=== PATIENT | female | born 1965 | race Caucasian/White ===

== ENCOUNTER 2019-09-14 14:54 | Emergency (ER) | payer BC, MEDICARE, SELFPAY ==
--- NOTE | ~2019-09-14 | CT_ITS ---
EXAMINATION: CT abdomen pelvis w con EXAM DATE: 09/14/2019 16:54 INDICATION: Rectal pressure, constipation. TECHNIQUE: Spiral CT of the abdomen and pelvis was performed following intravenous injection of 100 m L Omnipaque 350. Axial, coronal and sagittal images were reviewed. The dose-length product (DLP) fo r this examination was 1668.54 mGy-cm. The exposure was tailored according to patient size (auto mA exposure control), and iterative reconstruction (ASIR) was used as additional dose reduction techniqu e. There is no prior study for comparison. FINDINGS: There is mild to moderate scattered colonic diverticulosis. There is an abscess in the pouc h of Alvin most likely diverticular in etiology. This measures about 4 x 6 cm in diameter, is mostl y gas-filled or with feculent appearing material, only small amount of fluid, suggests percutaneous c atheter placement might be of limited benefit. There is hepatic steatosis without suspicious focal lesion identified. Spleen, adrenal glands, pancre as are unremarkable. Gallbladder is unremarkable. No biliary obstruction. Portal and splenic veins are patent. Kidneys enhance symmetrically. There is no hydronephrosis. The uterus is anteverted and morphologically normal. The bladder is unremarkable. There is no retroperitoneal or pelvic lym phadenopathy. The appendix is normal. The stomach and small bowel are unremarkable. There is expected amount of c olonic stool. No free intraperitoneal gas. The heart is normal in size. There are no pericardial or pleural effusions. The lung bases are unremarkable. There are no osteoblastic or osteolytic les ions identified. IMPRESSION: 1. Product of Alvin abscess probably complication of acute diverticulitis. 2. Hepatic steatosis. Reviewed, dictated and finalized at location A.
[2019-09-14 15:01] VITALS: BP 187/87; PULSE 98; RESP 18; TEMP 36.6; O2SAT 100
--- NOTE | 2019-09-14 15:20 | PC.NURSE ---
Patient reports that she did have a small BM this morning, but she is complaining of a feeling of pressure in her rectum when she sits. She was having pain earlier but she did take ibuprofen 800mg at 1400. She tells me that her norm is to have loose stools due to IBS. She is not reporting other concerns at this time.
[2019-09-14 16:22] LABS: Basophils Absolute Auto 0.1 K/mm3 (0.0-0.1); Basophils Percent Auto 0.5 % (0.2-1.2); Eosinophils Absolute Auto 0.3 K/mm3 (0-0.3); Eosinophils Percent Auto 2.1 % (0-4.4); Hemoglobin 12.5 g/dL (12.0-15.0); Immature Granulocyte Absolute 0.13 K/mm3 (0.00-0.031); Immature Granulocyte Percent A 0.9 % (0-0.5); Lymphocytes Absolute Auto 1.45 K/mm3 (0.9-3.2); Lymphocytes Percent Auto 9.9 % (18.3-44.2); Mean Corpuscular HGB Conc 32.1 g/dl (32-36); Mean Corpuscular Hemoglobin 27.7 pg (26-34); Mean Corpuscular Volume 86.5 fl (80-100); Mean Platelet Volume 9.4 fl (7.4-10.4); Monocytes Absolute Auto 0.9 K/mm3 (0.1-0.6); Monocytes Percent Auto 6.3 % (2.6-8.5); Neutrophils Absolute Auto 11.7 K/mm3 (1.3-6.7); Neutrophils Percent Auto 80.3 % (45.5-73.1); Platelet Count Result 370 k/mm3 (150-375); Red Blood Count 4.51 M/mm3 (4.2-5.4); Red Cell Distribution Width 14.5 % (11.5-14.5); White Blood Count 14.6 K/mm3 (4.5-10.0)
--- NOTE | 2019-09-14 16:22 | ED.GENADULT ---
HPI - General Adult General Chief complaint: Unspecified Stated complaint: constipation Time Seen by Provider: 09/14/19 15:18 Source: patient Mode of arrival: ambulatory Limitations: no limitations History of Present Illness HPI narrative: Patient presents with chief complaint of abdominal pain that has been increasing since . Patient states she has a history of IBS and normally has diarrhea but this week she has had constipation. Patient states that she has constantly felt the urge to have a bowel movement but when she does in the bathroom her stools are very small and hard. Patient states that she has taken a stool softener and enema without relief of her symptoms. Patient denies a history of hemorrhoids. Patient states she has not had a colonoscopy. Patient states her IBS is managed by Dr. Mi. Patient denies taking any antidiarrheals. Patient states that she is concerned for diverticulitis. Patient denies fever, chills, nausea, vomiting. Related Data Home Medications Medication Instructions Recorded Confirmed amlodipine 09/14/19 duloxetine mg PO 09/14/19 enalapril maleate 09/14/19 hydrochlorothiazide 09/14/19 ibuprofen 09/14/19 levothyroxine 09/14/19 Allergies Allergy/AdvReac Type Severity Reaction Status Date / Time No Known Allergies Allergy Verified 09/14/19 15:06 Review of Systems Review of Systems: Narrative: CONSTITUTIONAL: Denies fever, chills, or sweats. EYES: Denies visual changes, redness, or discharge. ENT: Denies rhinorrhea, congestion, sore throat, or otalgia. CARDIOVASCULAR: Denies chest pain, palpitations, or edema. RESPIRATORY: Denies cough or dyspnea. GASTROINTESTINAL: Reports abdominal pain and constipation Denies nausea, vomiting, or diarrhea. GENITOURINARY: Denies dysuria or hematuria. SKIN: Denies rash or itching. MUSCULOSKELETAL: Denies back pain, joint pain, or myalgia. NEUROLOGIC: Denies headache, numbness, dizziness, or weakness. PSYCHIATRIC: Denies anxiety or depression. [facility] Past Medical History Medical History (Updated 09/14/19 @ 18:50 by Juno Steiner PA-C) Anxiety and depression Hypertension Hypothyroidism Social History Social History (Updated 09/14/19 @ 18:50 by Juno Steiner PA-C) Smoking status: Never smoker Substance use: never Gender identity (if verbalized by the patient): Female Exam Narrative: Exam Narrative: GENERAL: Well-appearing, well-nourished, and in no acute distress. HEAD: Normocephalic, atraumatic. EYES: PERRLA and EOMI. ENT: Nares clear, no rhinorrhea or epistaxis. Mucous membranes moist. Oropharynx without tonsillar hypertrophy exudate or other lesions. Bilateral TMs pearly harris nonbulging CHEST: Clear to auscultation. No respiratory distress. No wheezes rales or rhonchi HEART: Regular rate and rhythm. Normal peripheral pulses. ABDOMEN: Obese. Soft, umbilical tenderness, nondistended, normal active bowel sounds. EXTREMITIES: Normal range of motion. No edema. SKIN: Warm, dry, no rash. NEURO: No focal deficits. Alert and oriented x3. PSYCH: Normal mood and affect. Course Vital Signs Vital signs: Vital Signs Temperature 98 F 09/14/19 15:01 Pulse Rate 98 09/14/19 15:01 Respiratory Rate 18 09/14/19 15:01 Blood Pressure 187/87 H 09/14/19 15:01 Pulse Oximetry 100 09/14/19 15:01 Temperature 97.8 F 09/14/19 18:52 Pulse Rate 87 09/14/19 18:52 Respiratory Rate 20 09/14/19 18:52 Blood Pressure 155/61 H 09/14/19 18:52 Pulse Oximetry 99 09/14/19 18:52 Transfer Transfered to: [facility] Transportation: ALS Transfer rationale: colorectal surgeon management Accepting physician: Dr Hubert Estrada Medical Decision Making MDM Narrative Medical decision making narrative: Consult with Dr Moreno who states due to patients BMI he feels she will be better managed at [facility] or [facility]. Patient requests [facility]. Consult [facility] Colorectal surgeon Dr CARRASCO who accepts patient- Dr Pierce
[2019-09-14 16:24] LABS: Add Urine Microscopic? NO; Appearance Urine Clear (Clear); Bilirubin Urine Negative (Negative); Blood Urine Negative (Negative); Color Urine Yellow (Yellow); Glucose Urine UA Negative (Negative); Ketones Urine Negative (Negative); Leukocyte Esterase Ur Negative LEU/UL (Negative); Nitrate Urine Negative (Negative); Protein Urine Negative (Negative); Specific Grav Ur 1.012 (1.001-1.035); Urobilinogen Urine Negative mg/dL (<2.0)
[2019-09-14 16:33] LABS: Potassium 3.5 mmol/L (3.4-5.0)
[2019-09-14 16:34] LABS: Alanine Aminotransferase 71 U/L (4-35); Albumin Level 4.3 g/dL (3.5-5.1); Alkaline Phosphatase 152 U/L (38-126); Aspartate Amino Transferase 58 U/L (14-36); Bilirubin,Total 0.6 mg/dL (0.2-1.3); Blood Urea Nitrogen 12 mg/dL (7-17); Calcium 9.5 mg/dL (8.4-10.2); Carbon Dioxide 28 mmol/L (22-30); Chloride 100 mmol/L (98-107); Estimated CRCL calculation 128 ml/min; Estimated Glomerular Filt Rate > 60; Glucose 159 mg/dL (65-105); Lipase 56 U/L (23-300); Sodium 135 mmol/L (137-145)
--- NOTE | 2019-09-14 16:46 | PC.NURSE ---
Patient to CT at this time.
[2019-09-14 17:47] VITALS: BP 161/83; PULSE 88; RESP 18; TEMP 36.5; O2SAT 98
[2019-09-14 18:52] VITALS: BP 155/61; PULSE 87; RESP 20; TEMP 36.6; O2SAT 99
== END 2019-09-14 19:51 | disposition short-term general hospital (02) ==
PROVIDERS: Physician Assistant; Emergency Provider Emergency Medicine; PCP Family Medicine
DX: K57.80 Diverticulitis of intestine, part unspecified, with perforation and abscess without bleeding (principal); E03.9 Hypothyroidism, unspecified; K58.9 Irritable bowel syndrome, unspecified
CPT/HCPCS: 36415; 74177; 80053; 81003; 81025; 83690; 85025; 96365; 99285; J2543; Q9967

== ENCOUNTER 2020-09-24 17:14 | Outpatient (CLI) | payer BC, MEDICARE, SELFPAY | END 2020-09-24 17:15 | disposition home or self-care (01) | LOC: ANHCOVIDVC 17:14 | PROVIDERS: PCP Family Medicine | DX: Z23 Encounter for immunization (principal) | CPT/HCPCS: 0001A; 91300 ==

== ENCOUNTER 2020-10-22 16:24 | Outpatient (CLI) | payer OTHER, SELFPAY | END 2020-10-22 16:25 | disposition home or self-care (01) | PROVIDERS: PCP Family Medicine | DX: Z23 Encounter for immunization (principal) | CPT/HCPCS: 0001A; 0002A; 91300 ==

== ENCOUNTER 2021-06-25 07:14 | Inpatient (IN) | payer BC, MEDICARE, SELFPAY ==
[2021-06-25] VITALS (7 sets, daily range): BP systolic 134–154; BP diastolic 57–88; PULSE 80–99; RESP 14–20; TEMP 36.1–39.1; O2SAT 91–100
--- NOTE | ~2021-06-25 | XR_ITS ---
XR abdomen obstructive series 06/27/2021 08:43 Indication: Abdomen pain. Ileus. Procedure: Supine and upright views of abdomen Comparison: CT dated 06/27/2021 Findings: There is free intraperitoneal air underneath the right diaphragm. Bowel gas pattern is nons pecific without definite obstruction. No abnormal calcifications. There is residual contrast in the b ladder. There is abnormal gas in the area of the cecum which likely corresponds to abscess noted on p rior CT examination. Impression: 1: Free intraperitoneal air, consistent with bowel perforation. 2: Atypical gas collection in the right mid abdomen adjacent to the expected location of the sacrum, likely corresponding to abscess seen in recent CT examination. Reviewed, dictated and finalized at location A. NICAL CLERK Impression: 1: Free intraperitoneal air, consistent with bowel perforation. 2: Atypical gas collection in the right mid abdomen adjacent to the expected lo cation of the sacrum, likely corresponding to abscess seen in recent CT examina tion.
--- NOTE | ~2021-06-25 | CT_ITS ---
EXAMINATION: CT guide absc cath placement DATE: 07/04/2021 15:08 INDICATION: Abscess in right paracolic gutter. TECHNIQUE: The procedure including the risks, benefits, and alternatives was discussed with the patie nt. Risks discussed included bleeding and infection. The patient understood the risks and benefits an d agreed to proceed. The skin overlying the abdomen was prepped and draped in usual sterile fashion. Anesthetic was administered with 1% lidocaine subcutaneously. An 18 gauge trochar needle was inserte d into the right paracolic gutter abscess with CT guidance. The needle was exchanged over a wire for 6 [place], 8 [place], 10 [place], and 12 [place] dilators and then for a 12 [place] pigtail catheter. The catheter was stitched to the skin, and a sterile dressing was applied. The mA was adjusted according to patient size. Iterative reconstruction technique was employed. The dose-length product was 185.34 mGy-cm. There were no immediate complications. FINDINGS: CT images demonstrate the catheter within the abscess in right paracolic gutter. 10 mL flui d was aspirated for testing. IMPRESSION: 1. Successful CT-guided right paracolic gutter abscess drainage. 2. 10 mL yellow fluid was sent for aerobic and anaerobic cultures. Reviewed, dictated and finalized at location A. RGICAL MUSIC DIRECTOR
--- NOTE | ~2021-06-25 | CT_ITS ---
EXAMINATION: CT abdomen pelvis w con DATE: 06/25/2021 09:07 INDICATION: Abdominal pain. TECHNIQUE: Computed tomography (CT) of the abdomen and pelvis was performed with 100 mL Omnipaque 350 intravenous contrast. Automated exposure control and iterative reconstruction technique were employe d. The dose-length product was 1509.89 mGy-cm. COMPARISON: CT abdomen and pelvis 09/14/2019 FINDINGS: The visualized portions of the lung bases demonstrate mild atelectasis. No pleural effusion . The heart size is normal. No pericardial effusion. The liver, gallbladder, spleen, pancreas, adrena l glands, and kidneys are normal. There is wall thickening of the sigmoid colon in an area with persi stently small caliber. There is perforation of the sigmoid colon at the site of a diverticula at the proximal aspect of the stricture. There is trace ascites. There is fat stranding in the abdomen predo minantly in the right lower quadrant, consistent with inflammation. There are no dilated loops of bow el. The appendix is normal. There are no pathologically enlarged lymph nodes. There is mild thoracolu mbar spondylosis. IMPRESSION: 1. Acute perforated sigmoid diverticulitis proximal to a chronic stricture of the sigmoid colon. The stricture may be secondary to chronic diverticulitis or less likely malignancy. Reviewed, dictated and finalized at location A. RITY INCIDENT HANDLER IMPRESSION: 1. Acute perforated sigmoid diverticulitis proximal to a chronic stricture of t he sigmoid colon. The stricture may be secondary to chronic diverticulitis or l ess likely malignancy.
--- NOTE | ~2021-06-25 | XR_ITS ---
EXAMINATION: XR chest 2V DATE: 07/02/2021 11:16 INDICATION: Cough TECHNIQUE: frontal and lateral views of the chest were obtained. COMPARISON: Chest radiograph dated 01/17/2019 FINDINGS: Opacities at the posterior left lower lung zone consistent with small pleural effusion with associate d atelectasis and/or pneumonia. Right lung is clear. No pulmonary edema, pneumothorax or right-sided pleural effusion. The cardiomediastinal silhouette is normal. Lower thoracic spondylosis. IMPRESSION: 1. Small left pleural effusion with left basilar atelectasis and/or pneumonia. Reviewed, dictated and finalized at location H. E BLOCK SPLITTER
--- NOTE | ~2021-06-25 | XR_ITS ---
XR abdomen NG/feed tube insert INDICATION: Evaluate NG tube position. TECHNIQUE: Limited KUB perform for evaluating NG tube . COMPARISON: No prior studies for comparison. FINDINGS: NG tube tip in the stomach. Visualized bowel gas pattern is unremarkable. IMPRESSION: 1: NG tube tip in the stomach. Reviewed, dictated and finalized at location A. UNITY ENGAGEMENT COORDINATOR
--- NOTE | ~2021-06-25 | CT_ITS ---
EXAMINATION: CT abdomen pelvis w con DATE: 06/27/2021 06:19 INDICATION: Abdominal pain. TECHNIQUE: Computed tomography (CT) of the abdomen and pelvis was performed with 100 mL Omnipaque 350 intravenous contrast. Automated exposure control and iterative reconstruction technique were employe d. The dose-length product was 1684.61 mGy-cm. COMPARISON: CT abdomen and pelvis 06/25/2021 FINDINGS: The visualized portions of the lung bases demonstrate mild atelectasis. No pleural effusion . The heart size is normal. No pericardial effusion. The liver is normal. The gallbladder is distende d, likely secondary to fasting. The spleen, pancreas, adrenal glands, and kidneys are normal. There i s a stricture of the sigmoid colon with wall thickening. There is perforation of the sigmoid colon at the proximal aspect of the stricture. There are scattered diverticula in the colon. The appendix is normal. There is a large volume of free intraperitoneal gas. There is a 12.4 x 5.8 x 9.0 cm abscess i n right paracolic gutter that is 40% fluid and 60% gas. There is a small volume of ascites in other a reas. There is mild retroperitoneal lymphadenopathy, likely reactive. There is mild thoracolumbar spo ndylosis. IMPRESSION: 1. Acute perforated sigmoid diverticulitis proximal to a chronic stricture of the sigmoid colon with worsened large volume of free intraperitoneal gas and 12.4 x 5.8 x 9.0 cm abscess in right paracolic gutter. The stricture may be secondary to chronic diverticulitis or less likely malignancy. 2. Small volume of ascites. 3. Mild retroperitoneal lymphadenopathy, likely reactive. Reviewed, dictated and finalized at location A. TEACHER IMPRESSION: 1. Acute perforated sigmoid diverticulitis proximal to a chronic stricture of t he sigmoid colon with worsened large volume of free intraperitoneal gas and 12. 4 x 5.8 x 9.0 cm abscess in right paracolic gutter. The stricture may be second cristine to chronic diverticulitis or less likely malignancy. 2. Small volume of ascites. 3. Mild retroperitoneal lymphadenopathy, likely reactive.
--- NOTE | ~2021-06-25 | CT_ITS ---
EXAMINATION: CT abdomen pelvis w con DATE: 07/03/2021 13:54 INDICATION: Diverticulitis. Leukocytosis. TECHNIQUE: Computed tomography (CT) of the abdomen and pelvis was performed with 100 mL Omnipaque-350 intravenous contrast. Automated exposure control and iterative reconstruction technique were employe d. The dose-length product was 1656.77 mGy-cm. COMPARISON: 07/28/2020 FINDINGS: Small left pleural effusion with mild dependent atelectasis in bilateral lower lobes, left greater th an right. Heart size is normal. No pericardial or pleural effusion. Liver, gallbladder, spleen, pancr eas, bilateral adrenal glands and kidneys are normal. Postoperative change of recent partial sigmoide ctomy with left lower quadrant and colostomy and residual Tanner's pouch in the pelvis. Small bowel and appendix are normal. No bowel obstruction. 8.1 x 4.2 x 3.7 cm loculated fluid collection with min imal internal gas along the right paracolic gutter consistent with likely small abscess. A second sma ller loculated gas and fluid collection consistent with abscess measuring 5.4 x 2.9 x 3.8 cm more cau babita in the right pelvis which also appears to contain the right ovary which occupies a significant po rtion of the fluid collection. Bladder, anteverted uterus and left adnexa are unremarkable. Small leodan unt of perihepatic ascites. No pathologically enlarged abdominal or pelvic lymphadenopathy. There is soft tissue edema at the lateral left and right abdominal wall. Mild lumbar and lower thoracic spond ylosis. IMPRESSION: 1. Postoperative change of recent sigmoidectomy with Tanner's pouch and left lower quadrant and colo stomy. 2. 8.1 x 4.2 x 3.7 cm likely abscess at the inferior aspect of the right paracolic gutter. The right ovary appears to occupy a significant portion of a second smaller 5.4 x 2.9 x 3.8 cm possible abscess cavity in the right pelvis. Reviewed, dictated and finalized at [facility]. TRATOR IMPRESSION: 1. Postoperative change of recent sigmoidectomy with Tanner's pouch and left l ower quadrant and colostomy. 2. 8.1 x 4.2 x 3.7 cm likely abscess at the inferior aspect of the right paraco lic gutter. The right ovary appears to occupy a significant portion of a second smaller 5.4 x 2.9 x 3.8 cm possible abscess cavity in the right pelvis.
[2021-06-25] MEDS: SODIUM CHLORIDE 0.9% IV 1,000 ML 999 ML IV CONT ×2 (08:09→10:42)
[2021-06-25] MEDS: ONDANSETRON INJ 4 MG/2 ML VIAL IV PUSH (08:10)
[2021-06-25] MEDS: HYDROmorphone HCL INJ (*CRX) 1 MG/ML SYR 0.5 MG IV PUSH ×5 (08:11→21:05)
[2021-06-25 08:23] LABS: Basophils Absolute Auto 0.1 K/mm3 (0.0-0.1); Basophils Percent Auto 0.5 % (0.2-1.2); Eosinophils Absolute Auto 0.2 K/mm3 (0-0.3); Eosinophils Percent Auto 1.2 % (0-4.4); Hematocrit 42.7 % (37.0-47.0); Hemoglobin 13.7 g/dL (12.0-15.0); Immature Granulocyte Absolute 0.15 K/mm3 (0.00-0.031); Immature Granulocyte Percent A 0.9 % (0-0.5); Lymphocytes Absolute Auto 1.61 K/mm3 (0.9-3.2); Lymphocytes Percent Auto 9.9 % (18.3-44.2); Mean Corpuscular HGB Conc 32.1 g/dl (32-36); Mean Corpuscular Hemoglobin 27.6 pg (26-34); Mean Corpuscular Volume 85.9 fl (80-100); Mean Platelet Volume 9.2 fl (7.4-10.4); Monocytes Absolute Auto 0.8 K/mm3 (0.1-0.6); Monocytes Percent Auto 5.2 % (2.6-8.5); Neutrophils Absolute Auto 13.4 K/mm3 (1.3-6.7); Neutrophils Percent Auto 82.3 % (45.5-73.1); Platelet Count Result 391 k/mm3 (150-375); Red Blood Count 4.97 M/mm3 (4.2-5.4); Red Cell Distribution Width 13.9 % (11.5-14.5); White Blood Count 16.2 K/mm3 (4.5-10.0)
[2021-06-25 08:38] LABS: Alanine Aminotransferase 36 U/L (4-35); Albumin Level 4.6 g/dL (3.5-5.1); Alkaline Phosphatase 213 U/L (38-126); Anion Gap 12 mmol/L (8-16); Aspartate Amino Transferase 23 U/L (14-36); Blood Urea Nitrogen 12 mg/dL (7-17); Calcium 9.9 mg/dL (8.4-10.2); Carbon Dioxide 27 mmol/L (22-30); Chloride 94 mmol/L (98-107); Estimated CRCL calculation 124 ml/min; Estimated Glomerular Filt Rate > 60; Glucose 395 mg/dL (65-110); Lipase 72 U/L (23-300); Potassium 4.1 mmol/L (3.4-5.0); Sodium 133 mmol/L (137-145)
--- NOTE | 2021-06-25 09:56 | ED.ABDPAIN ---
HPI - Abdominal Pain General Chief Complaint: Abdominal Pain Stated Complaint: Pain Lower Right Side Time Seen by Provider: 06/25/21 07:49 Source: patient and family Mode of arrival: ambulatory Limitations: no limitations History of Present Illness HPI narrative: Right lower quadrant pain 3 days ago, constant, no radiation, patient denies any fever, chills, nausea, vomiting, diarrhea, constipation, urinary symptoms. Patient reports increased frequency of urination for the last few months. Last time was seen by a physician over 1 year ago. Patient does not smoke or drink or uses drugs. History of recurrent diverticulitis. Related Data Home Medications Medication Instructions Recorded Confirmed cholecalciferol (vitamin D3) 50 2,000 unit PO DAILY 06/04/19 mcg (2,000 unit) tablet cyanocobalamin (vitamin B-12) 2,500 mcg PO DAILY 06/04/19 2,500 mcg tablet magnesium 250 mg PO DAILY 06/25/21 Allergies Allergy/AdvReac Type Severity Reaction Status Date / Time No Known Allergies Allergy Verified 06/25/21 07:22 Review of Systems Review of Systems: CONSTITUTIONAL: Denies fever, chills, or sweats. EYES: Denies visual changes, redness, or discharge. ENT: Denies rhinorrhea, congestion, sore throat, or otalgia. CARDIOVASCULAR: Denies chest pain, palpitations, or edema. RESPIRATORY: Denies cough or dyspnea. GASTROINTESTINAL: Denies abdominal pain, nausea, vomiting, or diarrhea. GENITOURINARY: Denies dysuria or hematuria. SKIN: Denies rash or itching. MUSCULOSKELETAL: Denies back pain, joint pain, or myalgia. NEUROLOGIC: Denies headache, numbness, or weakness. PSYCHIATRIC: Denies anxiety or depression. [facility] Past Medical History Medical History Abnormal fasting glucose Acute diverticulitis Anxiety and depression Chronic bilateral low back pain without sciatica Chronic depression Chronic neck pain Essential (primary) hypertension Fibromyalgia GERD (gastroesophageal reflux disease) Hypertension Hypothyroidism Hypothyroidism, unspecified Irritable bowel syndrome with diarrhea Mixed hyperlipidemia Osteopenia after menopause Vitamin B12 deficiency anemia Vitamin D deficiency, unspecified Family History Family History Grandparent Family history of malignant neoplasm Social History Social History Smoking status: Never smoker Alcohol intake: current Substance use: never Gender identity (if verbalized by the patient): Female Exam Narrative: General appearance: Well-developed, well-nourished Skin: Normal color Head: Normocephalic, nontraumatic Eyes: Clear conjunctiva ENT: Oropharynx normal, ears normal, nose normal Neck: Supple, nontender Chest and respiratory: Airway patent, no respiratory distress, no accessory muscle use Heart: Regular rate/rhythm Abdomen: Soft, severe tenderness right lower quadrant, positive guarding, no rebound r, no organomegaly, quiet bowel sounds Vascular: Normal peripheral pulses, normal capillary refill. Musculoskeletal: Normal range of motion, nontender back Neurologic: Alert and oriented ?3, [employer] is normal as tested, no gross motor deficit Course Course Emergency Course: Improving, stable Consultations Consultation #1: Dr. [place] Date: 06/25/21 Time: 10:22 Vital Signs Vital signs: Vital Signs Temperature 36.1 C L 06/25/21 07:20 Pulse Rate 99 06/25/21 07:20 Respiratory Rate 18 06/25/21 07:20 Blood Pressure 154/88 H 06/25/21 07:20 Pulse Oximetry 100 06/25/21 07:20 Temperature 36.1 C L 06/25/21 07:20 Pulse Rate 99
[2021-06-25 10:32] LABS: Glucose Point of Care 317 mg/dl (65-105)
[2021-06-25] MEDS: INSULIN HUMAN REGULAR (*BKC) 100 UNITS/ML 10 UNITS IV PUSH (10:39)
[2021-06-25] MEDS: SODIUM CHLORIDE 0.9% IV 1,000 ML 150 ML IV CONT ×2 (13:00→21:06)
--- NOTE | 2021-06-25 15:06 | PM.CNGS ---
Assessment and Plan Assessment and plan (1) Diverticulitis of colon with perforation: Code(s): K57.20 - Diverticulitis of large intestine with perforation and abscess without bleeding Status: Acute Assessment and Plan: conservative mgmt c IV abx, bowel rest, serial exams (2) Acute hyperglycemia: Code(s): R73.9 - Hyperglycemia, unspecified Status: Acute Assessment and Plan: likely undiagnosed diabetic, mgmt per primary team (3) Stricture of sigmoid colon: Code(s): K56.699 - Other intestinal obstruction unspecified as to partial versus complete obstruction Status: Acute Assessment and Plan: will need further investigation in the future beginning c likely endoscopy History of Present Illness Consult details Consult date: 06/25/21 Reason for consult: abdominal pain Requesting physician: Jeffry Champion MD Narrative: The patient is a 56-year-old female presenting to the emergency department complaining of severe lower abdominal pain, right greater than left. The patient reports the pain has been persistent over the last 3 days without any improvement. The patient report no associated symptoms, although she has had a poor appetite. The patient report similar episodes in the past related to known diverticular disease. Review of Systems Constitutional: Constitutional: Denies anorexia, Denies chills, Reports fatigue, Denies fever(s), Reports lethargy, Denies malaise, Denies night sweats, Reports poor appetite, Denies weakness, Denies weight gain and Denies weight loss Eyes: Eyes: Reports no additional eye complaints ENT: Reports system reviewed and no additional complaints, except as documented Cardiovascular: Cardiovascular: Reports no additional cardiovascular complaints Respiratory: Respiratory: Reports no additional respiratory complaints Gastrointestinal: Gastrointestinal: Reports as per HPI, Reports abdominal pain, Denies belching, Denies bloating, Denies change in bowel habits, Denies change in stool character, Denies constipation, Reports GI cramping, Reports loose stools, Denies nausea and Denies vomiting Genitourinary: Genitourinary: Reports no additional female genitourinary complaints Musculoskeletal: Musculoskeletal: Reports no additional musculoskeletal complaints Integumentary/Breasts: Skin/Breast: Reports system reviewed and no additional complaints, except as docu Neurologic: Reports system reviewed and no additional complaints, except as documented Psychiatric: Psychiatric: Reports no additional psychiatric complaints Endocrine: Endocrine: Reports no additional endocrine complaints Hematologic/Lymphatic: Hematologic/Lymphatic: Reports no additional hematologic/lymphatic complaints Allergic/Immunologic: Allergic/Immunologic: Reports no additional allergic/immunologic complaints PMFSH Past Medical History Medical History Abnormal fasting glucose Acute diverticulitis Anxiety and depression Chronic bilateral low back pain without sciatica Chronic depression Chronic neck pain Essential (primary) hypertension Fibromyalgia GERD (gastroesophageal reflux disease) Hypertension Hypothyroidism Hypothyroidism, unspecified Irritable bowel syndrome with diarrhea Mixed hyperlipidemia Osteopenia after menopause Vitamin B12 deficiency anemia Vitamin D deficiency, unspecified Family History Family History Grandparent Family history of malignant neoplasm Social History Social History Smoking status: Never smoker Alcohol intake: current Substance use: never Gender identity (if verbalized by the patient): Female Comments Surgical history - pt denies previous abd surgeries Meds Home Medications and Allergies Home Medications Medication Instructions Recorded Confirmed Type cholecalcifero
--- NOTE | 2021-06-25 15:15 | PC.NURSE ---
Patient transferred inhouse via wheelchair with fluids infusing. Patient called to Eileen GEORG[facility]. Patient denies needs at this time.
--- NOTE | 2021-06-25 19:35 | PM.IMHP ---
H&P: HPI History of Present Illness Date/Time: 06/25/21 1430 this is a 56-year-old female patient who has a history of diverticulosis. Her last colonoscopy was on 12/11/2019 the patient was noted to have diverticulosis and polyps were removed at that time they were benign. The patient came to the emergency room with complaints of right lower abdominal pain for at least 3 days it has been constant no radiation. No fever chills or nausea or vomiting. No constipation or urinary symptoms. The patient stated that she has been having urinary frequency for the last few months. She does not smoke or drink or use drugs. The patient stated she has had diverticulitis in the past and was treated outpatient with antibiotics. Her white count was noted to be 16.2 today. Sodium 133. The patient stated she is not diabetic and her blood sugar was 395 and then 317 today. Surgery has been consulted. She was started on Zosyn and IV fluids. She was also given Dilaudid. Abdominal pelvis CT was read as acute perforated sigmoid diverticulitis proximal to a chronic stricture of the sigmoid colon. The stricture may be secondary to chronic diverticulitis or least likely malignancy. The patient remains NPO. The patient is being admitted to inpatient services on the date of service of 06/25/2021. Chief Complaint: Abdominal pain Review of Systems Review of Systems: All systems reviewed & are unremarkable except as noted in HPI and below Constitutional: Constitutional: Reports as per HPI and Reports no additional constitutional complaints Eyes: Eyes: Reports as per HPI and Reports no additional eye complaints ENT: Reports system reviewed and no additional complaints, except as documented and Reports Normal hearing present Cardiovascular: Cardiovascular: Reports no additional cardiovascular complaints Respiratory: Respiratory: Reports no additional respiratory complaints and Reports no additional respiratory complaints Gastrointestinal: Gastrointestinal: Reports as per HPI and Reports no additional gastrointestinal complaints Musculoskeletal: Musculoskeletal: Reports no additional musculoskeletal complaints Integumentary/Breasts: Skin/Breast: Reports system reviewed and no additional complaints, except as docu and Reports as per HPI Neurologic: Reports system reviewed and no additional complaints, except as documented, Reports as per HPI and Reports Normal hearing present Psychiatric: Psychiatric: Reports no additional psychiatric complaints and Reports as per HPI Endocrine: Endocrine: Reports no additional endocrine complaints Hematologic/Lymphatic: Hematologic/Lymphatic: Reports no additional hematologic/lymphatic complaints Allergic/Immunologic: Allergic/Immunologic: Reports no additional allergic/immunologic complaints [facility] Past Medical History Medical History Abnormal fasting glucose Acute diverticulitis Anxiety and depression Chronic bilateral low back pain without sciatica Chronic depression Chronic neck pain Essential (primary) hypertension Fibromyalgia GERD (gastroesophageal reflux disease) Hypertension Hypothyroidism Hypothyroidism, unspecified Irritable bowel syndrome with diarrhea Mixed hyperlipidemia Osteopenia after menopause Vitamin B12 deficiency anemia Vitamin D deficiency, unspecified Surgical History Surgical History (Updated 06/25/21 @ 19:48 by Mary Rhodes NP) H/O shoulder surgery joan History of back surgery Spinal fusion Hx of rectal polypectomy Family History Family History Grandparent Family history of malignant neoplasm Social History Social History (Updated 06/25/21 @ 19:49 by Mary Rhodes NP) Social History: The patient is a lifelong nonsmoker. 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 She is on disability. She has 1 child. Bouchra
[2021-06-25 21:45] LABS: Glucose Point of Care 256 mg/dl (65-105)
[2021-06-26] MEDS: HYDROmorphone HCL INJ (*CRX) 1 MG/ML SYR 0.5 MG IV PUSH ×4 (00:06→09:34)
[2021-06-26 00:10] LABS: Glucose Point of Care 269 mg/dl (65-105)
[2021-06-26] MEDS: SODIUM CHLORIDE 0.9% IV 1,000 ML 150 ML IV CONT ×3 (05:23→20:15)
[2021-06-26] MEDS: LEVOTHYROXINE SODIUM INJ 100 MCG/5 ML VIAL IV PUSH (05:41)
[2021-06-26 05:59] LABS: Glucose Point of Care 270 mg/dl (65-105)
[2021-06-26 06:00] VITALS: BP 163/60; PULSE 93; RESP 16; TEMP 37.6; O2SAT 93
[2021-06-26] MEDS: INSULIN ASPART (*BKC) 100 UNITS/ML SUB-Q ×2 (06:30→11:46)
[2021-06-26] MEDS: hydrALAZINE HCL 20 MG/ML VIAL 10 MG IV PUSH (06:30)
[2021-06-26 06:57] LABS: Basophils Absolute Auto 0.1 K/mm3 (0.0-0.1); Basophils Percent Auto 0.3 % (0.2-1.2); Eosinophils Absolute Auto 0.1 K/mm3 (0-0.3); Eosinophils Percent Auto 0.6 % (0-4.4); Immature Granulocyte Absolute 0.16 K/mm3 (0.00-0.031); Lymphocytes Absolute Auto 1.33 K/mm3 (0.9-3.2); Lymphocytes Percent Auto 8.3 % (18.3-44.2); Mean Corpuscular HGB Conc 31.6 g/dl (32-36); Mean Corpuscular Hemoglobin 26.9 pg (26-34); Mean Corpuscular Volume 85.2 fl (80-100); Mean Platelet Volume 9.1 fl (7.4-10.4); Monocytes Percent Auto 6.3 % (2.6-8.5); Neutrophils Absolute Auto 13.4 K/mm3 (1.3-6.7); Neutrophils Percent Auto 83.5 % (45.5-73.1); Platelet Count Result 388 k/mm3 (150-375); Red Blood Count 4.46 M/mm3 (4.2-5.4); Red Cell Distribution Width 14.1 % (11.5-14.5); White Blood Count 16.1 K/mm3 (4.5-10.0)
[2021-06-26 07:10] LABS: Anion Gap 10 mmol/L (8-16); Blood Urea Nitrogen 9 mg/dL (7-17); Calcium 8.8 mg/dL (8.4-10.2); Carbon Dioxide 22 mmol/L (22-30); Chloride 98 mmol/L (98-107); Cholesterol 183 mg/dL (0-200); Estimated CRCL calculation 124 ml/min; Estimated Glomerular Filt Rate > 60; Glucose 305 mg/dL (65-110); HDL Direct 30 mg/dL; Potassium 4.1 mmol/L (3.4-5.0); Sodium 130 mmol/L (137-145); Triglycerides 139 mg/dL (<150)
[2021-06-26 07:21] LABS: LDL Cholesterol Direct 108 mg/dL
[2021-06-26 08:32] LABS: Hemoglobin A1C 11.9 % (<5.7)
--- NOTE | 2021-06-26 08:50 | PM.IMPN ---
Progress Note: A&P Assessment and Plan (1) Diverticulitis of colon with perforation: Code(s): K57.20 - Diverticulitis of large intestine with perforation and abscess without bleeding Status: Acute Assessment and Plan: The patient remains NPO surgery has been consulted. Check lactic acid reflux. White count is 16.2. NPO now. No Nausea or vomiting or reflux today. severe point tenderness to her right upper quadrant and right lateral side. last BM was yesterday morning. defer to Gen. Surgery, prefer her to stay NPO with minimal to few ice chips, CT showed colon with perforation and sigmoid stricture. continue her on IV Zosyn. WBC 16.1 today. Ordered urine and blood cultures. Ordered occult stool. PRN pain meds IV ordered. Gen. Surgery recommends conservative medical management: IV antibiotics, bowel rest, and monitoring. (2) Stricture of sigmoid colon: Code(s): K56.699 - Other intestinal obstruction unspecified as to partial versus complete obstruction Status: Acute Assessment and Plan: Patient may need a follow-up with GI specialist for endoscopy and/or colonoscopy. Appreciate GI consult for endoscopy F/U. occult stool ordered. strict I/Os NPO now. No Nausea or vomiting or reflux today. (3) Acute hyperglycemia: Code(s): R73.9 - Hyperglycemia, unspecified Status: Acute Assessment and Plan: New onset diabetes. Check A1c. clinical nurse educator has already been consulted. A1C was 11.9. dietitian as well sliding scale insulin add metformin later on as the patient is NPO at this time. Glucose checks were in the 200s, so I increased her Sliding Scale aspart dosing from low to Moderate level. Will need to add metformin prior to discharge, but not tolerating orals well at this time. (4) Hypothyroidism: Code(s): E03.9 - Hypothyroidism, unspecified Status: Acute Assessment and Plan: Continue with thyroid medicine check thyroid level. We will do thyroid level in the IV half the dose. restart oral levothyroxine when able to take PO again. ordered PAGE [place] (5) Hypertension: Code(s): I10 - Essential (primary) hypertension Status: Acute Assessment and Plan: Patient is NPO at this time p.r.n. hydralazine. restart home HCTZ and enalapril and amlodipine when possible. monitor VS (6) Anxiety and depression: Code(s): F41.9 - Anxiety disorder, unspecified; F32.9 - Major depressive disorder, single episode, unspecified Status: Acute Assessment and Plan: Ativan p.r.n.. restart home meds amitriptline when possible. The patient is NPO. (7) Mixed hyperlipidemia: Code(s): E78.2 - Mixed hyperlipidemia Status: Acute Assessment and Plan: Patient is NPO at this time. restart cardiac diet when possible. (8) Fibromyalgia: Code(s): M79.7 - Fibromyalgia Status: Acute Assessment and Plan: Continue current pain medicines no concern at this time repositioning and moving about hospital room without any difficulty or complaints. Subjective Date/time seen: 06/26/21 08:50 Leah is feeling better today overall. NPO now. She continues to have severe point tenderness to her right upper quadrant and right lateral side. She stated that her last BM was yesterday morning. She is hoping to get some ice chips today. I will defer to Gen. Surgery, prefer her to stay NPO with minima to few ice chips, as the CT showed colon with perforation and sigmoid stricture. I called and discussed the patient with Dr. Dallas, he will re-evaluate her later this afternoon. Will continue her on IV Zosyn. WBC 16.1 today. Ordered urine and blood cultures. Ordered occult stool. PRN pain meds IV ordered. Gen. Surgery recommends conservative medical management: IV antibiotics, bowel rest, and monitoring. Appreciate GI consult for endoscopy F/U. No Nausea or vomiting or reflux today. She stated to me that she i
[2021-06-26 08:58] LABS: Free T4 Free Thyroxine Reflex 1.67 ng/dL (0.78-2.19)
--- NOTE | 2021-06-26 09:33 | PM.PNGS ---
Progress Note: A&P Assessment and Plan (1) Diverticulitis of colon with perforation: Code(s): K57.20 - Diverticulitis of large intestine with perforation and abscess without bleeding Status: Acute Assessment and Plan: exam improved, will start clears, cont IV abx, encourage OOB (2) Stricture of sigmoid colon: Code(s): K56.699 - Other intestinal obstruction unspecified as to partial versus complete obstruction Status: Acute Assessment and Plan: will need further workup as outpt c endoscopy, likely diverticular Subjective Subjective Date/Time Seen: 06/26/21 09:33 feels better this am, decreased pain, hungry Review of Systems Review of Systems: All systems reviewed & are unremarkable except as noted in HPI and below Exam Const: General: cooperative, comfortable and no acute distress Resp: Auscultation: clear to auscultation bilaterally Cardio: Rate: regular rate Rhythm: regular rhythm GI: Inspection: normal to inspection and distended GI Palp: Yes Soft to palpation, Yes Tenderness to palpation present (GI), No Guarding due to palpation present (GI) and No Rigid due to palpation Other: mod TTP RLQ Objective Data Vital Signs Vital Signs: Vital Signs - 24 hr 06/25/21 10:15 06/25/21 15:17 06/25/21 16:30 Temperature 36.7 C 36.9 C Pulse Rate 80 85 99 Respiratory Rate 20 18 16 Blood Pressure 135/82 134/64 145/60 H Pulse Oximetry 97 99 94 06/25/21 16:32 06/25/21 17:08 06/25/21 22:00 Temperature 39.1 C H 36.8 C 37.4 C Pulse Rate 96 Respiratory Rate 14 Blood Pressure 135/57 L Pulse Oximetry 91 06/26/21 06:00 Temperature 37.6 C Pulse Rate 93 Respiratory Rate 16 Blood Pressure 163/60 H Pulse Oximetry 93 Intake/Output Intake/Output: Intake & Output 06/23/21 06/24/21 06/25/21 06/26/21 23:59 23:59 23:59 23:59 Intake Total 3450 1150 Output Total 450 Balance 3450 700 Meds/Results Medications: Active Medications Generic Name Dose Route Start Last Admin Trade Name Freq PRN Reason Stop Dose Admin Dextrose 12.5 gm 06/25/21 19:53 Dextrose 50% 25 Gm/50 Ml Syringe IV PUSH PRN PRN Hypoglycemia Protocol Glucagon 1 mg 06/25/21 19:53 Glucagon For Inj 1 Mg Vial IM PRN PRN Hypoglycemia Protocol Glucose 15 gm 06/25/21 19:53 Glucose Oral Gel 15 Gm Of Glucse In 37.5 Gm Tube PO PRN PRN Hypoglycemia Protocol Hydralazine HCl 10 mg 06/25/21 19:46 06/26/21 06:30 Hydralazine Hcl 20 Mg/Ml Vial IV PUSH 10 mg Q8H PRN Administration Blood Pressure - High Hydromorphone HCl 0.5 mg 06/25/21 14:06 06/26/21 06:33 Hydromorphone Hcl Inj (*Crx) 1 Mg/Ml Syr IV PUSH 0.5 mg Q3H PRN Administration Pain Rated 7-10 Piperacillin/Tazobactam/Dextrose 3.375 gm in 50 mls @ 100 mls/hr 06/25/21 17:00 06/26/21 06:22 Zosyn 3.375 Gm/D5w 50ml Pm IVPB Infused Q6H OMER Infusion Acetaminophen 1,000 mg in 100 mls @ 400 mls/hr 06/25/21 10:15 06/26/21 05:38 Ofirmev 1,000 Mg Ivpb IVPB 06/26/21 10:14 Infused Q6H PRN Infusion Mild Pain (1-3) or Fever Sodium Chloride 1,000 mls @ 150 mls/hr 06/25/21 10:15 06/26/21 05:23 Normal Saline Iv IV CONT 150 mls/hr .Q6H40M OMER Administration Dextrose 1,000 mls @ 100 mls/hr 06/25/21 19:53 Dextrose 5% 1,000 Ml IVPB PRN PRN Hypoglycemia Protocol Insulin Aspart 2 - 5 units 06/26/21 06:10 06/26/21 06:30 Insulin Aspart (*Bkc) 100 Units/Ml SUB-Q 3 units Q6HR OMER Administration Protocol Ketorolac Tromethamine 30 mg 06/26/21 09:26 Ketorolac 30 Mg/Ml Vial (*Bkc) IV PUSH 06/26/21 21:27 Q6H PRN Pain Rated 4-6 Levothyroxine Sodium 100 mcg 06/26/21 06:30 06/26/21 05:41 Levothyroxine Sodium Inj 100 Mcg/5 Ml Vial IV PUSH 100 mcg DAILY@0630 OMER Administration Lorazepam 0.5 mg 06/25/21 20:05 Lorazepam Inj (*Crx) 2 Mg/Ml Vial IV PUSH Q6H PRN Anxiety Radi
--- NOTE | 2021-06-26 10:41 | WPDGICN ---
Assessment and Plan Assessment and plan (1) Stricture of sigmoid colon: Code(s): K56.699 - Other intestinal obstruction unspecified as to partial versus complete obstruction Status: Acute Assessment and Plan: Patient has a chronic stricture of the sigmoid colon. Likely on previous diverticulitis episodes. This will be abated evaluate by colonoscopy but should be deferred for a couple months to allow resolution of acute diverticulitis. (2) Acute diverticulitis: Code(s): K57.92 - Diverticulitis of intestine, part unspecified, without perforation or abscess without bleeding Status: Acute Assessment and Plan: Patient with acute diverticulitis of the sigmoid colon is recurrent. She had 1 episode a year and half ago. Agree with broad-spectrum antibiotics. Follow-up colonoscopy suggested in 1-2 months after this acute infection as resolved. Low residue diet suggested initially but this should be advanced to a high-fiber diet after resolution of infection. Because of recurrent diverticulitis and colon stricturing. We may need to consider surgical therapy. Appreciate surgical follow-up at this time. (3) Obese: Code(s): E66.9 - Obesity, unspecified Status: Acute Assessment and Plan: Weight loss with diet calorie restriction and increase activity encourage. (4) History of colon polyps: Code(s): Z86.010 - Personal history of colonic polyps Status: Acute Assessment and Plan: patient found to have benign colon polyp removed at colonoscopy in September of 2019. Remainder of the colon was limited at that time in follow-up is advised this will be a reassessed at the time of colonoscopy in 1-2 months. Long-term follow-up may be required typically at 5 year intervals. GI Consult Note Consult date/time: 06/26/21 10:41 HPI: Leah Nogueira is a 56 year old female I am asked to see because of diverticulitis. Patient reports a 4-5 day history of right lower quadrant abdominal pain. She notices tenderness in this area. Initially improved with Motrin. Because of persisted she presented the emergency room a CT scan revealed Perforated sigmoid diverticulitis and a chronic stricture of the sigmoid colon. Patient states she is beginning to improve with broad-spectrum antibiotics. She has now been the hospital for a day and a half. Patient's history is significant that in September of 2019 she also had diverticulitis. At that time transferred to [facility] a colonoscopy ultimately was performed which confirmed the stricture but she had poor preparation of the colon. A colon polyp was identified. And removed. Review of Systems Review of Systems: All systems reviewed & are unremarkable except as noted in HPI and below PMFSH Past Medical History Medical History (Updated 06/26/21 @ 10:45 by Jake Aldana MD) Abnormal fasting glucose Acute diverticulitis Anxiety and depression Chronic bilateral low back pain without sciatica Chronic depression Chronic neck pain Essential (primary) hypertension Fibromyalgia GERD (gastroesophageal reflux disease) Hypertension Hypothyroidism Hypothyroidism, unspecified Irritable bowel syndrome with diarrhea Mixed hyperlipidemia Osteopenia after menopause Vitamin B12 deficiency anemia Vitamin D deficiency, unspecified Surgical History Surgical History (Updated 06/26/21 @ 10:45 by Jake Aldana MD) H/O shoulder surgery joan History of back surgery Spinal fusion Hx of rectal polypectomy Family History Family History Grandparent Family history of malignant neoplasm Social History Social History (Updated 06/25/21 @ 19:49 by Mary Rhodes NP) Social History: The patient is a lifelong nonsmoker. 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 She is on disability. She has 1 child. Lifelong nonsmoker. She does not use an
[2021-06-26 11:28] LABS: Total Triiodothyronine (T3) 0.77 NG/ML (0.97-1.69)
[2021-06-26 12:21] LABS: Glucose Point of Care 253 mg/dl (65-105)
[2021-06-26] MEDS: KETOROLAC 30 MG/ML VIAL (*BKC) IV PUSH (12:22)
--- NOTE | 2021-06-26 13:21 | ECG_ITS ---
Measurements Intervals [place] Rate: 101 P: 52 VT: 136 QRS: 13 QRSD: 109 T: 34 QT: 341 QTc: 443 Interpretive Statements SINUS TACHYCARDIA CONSIDER INFERIOR INFARCT, AGE INDETERMINATE BASELINE WANDER- II, III, AVL, AVF, V5-V6 ABNORMAL ECG Electronically Signed On 06-26-2021 17:21:57 PRODUCT SUPPORT SALES REPRESENTATIVE by Willian Orantes D.O.
[2021-06-26 14:45] VITALS: BP 145/56; PULSE 98; RESP 18; TEMP 36.7; O2SAT 94
[2021-06-26 16:44] LABS: Glucose Point of Care 335 mg/dl (65-105)
[2021-06-26 22:00] VITALS: BP 153/66; PULSE 69; RESP 16; TEMP 36.8; O2SAT 93
[2021-06-26 23:26] LABS: Glucose Point of Care 278 mg/dl (65-105)
[2021-06-27] VITALS (19 sets, daily range): BP systolic 106–156; BP diastolic 48–76; PULSE 93–120; RESP 14–30; TEMP 36.3–37.1; O2SAT 93–97
[2021-06-27] MEDS: HYDROmorphone HCL INJ (*CRX) 1 MG/ML SYR 0.5 MG IV PUSH ×4 (03:47→11:34)
[2021-06-27] MEDS: SODIUM CHLORIDE 0.9% IV 1,000 ML 150 ML IV CONT (04:16)
[2021-06-27 05:24] LABS: Hematocrit 36.9 % (37.0-47.0); Hemoglobin 11.6 g/dL (12.0-15.0); Mean Corpuscular HGB Conc 31.4 g/dl (32-36); Mean Corpuscular Hemoglobin 27.1 pg (26-34); Mean Corpuscular Volume 86.2 fl (80-100); Mean Platelet Volume 9.1 fl (7.4-10.4); Platelet Count Result 374 k/mm3 (150-375); Red Blood Count 4.28 M/mm3 (4.2-5.4); Red Cell Distribution Width 14.1 % (11.5-14.5); White Blood Count 11.9 K/mm3 (4.5-10.0)
[2021-06-27 05:44] LABS: Alanine Aminotransferase 19 U/L (4-35); Albumin Level 3.3 g/dL (3.5-5.1); Alkaline Phosphatase 157 U/L (38-126); Anion Gap 12 mmol/L (8-16); Aspartate Amino Transferase 20 U/L (14-36); Bilirubin,Total 0.8 mg/dL (0.2-1.3); Blood Urea Nitrogen 6 mg/dL (7-17); Calcium 8.3 mg/dL (8.4-10.2); Carbon Dioxide 18 mmol/L (22-30); Chloride 100 mmol/L (98-107); Estimated CRCL calculation 146 ml/min; Estimated Glomerular Filt Rate > 60; Glucose 302 mg/dL (65-110); Potassium 3.8 mmol/L (3.4-5.0); Sodium 130 mmol/L (137-145)
[2021-06-27] MEDS: LEVOTHYROXINE SODIUM INJ 100 MCG/5 ML VIAL IV PUSH (05:49)
[2021-06-27 06:51] LABS: Glucose Point of Care 269 mg/dl (65-105)
[2021-06-27] MEDS: CYANOCOBALAMIN 500 MCG TABLET 2500 MCG PO (08:15)
[2021-06-27] MEDS: ZINC SULFATE 220 MG CAPSULE 50 MG PO (08:15)
[2021-06-27] MEDS: MAGNESIUM 13.5 MG TABLET (250 MG MAG GLUCONATE) PO (08:16)
[2021-06-27] MEDS: CHOLECALCIFEROL 1,000 UNITS TABLET 2000 UNITS PO (08:16)
[2021-06-27] MEDS: ENALAPRIL MALEATE 10 MG TABLET 20 MG PO (08:16)
[2021-06-27] MEDS: amLODIPine BESYLATE 5 MG TABLET 10 MG PO (08:16)
[2021-06-27 08:17] LABS: Glucose Point of Care 297 mg/dl (65-105)
[2021-06-27] MEDS: INSULIN ASPART (*BKC) 100 UNITS/ML SUB-Q ×2 (08:23→16:47)
--- NOTE | 2021-06-27 09:23 | WPDGIPROGNO ---
Progress Note: A&P Assessment and Plan (1) Stricture of sigmoid colon: Code(s): K56.699 - Other intestinal obstruction unspecified as to partial versus complete obstruction Status: Acute Assessment and Plan: Patient known to have stricture of the colon felt to be on previous diverticular episodes. This may contribute to her current pain. This will be evaluated by colonoscopy in several months unless her status deteriorates require surgery sooner. (2) Diverticulitis of colon with perforation: Code(s): K57.20 - Diverticulitis of large intestine with perforation and abscess without bleeding Status: Acute Assessment and Plan: Patient complains of diffuse abdominal pain. Because of absent bowel sounds and some tympany on exam will of obtain obstructive series place NG tube for possible ileus. CT scan has been ordered to evaluate as she was felt to have micro perforation on initial exam to make sure this is not extended. Will follow with you. Patient will be NPO for now. Colonoscopy deferred for several months. Continued surgical follow-up advised. (3) History of colon polyps: Code(s): Z86.010 - Personal history of colonic polyps Status: Acute Subjective Date/time seen: 09:23 patient complains of rather severe abdominal pain this morning. Feels as though something broke. Complains of diffuse abdominal pain. No bowel movements since admission the hospital. Review of Systems Review of Systems: All systems reviewed & are unremarkable except as noted in HPI and below Exam Narrative: Patient is alert. Uncomfortable at rest. HEENT exam reveals no icterus. Lungs are clear. Heart without murmur. Abdomen bowel sounds are absent. She is diffusely tender. Objective Data Vital Signs Vital Signs: Vital Signs - 24 hr 06/26/21 14:45 06/26/21 22:00 06/27/21 05:23 Temperature 98.0 F 98.2 F 97.4 F L Pulse Rate 98 69 98 Respiratory Rate 18 16 18 Blood Pressure 145/56 H 153/66 H 137/55 L Pulse Oximetry 94 93 93 06/27/21 05:37 Temperature 97.9 F Pulse Rate 93 Respiratory Rate 18 Blood Pressure 137/55 L Pulse Oximetry 97 Intake/Output Intake/Output: Intake & Output 06/24/21 06/25/21 06/26/21 06/27/21 23:59 23:59 23:59 23:59 Intake Total 3450 4180 1050 Output Total 450 500 Balance 3450 3730 550 Meds/Results Medications: Active Medications Generic Name Dose Route Start Last Admin Trade Name [place]q PRN Reason Stop Dose Admin Amlodipine Besylate 10 mg 06/27/21 09:00 06/27/21 08:16 Amlodipine Besylate 5 Mg Tablet PO 10 mg DAILY OMER Administration Cyanocobalamin 2,500 mcg 06/27/21 09:00 06/27/21 08:15 Cyanocobalamin 500 Mcg Tablet PO 2,500 mcg DAILY OMER Administration Dextrose 12.5 gm 06/25/21 19:53 Dextrose 50% 25 Gm/50 Ml Syringe IV PUSH PRN PRN Hypoglycemia Protocol Dextrose 12.5 gm 06/26/21 17:15 Dextrose 50% 25 Gm/50 Ml Syringe IV PUSH PRN PRN Hypoglycemia Protocol Enalapril Maleate 20 mg 06/27/21 09:00 06/27/21 08:16 Enalapril Maleate 10 Mg Tablet PO 20 mg DAILY OMER Administration Glucagon 1 mg 06/25/21 19:53 Glucagon For Inj 1 Mg Vial IM PRN PRN Hypoglycemia Protocol Glucagon 1 mg 06/26/21 17:15 Glucagon For Inj 1 Mg Vial IM PRN PRN Hypoglycemia Protocol Glucose 15 gm 06/25/21 19:53 Glucose Oral Gel 15 Gm Of Glucse In 37.5 Gm Tube PO PRN PRN Hypoglycemia Protocol Glucose 15 gm 06/26/21 17:15 Glucose Oral Gel 15 Gm Of Glucse In 37.5 Gm Tube PO PRN PRN Hypoglycemia Protocol Hydralazine HCl 10 mg 06/25/21 19:46 06/26/21 06:30 Hydralazine Hcl 20 Mg/Ml Vial IV PUSH 10 mg Q8H PRN Administration Blood Pressure - High Hydromorphone HCl 0.5 mg 06/25/21 14:06 06/27/21 08:16 Hydromorphone Hcl Inj (*Crx) 1 Mg/Ml Syr IV PUSH 0.5 mg Q3H PRN Administration
--- NOTE | 2021-06-27 10:36 | PM.PNGS ---
Progress Note: A&P Assessment and Plan (1) Diverticulitis of colon with perforation: Code(s): K57.20 - Diverticulitis of large intestine with perforation and abscess without bleeding Status: Acute Assessment and Plan: imaging reviewed c radiologyevelin d/w pt and , pt would like to have perc drain placed by IR as opposed to likely Hartmans' procedure at this point, pt understands she may end up having emergent surgery either way, will setup for IR placed perc drain, cont IV abx, NPO Subjective Subjective Date/Time Seen: 06/27/21 10:36 Pt seen and examined this am. Pt reports acute worsening of pain after episode of straining during urination this am. Pt very uncomfortable c constant, sharp pain in lower abdomen. Pt also c nausea. Review of Systems Review of Systems: All systems reviewed & are unremarkable except as noted in HPI and below Exam Const: General: cooperative, acute distress moderate and uncomfortable Orientation/consciousness: patient oriented x3 Resp: Effort & Inspection: normal respiratory effort Auscultation: clear to auscultation bilaterally Cardio: Rate: regular rate Rhythm: regular rhythm GI: Inspection: normal to inspection and distended GI Palp: Yes Soft to palpation, Yes Tenderness to palpation present (GI), Yes Guarding due to palpation present (GI) and No Rigid due to palpation Other: soft, mod dist, worsened TTP lower abd c vol guarding Objective Data Vital Signs Vital Signs: Vital Signs - 24 hr 06/26/21 14:45 06/26/21 22:00 06/27/21 05:23 Temperature 36.7 C 36.8 C 36.3 C L Pulse Rate 98 69 98 Respiratory Rate 18 16 18 Blood Pressure 145/56 H 153/66 H 137/55 L Pulse Oximetry 94 93 93 06/27/21 05:37 Temperature 36.6 C Pulse Rate 93 Respiratory Rate 18 Blood Pressure 137/55 L Pulse Oximetry 97 Intake/Output Intake/Output: Intake & Output 06/24/21 06/25/21 06/26/21 06/27/21 23:59 23:59 23:59 23:59 Intake Total 3450 4180 1050 Output Total 450 500 Balance 3450 3730 550 Meds/Results Medications: Active Medications Generic Name Dose Route Start Last Admin Trade Name Freq PRN Reason Stop Dose Admin Amlodipine Besylate 10 mg 06/27/21 09:00 06/27/21 08:16 Amlodipine Besylate 5 Mg Tablet PO 10 mg DAILY OMER Administration Cyanocobalamin 2,500 mcg 06/27/21 09:00 06/27/21 08:15 Cyanocobalamin 500 Mcg Tablet PO 2,500 mcg DAILY OMER Administration Dextrose 12.5 gm 06/25/21 19:53 Dextrose 50% 25 Gm/50 Ml Syringe IV PUSH PRN PRN Hypoglycemia Protocol Dextrose 12.5 gm 06/26/21 17:15 Dextrose 50% 25 Gm/50 Ml Syringe IV PUSH PRN PRN Hypoglycemia Protocol Enalapril Maleate 20 mg 06/27/21 09:00 06/27/21 08:16 Enalapril Maleate 10 Mg Tablet PO 20 mg DAILY OMER Administration Glucagon 1 mg 06/25/21 19:53 Glucagon For Inj 1 Mg Vial IM PRN PRN Hypoglycemia Protocol Glucagon 1 mg 06/26/21 17:15 Glucagon For Inj 1 Mg Vial IM PRN PRN Hypoglycemia Protocol Glucose 15 gm 06/25/21 19:53 Glucose Oral Gel 15 Gm Of Glucse In 37.5 Gm Tube PO PRN PRN Hypoglycemia Protocol Glucose 15 gm 06/26/21 17:15 Glucose Oral Gel 15 Gm Of Glucse In 37.5 Gm Tube PO PRN PRN Hypoglycemia Protocol Hydralazine HCl 10 mg 06/25/21 19:46 06/26/21 06:30 Hydralazine Hcl 20 Mg/Ml Vial IV PUSH 10 mg Q8H PRN Administration Blood Pressure - High Hydromorphone HCl 0.5 mg 06/25/21 14:06 06/27/21 08:16 Hydromorphone Hcl Inj (*Crx) 1 Mg/Ml Syr IV PUSH 0.5 mg Q3H PRN Administration Pain Rated 7-10 Piperacillin/Tazobactam/Dextrose 3.375 gm in 50 mls @ 100 mls/hr 06/25/21 17:00 06/27/21 04:47 Zosyn 3.375 Gm/D5w 50ml Pm IVPB Infused Q6H OMER Infusion Dextrose 1,000 mls @ 100 mls/hr 06/25/21 19:53 Dextrose 5% 1,000 Ml IVPB PRN PRN Hypoglycemia Protocol Dextrose 1,000 mls @
[2021-06-27] MEDS: PANTOPRAZOLE SODIUM IV 40 MG VIAL IV PUSH ×2 (10:54→20:23)
[2021-06-27] MEDS: ONDANSETRON INJ 4 MG/2 ML VIAL IV PUSH ×2 (10:54→16:30)
[2021-06-27 11:12] LABS: INR 1.1; Prothrombin Time 14.3 Seconds (11.1-14.7)
[2021-06-27 11:13] LABS: Partial Thromboplastin Time 30.1 SECONDS (22.3-36.8)
[2021-06-27 12:00] LABS: Glucose Point of Care 312 mg/dl (65-105)
--- NOTE | 2021-06-27 12:08 | PCWOUND ---
WOCN NOTE Marked left lower abdomen for best suggested colostomy placement site, patient has two thick skin folds at the abdomen. marked site above the skin folds. placed Black Marker X at site and covered with transparent dressing.
[2021-06-27] MEDS: LACTATED RINGERS 1,000 ML 30 ML IV CONT ×2 (12:15→15:35)
--- NOTE | 2021-06-27 12:22 | PM.IMPN ---
Progress Note: A&P Assessment and Plan (1) Diverticulitis of colon with perforation: Code(s): K57.20 - Diverticulitis of large intestine with perforation and abscess without bleeding Status: Acute Assessment and Plan: CT s shows acute perforated sigmoid diverticulitis proximal to chronic stricture of the sigmoid colon with large volume of free intraperitoneal gas and abscess of the right pericolic gutter Appreciate general surgery Gastroenterology consultation Continue with NG decompression. NPO diet Planning for exploratory laparotomy this afternoon with possible resection Continue broad-spectrum IV Zosyn Blood cultures are pending Leukocytosis is improving. Lactic is within normal limits. She remains afebrile Supportive care. Analgesics available as needed (2) Stricture of sigmoid colon: Code(s): K56.699 - Other intestinal obstruction unspecified as to partial versus complete obstruction Status: Acute Assessment and Plan: [place] to be due to prior episode of diverticulitis. She will need outpatient colonoscopy, which will be deferred for several months upon resolution of acute infection (3) New onset type 2 diabetes mellitus: Code(s): E11.9 - Type 2 diabetes mellitus without complications Status: Acute Assessment and Plan: Fasting glucose elevated, A1c evaluated found to be 11.9 consistent with diabetes. 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 Will increase to high-dose sliding scale. Hesitant to add long-acting insulin at this time she is NPO but will consider this as her diet is advanced. (4) Hypothyroidism: Code(s): E03.9 - Hypothyroidism, unspecified Status: Acute Assessment and Plan: TSH slightly elevated with normal T4. Continue IV levothyroxine while NPO She will need repeat reflex TSH in several weeks upon resolution of acute illness (5) Hypertension: Code(s): I10 - Essential (primary) hypertension Status: Acute Assessment and Plan: Blood pressure reviewed and has been reasonably controlled today. Last BP 137/55. Home antihypertensives are on hold while NPO P.r.n. hydralazine for systolic BP >170 Subjective Date/time seen: 06/27/21 12:22 Interval history: Date of service: 06/27/2021 Leah Nogueira is a 56-year-old female with a history of diverticulitis, hypertension, hypothyroidism, IBS who is seen in follow for perforated diverticulitis. She is feeling very poorly today. States that her stomach is like a ?balloon.? She feels very crampy and distended, which she rates as 10/10. She also has mid abdominal stabbing pain. She was able to tolerate clear liquids yesterday but today has not been able to keep anything down. She has felt nauseous all day but has not vomited. She complains of very significant acid reflux. She had a bowel movement yesterday which she states was formed. Denies any episodes of diarrhea. Denies fever, chills, dizziness, lightheadedness. No shortness of breath, cough, or chest pain. Review of Systems Review of Systems: All systems reviewed & are unremarkable except as noted in HPI and below Exam Narrative: Ms. Nogueira is an obese, well-appearing 56-year-old female who is sitting in a chair by the bedside. She appears comfortable and is in NARD. Neuro: awake, alert and oriented x4, speech clear, no focal neuro deficits noted HEENMT: normocephalic, atraumatic, EOMI, sclerae anicteric, moist oral mucosa Neck: supple, no lymphadenopathy Respiratory: clear to auscultation bilaterally, nonlabored breathing Cardio: regular rate, regular rhythm with S1-S2 Abdomen: Distended, normoactive bowel sounds, soft, diffusely tender to palpation, no rigidity or guarding Extremities: n trace edema, no erythema or tenderness to palpation, DP pulses 2+
--- NOTE | 2021-06-27 12:27 | WPDHPUPDATE1 ---
History and Physical Update Update Date/Time: 06/27/21 12:27 History and Physical has been reviewed, including an updated exam of the patient. There are NO changes in the patient's condition. Risks, benefits, and alternatives have been discussed and questions answered. Patient agrees to proceed with procedure. After further consideration, decision to proceed c emergent operative intervention and likely Hartmans' procedure
--- NOTE | 2021-06-27 12:43 | WPDANESEPPF ---
Anes - Initial Pre Proc Eval Procedure: Operation Date: 06/27/21 13:30 Proposed Procedures p Exploratory Laparotomy, Possible Bowel Resection,Possible Ostomy - Jeri Dallas MD Date/Time: 06/27/21 12:43 Surgeon: Jennifer Cuello PA-C Pre Op Diagnosis: Pain Lower Right Side Patient Data Age: 56 Gender: F Height: 1.68 m Weight: 135 kg Last Vital Signs Temp 36.6 C 06/27/21 05:37 Pulse 93 06/27/21 05:37 Resp 18 06/27/21 05:37 BP 137/55 L 06/27/21 05:37 Pulse Ox 97 06/27/21 05:37 Allergies Allergy/AdvReac Type Severity Reaction Status Date / Time No Known Allergies Allergy Verified 06/25/21 07:22 Home Medications Medication Instructions Recorded Confirmed Type cholecalciferol (vitamin D3) 50 2,000 unit PO DAILY 06/04/19 06/25/21 History mcg (2,000 unit) tablet cyanocobalamin (vitamin B-12) 2,500 mcg PO DAILY 06/04/19 06/25/21 History 2,500 mcg tablet enalapril maleate 20 mg tablet 20 mg PO DAILY #90 tablet 03/21/21 06/25/21 Rx ibuprofen 800 mg tablet 800 mg PO TID PRN #270 tablet 03/21/21 06/25/21 Rx amlodipine 10 mg tablet 10 mg PO DAILY #90 tablet 04/22/21 06/25/21 Rx hydrochlorothiazide 12.5 mg tablet 12.5 mg PO QAM #90 tablet 05/06/21 06/25/21 Rx levothyroxine 200 mcg PO QAM 06/25/21 06/25/21 History magnesium 250 mg PO DAILY 06/25/21 06/25/21 History zinc sulfate 50 mg PO DAILY 06/25/21 06/25/21 History amitriptyline 10 mg PO HS PRN 06/26/21 06/26/21 History Laboratory Tests 06/26/21 06/26/21 06/27/21 16:40 23:20 04:52 WBC 11.9 K/mm3 H K/mm3 (4.5-10.0) RBC 4.28 M/mm3 M/mm3 (4.2-5.4) Hgb 11.6 g/dL L g/dL (12.0-15.0) Hct 36.9 % L % (37.0-47.0) MCV 86.2 fl fl (80-100) MCH 27.1 pg pg (26-34) MCHC 31.4 g/dl L g/dl (32-36) RDW 14.1 % % (11.5-14.5) Plt Count 374 k/mm3 k/mm3 (150-375) MPV 9.1 fl fl (7.4-10.4) PT INR APTT Sodium Potassium Chloride Carbon Dioxide Anion Gap BUN Creatinine Estim Creat Clear Calc Estimated GFR Glucose POC Capillary Glucose 335 mg/dl H mg/dl 278 mg/dl H mg/dl (65-105) (65-105) Calcium Total Bilirubin AST ALT Alkaline Phosphatase Total Protein Albumin 06/27/21 06/27/21 06/27/21 04:52 06:48 08:12 WBC RBC Hgb Hct MCV MCH MCHC RDW Plt Count MPV PT INR APTT Sodium 130 mmol/L L mmol/L (137-145) Potassium 3.8 mmol/L mmol/L (3.4-5.0) Chloride 100 mmol/L mmol/L (98-107) Carbon Dioxide 18 mmol/L L mmol/L (22-30) Anion Gap 12 mmol/L mmol/L (8-16) BUN 6 mg/dL L mg/dL (7-17) Creatinine 0.50 mg/dL L mg/dL (0.7-1.0) Estim Creat Clear Calc 146 ml/min ml/min Estimated GFR > 60 (59 - ) Glucose 302 mg/dL H mg/dL (65-110) POC Capillary Glucose 269 mg/dl H mg/dl 297 mg/dl H mg/dl (65-105) (65-105) Calcium 8.3 mg/dL L mg/dL (8.4-10.2) Total Bilirubin 0.8 mg/dL mg/dL (0.2-1.3) AST 20 U/L U/L (14-36) ALT 19 U/L U/L (4-35) Alkaline Phosphatase 157 U/L H U/L (38-126) Total Protein 6.0 g/dL L g/dL (6.3-8.2) Albumin 3.3 g/dL L g/dL (3.5-5.1) 06/27/21 06/27/21 10:53 11:35 WBC RBC Hgb Hct MCV MCH MCHC RDW Plt Count MPV PT 14.3 Seconds Seconds (11.1-14.7) INR 1.1 APTT 30.1 SECONDS SECONDS (22.3-36.8
[2021-06-27] MEDS: SOD HYALURONATE/CARBOXYMETHYLCELLULOSE 5X6 1 EACH TOPICAL (14:20)
--- NOTE | 2021-06-27 15:29 | W.PM.PROC2 ---
Procedure Note - Detailed Date of Procedure 06/27/21 Pre-op Diagnosis Perforated sigmoid diverticulitis, sigmoid stricture, intra-abdominal abscess, sepsis Post-op Diagnosis same Procedure Performed Deny's procedure, intra-abdominal washout Surgeon Jeri Dallas MD Anesthesia general Indications 56-year-old female presenting with perforated diverticulitis, initially managed conservatively. Patient progressively worsened and repeat imaging significant for worsening perforation, intra-abdominal abscess. The patient was noted to become progressively septic and decision was made for emergent intervention Findings perforated sigmoid diverticulitis proximal to sigmoid stricture, intra-abdominal sepsis, abscess Description of Procedure The patient was taken to the operating room and placed in the supine position. After adequate induction of general anesthesia, the patient was prepped and draped in the normal sterile fashion. A time-out was then done to verify the patient's identity, as well as the procedure being performed. A generous midline incision was then done and taken down into the peritoneal cavity. Upon entering the peritoneum, a large amount of free air was evacuated. There was then noted to be a copious amount of intra-abdominal ascites, as well as feculent contamination. The abdomen was washed out at this point, a noting a large intra-abdominal abscess in the right mid, right lower abdomen. The entire abdominal cavity including the contents were noted to be massively inflamed. I then did an extensive lysis of adhesions, freeing up the small bowel. I then was able to identify the left colon. Again the left colon was massively dilated and inflamed. Continuing my dissection down to the distal sigmoid, an area of perforation was noted. This perforation was noted to be quite extensive with active leakage. Distal to the perforation was an area of stricture. Using very careful dissection, I was able to identify the distal sigmoid colon and upper rectum. At this point, I was able to get around the distal sigmoid, upper rectum. I then used a thick tissue contour stapler to transect this area. I then used the LigaSure to take down the mesenteric attachments of the distal sigmoid colon. I then found an area for our proximal transection in the mid sigmoid colon. Although this area was inflamed and dilated, it would be chosen as an optimal ostomy site given the entirety of the colon was inflamed. I transected the mid sigmoid colon with a 75 HELENA stapler x2. All mesenteric attachments were then taken down with the LigaSure device. I then removed the specimen and sent this to pathology for further review. I then examined the pelvis and hemostasis was noted. I 1. PDS suture x2 on the rectal stump for later identification. I also placed Seprafilm in this area in anticipation of reversal in the future. I then left a 15 [place] drain in the pelvis coming out through a small incision in the right lower quadrant. At this point, I prepared the ostomy. Given the patient's body habitus, I mobilized the splenic flexure to allow mobilization of the ostomy. Once this was done, it was noted that we had plenty of length for ostomy creation. I then chose a site in the left mid abdomen for the ostomy. The ostomy site was opened and a cruciate incision was made in the fascia and the rectus was split in the direction of its fibers. I was able to get 2 fingerbreadths through the ostomy site. I then was able to bring the mid sigmoid colon that was previously transected through this site. I then once again copiously irrigated the abdomen. No other pathology or abscess cavities were seen. Then closed the fascia with looped 0 PDS suture x2. The skin was closed with skin shawn. I then matured the ostomy with interrupted 3-0 Vicryl suture. Sterile dressing and ostomy supplies were placed. The patient tolerated the procedure well and was extubated in the operat
[2021-06-27 15:53] LABS: Glucose Point of Care 333 mg/dl (65-105)
[2021-06-27] MEDS: diphenhydrAMINE HCl INJ 50 MG/ML VIAL 12.5 MG IV PUSH (17:05)
--- NOTE | 2021-06-27 17:50 | PC.NURSE ---
Returned from OR per bed. Report received from DESTINI Madsen .
[2021-06-27] MEDS: SODIUM CHLORIDE 0.9% IV 1,000 ML 100 ML IV CONT (18:13)
[2021-06-27 19:22] LABS: Glucose Point of Care 331 mg/dl (65-105)
[2021-06-27] MEDS: MORPHINE SULFATE (*CRX) 2 MG/ML INJ IV PUSH ×2 (20:23→23:30)
[2021-06-27 23:36] LABS: Glucose Point of Care 344 mg/dl (65-105)
[2021-06-28] VITALS (9 sets, daily range): BP systolic 134–148; BP diastolic 56–63; PULSE 107–113; RESP 20; TEMP 36.1–36.9; O2SAT 87–98
[2021-06-28] MEDS: SODIUM CHLORIDE 0.9% IV 1,000 ML 100 ML IV CONT ×2 (03:11→14:39)
[2021-06-28] MEDS: MORPHINE SULFATE (*CRX) 2 MG/ML INJ IV PUSH ×5 (03:11→17:02)
[2021-06-28 05:31] LABS: Hematocrit 36.9 % (37.0-47.0); Hemoglobin 11.7 g/dL (12.0-15.0); Mean Corpuscular HGB Conc 31.7 g/dl (32-36); Mean Corpuscular Hemoglobin 27.5 pg (26-34); Mean Corpuscular Volume 86.8 fl (80-100); Mean Platelet Volume 8.9 fl (7.4-10.4); Platelet Count Result 442 k/mm3 (150-375); Red Blood Count 4.25 M/mm3 (4.2-5.4); Red Cell Distribution Width 14.5 % (11.5-14.5); White Blood Count 12.4 K/mm3 (4.5-10.0)
[2021-06-28] MEDS: LEVOTHYROXINE SODIUM INJ 100 MCG/5 ML VIAL IV PUSH (05:58)
[2021-06-28 06:03] LABS: Alanine Aminotransferase 14 U/L (4-35); Albumin Level 2.8 g/dL (3.5-5.1); Alkaline Phosphatase 107 U/L (38-126); Anion Gap 13 mmol/L (8-16); Aspartate Amino Transferase 15 U/L (14-36); Bilirubin,Total 0.7 mg/dL (0.2-1.3); Blood Urea Nitrogen 13 mg/dL (7-17); Calcium 8.3 mg/dL (8.4-10.2); Carbon Dioxide 16 mmol/L (22-30); Chloride 103 mmol/L (98-107); Estimated CRCL calculation 95 ml/min; Estimated Glomerular Filt Rate > 60; Glucose 364 mg/dL (65-110); Potassium 3.8 mmol/L (3.4-5.0); Sodium 132 mmol/L (137-145)
[2021-06-28 06:28] LABS: Glucose Point of Care 334 mg/dl (65-105)
[2021-06-28] MEDS: INSULIN ASPART (*BKC) 100 UNITS/ML SUB-Q ×3 (06:28→17:02)
[2021-06-28 07:47] LABS: Glucose Point of Care 311 mg/dl (65-105)
[2021-06-28] MEDS: ENOXAPARIN 40 MG/0.4 ML SYRINGE SUB-Q (08:15)
[2021-06-28] MEDS: PANTOPRAZOLE SODIUM IV 40 MG VIAL IV PUSH ×2 (08:15→20:31)
[2021-06-28] MEDS: INSULIN ASPART (*BKC) 100 UNITS/ML 8 UNITS SUB-Q (08:16)
--- NOTE | 2021-06-28 08:42 | WPDANESPN ---
Anes - Prog Note Post-Op Date/Time: 06/28/21 08:42 Cardiovascular status: normal Respiratory status: normal Airway patency: baseline Mental status: baseline Post-Op hydration status: normal Vital Signs: Last Vital Signs Temp 36.1 C L 06/28/21 05:33 Pulse 110 H 06/28/21 05:33 Resp 20 06/28/21 05:33 BP 148/63 H 06/28/21 05:33 Pulse Ox 94 06/28/21 05:33 Pain Score (VAS): 0 I/O: Intake & Output 06/27/21 06/28/21 06/28/21 23:59 07:59 15:59 Intake Total 250 1150 Output Total 380 1375 Balance -130 -225 Laboratory Tests 06/28/21 05:06 06/28/21 05:06 06/27/21 06/27/21 06/27/21 10:53 11:35 15:50 WBC RBC Hgb Hct MCV MCH MCHC RDW Plt Count MPV Immature Gran % (Auto) Neut % (Auto) Lymph % (Auto) [place] % (Auto) Eos % (Auto) Baso % (Auto) Lymph # (Auto) [place] # (Auto) Eos # (Auto) Baso # (Auto) Abs Immat Gran (auto) Absolute Neuts (auto) Absolute Nucleated RBC Nucleated RBC % Platelet Estimate PT 14.3 INR 1.1 APTT 30.1 Sodium Potassium Chloride Carbon Dioxide Anion Gap BUN Creatinine Estim Creat Clear Calc Estimated GFR Glucose POC Capillary Glucose 312 H 333 H Calcium Total Bilirubin AST ALT Alkaline Phosphatase Total Protein Albumin 06/27/21 06/27/21 06/28/21 19:17 23:28 05:06 WBC RBC Hgb Hct MCV MCH MCHC RDW Plt Count MPV Immature Gran % (Auto) Neut % (Auto) Lymph % (Auto) [place] % (Auto) Eos % (Auto) Baso % (Auto) Lymph # (Auto) [place] # (Auto) Eos # (Auto) Baso # (Auto) Abs Immat Gran (auto) Absolute Neuts (auto) Absolute Nucleated RBC Nucleated RBC % Platelet Estimate PT INR APTT Sodium 132 L Potassium 3.8 Chloride 103 Carbon Dioxide 16 L Anion Gap 13 BUN 13 D Creatinine 0.80 Estim Creat Clear Calc 95 Estimated GFR > 60 Glucose 364 H POC Capillary Glucose 331 H 344 H Calcium 8.3 L Total Bilirubin 0.7 AST 15 ALT 14 Alkaline Phosphatase 107 Total Protein 5.0 L Albumin 2.8 L 06/28/21 06/28/21 06/28/21 05:06 06:24 07:44 WBC 12.4 H RBC 4.25 Hgb 11.7 L Hct 36.9 L MCV 86.8 MCH 27.5 MCHC 31.7 L RDW 14.5 Plt Count 442 H MPV 8.9 Immature Gran % (Auto) Not Reportable Neut % (Auto) Not Reportable Lymph % (Auto) Not Reportable [place] % (Auto) Not Reportable Eos % (Auto) Not Reportable Baso % (Auto) Not Reportable Lymph # (Auto) Not Reportable [place] # (Auto) Not Reportable Eos # (Auto) Not Reportable Baso # (Auto) Not Reportable Abs Immat Gran (auto) Not Reportable Absolute Neuts (auto) Not Reportable Absolute Nucleated RBC Not Reportable Nucleated RBC % Not Reportable Platelet Estimate Pending PT INR APTT Sodium Potassium Chloride Carbon Dioxide Anion Gap BUN Creatinine Estim Creat Clear Calc Estimated GFR Glucose POC Capillary Glucose 334 H 311 H Calcium Total Bilirubin AST ALT Alkaline Phosphatase Total Protein Albumin Post-procedural complaints: none Patient Feedback: Patient satisfied with anesthetic care.
[2021-06-28 08:44] LABS: Band Neutrophils Percent 25 % (0-6); Lymphocytes Absolute Manual 0.62 K/mm3 (1.1-4.5); Metamyelocytes Percent 1 %; Monocytes Absolute Manual 0.86 K/mm3 (0.1-0.90); Monocytes Percent Manual 7 % (3-9); Neutrophils Absolute Manual 10.78 K/mm3 (1.7-7.2); Neutrophils Percent Manual 62 % (46-73); Total Cells Counted 100
[2021-06-28 08:45] LABS: Platelet Estimate Increased (Adequate)
[2021-06-28 10:18] LABS: Glucose Point of Care 269 mg/dl (65-105)
--- NOTE | 2021-06-28 11:35 | PM.PNGS ---
Progress Note: A&P Assessment and Plan (1) Diverticulitis of colon with perforation: Code(s): K57.20 - Diverticulitis of large intestine with perforation and abscess without bleeding Status: Acute Assessment and Plan: s/p Hartmanns', cont routine postop care, encourage OOB/IS, cont NG decompression for now, ok to have sips of clears, cont IV abx, await path Subjective Subjective Date/Time Seen: 06/28/21 11:35 feels much better, moderate incisional tenderness rober c movt Review of Systems Review of Systems: All systems reviewed & are unremarkable except as noted in HPI and below Exam Const: General: cooperative, comfortable and no acute distress Orientation/consciousness: patient oriented x3 Resp: Effort & Inspection: normal respiratory effort Auscultation: clear to auscultation bilaterally Cardio: Rate: regular rate Rhythm: regular rhythm GI: Inspection: normal to inspection, distended and incision GI Palp: Yes Soft to palpation and Yes Tenderness to palpation present (GI) Other: ostomy - slightly dusky, viable Objective Data Vital Signs Vital Signs: Vital Signs - 24 hr 06/27/21 12:20 06/27/21 15:35 06/27/21 15:50 Temperature 37.1 C Pulse Rate 120 H 111 H 112 H Respiratory Rate 14 25 H 28 H Blood Pressure 131/63 152/58 H 155/56 H Pulse Oximetry 93 96 93 06/27/21 16:05 06/27/21 16:20 06/27/21 16:35 Temperature Pulse Rate 112 H 111 H 110 H Respiratory Rate 30 H 30 H 28 H Blood Pressure 154/56 H 156/62 H 144/60 H Pulse Oximetry 94 93 93 06/27/21 16:50 06/27/21 17:05 06/27/21 17:20 Temperature Pulse Rate 112 H 112 H 109 H Respiratory Rate 28 H 28 H 29 H Blood Pressure 142/63 H 106/76 150/48 H Pulse Oximetry 93 94 93 06/27/21 17:35 06/27/21 17:50 06/27/21 18:05 Temperature 36.4 C 36.6 C Pulse Rate 110 H 111 H 113 H Respiratory Rate 30 H 16 18 Blood Pressure 144/51 H 143/53 H 146/55 H Pulse Oximetry 93 93 95 06/27/21 18:35 06/27/21 19:39 06/27/21 20:00 Temperature 36.7 C Pulse Rate 110 H 113 H Respiratory Rate 22 H 18 Blood Pressure 135/55 L Pulse Oximetry 94 93 96 06/27/21 20:06 06/27/21 23:41 06/28/21 05:33 Temperature 36.6 C 36.4 C 36.1 C L Pulse Rate 113 H 107 H 110 H Respiratory Rate 18 18 20 Blood Pressure 147/61 H 143/55 H 148/63 H Pulse Oximetry 96 93 94 Intake/Output Intake/Output: Intake & Output 06/25/21 06/26/21 06/27/21 06/28/21 23:59 23:59 23:59 23:59 Intake Total 3450 4180 1350 1200 Output Total 957 025 9237 Balance 3450 3730 470 -175 Meds/Results Medications: Active Medications Generic Name Dose Route Start Last Admin Trade Name Freq PRN Reason Stop Dose Admin Dextrose 12.5 gm 06/25/21 19:53 Dextrose 50% 25 Gm/50 Ml Syringe IV PUSH PRN PRN Hypoglycemia Protocol Dextrose 12.5 gm 06/26/21 17:15 Dextrose 50% 25 Gm/50 Ml Syringe IV PUSH PRN PRN Hypoglycemia Protocol Enoxaparin Sodium 40 mg 06/28/21 09:00 06/28/21 08:15 Enoxaparin 40 Mg/0.4 Ml Syringe SUB-Q 40 mg DAILY OMER Administration Glucagon 1 mg 06/25/21 19:53 Glucagon For Inj 1 Mg Vial IM PRN PRN Hypoglycemia Protocol Glucagon 1 mg 06/26/21 17:15 Glucagon For Inj 1 Mg Vial IM PRN PRN Hypoglycemia Protocol Glucose 15 gm 06/25/21 19:53 Glucose Oral Gel 15 Gm Of Glucse In 37.5 Gm Tube PO PRN PRN Hypoglycemia Protocol Glucose 15 gm 06/26/21 17:15 Glucose Oral Gel 15 Gm Of Glucse In 37.5 Gm Tube PO PRN PRN Hypoglycemia Protocol Hydralazine HCl 10 mg 06/25/21 19:46 06/26/21 06:30 Hydralazine Hcl 20 Mg/Ml Vial IV PUSH 10 mg Q8H PRN Administration Blood Pressure - High Hydromorphone HCl 0.5 mg 06/25/21 14:06 06/27/21 11:34 Hydromorphone Hcl Inj (*Crx) 1 Mg/Ml Syr IV PUSH 0.5 mg Q3H PRN Administration Pain Rated 7-10 Piperacillin/Tazobactam/Dextrose 3.375 gm in 50 mls @ 100 mls/hr 06/25/21
[2021-06-28 12:40] LABS: Glucose Point of Care 269 mg/dl (65-105)
--- NOTE | 2021-06-28 13:26 | WPDGIPROGNO ---
Progress Note: A&P Assessment and Plan (1) Diverticulitis of colon with perforation: Code(s): K57.20 - Diverticulitis of large intestine with perforation and abscess without bleeding Status: Acute Assessment and Plan: Patient is status post diverting colostomy after perforation of her diverticulitis. Agree with surgical therapy. Colonoscopy suggested in 1-2 months prior to takedown of her ostomy. Continue antibiotics for now. Await resolution of ileus (2) Stricture of sigmoid colon: Code(s): K56.699 - Other intestinal obstruction unspecified as to partial versus complete obstruction Status: Acute Assessment and Plan: stricture of the colon evident on recent x-rays likely related to prior episodes of diverticulitis. Will be assessed at the time of colonoscopy in a month or so (3) History of colon polyps: Code(s): Z86.010 - Personal history of colonic polyps Status: Acute Assessment and Plan: patient was found to have a small colon polyp on previous colonoscopy. Follow-up colonoscopy will be performed to evaluate for recurrent additional polyps. (4) New onset type 2 diabetes mellitus: Code(s): E11.9 - Type 2 diabetes mellitus without complications Status: Acute Assessment and Plan: New diagnosis of diabetes. Likely more obvious because of her infection. Subjective Date/time seen: 06/28/21 13:26 patient alert more comfortable this morning. NG tube in place. Abdomen is obese. Ostomy in place. Bowel sounds are absent. Objective Data Vital Signs Vital Signs: Vital Signs - 24 hr 06/27/21 15:35 06/27/21 15:50 06/27/21 16:05 Temperature Pulse Rate 111 H 112 H 112 H Respiratory Rate 25 H 28 H 30 H Blood Pressure 152/58 H 155/56 H 154/56 H Pulse Oximetry 96 93 94 06/27/21 16:20 06/27/21 16:35 06/27/21 16:50 Temperature Pulse Rate 111 H 110 H 112 H Respiratory Rate 30 H 28 H 28 H Blood Pressure 156/62 H 144/60 H 142/63 H Pulse Oximetry 93 93 93 06/27/21 17:05 06/27/21 17:20 06/27/21 17:35 Temperature Pulse Rate 112 H 109 H 110 H Respiratory Rate 28 H 29 H 30 H Blood Pressure 106/76 150/48 H 144/51 H Pulse Oximetry 94 93 93 06/27/21 17:50 06/27/21 18:05 06/27/21 18:35 Temperature 97.6 F 97.9 F 98.1 F Pulse Rate 111 H 113 H 110 H Respiratory Rate 16 18 22 H Blood Pressure 143/53 H 146/55 H 135/55 L Pulse Oximetry 93 95 94 06/27/21 19:39 06/27/21 20:00 06/27/21 20:06 Temperature 98 F Pulse Rate 113 H 113 H Respiratory Rate 18 18 Blood Pressure 147/61 H Pulse Oximetry 93 96 96 06/27/21 23:41 06/28/21 05:33 06/28/21 10:00 Temperature 97.6 F 97 F L 98.0 F Pulse Rate 107 H 110 H 107 H Respiratory Rate 18 20 20 Blood Pressure 143/55 H 148/63 H 147/61 H Pulse Oximetry 93 94 92 Intake/Output Intake/Output: Intake & Output 06/25/21 06/26/21 06/27/21 06/28/21 23:59 23:59 23:59 23:59 Intake Total 3450 4180 1350 1200 Output Total 580 023 1784 Balance 3450 3730 470 -1275 Meds/Results Medications: Active Medications Generic Name Dose Route Start Last Admin Trade Name Freq PRN Reason Stop Dose Admin Dextrose 12.5 gm 06/25/21 19:53 Dextrose 50% 25 Gm/50 Ml Syringe IV PUSH PRN PRN Hypoglycemia Protocol Dextrose 12.5 gm 06/26/21 17:15 Dextrose 50% 25 Gm/50 Ml Syringe IV PUSH PRN PRN Hypoglycemia Protocol Enoxaparin Sodium 40 mg 06/28/21 09:00 06/28/21 08:15 Enoxaparin 40 Mg/0.4 Ml Syringe SUB-Q 40 mg DAILY OMER Administration Glucagon 1 mg 06/25/21 19:53 Glucagon For Inj 1 Mg Vial IM PRN PRN Hypoglycemia Protocol Glucagon 1 mg 06/26/21 17:15 Glucagon For Inj 1 Mg Vial IM PRN PRN Hypoglycemia Protocol Glucose 15 gm 06/25/21 19:53 Glucose Oral Gel 15 Gm Of Glucse In 37.5 Gm Tube PO PRN PRN Hypoglycemia Protocol Glucose 15 gm 06/26/21 17:15 Glucose Oral Gel 15 Gm Of G
[2021-06-28 16:44] LABS: Glucose Point of Care 249 mg/dl (65-105)
--- NOTE | 2021-06-28 17:01 | PM.IMPN ---
Progress Note: A&P Assessment and Plan (1) Diverticulitis of colon with perforation: Code(s): K57.20 - Diverticulitis of large intestine with perforation and abscess without bleeding Status: Acute Assessment and Plan: CT showed acute perforated sigmoid diverticulitis proximal to chronic stricture of the sigmoid colon with large volume of free intraperitoneal gas and abscess of the right pericolic gutter Appreciate general surgery Gastroenterology consultation She is s/p Deny's procedure with intra-abdominal washout on 06/27/[address] Dallas Continue with NG decompression. NPO diet Continue broad-spectrum IV Zosyn Blood cultures are pending Mild leukocytosis. Lactic is within normal limits. She remains afebrile Supportive care. Analgesics available as needed (2) Stricture of sigmoid colon: Code(s): K56.699 - Other intestinal obstruction unspecified as to partial versus complete obstruction Status: Acute Assessment and Plan: [place] to be due to prior episode of diverticulitis. She will need outpatient colonoscopy, which will be deferred for several months upon resolution of acute infection (3) New onset type 2 diabetes mellitus: Code(s): E11.9 - Type 2 diabetes mellitus without complications Status: Acute Assessment and Plan: Fasting glucose elevated, A1c evaluated found to be 11.9 consistent with diabetes. Consult to prosthodontist/educator; input is appreciated Continue Accu-Cheks, high dose sliding scale insulin, hypoglycemic protocol Added lantus 12 units. Careful monitoring of blood sugars especially while NPO (4) Hypothyroidism: Code(s): E03.9 - Hypothyroidism, unspecified Status: Acute Assessment and Plan: TSH slightly elevated with normal T4. Continue IV levothyroxine while NPO She will need repeat reflex TSH in several weeks upon resolution of acute illness (5) Hypertension: Code(s): I10 - Essential (primary) hypertension Status: Acute Assessment and Plan: Blood pressure reviewed and has been reasonably controlled today. Last BP 147/61. Home antihypertensives are on hold while NPO P.r.n. hydralazine for systolic BP >170 Additional Plan Postoperative hypoxia requiring supplemental O2 overnight. She was able to be weaned to room air this morning and has maintained adequate O2 sats throughout the day. Subjective Date/time seen: 06/28/21 17:01 Interval history: Date of service: 06/28/2021 Leah Nogueira is a 56-year-old female with a history of diverticulitis, hypertension, hypothyroidism, IBS who is seen in follow for perforated diverticulitis. Still feels poorly but reports feeling improved after her surgery. Her pain was previously diffuse but now is more localized and she is able to get more comfortable. Having pain in her periumbilical region which she rates as 8/10. Denies nausea or vomiting. Tolerating the NG tube well. No issues with her Porter catheter. No shortness of breath, cough, chest pain. No fevers or chills. Review of Systems Review of Systems: All systems reviewed & are unremarkable except as noted in HPI and below Exam Narrative: Ms. Nogueira is an obese, well-appearing 56-year-old female who is lying supine in bed. She appears comfortable and is in NARD. Neuro: awake, alert and oriented x4, speech clear, no focal neuro deficits noted HEENMT: normocephalic, atraumatic, EOMI, sclerae anicteric, moist oral mucosa Neck: supple, no lymphadenopathy Respiratory: clear to auscultation bilaterally, nonlabored breathing Cardio: regular rate, regular rhythm with S1-S2 Abdomen: Nondistended, soft, tender to palpation in midline, surgical dressing is clean and dry, colostomy in place with scant amount of bloody output, drain in place with scant serosanguineous output : Porter catheter patent and draining straw colored urine Extremities: trace edema, no erythema or ten
[2021-06-28] MEDS: MORPHINE SULFATE (*CRX) 4 MG/ML INJ IV PUSH (19:55)
[2021-06-28] MEDS: INSULIN GLARGINE (*BKC) 100 UNITS/ML 12 UNITS SUB-Q (20:30)
[2021-06-28 20:52] LABS: Glucose Point of Care 269 mg/dl (65-105)
[2021-06-29 00:08] LABS: Glucose Point of Care 263 mg/dl (65-105)
[2021-06-29] MEDS: INSULIN ASPART (*BKC) 100 UNITS/ML SUB-Q ×5 (00:08→23:43)
[2021-06-29 00:19] VITALS: BP 164/64; PULSE 106; RESP 20; TEMP 36.5; O2SAT 91
[2021-06-29] MEDS: SODIUM CHLORIDE 0.9% IV 1,000 ML 100 ML IV CONT ×2 (01:56→16:22)
[2021-06-29] MEDS: LORazepam INJ (*CRX) 2 MG/ML VIAL 0.5 MG IV PUSH (03:10)
[2021-06-29 04:46] VITALS: BP 159/73; PULSE 106; RESP 20; TEMP 36.4; O2SAT 91
[2021-06-29 05:49] LABS: Hematocrit 32.6 % (37.0-47.0); Hemoglobin 10.4 g/dL (12.0-15.0); Mean Corpuscular HGB Conc 31.9 g/dl (32-36); Mean Corpuscular Hemoglobin 27.7 pg (26-34); Mean Corpuscular Volume 86.7 fl (80-100); Mean Platelet Volume 8.7 fl (7.4-10.4); Platelet Count Result 446 k/mm3 (150-375); Red Blood Count 3.76 M/mm3 (4.2-5.4); Red Cell Distribution Width 14.6 % (11.5-14.5); White Blood Count 14.7 K/mm3 (4.5-10.0)
[2021-06-29 05:54] LABS: Alanine Aminotransferase 13 U/L (4-35); Albumin Level 2.9 g/dL (3.5-5.1); Alkaline Phosphatase 114 U/L (38-126); Anion Gap 7 mmol/L (8-16); Aspartate Amino Transferase 17 U/L (14-36); Bilirubin,Total 0.4 mg/dL (0.2-1.3); Blood Urea Nitrogen 15 mg/dL (7-17); Calcium 8.5 mg/dL (8.4-10.2); Carbon Dioxide 22 mmol/L (22-30); Chloride 106 mmol/L (98-107); Estimated CRCL calculation 125 ml/min; Estimated Glomerular Filt Rate > 60; Glucose 289 mg/dL (65-110); Potassium 3.7 mmol/L (3.4-5.0); Sodium 135 mmol/L (137-145)
[2021-06-29] MEDS: LEVOTHYROXINE SODIUM INJ 100 MCG/5 ML VIAL IV PUSH (06:10)
[2021-06-29 06:20] LABS: Glucose Point of Care 272 mg/dl (65-105)
[2021-06-29] MEDS: MORPHINE SULFATE (*CRX) 2 MG/ML INJ IV PUSH ×2 (07:23→11:11)
[2021-06-29 07:56] LABS: Glucose Point of Care 240 mg/dl (65-105)
--- NOTE | 2021-06-29 08:10 | WPDGIPROGNO ---
Progress Note: A&P Assessment and Plan (1) Diverticulitis of colon with perforation: Code(s): K57.20 - Diverticulitis of large intestine with perforation and abscess without bleeding Status: Acute Assessment and Plan: Patient with ileus postoperative. Had a colostomy placed after his surgical therapy perforated diverticulitis. Plan to continue broad-spectrum antibiotics. Surgical follow-up. (2) Stricture of sigmoid colon: Code(s): K56.699 - Other intestinal obstruction unspecified as to partial versus complete obstruction Status: Acute Assessment and Plan: Patient with a known stricture of the colon presumably on the basis of prior diverticulitis episodes. Colonoscopy is suggested after healing from this episode. This would wait several months. Continue supportive care for now. (3) Obese: Code(s): E66.9 - Obesity, unspecified Status: Acute (4) History of colon polyps: Code(s): Z86.010 - Personal history of colonic polyps Status: Acute (5) New onset type 2 diabetes mellitus: Code(s): E11.9 - Type 2 diabetes mellitus without complications Status: Acute Subjective Date/time seen: 06/29/21 08:10 Patient sit in a chair. Somewhat uncomfortable this morning. NG tube remains in place. Review of Systems Review of Systems: All systems reviewed & are unremarkable except as noted in HPI and below Exam Narrative: Physical exam abdomen is obese. Bowel sounds absent. Mild diffuse tenderness noted ostomy intact. Objective Data Vital Signs Vital Signs: Vital Signs - 24 hr 06/28/21 08:24 06/28/21 10:00 06/28/21 14:00 Temperature 98.0 F 98.0 F Pulse Rate 107 H 113 H Respiratory Rate 20 20 Blood Pressure 147/61 H 146/61 H Pulse Oximetry 98 92 93 06/28/21 17:32 06/28/21 18:00 06/28/21 19:24 Temperature 98.0 F 98.4 F 97.5 F L Pulse Rate 111 H 109 H Respiratory Rate 20 20 Blood Pressure 134/56 L 148/59 H Pulse Oximetry 91 87 L 06/28/21 20:46 06/28/21 21:29 06/29/21 00:19 Temperature 97.7 F Pulse Rate 106 H Respiratory Rate 20 Blood Pressure 164/64 H Pulse Oximetry 91 95 91 06/29/21 04:46 Temperature 97.5 F L Pulse Rate 106 H Respiratory Rate 20 Blood Pressure 159/73 H Pulse Oximetry 91 Intake/Output Intake/Output: Intake & Output 06/26/21 06/27/21 06/28/21 06/29/21 23:59 23:59 23:59 23:59 Intake Total 4180 1350 2613 1027 Output Total 419 804 5831 1100 Balance 3730 470 -972 -73 Meds/Results Medications: Active Medications Generic Name Dose Route Start Last Admin Trade Name Freq PRN Reason Stop Dose Admin Dextrose 12.5 gm 06/25/21 19:53 Dextrose 50% 25 Gm/50 Ml Syringe IV PUSH PRN PRN Hypoglycemia Protocol Dextrose 12.5 gm 06/26/21 17:15 Dextrose 50% 25 Gm/50 Ml Syringe IV PUSH PRN PRN Hypoglycemia Protocol Enoxaparin Sodium 40 mg 06/28/21 09:00 06/28/21 08:15 Enoxaparin 40 Mg/0.4 Ml Syringe SUB-Q 40 mg DAILY OMER Administration Glucagon 1 mg 06/25/21 19:53 Glucagon For Inj 1 Mg Vial IM PRN PRN Hypoglycemia Protocol Glucagon 1 mg 06/26/21 17:15 Glucagon For Inj 1 Mg Vial IM PRN PRN Hypoglycemia Protocol Glucose 15 gm 06/25/21 19:53 Glucose Oral Gel 15 Gm Of Glucse In 37.5 Gm Tube PO PRN PRN Hypoglycemia Protocol Glucose 15 gm 06/26/21 17:15 Glucose Oral Gel 15 Gm Of Glucse In 37.5 Gm Tube PO PRN PRN Hypoglycemia Protocol Hydralazine HCl 10 mg 06/25/21 19:46 06/26/21 06:30 Hydralazine Hcl 20 Mg/Ml Vial IV PUSH 10 mg Q8H PRN Administration Blood Pressure - High Hydromorphone HCl 0.5 mg 06/25/21 14:06 06/27/21 11:34 Hydromorphone Hcl Inj (*Crx) 1 Mg/Ml Syr IV PUSH 0.5 mg Q3H PRN Administration Pain Rated 7-10 Piperacillin/Tazobactam/Dextrose 3.375 gm in 50 mls @ 100 mls/hr 06/25/21 17:00 06/29/21 05:55 Zosyn 3.375
[2021-06-29] MEDS: PANTOPRAZOLE SODIUM IV 40 MG VIAL IV PUSH ×2 (09:14→20:12)
[2021-06-29] MEDS: ENOXAPARIN 40 MG/0.4 ML SYRINGE SUB-Q (09:14)
--- NOTE | 2021-06-29 09:35 | PM.IMPN ---
Progress Note: A&P Assessment and Plan (1) Diverticulitis of colon with perforation: Code(s): K57.20 - Diverticulitis of large intestine with perforation and abscess without bleeding Status: Acute Assessment and Plan: CT showed acute perforated sigmoid diverticulitis proximal to chronic stricture of the sigmoid colon with large volume of free intraperitoneal gas and abscess of the right pericolic gutter Appreciate general surgery and gastroenterology consultation She is s/p Deny's procedure with intra-abdominal washout on 06/27/[address] Dallas Continue with NG decompression. NPO diet. Continue gentle IV fluids while NPO Continue broad-spectrum IV Zosyn Blood cultures are pending; negative to date Mild leukocytosis. Lactic is within normal limits. She remains afebrile Supportive care. Analgesics available as needed (2) Stricture of sigmoid colon: Code(s): K56.699 - Other intestinal obstruction unspecified as to partial versus complete obstruction Status: Acute Assessment and Plan: [place] to be due to prior episode of diverticulitis. She will need outpatient colonoscopy, which will be deferred for several months upon resolution of acute infection (3) New onset type 2 diabetes mellitus: Code(s): E11.9 - Type 2 diabetes mellitus without complications Status: Acute Assessment and Plan: Fasting glucose elevated, A1c found to be 11.9 consistent with diabetes. Consult to clinical nurse educator; input is appreciated Continue Accu-Cheks, high dose sliding scale insulin, hypoglycemic protocol Continue lantus 12 units. Careful monitoring of blood sugars especially while NPO Blood sugars trending down though still quite elevated. Can consider addition of mealtime insulin when no longer NPO (4) Hypothyroidism: Code(s): E03.9 - Hypothyroidism, unspecified Status: Acute Assessment and Plan: TSH slightly elevated with normal T4. Continue IV levothyroxine while NPO She will need repeat reflex TSH in several weeks upon resolution of acute illness (5) Hypertension: Code(s): I10 - Essential (primary) hypertension Status: Acute Assessment and Plan: Blood pressure reviewed and has been fairly controlled. Somewhat elevated postoperatively likely due to pain. Last BP 159/73 Home antihypertensives are on hold while NPO P.r.n. hydralazine for systolic BP >170 (6) Hypoxia: Code(s): R09.02 - Hypoxemia Status: Acute Assessment and Plan: Briefly hypoxic immediately post-op requiring 3 L O2. She was able to be weaned to room air Last night had brief epsiode of hypoxia at 87% but quickly resolved. Maintaining adequate oxygenation on room air at this time. Will obtain apnea link tonight Subjective Date/time seen: 06/29/21 09:35 Interval history: Date of service: 06/29/2021 Leah Nogueira is a 56-year-old female with a history of diverticulitis, hypertension, hypothyroidism, IBS who is seen in follow for perforated diverticulitis. She is still having abdominal pain today which she rates 8/10. Denies nausea or vomiting. She was not able to sleep last night. She is bothered by her IV BP. She had her Porter catheter removed this morning. She has not urinated. she complains of sore throat from NG tube. She is able to get up and walk around. Denies shortness breath, cough, chest pain, or palpitations. She stated that she did need to use oxygen for a very brief period last night. It sounds as though she might have become somewhat anxious and felt short of breath. She endorses polyuria and also some mild urge incontinence. She denies dysuria. No hematuria. Denies polydipsia. Review of Systems Review of Systems: All systems reviewed & are unremarkable except as noted in HPI and below Exam Narrative: Ms. Nogueira is an obese, well-appearing 56-year-old female who is lying supine in bed. She
--- NOTE | 2021-06-29 09:43 | PM.PNGS ---
Progress Note: A&P Assessment and Plan (1) Diverticulitis of colon with perforation: Code(s): K57.20 - Diverticulitis of large intestine with perforation and abscess without bleeding Status: Acute Assessment and Plan: doing well, cont IV abx, will clamp NG, poss remove later today, await ostomy fxn, encourage OOB/IS Subjective Subjective Date/Time Seen: 06/29/21 09:43 feels ok, c/o incisional pain rober c movt Review of Systems Review of Systems: All systems reviewed & are unremarkable except as noted in HPI and below Exam Const: General: cooperative, alert, awake and Physically active Resp: Auscultation: clear to auscultation bilaterally Cardio: Rate: tachycardic Rhythm: regular rhythm GI: Inspection: normal to inspection, distended and incision GI Palp: Yes Soft to palpation and Yes Tenderness to palpation present (GI) Other: incision - C/D/I, ostomy - dusky, edematous, dk sweat Objective Data Vital Signs Vital Signs: Vital Signs - 24 hr 06/28/21 10:00 06/28/21 14:00 06/28/21 17:32 Temperature 36.7 C 36.7 C 36.7 C Pulse Rate 107 H 113 H Respiratory Rate 20 20 Blood Pressure 147/61 H 146/61 H Pulse Oximetry 92 93 06/28/21 18:00 06/28/21 19:24 06/28/21 20:46 Temperature 36.9 C 36.4 C L Pulse Rate 111 H 109 H Respiratory Rate 20 20 Blood Pressure 134/56 L 148/59 H Pulse Oximetry 91 87 L 91 06/28/21 21:29 06/29/21 00:19 06/29/21 04:46 Temperature 36.5 C 36.4 C L Pulse Rate 106 H 106 H Respiratory Rate 20 20 Blood Pressure 164/64 H 159/73 H Pulse Oximetry 95 91 91 Intake/Output Intake/Output: Intake & Output 06/26/21 06/27/21 06/28/21 06/29/21 23:59 23:59 23:59 23:59 Intake Total 4180 1350 2613 1027 Output Total 103 752 6371 1100 Balance 3736 470 -972 -73 Meds/Results Medications: Active Medications Generic Name Dose Route Start Last Admin Trade Name Freq PRN Reason Stop Dose Admin Dextrose 12.5 gm 06/25/21 19:53 Dextrose 50% 25 Gm/50 Ml Syringe IV PUSH PRN PRN Hypoglycemia Protocol Dextrose 12.5 gm 06/26/21 17:15 Dextrose 50% 25 Gm/50 Ml Syringe IV PUSH PRN PRN Hypoglycemia Protocol Enoxaparin Sodium 40 mg 06/28/21 09:00 06/29/21 09:14 Enoxaparin 40 Mg/0.4 Ml Syringe SUB-Q 40 mg DAILY OMER Administration Glucagon 1 mg 06/25/21 19:53 Glucagon For Inj 1 Mg Vial IM PRN PRN Hypoglycemia Protocol Glucagon 1 mg 06/26/21 17:15 Glucagon For Inj 1 Mg Vial IM PRN PRN Hypoglycemia Protocol Glucose 15 gm 06/25/21 19:53 Glucose Oral Gel 15 Gm Of Glucse In 37.5 Gm Tube PO PRN PRN Hypoglycemia Protocol Glucose 15 gm 06/26/21 17:15 Glucose Oral Gel 15 Gm Of Glucse In 37.5 Gm Tube PO PRN PRN Hypoglycemia Protocol Hydralazine HCl 10 mg 06/25/21 19:46 06/26/21 06:30 Hydralazine Hcl 20 Mg/Ml Vial IV PUSH 10 mg Q8H PRN Administration Blood Pressure - High Hydromorphone HCl 0.5 mg 06/25/21 14:06 06/27/21 11:34 Hydromorphone Hcl Inj (*Crx) 1 Mg/Ml Syr IV PUSH 0.5 mg Q3H PRN Administration Pain Rated 7-10 Piperacillin/Tazobactam/Dextrose 3.375 gm in 50 mls @ 100 mls/hr 06/25/21 17:00 06/29/21 05:55 Zosyn 3.375 Gm/D5w 50ml Pm IVPB Infused Q6H OMER Infusion Dextrose 1,000 mls @ 100 mls/hr 06/25/21 19:53 Dextrose 5% 1,000 Ml IVPB PRN PRN Hypoglycemia Protocol Dextrose 1,000 mls @ 100 mls/hr 06/26/21 17:15 Dextrose 5% 1,000 Ml IVPB PRN PRN Hypoglycemia Protocol Sodium Chloride 1,000 mls @ 100 mls/hr 06/27/21 12:35 06/29/21 01:56 Normal Saline Iv IV CONT 100 mls/hr .Q10H OMER Administration Insulin Aspart 4 - 8 units 06/28/21 12:00 06/29/21 06:09 Insulin Aspart (*Bkc) 100 Units/Ml SUB-Q 5 units Q6H OMER Administration Protocol Insulin Glargine 12 units 06/28/21 21:00 06/28/21 20:30 Insulin Glargine (*Bkc) 100 Units/M
[2021-06-29 11:30] LABS: Glucose Point of Care 252 mg/dl (65-105)
[2021-06-29 14:37] VITALS: BP 140/75; PULSE 92; RESP 18; TEMP 36.4; O2SAT 98
[2021-06-29 17:48] LABS: Glucose Point of Care 243 mg/dl (65-105)
[2021-06-29] MEDS: MORPHINE SULFATE (*CRX) 4 MG/ML INJ IV PUSH (18:04)
[2021-06-29] MEDS: INSULIN GLARGINE (*BKC) 100 UNITS/ML 12 UNITS SUB-Q (20:15)
[2021-06-29 20:19] VITALS: BP 154/56; PULSE 105; RESP 20; TEMP 36.4; O2SAT 92
[2021-06-29 20:57] LABS: Glucose Point of Care 271 mg/dl (65-105)
[2021-06-29 23:46] LABS: Glucose Point of Care 236 mg/dl (65-105)
[2021-06-29 23:55] VITALS: O2SAT 93
[2021-06-30] MEDS: HYDROmorphone HCL INJ (*CRX) 1 MG/ML SYR 0.5 MG IV PUSH ×5 (00:53→18:44)
[2021-06-30] MEDS: SODIUM CHLORIDE 0.9% IV 1,000 ML 100 ML IV CONT ×2 (03:58→15:23)
[2021-06-30 05:33] VITALS: BP 151/61; PULSE 90; RESP 20; TEMP 36.1; O2SAT 92
[2021-06-30] MEDS: LEVOTHYROXINE SODIUM INJ 100 MCG/5 ML VIAL IV PUSH (06:08)
[2021-06-30] MEDS: INSULIN ASPART (*BKC) 100 UNITS/ML SUB-Q ×4 (06:11→21:44)
[2021-06-30 06:18] LABS: Glucose Point of Care 232 mg/dl (65-105)
[2021-06-30 06:33] LABS: Anion Gap 7 mmol/L (8-16); Blood Urea Nitrogen 11 mg/dL (7-17); Calcium 8.1 mg/dL (8.4-10.2); Carbon Dioxide 26 mmol/L (22-30); Chloride 101 mmol/L (98-107); Estimated CRCL calculation 125 ml/min; Estimated Glomerular Filt Rate > 60; Glucose 272 mg/dL (65-110); Potassium 3.3 mmol/L (3.4-5.0); Sodium 134 mmol/L (137-145)
[2021-06-30 06:37] LABS: Hematocrit 32.7 % (37.0-47.0); Hemoglobin 10.2 g/dL (12.0-15.0); Mean Corpuscular HGB Conc 31.2 g/dl (32-36); Mean Corpuscular Hemoglobin 27.3 pg (26-34); Mean Corpuscular Volume 87.7 fl (80-100); Mean Platelet Volume 8.8 fl (7.4-10.4); Platelet Count Result 429 k/mm3 (150-375); Red Blood Count 3.73 M/mm3 (4.2-5.4); Red Cell Distribution Width 14.6 % (11.5-14.5); White Blood Count 15.7 K/mm3 (4.5-10.0)
[2021-06-30 07:43] LABS: Glucose Point of Care 209 mg/dl (65-105)
[2021-06-30] MEDS: ENOXAPARIN 40 MG/0.4 ML SYRINGE SUB-Q (10:14)
[2021-06-30] MEDS: PANTOPRAZOLE SODIUM IV 40 MG VIAL IV PUSH ×2 (10:15→21:52)
[2021-06-30] MEDS: POTASSIUM CHLORIDE 20 MEQ PACKET (FOR LIQUID) PO (10:30)
--- NOTE | 2021-06-30 11:23 | PM.PNGS ---
Progress Note: A&P Assessment and Plan (1) Diverticulitis of colon with perforation: Code(s): K57.20 - Diverticulitis of large intestine with perforation and abscess without bleeding Status: Acute Assessment and Plan: slowly improving, advance diet as tolerated, ostomy +fxn, encourage OOB/IS Subjective Subjective Date/Time Seen: 06/30/21 11:23 feels ok, ostomy fxn, awa clears Review of Systems Review of Systems: All systems reviewed & are unremarkable except as noted in HPI and below Exam Const: General: cooperative, comfortable and no acute distress Orientation/consciousness: patient oriented x3 Resp: Effort & Inspection: normal respiratory effort Auscultation: clear to auscultation bilaterally Cardio: Rate: regular rate Rhythm: regular rhythm GI: Inspection: normal to inspection, distended and incision GI Palp: Yes Soft to palpation and Yes Tenderness to palpation present (GI) Other: ostomy - +fxn Objective Data Vital Signs Vital Signs: Vital Signs - 24 hr 06/29/21 14:37 06/29/21 20:19 06/29/21 23:55 Temperature 36.4 C L 36.4 C L Pulse Rate 92 105 H Respiratory Rate 18 20 Blood Pressure 140/75 154/56 H Pulse Oximetry 98 92 93 06/30/21 05:33 Temperature 36.1 C L Pulse Rate 90 Respiratory Rate 20 Blood Pressure 151/61 H Pulse Oximetry 92 Intake/Output Intake/Output: Intake & Output 06/27/21 06/28/21 06/29/21 06/30/21 23:59 23:59 23:59 23:59 Intake Total 1350 2613 2367 1360 Output Total 880 3585 1800 Balance 470 -572 139 6534 Meds/Results Medications: Active Medications Generic Name Dose Route Start Last Admin Trade Name Freq PRN Reason Stop Dose Admin Dextrose 12.5 gm 06/25/21 19:53 Dextrose 50% 25 Gm/50 Ml Syringe IV PUSH PRN PRN Hypoglycemia Protocol Dextrose 12.5 gm 06/26/21 17:15 Dextrose 50% 25 Gm/50 Ml Syringe IV PUSH PRN PRN Hypoglycemia Protocol Enoxaparin Sodium 40 mg 06/28/21 09:00 06/30/21 10:14 Enoxaparin 40 Mg/0.4 Ml Syringe SUB-Q 40 mg DAILY OMER Administration Glucagon 1 mg 06/25/21 19:53 Glucagon For Inj 1 Mg Vial IM PRN PRN Hypoglycemia Protocol Glucagon 1 mg 06/26/21 17:15 Glucagon For Inj 1 Mg Vial IM PRN PRN Hypoglycemia Protocol Glucose 15 gm 06/25/21 19:53 Glucose Oral Gel 15 Gm Of Glucse In 37.5 Gm Tube PO PRN PRN Hypoglycemia Protocol Glucose 15 gm 06/26/21 17:15 Glucose Oral Gel 15 Gm Of Glucse In 37.5 Gm Tube PO PRN PRN Hypoglycemia Protocol Hydralazine HCl 10 mg 06/25/21 19:46 06/26/21 06:30 Hydralazine Hcl 20 Mg/Ml Vial IV PUSH 10 mg Q8H PRN Administration Blood Pressure - High Hydromorphone HCl 0.5 mg 06/25/21 14:06 06/30/21 10:11 Hydromorphone Hcl Inj (*Crx) 1 Mg/Ml Syr IV PUSH 0.5 mg Q3H PRN Administration Pain Rated 7-10 Piperacillin/Tazobactam/Dextrose 3.375 gm in 50 mls @ 100 mls/hr 06/25/21 17:00 06/30/21 10:26 Zosyn 3.375 Gm/D5w 50ml Pm IVPB 100 mls/hr Q6H OMER Administration Dextrose 1,000 mls @ 100 mls/hr 06/25/21 19:53 Dextrose 5% 1,000 Ml IVPB PRN PRN Hypoglycemia Protocol Dextrose 1,000 mls @ 100 mls/hr 06/26/21 17:15 Dextrose 5% 1,000 Ml IVPB PRN PRN Hypoglycemia Protocol Sodium Chloride 1,000 mls @ 100 mls/hr 06/27/21 12:35 06/30/21 03:58 Normal Saline Iv IV CONT 100 mls/hr .Q10H OMER Administration Insulin Aspart 4 - 8 units 06/28/21 12:00 06/30/21 06:11 Insulin Aspart (*Bkc) 100 Units/Ml SUB-Q 4 units Q6H OMER Administration Protocol Insulin Glargine 12 units 06/28/21 21:00 06/29/21 20:15 Insulin Glargine (*Bkc) 100 Units/Ml SUB-Q 12 units HS OMER Administration Levothyroxine Sodium 100 mcg 06/26/21 06:30 06/30/21 06:08 Levothyroxine Sodium Inj 100 Mcg/5 Ml Vial IV PUSH 100 mcg DAILY@0630 OMER Administration Lorazepam 0.5 mg 06/25/21 2
[2021-06-30 11:30] LABS: Glucose Point of Care 206 mg/dl (65-105)
--- NOTE | 2021-06-30 15:08 | WPDGIPROGNO ---
Progress Note: A&P Assessment and Plan (1) Diverticulitis of colon with perforation: Code(s): K57.20 - Diverticulitis of large intestine with perforation and abscess without bleeding Status: Acute Assessment and Plan: Patient is status post perforation of diverticulitis. Now healing postoperative state. Agree with broad-spectrum antibiotics. Continued surgical management at this point. Would advise follow-up colonoscopy after healing occurs perhaps in 2 months. Prior to takedown of her ostomy. This should be arranged with the GI office. (2) Stricture of sigmoid colon: Code(s): K56.699 - Other intestinal obstruction unspecified as to partial versus complete obstruction Status: Acute Assessment and Plan: Patient has a history of sigmoid colon stricture identified on several recent x-rays. Likely this is related to previous diverticulitis. This will be evaluated time endoscopy. (3) History of colon polyps: Code(s): Z86.010 - Personal history of colonic polyps Status: Acute Assessment and Plan: Patient was found to have colon polyps at the time previous colonoscopy this will also be assessed at time endoscopy. (4) New onset type 2 diabetes mellitus: Code(s): E11.9 - Type 2 diabetes mellitus without complications Status: Acute (5) Obese: Code(s): E66.9 - Obesity, unspecified Status: Acute Subjective Date/time seen: 06/30/21 15:09 Patient improving clinically. She hears abdominal grumbling period able to discontinue NG tube. Review of Systems Review of Systems: All systems reviewed & are unremarkable except as noted in HPI and below Exam Narrative: Abdomen is softer today. NG tube is out. Ostomy with air in the bag. Objective Data Vital Signs Vital Signs: Vital Signs - 24 hr 06/29/21 20:19 06/29/21 23:55 06/30/21 05:33 Temperature 97.5 F L 97 F L Pulse Rate 105 H 90 Respiratory Rate 20 20 Blood Pressure 154/56 H 151/61 H Pulse Oximetry 92 93 92 Intake/Output Intake/Output: Intake & Output 06/27/21 06/28/21 06/29/21 06/30/21 23:59 23:59 23:59 23:59 Intake Total 1350 2613 2367 1410 Output Total 880 3585 1800 Balance 470 -117 962 0660 Meds/Results Medications: Active Medications Generic Name Dose Route Start Last Admin Trade Name Freq PRN Reason Stop Dose Admin Dextrose 12.5 gm 06/25/21 19:53 Dextrose 50% 25 Gm/50 Ml Syringe IV PUSH PRN PRN Hypoglycemia Protocol Dextrose 12.5 gm 06/26/21 17:15 Dextrose 50% 25 Gm/50 Ml Syringe IV PUSH PRN PRN Hypoglycemia Protocol Enoxaparin Sodium 40 mg 06/28/21 09:00 06/30/21 10:14 Enoxaparin 40 Mg/0.4 Ml Syringe SUB-Q 40 mg DAILY OMER Administration Glucagon 1 mg 06/25/21 19:53 Glucagon For Inj 1 Mg Vial IM PRN PRN Hypoglycemia Protocol Glucagon 1 mg 06/26/21 17:15 Glucagon For Inj 1 Mg Vial IM PRN PRN Hypoglycemia Protocol Glucose 15 gm 06/25/21 19:53 Glucose Oral Gel 15 Gm Of Glucse In 37.5 Gm Tube PO PRN PRN Hypoglycemia Protocol Glucose 15 gm 06/26/21 17:15 Glucose Oral Gel 15 Gm Of Glucse In 37.5 Gm Tube PO PRN PRN Hypoglycemia Protocol Hydralazine HCl 10 mg 06/25/21 19:46 06/26/21 06:30 Hydralazine Hcl 20 Mg/Ml Vial IV PUSH 10 mg Q8H PRN Administration Blood Pressure - High Hydromorphone HCl 0.5 mg 06/25/21 14:06 06/30/21 10:11 Hydromorphone Hcl Inj (*Crx) 1 Mg/Ml Syr IV PUSH 0.5 mg Q3H PRN Administration Pain Rated 7-10 Piperacillin/Tazobactam/Dextrose 3.375 gm in 50 mls @ 100 mls/hr 06/25/21 17:00 06/30/21 10:56 Zosyn 3.375 Gm/D5w 50ml Pm IVPB Infused Q6H OMER Infusion Dextrose 1,000 mls @ 100 mls/hr 06/25/21 19:53 Dextrose 5% 1,000 Ml IVPB PRN PRN Hypoglycemia Protocol Dextrose 1,000 mls @ 100 mls/hr 06/26/21 17:15 Dextrose 5% 1,000 Ml IVPB
[2021-06-30 16:27] LABS: Glucose Point of Care 206 mg/dl (65-105)
--- NOTE | 2021-06-30 16:45 | P.PNIM_ITS ---
Progress Note: A&P Assessment and Plan (1) Diverticulitis of colon with perforation: Code(s): K57.20 - Diverticulitis of large intestine with perforation and abscess without bleeding Status: Acute Assessment and Plan: CT showed acute perforated sigmoid diverticulitis proximal to chronic stricture of the sigmoid colon with large volume of free intraperitoneal gas and abscess of the right pericolic gutter * Appreciate general surgery and gastroenterology consultation * She is s/p Deny's procedure with intra-abdominal washout on 06/27/[address] Dallas * Advanced to clear liquid diet * Discontinue IV fluids as she is tolerating oral intake * Continue broad-spectrum IV Zosyn * Blood cultures are pending; negative to date * Leukocytosis noted. Lactic is within normal limits. She remains afebrile * Supportive care. Analgesics available as needed (2) Stricture of sigmoid colon: Code(s): K56.699 - Other intestinal obstruction unspecified as to partial versus complete obstruction Status: Acute Assessment and Plan: [place] to be due to prior episode of diverticulitis. * She will need outpatient colonoscopy, which will be deferred for several months upon resolution of acute infection (3) New onset type 2 diabetes mellitus: Code(s): E11.9 - Type 2 diabetes mellitus without complications Status: Acute Assessment and Plan: Fasting glucose elevated, A1c found to be 11.9 consistent with diabetes. * Consult to in service educator; input is appreciated * Continue Accu-Cheks, high dose sliding scale insulin, hypoglycemic protocol * Continue lantus 15 units. Careful monitoring of blood sugars especially while NPO * Blood sugars overall improved, now around 200. Can consider addition of mealtime insulin when dietary intake improves (4) Hypothyroidism: Code(s): E03.9 - Hypothyroidism, unspecified Status: Acute Assessment and Plan: TSH slightly elevated with normal T4. * Change back to PO levothyroxine * She will need repeat reflex TSH in several weeks upon resolution of acute illness (5) Hypertension: Code(s): I10 - Essential (primary) hypertension Status: Acute Assessment and Plan: Blood pressure reviewed and has been fairly controlled. Somewhat elevated postoperatively likely due to pain. Last BP 151/61 * Resume amlodipine and enalapril. Hold HCTZ * monitor blood pressure trends (6) Hypoxia: Code(s): R09.02 - Hypoxemia Status: Acute Assessment and Plan: Briefly hypoxic immediately post-op requiring 3 L O2. * She was able to be weaned to room air * 06/28 overnight had brief epsiode of hypoxia at 87% but quickly resolved. * Apnea link was normal * Maintaining adequate oxygenation on room air now Subjective Date/time seen: 06/30/21 16:45 Interval history: Date of service: 06/30/2021 Leah Nogueira is a 56-year-old female with a history of diverticulitis, hypertension, hypothyroidism, IBS who is seen in follow for perforated diverticulitis. She is feeling a bit better today. Still rating abdominal pain as 8/10 with all movements. No nausea or vomiting. She is tolerating clear liquids though she does not like the taste. She notes some output from her ostomy today. No fevers, chills, dizziness, lightheadedness, shortness of breath, cough, chest pain. No urinary symptoms. Review of Systems Review of Systems: All systems reviewed & are unremarkable except as noted in HPI and below
--- NOTE | 2021-06-30 16:45 | PM.IMPN ---
Progress Note: A&P Assessment and Plan (1) Diverticulitis of colon with perforation: Code(s): K57.20 - Diverticulitis of large intestine with perforation and abscess without bleeding Status: Acute Assessment and Plan: CT showed acute perforated sigmoid diverticulitis proximal to chronic stricture of the sigmoid colon with large volume of free intraperitoneal gas and abscess of the right pericolic gutter Appreciate general surgery and gastroenterology consultation She is s/p Deny's procedure with intra-abdominal washout on 06/27/[address] Dallas Advanced to clear liquid diet Discontinue IV fluids as she is tolerating oral intake Continue broad-spectrum IV Zosyn Blood cultures are pending; negative to date Leukocytosis noted. Lactic is within normal limits. She remains afebrile Supportive care. Analgesics available as needed (2) Stricture of sigmoid colon: Code(s): K56.699 - Other intestinal obstruction unspecified as to partial versus complete obstruction Status: Acute Assessment and Plan: [place] to be due to prior episode of diverticulitis. She will need outpatient colonoscopy, which will be deferred for several months upon resolution of acute infection (3) New onset type 2 diabetes mellitus: Code(s): E11.9 - Type 2 diabetes mellitus without complications Status: Acute Assessment and Plan: Fasting glucose elevated, A1c found to be 11.9 consistent with diabetes. Consult to certified breastfeeding educator; input is appreciated Continue Accu-Cheks, high dose sliding scale insulin, hypoglycemic protocol Continue lantus 15 units. Careful monitoring of blood sugars especially while NPO Blood sugars overall improved, now around 200. Can consider addition of mealtime insulin when dietary intake improves (4) Hypothyroidism: Code(s): E03.9 - Hypothyroidism, unspecified Status: Acute Assessment and Plan: TSH slightly elevated with normal T4. Change back to PO levothyroxine She will need repeat reflex TSH in several weeks upon resolution of acute illness (5) Hypertension: Code(s): I10 - Essential (primary) hypertension Status: Acute Assessment and Plan: Blood pressure reviewed and has been fairly controlled. Somewhat elevated postoperatively likely due to pain. Last BP 151/61 Resume amlodipine and enalapril. Hold HCTZ monitor blood pressure trends (6) Hypoxia: Code(s): R09.02 - Hypoxemia Status: Acute Assessment and Plan: Briefly hypoxic immediately post-op requiring 3 L O2. She was able to be weaned to room air 06/28 overnight had brief epsiode of hypoxia at 87% but quickly resolved. Apnea link was normal Maintaining adequate oxygenation on room air now Subjective Date/time seen: 06/30/21 16:45 Interval history: Date of service: 06/30/2021 Leah Nogueira is a 56-year-old female with a history of diverticulitis, hypertension, hypothyroidism, IBS who is seen in follow for perforated diverticulitis. She is feeling a bit better today. Still rating abdominal pain as 8/10 with all movements. No nausea or vomiting. She is tolerating clear liquids though she does not like the taste. She notes some output from her ostomy today. No fevers, chills, dizziness, lightheadedness, shortness of breath, cough, chest pain. No urinary symptoms. Review of Systems Review of Systems: All systems reviewed & are unremarkable except as noted in HPI and below Exam Narrative: Ms. Nogueira is an obese, well-appearing 56-year-old female who is lying supine in bed. She appears comfortable and is in NARD. Neuro: awake, alert and oriented x4, speech clear, no focal neuro deficits noted HEENMT: normocephalic, atraumatic, EOMI, sclerae anicteric, moist oral mucosa Neck: supple, no lymphadenopathy Respiratory: clear to auscultation bilaterally, nonlabored breathing Cardio: regular rate, regular rhythm wi
[2021-06-30 20:17] VITALS: BP 167/72; PULSE 90; RESP 20; TEMP 35.9; O2SAT 91
[2021-06-30 20:52] LABS: Glucose Point of Care 283 mg/dl (65-105)
[2021-06-30] MEDS: INSULIN GLARGINE (*BKC) 100 UNITS/ML 15 UNITS SUB-Q (21:45)
[2021-06-30] MEDS: MORPHINE SULFATE (*CRX) 2 MG/ML INJ IV PUSH (21:51)
[2021-07-01] MEDS: LORazepam INJ (*CRX) 2 MG/ML VIAL 0.5 MG IV PUSH (00:26)
[2021-07-01] MEDS: MORPHINE SULFATE (*CRX) 2 MG/ML INJ IV PUSH ×2 (02:34→05:47)
[2021-07-01 04:30] VITALS: BP 174/69; PULSE 94; RESP 20; TEMP 36; O2SAT 92
[2021-07-01] MEDS: LEVOTHYROXINE SODIUM 100 MCG TABLET 200 MCG PO (05:37)
[2021-07-01 05:48] LABS: Hematocrit 36.2 % (37.0-47.0); Hemoglobin 11.5 g/dL (12.0-15.0); Mean Corpuscular HGB Conc 31.8 g/dl (32-36); Mean Corpuscular Hemoglobin 27.3 pg (26-34); Mean Platelet Volume 8.8 fl (7.4-10.4); Platelet Count Result 480 k/mm3 (150-375); Red Blood Count 4.21 M/mm3 (4.2-5.4); Red Cell Distribution Width 14.3 % (11.5-14.5); White Blood Count 15.8 K/mm3 (4.5-10.0)
[2021-07-01 06:00] LABS: Anion Gap 8 mmol/L (8-16); Blood Urea Nitrogen 7 mg/dL (7-17); Calcium 8.3 mg/dL (8.4-10.2); Carbon Dioxide 30 mmol/L (22-30); Chloride 99 mmol/L (98-107); Estimated CRCL calculation 147 ml/min; Estimated Glomerular Filt Rate > 60; Glucose 270 mg/dL (65-110); Sodium 137 mmol/L (137-145)
[2021-07-01] MEDS: ENALAPRIL MALEATE 10 MG TABLET 20 MG PO (08:17)
[2021-07-01] MEDS: POTASSIUM CHLORIDE 20 MEQ TABLET 40 MEQ PO (08:17)
[2021-07-01] MEDS: amLODIPine BESYLATE 5 MG TABLET 10 MG PO (08:18)
[2021-07-01] MEDS: PANTOPRAZOLE SODIUM IV 40 MG VIAL IV PUSH ×2 (08:18→20:22)
[2021-07-01] MEDS: ENOXAPARIN 40 MG/0.4 ML SYRINGE SUB-Q (08:18)
[2021-07-01 08:21] LABS: Glucose Point of Care 287 mg/dl (65-105)
[2021-07-01 08:22] LABS: Band Neutrophils Percent 7 % (0-6); Lymphocytes Absolute Manual 1.58 K/mm3 (1.1-4.5); Lymphocytes Percent Manual 10 % (18-44); Neutrophils Percent Manual 69 % (46-73); Platelet Estimate Increased (Adequate); Total Cells Counted 100
[2021-07-01 08:23] LABS: Eosinophils Absolute Manual 0.63 K/mm3 (0.02-0.5); Eosinophils Percent Manual 4 % (0-4); Monocytes Absolute Manual 1.58 K/mm3 (0.1-0.90); Monocytes Percent Manual 10 % (3-9)
[2021-07-01] MEDS: HYDROmorphone HCL INJ (*CRX) 1 MG/ML SYR 0.5 MG IV PUSH ×2 (08:38→12:44)
--- NOTE | 2021-07-01 08:55 | PM.PNGS ---
Progress Note: A&P Assessment and Plan (1) Diverticulitis of colon with perforation: Code(s): K57.20 - Diverticulitis of large intestine with perforation and abscess without bleeding Status: Acute Assessment and Plan: WBC unchanged, cont abx, path reviewed, cont OOB/IS, will ask PT/OT to eval and tx, encourage po and add supplementation Subjective Subjective Date/Time Seen: 07/01/21 08:55 feels ok, still c significant incisional pain rober c movt, awa diet but poor appetitie Review of Systems Review of Systems: All systems reviewed & are unremarkable except as noted in HPI and below Exam Const: General: cooperative and no acute distress Orientation/consciousness: patient oriented x3 Resp: Effort & Inspection: normal respiratory effort Auscultation: clear to auscultation bilaterally Cardio: Rate: regular rate Rhythm: regular rhythm GI: Inspection: normal to inspection, distended and incision GI Palp: Yes Soft to palpation and Yes Tenderness to palpation present (GI) Other: incision C/D/I, ostomy dusky/edematous, +fxn Objective Data Vital Signs Vital Signs: Vital Signs - 24 hr 06/30/21 20:17 07/01/21 04:30 Temperature 35.9 C L 36.0 C L Pulse Rate 90 94 Respiratory Rate 20 20 Blood Pressure 167/72 H 174/69 H Pulse Oximetry 91 92 Intake/Output Intake/Output: Intake & Output 06/28/21 06/29/21 06/30/21 07/01/21 23:59 23:59 23:59 23:59 Intake Total 2613 2367 2700 390 Output Total 3585 1800 600 Balance -643 707 1450 390 Meds/Results Medications: Active Medications Generic Name Dose Route Start Last Admin Trade Name Freq PRN Reason Stop Dose Admin Amlodipine Besylate 10 mg 07/01/21 09:00 07/01/21 08:18 Amlodipine Besylate 5 Mg Tablet PO 10 mg QAM OMER Administration Dextrose 12.5 gm 06/25/21 19:53 Dextrose 50% 25 Gm/50 Ml Syringe IV PUSH PRN PRN Hypoglycemia Protocol Enalapril Maleate 20 mg 07/01/21 09:00 07/01/21 08:17 Enalapril Maleate 10 Mg Tablet PO 20 mg QAM OMER Administration Enoxaparin Sodium 40 mg 06/28/21 09:00 07/01/21 08:18 Enoxaparin 40 Mg/0.4 Ml Syringe SUB-Q 40 mg DAILY OMER Administration Glucagon 1 mg 06/25/21 19:53 Glucagon For Inj 1 Mg Vial IM PRN PRN Hypoglycemia Protocol Glucose 15 gm 06/25/21 19:53 Glucose Oral Gel 15 Gm Of Glucse In 37.5 Gm Tube PO PRN PRN Hypoglycemia Protocol Hydralazine HCl 10 mg 06/25/21 19:46 06/26/21 06:30 Hydralazine Hcl 20 Mg/Ml Vial IV PUSH 10 mg Q8H PRN Administration Blood Pressure - High Hydromorphone HCl 0.5 mg 06/25/21 14:06 07/01/21 08:38 Hydromorphone Hcl Inj (*Crx) 1 Mg/Ml Syr IV PUSH 0.5 mg Q3H PRN Administration Pain Rated 7-10 Piperacillin/Tazobactam/Dextrose 3.375 gm in 50 mls @ 100 mls/hr 06/25/21 17:00 07/01/21 06:10 Zosyn 3.375 Gm/D5w 50ml Pm IVPB Infused Q6H OMER Infusion Dextrose 1,000 mls @ 100 mls/hr 06/25/21 19:53 Dextrose 5% 1,000 Ml IVPB PRN PRN Hypoglycemia Protocol Insulin Aspart 4 - 8 units 07/01/21 08:00 Insulin Aspart (*Bkc) 100 Units/Ml SUB-Q ACINSULIN OMER Protocol Insulin Glargine 15 units 06/30/21 21:00 06/30/21 21:45 Insulin Glargine (*Bkc) 100 Units/Ml SUB-Q 15 units HS OMER Administration Levothyroxine Sodium 200 mcg 07/01/21 06:30 07/01/21 05:37 Levothyroxine Sodium 100 Mcg Tablet PO 200 mcg DAILY@0630 OMER Administration Lorazepam 0.5 mg 06/25/21 20:05 07/01/21 00:26 Lorazepam Inj (*Crx) 2 Mg/Ml Vial IV PUSH 0.5 mg Q6H PRN Administration Anxiety Morphine Sulfate 2 mg 06/27/21 17:39 07/01/21 05:47 Morphine Sulfate (*Crx) 2 Mg/Ml Inj IV PUSH 2 mg Q2H PRN Administration Pain Rated 4-6 Morphine Sulfate 4 mg 06/27/21 17:39 06/29/21 18:04 Morphine Sulfate (*Crx) 4 Mg/Ml Inj IV PUSH 4 mg Q2H PRN Administration Pain Rated 7-10 Naloxone HCl 0.1 mg 06/27/21
[2021-07-01] MEDS: INSULIN ASPART (*BKC) 100 UNITS/ML SUB-Q ×4 (10:20→17:39)
[2021-07-01] MEDS: polyethylene glycoL 3350 17 GM POWD.PACK PO (10:21)
[2021-07-01 11:29] VITALS: BMI 48.4
[2021-07-01 12:14] LABS: Glucose Point of Care 271 mg/dl (65-105)
--- NOTE | 2021-07-01 14:00 | P.PNIM_ITS ---
Progress Note: A&P Assessment and Plan (1) Diverticulitis of colon with perforation: Code(s): K57.20 - Diverticulitis of large intestine with perforation and abscess without bleeding Status: Acute Assessment and Plan: CT showed acute perforated sigmoid diverticulitis proximal to chronic stricture of the sigmoid colon with large volume of free intraperitoneal gas and abscess of the right pericolic gutter * Appreciate general surgery and gastroenterology consultation * She is s/p Deny's procedure with intra-abdominal washout on 06/27/[address] Dallas * Advance to diabetic diet * Continue broad-spectrum IV Zosyn * Blood cultures are pending; negative to date * Leukocytosis noted. Lactic is within normal limits. She remains afebrile * Supportive care. Analgesics available as needed (2) Stricture of sigmoid colon: Code(s): K56.699 - Other intestinal obstruction unspecified as to partial versus complete obstruction Status: Acute Assessment and Plan: [place] to be due to prior episode of diverticulitis. * She will need outpatient colonoscopy, which will be deferred for several months upon resolution of acute infection (3) New onset type 2 diabetes mellitus: Code(s): E11.9 - Type 2 diabetes mellitus without complications Status: Acute Assessment and Plan: Fasting glucose elevated, A1c found to be 11.9 consistent with diabetes. * Consult to school vocational educator; input is appreciated * Continue Accu-Cheks, high dose sliding scale insulin, hypoglycemic protocol * Continue lantus 15 units. Careful monitoring of blood sugars especially while NPO * Will add 5 units novolog with meals (4) Hypothyroidism: Code(s): E03.9 - Hypothyroidism, unspecified Status: Acute Assessment and Plan: TSH slightly elevated with normal T4. * Continue PO levothyroxine * She will need repeat reflex TSH in several weeks upon resolution of acute illness (5) Hypertension: Code(s): I10 - Essential (primary) hypertension Status: Acute Assessment and Plan: Blood pressure reviewed and has been fairly controlled. Somewhat elevated postoperatively likely due to pain and holding antihypertensives while NPO * Continue amlodipine and enalapril. Resume HCTZ * monitor blood pressure trends (6) Hypoxia: Code(s): R09.02 - Hypoxemia Status: Acute Assessment and Plan: Briefly hypoxic immediately post-op requiring 3 L O2. * She was able to be weaned to room air * 06/28 overnight had brief epsiode of hypoxia at 87% but quickly resolved. * Apnea link was normal * Maintaining adequate oxygenation on room air now (7) Hypokalemia: Code(s): E87.6 - Hypokalemia Status: Acute Assessment and Plan: Potassium 3.0 today * Administer 40 mEq PO KCl * Monitor BMP Subjective Date/time seen: 07/01/21 14:00 Interval history: Date of service: 07/01/2021 Leah Nogueira is a 56-year-old female with a history of diverticulitis, hypertension, hypothyroidism, IBS who is seen in follow for perforated diverticulitis. Feeling a little better today. Continues to endorse abdominal soreness, especially with movements. Reports pain is up to 8/10 this morning. She was able to get up and go for a walk. She is tolerating liquids and would like to try solid food. No nausea or vomiting. No urinary symptoms. No shortness breath, cough, chest pain. She has some stool output from her ostomy bag. Kenny
--- NOTE | 2021-07-01 14:00 | PM.IMPN ---
Progress Note: A&P Assessment and Plan (1) Diverticulitis of colon with perforation: Code(s): K57.20 - Diverticulitis of large intestine with perforation and abscess without bleeding Status: Acute Assessment and Plan: CT showed acute perforated sigmoid diverticulitis proximal to chronic stricture of the sigmoid colon with large volume of free intraperitoneal gas and abscess of the right pericolic gutter Appreciate general surgery and gastroenterology consultation She is s/p Deny's procedure with intra-abdominal washout on 06/27/[address] Dallas Advance to diabetic diet Continue broad-spectrum IV Zosyn Blood cultures are pending; negative to date Leukocytosis noted. Lactic is within normal limits. She remains afebrile Supportive care. Analgesics available as needed (2) Stricture of sigmoid colon: Code(s): K56.699 - Other intestinal obstruction unspecified as to partial versus complete obstruction Status: Acute Assessment and Plan: [place] to be due to prior episode of diverticulitis. She will need outpatient colonoscopy, which will be deferred for several months upon resolution of acute infection (3) New onset type 2 diabetes mellitus: Code(s): E11.9 - Type 2 diabetes mellitus without complications Status: Acute Assessment and Plan: Fasting glucose elevated, A1c found to be 11.9 consistent with diabetes. Consult to nurses educator; input is appreciated Continue Accu-Cheks, high dose sliding scale insulin, hypoglycemic protocol Continue lantus 15 units. Careful monitoring of blood sugars especially while NPO Will add 5 units novolog with meals (4) Hypothyroidism: Code(s): E03.9 - Hypothyroidism, unspecified Status: Acute Assessment and Plan: TSH slightly elevated with normal T4. Continue PO levothyroxine She will need repeat reflex TSH in several weeks upon resolution of acute illness (5) Hypertension: Code(s): I10 - Essential (primary) hypertension Status: Acute Assessment and Plan: Blood pressure reviewed and has been fairly controlled. Somewhat elevated postoperatively likely due to pain and holding antihypertensives while NPO Continue amlodipine and enalapril. Resume HCTZ monitor blood pressure trends (6) Hypoxia: Code(s): R09.02 - Hypoxemia Status: Acute Assessment and Plan: Briefly hypoxic immediately post-op requiring 3 L O2. She was able to be weaned to room air 06/28 overnight had brief epsiode of hypoxia at 87% but quickly resolved. Apnea link was normal Maintaining adequate oxygenation on room air now (7) Hypokalemia: Code(s): E87.6 - Hypokalemia Status: Acute Assessment and Plan: Potassium 3.0 today Administer 40 mEq PO KCl Monitor BMP Subjective Date/time seen: 07/01/21 14:00 Interval history: Date of service: 07/01/2021 Leah Nogueira is a 56-year-old female with a history of diverticulitis, hypertension, hypothyroidism, IBS who is seen in follow for perforated diverticulitis. Feeling a little better today. Continues to endorse abdominal soreness, especially with movements. Reports pain is up to 8/10 this morning. She was able to get up and go for a walk. She is tolerating liquids and would like to try solid food. No nausea or vomiting. No urinary symptoms. No shortness breath, cough, chest pain. She has some stool output from her ostomy bag. Review of Systems Review of Systems: All systems reviewed & are unremarkable except as noted in HPI and below Exam Narrative: Ms. Nogueira is an obese, well-appearing 56-year-old female who is lying supine in bed. She appears comfortable and is in NARD. Neuro: awake, alert and oriented x4, speech clear, no focal neuro deficits noted HEENMT: normocephalic, atraumatic, EOMI, sclerae anicteric, moist oral mucosa Neck: supple, no lymphadenopathy Respiratory: c
[2021-07-01 14:15] VITALS: BP 139/59; PULSE 99; RESP 24; TEMP 36.1; O2SAT 94
[2021-07-01 16:48] LABS: Glucose Point of Care 293 mg/dl (65-105)
[2021-07-01] MEDS: HYDROcodone/acetaminophen (*CRX) 7.5-325 MG TABLET 1 TAB PO ×2 (17:39→23:39)
[2021-07-01] MEDS: INSULIN GLARGINE (*BKC) 100 UNITS/ML 15 UNITS SUB-Q (20:22)
[2021-07-01 20:42] LABS: Glucose Point of Care 262 mg/dl (65-105)
[2021-07-01 22:30] VITALS: BP 120/55; PULSE 91; RESP 16; TEMP 36.4; O2SAT 91
[2021-07-02 05:17] VITALS: BP 147/57; PULSE 87; RESP 16; TEMP 36.2; O2SAT 92
[2021-07-02 05:22] LABS: Hematocrit 34.5 % (37.0-47.0); Hemoglobin 10.8 g/dL (12.0-15.0); Mean Corpuscular HGB Conc 31.3 g/dl (32-36); Mean Corpuscular Hemoglobin 27.3 pg (26-34); Mean Corpuscular Volume 87.1 fl (80-100); Mean Platelet Volume 8.8 fl (7.4-10.4); Platelet Count Result 446 k/mm3 (150-375); Red Blood Count 3.96 M/mm3 (4.2-5.4); Red Cell Distribution Width 14.2 % (11.5-14.5); White Blood Count 17.7 K/mm3 (4.5-10.0)
[2021-07-02 05:30] LABS: Anion Gap 5 mmol/L (8-16); Blood Urea Nitrogen 7 mg/dL (7-17); Calcium 8.2 mg/dL (8.4-10.2); Carbon Dioxide 32 mmol/L (22-30); Chloride 94 mmol/L (98-107); Estimated CRCL calculation 147 ml/min; Estimated Glomerular Filt Rate > 60; Glucose 291 mg/dL (65-110); Potassium 3.5 mmol/L (3.4-5.0); Sodium 131 mmol/L (137-145)
[2021-07-02] MEDS: LEVOTHYROXINE SODIUM 100 MCG TABLET 200 MCG PO (05:35)
[2021-07-02 08:32] LABS: Glucose Point of Care 263 mg/dl (65-105)
[2021-07-02] MEDS: ENOXAPARIN 40 MG/0.4 ML SYRINGE SUB-Q (09:20)
[2021-07-02] MEDS: INSULIN ASPART (*BKC) 100 UNITS/ML SUB-Q ×6 (09:20→17:32)
[2021-07-02] MEDS: polyethylene glycoL 3350 17 GM POWD.PACK PO (09:20)
[2021-07-02] MEDS: amLODIPine BESYLATE 5 MG TABLET 10 MG PO (09:21)
[2021-07-02] MEDS: hydroCHLOROthiazide 12.5 MG CAPSULE PO (09:21)
[2021-07-02] MEDS: ENALAPRIL MALEATE 10 MG TABLET 20 MG PO (09:21)
[2021-07-02] MEDS: PANTOPRAZOLE SODIUM IV 40 MG VIAL IV PUSH ×2 (09:21→20:37)
[2021-07-02] MEDS: HYDROcodone/acetaminophen (*CRX) 5-325 MG TABLET 1 TAB PO (09:28)
--- NOTE | 2021-07-02 10:20 | P.PNIM_ITS ---
Progress Note: A&P Assessment and Plan (1) Diverticulitis of colon with perforation: Code(s): K57.20 - Diverticulitis of large intestine with perforation and abscess without bleeding Status: Acute Assessment and Plan: CT showed acute perforated sigmoid diverticulitis proximal to chronic stricture of the sigmoid colon with large volume of free intraperitoneal gas and abscess of the right pericolic gutter * Appreciate general surgery and gastroenterology consultation * She is s/p Deny's procedure with intra-abdominal washout on 06/27/[address] Dallas * Advanced to diabetic diet, she is tolerating well * Continue broad-spectrum IV Zosyn * Blood cultures are pending; negative to date * Increased leukocytosis noted. Lactic is within normal limits. She remains afebrile * Supportive care. Analgesics available as needed (2) Stricture of sigmoid colon: Code(s): K56.699 - Other intestinal obstruction unspecified as to partial versus complete obstruction Status: Acute Assessment and Plan: [place] to be due to prior episode of diverticulitis. * She will need outpatient colonoscopy, which will be deferred for several months upon resolution of acute infection (3) New onset type 2 diabetes mellitus: Code(s): E11.9 - Type 2 diabetes mellitus without complications Status: Acute Assessment and Plan: Fasting glucose elevated, A1c found to be 11.9 consistent with diabetes. Fasting glucose 291 this morning * Consult to childbirth educator; input is appreciated * Continue Accu-Cheks, high dose sliding scale insulin, hypoglycemic protocol * Increase lantus to 18 units. * Continue 5 units novolog with meals (4) Hypothyroidism: Code(s): E03.9 - Hypothyroidism, unspecified Status: Acute Assessment and Plan: TSH slightly elevated with normal T4. * Continue PO levothyroxine * She will need repeat reflex TSH in several weeks upon resolution of acute illness (5) Hypertension: Code(s): I10 - Essential (primary) hypertension Status: Acute Assessment and Plan: Blood pressure reviewed and has been fairly controlled. Somewhat elevated postoperatively likely due to pain. Last BP 147/57 * Continue amlodipine, enalapril, and HCTZ * monitor blood pressure trends (6) Hypoxia: Code(s): R09.02 - Hypoxemia Status: Acute Assessment and Plan: Briefly hypoxic immediately post-op requiring 3 L O2. * She was able to be weaned to room air * 06/28 overnight had brief epsiode of hypoxia at 87% but quickly resolved. * Apnea link was normal * Maintaining adequate oxygenation on room air now (7) Hypokalemia: Code(s): E87.6 - Hypokalemia Status: Acute Assessment and Plan: Resolved. Potassium 3.5 today * Monitor BMP * Anticipate resolution with continued p.o. intake (8) Productive cough: Code(s): R05.8 - Other specified cough Status: Acute Assessment and Plan: Reports cough productive of yellowish sputum * Proceed with CXR to rule out any findings of pneumonia in light of increasing WBC * Supportive care Subjective Date/time seen: 07/02/21 10:20 Interval history: Date of service: 07/02/2021 Leah Nogueira is a 56-year-old female with a history of diverticulitis, hypertension, hypothyroidism, IBS who is seen in follow up for perforated diverticulitis. She is still feeling very sore. She was tearful today as she w
--- NOTE | 2021-07-02 10:20 | PM.IMPN ---
Progress Note: A&P Assessment and Plan (1) Diverticulitis of colon with perforation: Code(s): K57.20 - Diverticulitis of large intestine with perforation and abscess without bleeding Status: Acute Assessment and Plan: CT showed acute perforated sigmoid diverticulitis proximal to chronic stricture of the sigmoid colon with large volume of free intraperitoneal gas and abscess of the right pericolic gutter Appreciate general surgery and gastroenterology consultation She is s/p Deny's procedure with intra-abdominal washout on 06/27/[address] Dallas Advanced to diabetic diet, she is tolerating well Continue broad-spectrum IV Zosyn Blood cultures are pending; negative to date Increased leukocytosis noted. Lactic is within normal limits. She remains afebrile Supportive care. Analgesics available as needed (2) Stricture of sigmoid colon: Code(s): K56.699 - Other intestinal obstruction unspecified as to partial versus complete obstruction Status: Acute Assessment and Plan: [place] to be due to prior episode of diverticulitis. She will need outpatient colonoscopy, which will be deferred for several months upon resolution of acute infection (3) New onset type 2 diabetes mellitus: Code(s): E11.9 - Type 2 diabetes mellitus without complications Status: Acute Assessment and Plan: Fasting glucose elevated, A1c found to be 11.9 consistent with diabetes. Fasting glucose 291 this morning Consult to parent educator; input is appreciated Continue Accu-Cheks, high dose sliding scale insulin, hypoglycemic protocol Increase lantus to 18 units. Continue 5 units novolog with meals (4) Hypothyroidism: Code(s): E03.9 - Hypothyroidism, unspecified Status: Acute Assessment and Plan: TSH slightly elevated with normal T4. Continue PO levothyroxine She will need repeat reflex TSH in several weeks upon resolution of acute illness (5) Hypertension: Code(s): I10 - Essential (primary) hypertension Status: Acute Assessment and Plan: Blood pressure reviewed and has been fairly controlled. Somewhat elevated postoperatively likely due to pain. Last BP 147/57 Continue amlodipine, enalapril, and HCTZ monitor blood pressure trends (6) Hypoxia: Code(s): R09.02 - Hypoxemia Status: Acute Assessment and Plan: Briefly hypoxic immediately post-op requiring 3 L O2. She was able to be weaned to room air 06/28 overnight had brief epsiode of hypoxia at 87% but quickly resolved. Apnea link was normal Maintaining adequate oxygenation on room air now (7) Hypokalemia: Code(s): E87.6 - Hypokalemia Status: Acute Assessment and Plan: Resolved. Potassium 3.5 today Monitor BMP Anticipate resolution with continued p.o. intake (8) Productive cough: Code(s): R05.8 - Other specified cough Status: Acute Assessment and Plan: Reports cough productive of yellowish sputum Proceed with CXR to rule out any findings of pneumonia in light of increasing WBC Supportive care Subjective Date/time seen: 07/02/21 10:20 Interval history: Date of service: 07/02/2021 Leah Nogueira is a 56-year-old female with a history of diverticulitis, hypertension, hypothyroidism, IBS who is seen in follow up for perforated diverticulitis. She is still feeling very sore. She was tearful today as she was getting back in bed. States that she is worried about how she is going to get in and out of her recliner and even into her car. Her pain is still significant and she is feeling somewhat overwhelmed. She was able to tolerate a solid diet today and she had a this morning. No nausea or vomiting with this. She also notes that she developed a cough productive of yellowish sputum. She denies shortness of breath. No chest pain no palpitations. Denies wheezing. Denies dysuria, urgency, freque
[2021-07-02 11:44] LABS: Glucose Point of Care 261 mg/dl (65-105)
--- NOTE | 2021-07-02 12:53 | PM.PNGS ---
Progress Note: A&P Assessment and Plan (1) Stricture of sigmoid colon: Code(s): K56.699 - Other intestinal obstruction unspecified as to partial versus complete obstruction Status: Acute Assessment and Plan: Continue monitoring, WBC going up. Will get repeat CT tomorrow if persistently elevated. (2) Diverticulitis of colon with perforation: Code(s): K57.20 - Diverticulitis of large intestine with perforation and abscess without bleeding Status: Acute Subjective Subjective Date/Time Seen: 07/02/21 12:53 Interval history: Tolerating diet. [place] was removed yesterday. No dysuria. Exam GI: Inspection: other (ostomy dusky, but remains intact and functioning) GI Palp: Yes Soft to palpation and Yes Tenderness to palpation present (GI) (incisional) Auscultation: normal bowel sounds Objective Data Vital Signs Vital Signs: Vital Signs - 24 hr 07/01/21 14:15 07/01/21 22:30 07/02/21 05:17 Temperature 36.1 C L 36.4 C L 36.2 C L Pulse Rate 99 91 87 Respiratory Rate 24 H 16 16 Blood Pressure 139/59 L 120/55 L 147/57 H Pulse Oximetry 94 91 92 Intake/Output Intake/Output: Intake & Output 06/29/21 06/30/21 07/01/21 07/02/21 23:59 23:59 23:59 23:59 Intake Total 2367 2700 2130 640 Output Total 5459 683 2546 1300 Balance 567 2100 830 -660 Meds/Results Medications: Active Medications Generic Name Dose Route Start Last Admin Trade Name Freq PRN Reason Stop Dose Admin Acetaminophen 650 mg 07/01/21 13:57 Acetaminophen 325 Mg Tablet PO Q4H PRN Pain 1-3 Hydrocodone Bitart/Acetaminophen 1 tab 07/01/21 13:58 07/02/21 09:28 Hydrocodone/Acetaminophen (*Crx) 5-325 Mg Tablet PO 1 tab Q6H PRN Administration Pain Rated 4-6 Hydrocodone Bitart/Acetaminophen 1 tab 07/01/21 13:58 07/01/21 23:39 Hydrocodone/Acetaminophen (*Crx) 7.5-325 Mg Tablet PO 1 tab Q6H PRN Administration Pain Rated 7-10 Amlodipine Besylate 10 mg 07/01/21 09:00 07/02/21 09:21 Amlodipine Besylate 5 Mg Tablet PO 10 mg QAM OMER Administration Dextrose 12.5 gm 06/25/21 19:53 Dextrose 50% 25 Gm/50 Ml Syringe IV PUSH PRN PRN Hypoglycemia Protocol Enalapril Maleate 20 mg 07/01/21 09:00 07/02/21 09:21 Enalapril Maleate 10 Mg Tablet PO 20 mg QAM OMER Administration Enoxaparin Sodium 40 mg 06/28/21 09:00 07/02/21 09:20 Enoxaparin 40 Mg/0.4 Ml Syringe SUB-Q 40 mg DAILY OMER Administration Glucagon 1 mg 06/25/21 19:53 Glucagon For Inj 1 Mg Vial IM PRN PRN Hypoglycemia Protocol Glucose 15 gm 06/25/21 19:53 Glucose Oral Gel 15 Gm Of Glucse In 37.5 Gm Tube PO PRN PRN Hypoglycemia Protocol Hydrochlorothiazide 12.5 mg 07/02/21 09:00 07/02/21 09:21 Hydrochlorothiazide 12.5 Mg Capsule PO 12.5 mg QAM OMER Administration Hydromorphone HCl 0.5 mg 07/01/21 14:00 Hydromorphone Hcl Inj (*Crx) 1 Mg/Ml Syr IV PUSH Q3H PRN Breakthrough Pain Piperacillin/Tazobactam/Dextrose 3.375 gm in 50 mls @ 100 mls/hr 06/25/21 17:00 07/02/21 11:43 Zosyn 3.375 Gm/D5w 50ml Pm IVPB 100 mls/hr Q6H OMER Administration Dextrose 1,000 mls @ 100 mls/hr 06/25/21 19:53 Dextrose 5% 1,000 Ml IVPB PRN PRN Hypoglycemia Protocol Insulin Aspart 4 - 8 units 07/01/21 08:00 07/02/21 11:49 Insulin Aspart (*Bkc) 100 Units/Ml SUB-Q 5 units ACINSULIN OMER Administration Protocol Insulin Aspart 5 units 07/01/21 17:00 07/02/21 11:49 Insulin Aspart (*Bkc) 100 Units/Ml SUB-Q 5 units TIDWM OMER Administration Insulin Glargine 18 units 07/02/21 21:00 Insulin Glargine (*Bkc) 100 Units/Ml SUB-Q HS OMER Levothyroxine Sodium 200 mcg 07/01/21 06:30 07/02/21 05:35 Levothyroxine Sodium 100 Mcg Tablet PO 200 mcg DAILY@0630 OMER Administration Naloxone HCl 0.1 mg 06/27/21 17:39 Naloxone Hcl 0.4 Mg/Ml Vial IV PUSH Q2M PRN Opiate Reversal
[2021-07-02] MEDS: ACETAMINOPHEN 325 MG TABLET 650 MG PO (13:51)
[2021-07-02 14:51] VITALS: BP 123/53; PULSE 90; RESP 16; TEMP 36.6; O2SAT 93
[2021-07-02 16:52] LABS: Glucose Point of Care 256 mg/dl (65-105)
[2021-07-02] MEDS: HYDROcodone/acetaminophen (*CRX) 7.5-325 MG TABLET 1 TAB PO ×2 (17:31→23:06)
[2021-07-02] MEDS: INSULIN GLARGINE (*BKC) 100 UNITS/ML 18 UNITS SUB-Q (20:38)
[2021-07-02 21:23] VITALS: BP 118/54; PULSE 80; RESP 16; TEMP 36.6; O2SAT 92
[2021-07-02 21:32] LABS: Glucose Point of Care 341 mg/dl (65-105)
[2021-07-03] MEDS: HYDROcodone/acetaminophen (*CRX) 7.5-325 MG TABLET 1 TAB PO ×3 (04:57→20:07)
[2021-07-03 05:28] LABS: Anion Gap 0 mmol/L (8-16); Blood Urea Nitrogen 6 mg/dL (7-17); Calcium 8.6 mg/dL (8.4-10.2); Carbon Dioxide 38 mmol/L (22-30); Chloride 93 mmol/L (98-107); Estimated CRCL calculation 179 ml/min; Estimated Glomerular Filt Rate > 60; Glucose 294 mg/dL (65-110); Potassium 3.3 mmol/L (3.4-5.0); Sodium 131 mmol/L (137-145)
[2021-07-03] MEDS: LEVOTHYROXINE SODIUM 100 MCG TABLET 200 MCG PO (05:38)
[2021-07-03 05:49] LABS: Hematocrit 35.2 % (37.0-47.0); Mean Corpuscular HGB Conc 31.3 g/dl (32-36); Mean Corpuscular Volume 86.3 fl (80-100); Mean Platelet Volume 9.1 fl (7.4-10.4); Platelet Count Result 527 k/mm3 (150-375); Red Blood Count 4.08 M/mm3 (4.2-5.4); Red Cell Distribution Width 14.3 % (11.5-14.5); White Blood Count 17.6 K/mm3 (4.5-10.0)
[2021-07-03 06:00] VITALS: BP 146/64; PULSE 81; RESP 16; TEMP 36.6; O2SAT 93
[2021-07-03 07:21] LABS: Band Neutrophils Percent 3 % (0-6); Lymphocytes Absolute Manual 1.58 K/mm3 (1.1-4.5); Monocytes Absolute Manual 0.88 K/mm3 (0.1-0.90); Monocytes Percent Manual 5 % (3-9); Neutrophils Absolute Manual 15.13 K/mm3 (1.7-7.2); Neutrophils Percent Manual 83 % (46-73); Nucleated Red Blood Cells 1 %; Total Cells Counted 100
[2021-07-03 07:22] LABS: Anisocytosis 1+ (NORMAL); Atypical Lymphocytes Present; Hypochromasia 1+ (NORMAL)
[2021-07-03 07:48] LABS: Glucose Point of Care 229 mg/dl (65-105)
[2021-07-03] MEDS: polyethylene glycoL 3350 17 GM POWD.PACK PO (08:05)
[2021-07-03] MEDS: INSULIN ASPART (*BKC) 100 UNITS/ML SUB-Q ×4 (08:05→17:01)
[2021-07-03] MEDS: PANTOPRAZOLE SODIUM IV 40 MG VIAL IV PUSH ×2 (08:05→20:06)
[2021-07-03] MEDS: ENOXAPARIN 40 MG/0.4 ML SYRINGE SUB-Q (08:06)
[2021-07-03] MEDS: ENALAPRIL MALEATE 10 MG TABLET 20 MG PO (08:07)
[2021-07-03] MEDS: hydroCHLOROthiazide 12.5 MG CAPSULE PO (08:07)
[2021-07-03] MEDS: amLODIPine BESYLATE 5 MG TABLET 10 MG PO (08:07)
--- NOTE | 2021-07-03 09:05 | PM.PNGS ---
Progress Note: A&P Assessment and Plan (1) Stricture of sigmoid colon: Code(s): K56.699 - Other intestinal obstruction unspecified as to partial versus complete obstruction Status: Acute Assessment and Plan: Leukocytosis persists. No clear sign of infection. Will get repeat CT today. (2) Diverticulitis of colon with perforation: Code(s): K57.20 - Diverticulitis of large intestine with perforation and abscess without bleeding Status: Acute Subjective Subjective Date/Time Seen: 07/03/21 09:05 Interval history: No interval changes. Pain minimal. Tolerating diet. No dysuria. Cough resolved. Exam GI: Inspection: other (ostomy dusky, but remains intact and functioning) GI Palp: Yes Soft to palpation and Yes Tenderness to palpation present (GI) (incisional) Auscultation: normal bowel sounds Objective Data Vital Signs Vital Signs: Vital Signs - 24 hr 07/02/21 14:51 07/02/21 21:23 07/03/21 06:00 Temperature 36.6 C 36.6 C 36.6 C Pulse Rate 90 80 81 Respiratory Rate 16 16 16 Blood Pressure 123/53 L 118/54 L 146/64 H Pulse Oximetry 93 92 93 Intake/Output Intake/Output: Intake & Output 06/30/21 07/01/21 07/02/21 07/03/21 23:59 23:59 23:59 23:59 Intake Total 2700 2130 1270 50 Output Total 600 1300 1650 Balance 2100 830 -380 50 Meds/Results Medications: Active Medications Generic Name Dose Route Start Last Admin Trade Name Freq PRN Reason Stop Dose Admin Acetaminophen 650 mg 07/01/21 13:57 07/02/21 13:51 Acetaminophen 325 Mg Tablet PO 650 mg Q4H PRN Administration Pain 1-3 Hydrocodone Bitart/Acetaminophen 1 tab 07/01/21 13:58 07/02/21 09:28 Hydrocodone/Acetaminophen (*Crx) 5-325 Mg Tablet PO 1 tab Q6H PRN Administration Pain Rated 4-6 Hydrocodone Bitart/Acetaminophen 1 tab 07/01/21 13:58 07/03/21 04:57 Hydrocodone/Acetaminophen (*Crx) 7.5-325 Mg Tablet PO 1 tab Q6H PRN Administration Pain Rated 7-10 Amlodipine Besylate 10 mg 07/01/21 09:00 07/03/21 08:07 Amlodipine Besylate 5 Mg Tablet PO 10 mg QAM OMER Administration Dextrose 12.5 gm 06/25/21 19:53 Dextrose 50% 25 Gm/50 Ml Syringe IV PUSH PRN PRN Hypoglycemia Protocol Enalapril Maleate 20 mg 07/01/21 09:00 07/03/21 08:07 Enalapril Maleate 10 Mg Tablet PO 20 mg QAM OMER Administration Enoxaparin Sodium 40 mg 06/28/21 09:00 07/03/21 08:06 Enoxaparin 40 Mg/0.4 Ml Syringe SUB-Q 40 mg DAILY OMER Administration Glucagon 1 mg 06/25/21 19:53 Glucagon For Inj 1 Mg Vial IM PRN PRN Hypoglycemia Protocol Glucose 15 gm 06/25/21 19:53 Glucose Oral Gel 15 Gm Of Glucse In 37.5 Gm Tube PO PRN PRN Hypoglycemia Protocol Hydrochlorothiazide 12.5 mg 07/02/21 09:00 07/03/21 08:07 Hydrochlorothiazide 12.5 Mg Capsule PO 12.5 mg QAM OMER Administration Hydromorphone HCl 0.5 mg 07/01/21 14:00 Hydromorphone Hcl Inj (*Crx) 1 Mg/Ml Syr IV PUSH Q3H PRN Breakthrough Pain Piperacillin/Tazobactam/Dextrose 3.375 gm in 50 mls @ 100 mls/hr 06/25/21 17:00 07/03/21 05:28 Zosyn 3.375 Gm/D5w 50ml Pm IVPB Infused Q6H OMER Infusion Dextrose 1,000 mls @ 100 mls/hr 06/25/21 19:53 Dextrose 5% 1,000 Ml IVPB PRN PRN Hypoglycemia Protocol Insulin Aspart 4 - 8 units 07/01/21 08:00 07/03/21 08:05 Insulin Aspart (*Bkc) 100 Units/Ml SUB-Q 5 units ACINSULIN OMER Administration Protocol Insulin Aspart 8 units 07/03/21 12:00 Insulin Aspart (*Bkc) 100 Units/Ml SUB-Q TIDWM OMER Insulin Glargine 21 units 07/03/21 21:00 Insulin Glargine (*Bkc) 100 Units/Ml SUB-Q HS OMER Levothyroxine Sodium 200 mcg 07/01/21 06:30 07/03/21 05:38 Levothyroxine Sodium 100 Mcg Tablet PO 200 mcg DAILY@0630 OMER Administration Naloxone HCl 0.1 mg 06/27/21 17:39 Naloxone Hcl 0.4 Mg/Ml Vial IV PUSH Q2M PRN Opiate Reversal Ondansetr
[2021-07-03 10:31] VITALS: BP 140/53; PULSE 88; RESP 16; TEMP 36.5; O2SAT 94
--- NOTE | 2021-07-03 11:51 | P.PNIM_ITS ---
Progress Note: A&P Assessment and Plan (1) Diverticulitis of colon with perforation: Code(s): K57.20 - Diverticulitis of large intestine with perforation and abscess without bleeding Status: Acute Assessment and Plan: CT showed acute perforated sigmoid diverticulitis proximal to chronic stricture of the sigmoid colon with large volume of free intraperitoneal gas and abscess of the right pericolic gutter * Appreciate general surgery and gastroenterology consultation * She is s/p Deny's procedure with intra-abdominal washout on 06/27/[address] Dallas * Advanced to diabetic diet, she is tolerating well * Continue broad-spectrum IV Zosyn * Blood cultures are negative * Increased leukocytosis noted. Lactic is within normal limits. She remains afebrile * Supportive care. Analgesics available as needed * Repeat CT abdomen/pelvis ordered for today in light of persistent leukocytosis (2) Stricture of sigmoid colon: Code(s): K56.699 - Other intestinal obstruction unspecified as to partial versus complete obstruction Status: Acute Assessment and Plan: [place] to be due to prior episode of diverticulitis. * She will need outpatient colonoscopy, which will be deferred for several months upon resolution of acute infection (3) New onset type 2 diabetes mellitus: Code(s): E11.9 - Type 2 diabetes mellitus without complications Status: Acute Assessment and Plan: Fasting glucose elevated, A1c found to be 11.9 consistent with diabetes. Fasting glucose 294 this morning * Consult placed to certified diabetes educator though has not been seen. Hopefully if remaining hospitalized will be able to meet on Sunday * Continue Accu-Cheks, high dose sliding scale insulin, hypoglycemic protocol * Increase lantus to 21 units. * Increase NovoLog 8 units scheduled with meals * Monitor glucose trends and continue to adjust regimen as needed (4) Hypothyroidism: Code(s): E03.9 - Hypothyroidism, unspecified Status: Acute Assessment and Plan: TSH slightly elevated with normal T4. * Continue PO levothyroxine * She will need repeat reflex TSH in several weeks upon resolution of acute illness (5) Hypertension: Code(s): I10 - Essential (primary) hypertension Status: Acute Assessment and Plan: Blood pressure reviewed and has been fairly controlled. Elevated postoperatively likely due to pain but has improved. Last BP 140/53 * Continue amlodipine, enalapril, and HCTZ * monitor blood pressure trends (6) Hypoxia: Code(s): R09.02 - Hypoxemia Status: Acute Assessment and Plan: Briefly hypoxic immediately post-op requiring 3 L O2. * She was able to be weaned to room air * 06/28 overnight had brief epsiode of hypoxia at 87% but quickly resolved. * Apnea link was normal * Maintaining adequate oxygenation on room air now (7) Hypokalemia: Code(s): E87.6 - Hypokalemia Status: Acute Assessment and Plan: Potassium 3.3 today * Administer 20 mg p.o. KCl * Monitor BMP (8) Productive cough: Code(s): R05.8 - Other specified cough Status: Acute Assessment and Plan: 1225 reported cough productive of yellowish sputum * Cough has resolved * CXR with small pleural effusion and atelectasis. Continue incentive spirometry. * Supportive care Additional Plan Check UA for blood given reports of blood on tissue when wiping Subjective Date/time
--- NOTE | 2021-07-03 11:51 | PM.IMPN ---
Progress Note: A&P Assessment and Plan (1) Diverticulitis of colon with perforation: Code(s): K57.20 - Diverticulitis of large intestine with perforation and abscess without bleeding Status: Acute Assessment and Plan: CT showed acute perforated sigmoid diverticulitis proximal to chronic stricture of the sigmoid colon with large volume of free intraperitoneal gas and abscess of the right pericolic gutter Appreciate general surgery and gastroenterology consultation She is s/p Deny's procedure with intra-abdominal washout on 06/27/[address] Dallas Advanced to diabetic diet, she is tolerating well Continue broad-spectrum IV Zosyn Blood cultures are negative Increased leukocytosis noted. Lactic is within normal limits. She remains afebrile Supportive care. Analgesics available as needed Repeat CT abdomen/pelvis ordered for today in light of persistent leukocytosis (2) Stricture of sigmoid colon: Code(s): K56.699 - Other intestinal obstruction unspecified as to partial versus complete obstruction Status: Acute Assessment and Plan: [place] to be due to prior episode of diverticulitis. She will need outpatient colonoscopy, which will be deferred for several months upon resolution of acute infection (3) New onset type 2 diabetes mellitus: Code(s): E11.9 - Type 2 diabetes mellitus without complications Status: Acute Assessment and Plan: Fasting glucose elevated, A1c found to be 11.9 consistent with diabetes. Fasting glucose 294 this morning Consult placed to consumer educator though has not been seen. Hopefully if remaining hospitalized will be able to meet on Sunday Continue Accu-Cheks, high dose sliding scale insulin, hypoglycemic protocol Increase lantus to 21 units. Increase NovoLog 8 units scheduled with meals Monitor glucose trends and continue to adjust regimen as needed (4) Hypothyroidism: Code(s): E03.9 - Hypothyroidism, unspecified Status: Acute Assessment and Plan: TSH slightly elevated with normal T4. Continue PO levothyroxine She will need repeat reflex TSH in several weeks upon resolution of acute illness (5) Hypertension: Code(s): I10 - Essential (primary) hypertension Status: Acute Assessment and Plan: Blood pressure reviewed and has been fairly controlled. Elevated postoperatively likely due to pain but has improved. Last BP 140/53 Continue amlodipine, enalapril, and HCTZ monitor blood pressure trends (6) Hypoxia: Code(s): R09.02 - Hypoxemia Status: Acute Assessment and Plan: Briefly hypoxic immediately post-op requiring 3 L O2. She was able to be weaned to room air 06/28 overnight had brief epsiode of hypoxia at 87% but quickly resolved. Apnea link was normal Maintaining adequate oxygenation on room air now (7) Hypokalemia: Code(s): E87.6 - Hypokalemia Status: Acute Assessment and Plan: Potassium 3.3 today Administer 20 mg p.o. KCl Monitor BMP (8) Productive cough: Code(s): R05.8 - Other specified cough Status: Acute Assessment and Plan: 1225 reported cough productive of yellowish sputum Cough has resolved CXR with small pleural effusion and atelectasis. Continue incentive spirometry. Supportive care Additional Plan Check UA for blood given reports of blood on tissue when wiping Subjective Date/time seen: 07/03/21 11:51 Interval history: Date of service: 07/03/2021 Leah Nogueira is a 56-year-old female with a history of diverticulitis, hypertension, hypothyroidism, IBS who is seen in follow up for perforated diverticulitis. She feels a little better today. Continue to endorse soreness but overall pain has diminished. She is in good spirits today. She denies nausea or vomiting. She is tolerating her diet very well. Blood sugars are still elevated and she does endorse polyuria an
[2021-07-03 12:04] LABS: Glucose Point of Care 265 mg/dl (65-105)
[2021-07-03] MEDS: POTASSIUM CHLORIDE 20 MEQ TABLET PO (12:46)
[2021-07-03] MEDS: INSULIN ASPART (*BKC) 100 UNITS/ML 8 UNITS SUB-Q ×2 (12:47→17:02)
[2021-07-03 14:00] VITALS: BP 147/72; PULSE 86; RESP 18; TEMP 36.3; O2SAT 95
[2021-07-03 14:36] LABS: Add Urine Microscopic? YES; Appearance Urine Clear (Clear); Bilirubin Urine Negative (Negative); Blood Urine 1+ (Negative); Color Urine Straw (Yellow); Glucose Urine UA 3+ mg/dL (Negative); Ketones Urine Negative (Negative); Leukocyte Esterase Ur Negative LEU/UL (Negative); Nitrate Urine Negative (Negative); Protein Urine Negative (Negative); Specific Grav Ur 1.012 (1.001-1.035); Squamous Epithelial Cell Urine Rare /hpf (Few); Urobilinogen Urine Negative mg/dL (<2.0); WBC Urine 0-3 /hpf
[2021-07-03 16:54] LABS: Glucose Point of Care 275 mg/dl (65-105)
[2021-07-03 17:30] VITALS: BP 130/52; PULSE 85; RESP 16; TEMP 36.7; O2SAT 93
[2021-07-03] MEDS: INSULIN GLARGINE (*BKC) 100 UNITS/ML 23 UNITS SUB-Q (20:08)
[2021-07-03 20:53] LABS: Glucose Point of Care 293 mg/dl (65-105)
[2021-07-03 22:10] VITALS: BP 132/57; PULSE 80; RESP 16; TEMP 37.1; O2SAT 92
[2021-07-03 23:49] VITALS: BP 147/63; PULSE 84; RESP 20; TEMP 36.2; O2SAT 94
[2021-07-04] MEDS: HYDROcodone/acetaminophen (*CRX) 7.5-325 MG TABLET 1 TAB PO ×4 (01:44→20:28)
[2021-07-04 05:02] VITALS: BP 126/44; PULSE 80; RESP 18; TEMP 36.6; O2SAT 94
[2021-07-04] MEDS: LEVOTHYROXINE SODIUM 100 MCG TABLET 200 MCG PO (05:31)
[2021-07-04 05:42] LABS: Hematocrit 34.8 % (37.0-47.0); Mean Corpuscular HGB Conc 31.6 g/dl (32-36); Mean Corpuscular Hemoglobin 27.3 pg (26-34); Mean Corpuscular Volume 86.4 fl (80-100); Mean Platelet Volume 9.2 fl (7.4-10.4); Platelet Count Result 488 k/mm3 (150-375); Red Blood Count 4.03 M/mm3 (4.2-5.4); Red Cell Distribution Width 14.5 % (11.5-14.5)
[2021-07-04 05:53] LABS: Anion Gap 6 mmol/L (8-16); Blood Urea Nitrogen 7 mg/dL (7-17); Calcium 8.2 mg/dL (8.4-10.2); Carbon Dioxide 34 mmol/L (22-30); Chloride 92 mmol/L (98-107); Estimated CRCL calculation 178 ml/min; Estimated Glomerular Filt Rate > 60; Glucose 289 mg/dL (65-110); Potassium 3.7 mmol/L (3.4-5.0); Sodium 132 mmol/L (137-145)
[2021-07-04 07:16] LABS: Atypical Lymphocytes Present; Band Neutrophils Percent 8 % (0-6); Eosinophils Absolute Manual 0.32 K/mm3 (0.02-0.5); Eosinophils Percent Manual 2 % (0-4); Lymphocytes Absolute Manual 2.24 K/mm3 (1.1-4.5); Monocytes Absolute Manual 0.32 K/mm3 (0.1-0.90); Monocytes Percent Manual 2 % (3-9); Neutrophils Absolute Manual 13.12 K/mm3 (1.7-7.2); Neutrophils Percent Manual 74 % (46-73); Total Cells Counted 100
[2021-07-04 07:39] LABS: Glucose Point of Care 271 mg/dl (65-105)
[2021-07-04] MEDS: amLODIPine BESYLATE 5 MG TABLET 10 MG PO (07:58)
[2021-07-04] MEDS: hydroCHLOROthiazide 12.5 MG CAPSULE PO (07:59)
[2021-07-04] MEDS: ENALAPRIL MALEATE 10 MG TABLET 20 MG PO (07:59)
[2021-07-04] MEDS: ENOXAPARIN 40 MG/0.4 ML SYRINGE SUB-Q (07:59)
[2021-07-04] MEDS: polyethylene glycoL 3350 17 GM POWD.PACK PO (07:59)
[2021-07-04] MEDS: PANTOPRAZOLE SODIUM IV 40 MG VIAL IV PUSH ×2 (07:59→20:27)
[2021-07-04] MEDS: INSULIN ASPART (*BKC) 100 UNITS/ML 8 UNITS SUB-Q ×2 (08:03→12:08)
[2021-07-04] MEDS: INSULIN ASPART (*BKC) 100 UNITS/ML SUB-Q ×3 (08:03→16:49)
[2021-07-04 11:47] LABS: Glucose Point of Care 300 mg/dl (65-105)
--- NOTE | 2021-07-04 12:14 | PM.PNGS ---
Progress Note: A&P Assessment and Plan (1) Diverticulitis of colon with perforation: Code(s): K57.20 - Diverticulitis of large intestine with perforation and abscess without bleeding Status: Acute Assessment and Plan: R pericolic abscess, pelvic abscess on CT, will get perc drain today, cont abx Subjective Subjective Date/Time Seen: 07/04/21 12:14 feels better, pain well controlled Review of Systems Review of Systems: All systems reviewed & are unremarkable except as noted in HPI and below Exam Const: General: cooperative, comfortable and no acute distress Resp: Effort & Inspection: normal respiratory effort Auscultation: clear to auscultation bilaterally Cardio: Rate: regular rate Rhythm: regular rhythm GI: Inspection: normal to inspection, distended and incision GI Palp: Yes Soft to palpation, Yes Tenderness to palpation present (GI), No Guarding due to palpation present (GI) and No Rigid due to palpation Other: ostomy - +fxn, viable Objective Data Vital Signs Vital Signs: Vital Signs - 24 hr 07/03/21 14:00 07/03/21 17:30 07/03/21 22:10 Temperature 36.3 C L 36.7 C 37.1 C Pulse Rate 86 85 80 Respiratory Rate 18 16 16 Blood Pressure 147/72 H 130/52 L 132/57 L Pulse Oximetry 95 93 92 07/03/21 23:49 07/04/21 05:02 Temperature 36.2 C L 36.6 C Pulse Rate 84 80 Respiratory Rate 20 18 Blood Pressure 147/63 H 126/44 L Pulse Oximetry 94 94 Intake/Output Intake/Output: Intake & Output 07/01/21 07/02/21 07/03/21 07/04/21 23:59 23:59 23:59 23:59 Intake Total 2130 1270 1100 290 Output Total 1300 1650 300 Balance 830 -380 800 290 Meds/Results Medications: Active Medications Generic Name Dose Route Start Last Admin Trade Name Freq PRN Reason Stop Dose Admin Acetaminophen 650 mg 07/01/21 13:57 07/02/21 13:51 Acetaminophen 325 Mg Tablet PO 650 mg Q4H PRN Administration Pain 1-3 Hydrocodone Bitart/Acetaminophen 1 tab 07/01/21 13:58 07/02/21 09:28 Hydrocodone/Acetaminophen (*Crx) 5-325 Mg Tablet PO 1 tab Q6H PRN Administration Pain Rated 4-6 Hydrocodone Bitart/Acetaminophen 1 tab 07/01/21 13:58 07/04/21 07:59 Hydrocodone/Acetaminophen (*Crx) 7.5-325 Mg Tablet PO 1 tab Q6H PRN Administration Pain Rated 7-10 Amlodipine Besylate 10 mg 07/01/21 09:00 07/04/21 07:58 Amlodipine Besylate 5 Mg Tablet PO 10 mg QAM OMER Administration Dextrose 12.5 gm 06/25/21 19:53 Dextrose 50% 25 Gm/50 Ml Syringe IV PUSH PRN PRN Hypoglycemia Protocol Enalapril Maleate 20 mg 07/01/21 09:00 07/04/21 07:59 Enalapril Maleate 10 Mg Tablet PO 20 mg QAM OMER Administration Enoxaparin Sodium 40 mg 06/28/21 09:00 07/04/21 07:59 Enoxaparin 40 Mg/0.4 Ml Syringe SUB-Q 40 mg DAILY OMER Administration Glucagon 1 mg 06/25/21 19:53 Glucagon For Inj 1 Mg Vial IM PRN PRN Hypoglycemia Protocol Glucose 15 gm 06/25/21 19:53 Glucose Oral Gel 15 Gm Of Glucse In 37.5 Gm Tube PO PRN PRN Hypoglycemia Protocol Hydrochlorothiazide 12.5 mg 07/02/21 09:00 07/04/21 07:59 Hydrochlorothiazide 12.5 Mg Capsule PO 12.5 mg QAM OMER Administration Hydromorphone HCl 0.5 mg 07/01/21 14:00 Hydromorphone Hcl Inj (*Crx) 1 Mg/Ml Syr IV PUSH Q3H PRN Breakthrough Pain Piperacillin/Tazobactam/Dextrose 3.375 gm in 50 mls @ 100 mls/hr 06/25/21 17:00 07/04/21 12:06 Zosyn 3.375 Gm/D5w 50ml Pm IVPB 100 mls/hr Q6H OMER Administration Dextrose 1,000 mls @ 100 mls/hr 06/25/21 19:53 Dextrose 5% 1,000 Ml IVPB PRN PRN Hypoglycemia Protocol Insulin Aspart 4 - 8 units 07/01/21 08:00 07/04/21 12:08 Insulin Aspart (*Bkc) 100 Units/Ml SUB-Q 5 units ACINSULIN OMER Administration Protocol Insulin Aspart 8 units 07/03/21 12:00 07/04/21 12:08 Insulin Aspart (*Bkc) 100 Units/Ml SUB-Q 8 units TIDWM OMER Administration Insulin Glargine 23 u
--- NOTE | 2021-07-04 12:51 | PCNFU ---
Nutrition Follow-Up Complete: Inadequate Oral Intake as related to ostomy as evidenced by poor po intake reported. Goal: Meet estimated nutritional needs Pt. is progressing towards goal. No new goal at this time. Pt current nutrition is a diabetic consistent carbohydrate diet. Last recorded weight is 134.8 kg. Recommend re-weighing pt. prior to discharge. Bowel Motility: + BM 07/04/2021 Labs Reviewed: Hgb 11.0, Hct 34.8, Na 132, Cr 0.4, Glu 289 Meds Noted: Norvasc, Lantus, Vasotec, Synthroid, Lovenox, Miralax, Glucagon, Insulin, Hydrochlorothiazide Skin: No skin breakdown at this time. WNL. Additional Notes: Patient has a good appetite consuming on average 75-100% of meals. She is receiving ensure compact BID providing an additional 220 calories and 9 grams of protein. Glucose is elevated will closely monitor. Will monitor every 5 days.
--- NOTE | 2021-07-04 13:05 | P.PNIM_ITS ---
Progress Note: A&P Assessment and Plan (1) Diverticulitis of colon with perforation: Code(s): K57.20 - Diverticulitis of large intestine with perforation and abscess without bleeding Status: Acute Assessment and Plan: CT showed acute perforated sigmoid diverticulitis proximal to chronic stricture of the sigmoid colon with large volume of free intraperitoneal gas and abscess of the right pericolic gutter * Appreciate general surgery and gastroenterology consultation * She is s/p Deny's procedure with intra-abdominal washout on 06/27/[address] Dallas * Advanced to diabetic diet, she is tolerating well * Continue broad-spectrum IV Zosyn * Blood cultures are negative * Supportive care. Analgesics available as needed * Repeat CT abdomen/pelvis completed on 07/03/2021 due to increased leukocytosis showed abscess at the right pericolic gutter and smaller abscess in the right pelvis. Planning for percutaneous drain today per IR. (2) Stricture of sigmoid colon: Code(s): K56.699 - Other intestinal obstruction unspecified as to partial versus complete obstruction Status: Acute Assessment and Plan: [place] to be due to prior episode of diverticulitis. * She will need outpatient colonoscopy, which will be deferred for several months upon resolution of acute infection (3) New onset type 2 diabetes mellitus: Code(s): E11.9 - Type 2 diabetes mellitus without complications Status: Acute Assessment and Plan: Fasting glucose elevated, A1c found to be 11.9 consistent with diabetes. Fasting glucose 271 this morning * Consult placed to rn diabetes educator though has not been seen. I have asked RN to educated patient on subcutaneous injections * Continue Accu-Cheks, high dose sliding scale insulin, hypoglycemic protocol * Increase lantus to 28 units. * Increase NovoLog to 10 units scheduled with meals * Monitor glucose trends and continue to adjust regimen as needed (4) Hypothyroidism: Code(s): E03.9 - Hypothyroidism, unspecified Status: Acute Assessment and Plan: TSH slightly elevated with normal T4. * Continue PO levothyroxine * She will need repeat reflex TSH in several weeks upon resolution of acute illness (5) Hypertension: Code(s): I10 - Essential (primary) hypertension Status: Acute Assessment and Plan: Blood pressure reviewed and has been fairly controlled. Elevated postoperatively likely due to pain but has improved. Last BP 126/44 * Continue amlodipine, enalapril, and HCTZ * monitor blood pressure trends (6) Hypoxia: Code(s): R09.02 - Hypoxemia Status: Acute Assessment and Plan: Resolved. Briefly hypoxic immediately post-op requiring 3 L O2. * She was able to be weaned to room air * 06/28 overnight had brief epsiode of hypoxia at 87% but quickly resolved. * Apnea link was normal * Maintaining adequate oxygenation on room air now (7) Hypokalemia: Code(s): E87.6 - Hypokalemia Status: Acute Assessment and Plan: Resolved. Potassium 3.7 today * Monitor BMP (8) Productive cough: Code(s): R05.8 - Other specified cough Status: Acute Assessment and Plan: 07/02 reported cough productive of yellowish sputum * Cough has resolved * CXR with small pleural effusion and atelectasis. Continue incentive spirometry. * Supportive care (9) Hematuria: Code(s): R31.9 - Hematuria, unspecified Statu
--- NOTE | 2021-07-04 13:05 | PM.IMPN ---
Progress Note: A&P Assessment and Plan (1) Diverticulitis of colon with perforation: Code(s): K57.20 - Diverticulitis of large intestine with perforation and abscess without bleeding Status: Acute Assessment and Plan: CT showed acute perforated sigmoid diverticulitis proximal to chronic stricture of the sigmoid colon with large volume of free intraperitoneal gas and abscess of the right pericolic gutter Appreciate general surgery and gastroenterology consultation She is s/p Deny's procedure with intra-abdominal washout on 06/27/[address] Dallas Advanced to diabetic diet, she is tolerating well Continue broad-spectrum IV Zosyn Blood cultures are negative Supportive care. Analgesics available as needed Repeat CT abdomen/pelvis completed on 07/03/2021 due to increased leukocytosis showed abscess at the right pericolic gutter and smaller abscess in the right pelvis. Planning for percutaneous drain today per IR. (2) Stricture of sigmoid colon: Code(s): K56.699 - Other intestinal obstruction unspecified as to partial versus complete obstruction Status: Acute Assessment and Plan: [place] to be due to prior episode of diverticulitis. She will need outpatient colonoscopy, which will be deferred for several months upon resolution of acute infection (3) New onset type 2 diabetes mellitus: Code(s): E11.9 - Type 2 diabetes mellitus without complications Status: Acute Assessment and Plan: Fasting glucose elevated, A1c found to be 11.9 consistent with diabetes. Fasting glucose 271 this morning Consult placed to music educator though has not been seen. I have asked RN to educated patient on subcutaneous injections Continue Accu-Cheks, high dose sliding scale insulin, hypoglycemic protocol Increase lantus to 28 units. Increase NovoLog to 10 units scheduled with meals Monitor glucose trends and continue to adjust regimen as needed (4) Hypothyroidism: Code(s): E03.9 - Hypothyroidism, unspecified Status: Acute Assessment and Plan: TSH slightly elevated with normal T4. Continue PO levothyroxine She will need repeat reflex TSH in several weeks upon resolution of acute illness (5) Hypertension: Code(s): I10 - Essential (primary) hypertension Status: Acute Assessment and Plan: Blood pressure reviewed and has been fairly controlled. Elevated postoperatively likely due to pain but has improved. Last BP 126/44 Continue amlodipine, enalapril, and HCTZ monitor blood pressure trends (6) Hypoxia: Code(s): R09.02 - Hypoxemia Status: Acute Assessment and Plan: Resolved. Briefly hypoxic immediately post-op requiring 3 L O2. She was able to be weaned to room air 06/28 overnight had brief epsiode of hypoxia at 87% but quickly resolved. Apnea link was normal Maintaining adequate oxygenation on room air now (7) Hypokalemia: Code(s): E87.6 - Hypokalemia Status: Acute Assessment and Plan: Resolved. Potassium 3.7 today Monitor BMP (8) Productive cough: Code(s): R05.8 - Other specified cough Status: Acute Assessment and Plan: 07/02 reported cough productive of yellowish sputum Cough has resolved CXR with small pleural effusion and atelectasis. Continue incentive spirometry. Supportive care (9) Hematuria: Code(s): R31.9 - Hematuria, unspecified Status: Acute Assessment and Plan: Patient noted blood on tissue paper when wiping following urination on 07/03/21 UA showed 1+ blood Perhaps due to trauma from [place]. No evidence of infection. Should follow up outpatient for UA. If persistent, will need further workup per PCP Subjective Date/time seen: 07/04/21 13:05 Interval history: Date of service: 07/04/2021 Leah Nogueira is a 56-year-old female with a history of diverticulitis, hypertension, hypothyroidism
[2021-07-04 15:15] VITALS: BP 154/63; PULSE 94; RESP 18; TEMP 36.5; O2SAT 95
[2021-07-04 16:14] LABS: Glucose Point of Care 276 mg/dl (65-105)
[2021-07-04] MEDS: INSULIN ASPART (*BKC) 100 UNITS/ML 10 UNITS SUB-Q (16:49)
[2021-07-04] MEDS: HYDROmorphone HCL INJ (*CRX) 1 MG/ML SYR 0.5 MG IV PUSH ×2 (16:51→22:55)
[2021-07-04 20:00] VITALS: BP 144/66; PULSE 80; RESP 16; TEMP 36.1; O2SAT 94
[2021-07-04] MEDS: INSULIN GLARGINE (*BKC) 100 UNITS/ML 28 UNITS SUB-Q (20:27)
[2021-07-04 20:59] LABS: Glucose Point of Care 260 mg/dl (65-105)
[2021-07-05] VITALS: BP 118/51; PULSE 78; RESP 16; TEMP 36.7; O2SAT 94
[2021-07-05 04:00] VITALS: BP 142/55; PULSE 87; RESP 16; TEMP 36.4; O2SAT 93
[2021-07-05] MEDS: HYDROcodone/acetaminophen (*CRX) 7.5-325 MG TABLET 1 TAB PO ×4 (04:18→22:47)
[2021-07-05 05:48] LABS: Basophils Absolute Auto 0.1 K/mm3 (0.0-0.1); Basophils Percent Auto 0.7 % (0.2-1.2); Eosinophils Absolute Auto 0.3 K/mm3 (0-0.3); Eosinophils Percent Auto 2.2 % (0-4.4); Hemoglobin 11.2 g/dL (12.0-15.0); Immature Granulocyte Absolute 0.83 K/mm3 (0.00-0.031); Immature Granulocyte Percent A 6.2 % (0-0.5); Lymphocytes Absolute Auto 1.66 K/mm3 (0.9-3.2); Lymphocytes Percent Auto 12.4 % (18.3-44.2); Mean Corpuscular Hemoglobin 27.2 pg (26-34); Monocytes Absolute Auto 1.1 K/mm3 (0.1-0.6); Monocytes Percent Auto 8.3 % (2.6-8.5); Neutrophils Absolute Auto 9.5 K/mm3 (1.3-6.7); Neutrophils Percent Auto 70.2 % (45.5-73.1); Nucleated Red Blood Cells Absolute Auto 0.1 K/mm3 (0.0-0.012); Nucleated Red Blood Cells Perc 0.4 % (0.0-0.2); Platelet Count Result 530 k/mm3 (150-375); Red Blood Count 4.12 M/mm3 (4.2-5.4); Red Cell Distribution Width 14.5 % (11.5-14.5); White Blood Count 13.4 K/mm3 (4.5-10.0)
[2021-07-05 05:56] LABS: Anion Gap 6 mmol/L (8-16); Blood Urea Nitrogen 7 mg/dL (7-17); Calcium 8.4 mg/dL (8.4-10.2); Carbon Dioxide 34 mmol/L (22-30); Chloride 94 mmol/L (98-107); Estimated CRCL calculation 146 ml/min; Estimated Glomerular Filt Rate > 60; Glucose 262 mg/dL (65-110); Potassium 3.8 mmol/L (3.4-5.0); Sodium 134 mmol/L (137-145)
[2021-07-05] MEDS: LEVOTHYROXINE SODIUM 100 MCG TABLET 200 MCG PO (06:16)
[2021-07-05 07:52] LABS: Glucose Point of Care 253 mg/dl (65-105)
--- NOTE | 2021-07-05 08:40 | P.PNIM_ITS ---
Progress Note: A&P Assessment and Plan (1) Diverticulitis of colon with perforation: Code(s): K57.20 - Diverticulitis of large intestine with perforation and abscess without bleeding Status: Acute Assessment and Plan: CT showed acute perforated sigmoid diverticulitis proximal to chronic stricture of the sigmoid colon with large volume of free intraperitoneal gas and abscess of the right pericolic gutter * Appreciate general surgery and gastroenterology consultation * She is s/p Deny's procedure with intra-abdominal washout on 06/27/[address] Dallas * Advanced to diabetic diet, she is tolerating well * Continue broad-spectrum IV Zosyn * Blood cultures are negative * Supportive care. Analgesics available as needed * Repeat CT abdomen/pelvis completed on 07/03/2021 due to increased leukocytosis showed abscess at the right pericolic gutter and smaller abscess in the right pelvis. * percutaneous drain placed 07/04/21 * trend output (2) Stricture of sigmoid colon: Code(s): K56.699 - Other intestinal obstruction unspecified as to partial versus complete obstruction Status: Acute Assessment and Plan: [place] to be due to prior episode of diverticulitis. * She will need outpatient colonoscopy, which will be deferred for several months upon resolution of acute infection (3) New onset type 2 diabetes mellitus: Code(s): E11.9 - Type 2 diabetes mellitus without complications Status: Acute Assessment and Plan: * Fasting glucose elevated, A1c found to be 11.9 consistent with diabetes. Fasting glucose 262 this morning * Consult placed to early childhood educator aide * Will plan to have patient follow up in the outpatient clinic * Continue Accu-Cheks, high dose sliding scale insulin, hypoglycemic protocol * Continue lantus to 28 units. * Continue NovoLog to 10 units scheduled with meals * Add metformin 500mg BID * Monitor glucose trends and continue to adjust regimen as needed (4) Hypothyroidism: Code(s): E03.9 - Hypothyroidism, unspecified Status: Acute Assessment and Plan: TSH slightly elevated with normal T4. * Continue PO levothyroxine * She will need repeat reflex TSH in several weeks upon resolution of acute illness (5) Hypertension: Code(s): I10 - Essential (primary) hypertension Status: Acute Assessment and Plan: * Blood pressure reviewed and has been fairly controlled * Elevated postoperatively likely due to pain but has improved * Last BP 142/55 * Continue amlodipine, enalapril, and HCTZ * monitor blood pressure trends * Change therapy as indicated (6) Hypoxia: Code(s): R09.02 - Hypoxemia Status: Acute Assessment and Plan: * Resolved. Briefly hypoxic immediately post-op requiring 3 L O2. * She was able to be weaned to room air * 06/28 overnight had brief epsiode of hypoxia at 87% but quickly resolved. * Apnea link was normal * Maintaining adequate oxygenation on room air now (7) Hypokalemia: Code(s): E87.6 - Hypokalemia Status: Acute Assessment and Plan: Resolved. Potassium 3.8 today * Monitor BMP (8) Productive cough: Code(s): R05.8 - Other specified cough Status: Acute Assessment and Plan: 07/02 reported cough productive of yellowish sputum * Cough has resolved * CXR with small pleural effusion and atelectasis. Continue incentive spirometry. * Supportive care (9) Hematuria:
--- NOTE | 2021-07-05 08:40 | PM.IMPN ---
Progress Note: A&P Assessment and Plan (1) Diverticulitis of colon with perforation: Code(s): K57.20 - Diverticulitis of large intestine with perforation and abscess without bleeding Status: Acute Assessment and Plan: CT showed acute perforated sigmoid diverticulitis proximal to chronic stricture of the sigmoid colon with large volume of free intraperitoneal gas and abscess of the right pericolic gutter Appreciate general surgery and gastroenterology consultation She is s/p Deny's procedure with intra-abdominal washout on 06/27/[address] Dallas Advanced to diabetic diet, she is tolerating well Continue broad-spectrum IV Zosyn Blood cultures are negative Supportive care. Analgesics available as needed Repeat CT abdomen/pelvis completed on 07/03/2021 due to increased leukocytosis showed abscess at the right pericolic gutter and smaller abscess in the right pelvis. percutaneous drain placed 07/04/21 trend output (2) Stricture of sigmoid colon: Code(s): K56.699 - Other intestinal obstruction unspecified as to partial versus complete obstruction Status: Acute Assessment and Plan: [place] to be due to prior episode of diverticulitis. She will need outpatient colonoscopy, which will be deferred for several months upon resolution of acute infection (3) New onset type 2 diabetes mellitus: Code(s): E11.9 - Type 2 diabetes mellitus without complications Status: Acute Assessment and Plan: Fasting glucose elevated, A1c found to be 11.9 consistent with diabetes. Fasting glucose 262 this morning Consult placed to certified diabetes educator Will plan to have patient follow up in the outpatient clinic Continue Accu-Cheks, high dose sliding scale insulin, hypoglycemic protocol Continue lantus to 28 units. Continue NovoLog to 10 units scheduled with meals Add metformin 500mg BID Monitor glucose trends and continue to adjust regimen as needed (4) Hypothyroidism: Code(s): E03.9 - Hypothyroidism, unspecified Status: Acute Assessment and Plan: TSH slightly elevated with normal T4. Continue PO levothyroxine She will need repeat reflex TSH in several weeks upon resolution of acute illness (5) Hypertension: Code(s): I10 - Essential (primary) hypertension Status: Acute Assessment and Plan: Blood pressure reviewed and has been fairly controlled Elevated postoperatively likely due to pain but has improved Last BP 142/55 Continue amlodipine, enalapril, and HCTZ monitor blood pressure trends Change therapy as indicated (6) Hypoxia: Code(s): R09.02 - Hypoxemia Status: Acute Assessment and Plan: Resolved. Briefly hypoxic immediately post-op requiring 3 L O2. She was able to be weaned to room air 06/28 overnight had brief epsiode of hypoxia at 87% but quickly resolved. Apnea link was normal Maintaining adequate oxygenation on room air now (7) Hypokalemia: Code(s): E87.6 - Hypokalemia Status: Acute Assessment and Plan: Resolved. Potassium 3.8 today Monitor BMP (8) Productive cough: Code(s): R05.8 - Other specified cough Status: Acute Assessment and Plan: 07/02 reported cough productive of yellowish sputum Cough has resolved CXR with small pleural effusion and atelectasis. Continue incentive spirometry. Supportive care (9) Hematuria: Code(s): R31.9 - Hematuria, unspecified Status: Acute Assessment and Plan: Patient noted blood on tissue paper when wiping following urination on 07/03/21 UA showed 1+ blood Perhaps due to trauma from [place]. No evidence of infection. Should follow up outpatient for UA. If persistent, will need further workup per PCP Time Spent With Patient Time with patient: 25 - 35 minutes Subjective Date/time seen: 07/05/21 0840 Interval history: Interval history: Date of service:
[2021-07-05] MEDS: polyethylene glycoL 3350 17 GM POWD.PACK PO (09:29)
[2021-07-05] MEDS: ENOXAPARIN 40 MG/0.4 ML SYRINGE SUB-Q (09:29)
[2021-07-05] MEDS: INSULIN ASPART (*BKC) 100 UNITS/ML SUB-Q ×3 (09:30→17:13)
[2021-07-05] MEDS: INSULIN ASPART (*BKC) 100 UNITS/ML 10 UNITS SUB-Q ×3 (09:30→17:14)
[2021-07-05] MEDS: PANTOPRAZOLE SODIUM IV 40 MG VIAL IV PUSH ×2 (09:30→21:41)
[2021-07-05] MEDS: ENALAPRIL MALEATE 10 MG TABLET 20 MG PO (09:33)
[2021-07-05] MEDS: hydroCHLOROthiazide 12.5 MG CAPSULE PO (09:33)
[2021-07-05] MEDS: amLODIPine BESYLATE 5 MG TABLET 10 MG PO (09:34)
--- NOTE | 2021-07-05 09:53 | PM.PNGS ---
Progress Note: A&P Assessment and Plan (1) Diverticulitis of colon with perforation: Code(s): K57.20 - Diverticulitis of large intestine with perforation and abscess without bleeding Status: Acute Assessment and Plan: improved, cont abx, ostomy care, encourage OOB/IS, home soon Subjective Subjective Date/Time Seen: 07/05/21 09:53 feels better, some pain around drain site Review of Systems Review of Systems: All systems reviewed & are unremarkable except as noted in HPI and below Exam Const: General: cooperative, comfortable and no acute distress Orientation/consciousness: patient oriented x3 Resp: Auscultation: clear to auscultation bilaterally Cardio: Rate: regular rate Rhythm: regular rhythm GI: Inspection: normal to inspection, distended and incision GI Palp: Yes Soft to palpation and Yes Tenderness to palpation present (GI) Other: ostomy - +fxn Objective Data Vital Signs Vital Signs: Vital Signs - 24 hr 07/04/21 15:15 07/04/21 20:00 07/05/21 00:00 Temperature 36.5 C 36.1 C L 36.7 C Pulse Rate 94 80 78 Respiratory Rate 18 16 16 Blood Pressure 154/63 H 144/66 H 118/51 L Pulse Oximetry 95 94 94 07/05/21 04:00 Temperature 36.4 C Pulse Rate 87 Respiratory Rate 16 Blood Pressure 142/55 H Pulse Oximetry 93 Intake/Output Intake/Output: Intake & Output 07/02/21 07/03/21 07/04/21 07/05/21 23:59 23:59 23:59 23:59 Intake Total 1270 1100 1280 990 Output Total 1650 300 200 Balance -201 778 7907 990 Meds/Results Medications: Active Medications Generic Name Dose Route Start Last Admin Trade Name Freq PRN Reason Stop Dose Admin Acetaminophen 650 mg 07/01/21 13:57 07/02/21 13:51 Acetaminophen 325 Mg Tablet PO 650 mg Q4H PRN Administration Pain 1-3 Hydrocodone Bitart/Acetaminophen 1 tab 07/01/21 13:58 07/02/21 09:28 Hydrocodone/Acetaminophen (*Crx) 5-325 Mg Tablet PO 1 tab Q6H PRN Administration Pain Rated 4-6 Hydrocodone Bitart/Acetaminophen 1 tab 07/01/21 13:58 07/05/21 09:31 Hydrocodone/Acetaminophen (*Crx) 7.5-325 Mg Tablet PO 1 tab Q6H PRN Administration Pain Rated 7-10 Amlodipine Besylate 10 mg 07/01/21 09:00 07/05/21 09:34 Amlodipine Besylate 5 Mg Tablet PO 10 mg QAM OMER Administration Dextrose 12.5 gm 06/25/21 19:53 Dextrose 50% 25 Gm/50 Ml Syringe IV PUSH PRN PRN Hypoglycemia Protocol Enalapril Maleate 20 mg 07/01/21 09:00 07/05/21 09:33 Enalapril Maleate 10 Mg Tablet PO 20 mg QAM OMER Administration Enoxaparin Sodium 40 mg 06/28/21 09:00 07/05/21 09:29 Enoxaparin 40 Mg/0.4 Ml Syringe SUB-Q 40 mg DAILY OMER Administration Glucagon 1 mg 06/25/21 19:53 Glucagon For Inj 1 Mg Vial IM PRN PRN Hypoglycemia Protocol Glucose 15 gm 06/25/21 19:53 Glucose Oral Gel 15 Gm Of Glucse In 37.5 Gm Tube PO PRN PRN Hypoglycemia Protocol Hydrochlorothiazide 12.5 mg 07/02/21 09:00 07/05/21 09:33 Hydrochlorothiazide 12.5 Mg Capsule PO 12.5 mg QAM OMER Administration Hydromorphone HCl 0.5 mg 07/01/21 14:00 07/04/21 22:55 Hydromorphone Hcl Inj (*Crx) 1 Mg/Ml Syr IV PUSH 0.5 mg Q3H PRN Administration Breakthrough Pain Piperacillin/Tazobactam/Dextrose 3.375 gm in 50 mls @ 100 mls/hr 06/25/21 17:00 07/05/21 04:48 Zosyn 3.375 Gm/D5w 50ml Pm IVPB Infused Q6H OMER Infusion Dextrose 1,000 mls @ 100 mls/hr 06/25/21 19:53 Dextrose 5% 1,000 Ml IVPB PRN PRN Hypoglycemia Protocol Insulin Aspart 4 - 8 units 07/01/21 08:00 07/05/21 09:30 Insulin Aspart (*Bkc) 100 Units/Ml SUB-Q 5 units ACINSULIN OMER Administration Protocol Insulin Aspart 10 units 07/04/21 17:00 07/05/21 09:30 Insulin Aspart (*Bkc) 100 Units/Ml SUB-Q 10 units TIDWM OMER Administration Insulin Glargine 28 units 07/04/21 21:00 07/04/21 20:27 Insulin Glargine (*Bkc) 100 Units/Ml SUB-Q 28 units HS S
[2021-07-05 11:45] LABS: Glucose Point of Care 217 mg/dl (65-105)
[2021-07-05] MEDS: metFORMIN HCL 500 MG TABLET PO ×2 (12:48→17:15)
[2021-07-05 14:50] VITALS: BMI 48.2
[2021-07-05 16:41] LABS: Glucose Point of Care 255 mg/dl (65-105)
[2021-07-05] MEDS: GLIMEPIRIDE 2 MG TABLET PO (17:15)
[2021-07-05 20:00] VITALS: BP 121/48; PULSE 84; RESP 18; TEMP 36.8; O2SAT 96
[2021-07-05] MEDS: INSULIN GLARGINE (*BKC) 100 UNITS/ML 28 UNITS SUB-Q (21:41)
[2021-07-05 22:58] LABS: Glucose Point of Care 178 mg/dl (65-105)
[2021-07-06] MEDS: LEVOTHYROXINE SODIUM 100 MCG TABLET 200 MCG PO (05:31)
[2021-07-06 06:00] VITALS: BP 123/50; PULSE 81; RESP 16; TEMP 36.4; O2SAT 94
[2021-07-06 07:55] LABS: Glucose Point of Care 133 mg/dl (65-105)
[2021-07-06] MEDS: hydroCHLOROthiazide 12.5 MG CAPSULE PO (09:10)
[2021-07-06] MEDS: metFORMIN HCL 500 MG TABLET PO (09:10)
[2021-07-06] MEDS: amLODIPine BESYLATE 5 MG TABLET 10 MG PO (09:10)
[2021-07-06] MEDS: GLIMEPIRIDE 2 MG TABLET PO (09:10)
[2021-07-06] MEDS: ENOXAPARIN 40 MG/0.4 ML SYRINGE SUB-Q (09:11)
[2021-07-06] MEDS: ENALAPRIL MALEATE 10 MG TABLET 20 MG PO (09:11)
[2021-07-06] MEDS: PANTOPRAZOLE SODIUM IV 40 MG VIAL IV PUSH (09:11)
[2021-07-06] MEDS: polyethylene glycoL 3350 17 GM POWD.PACK PO (09:11)
[2021-07-06 11:09] LABS: Glucose Point of Care 248 mg/dl (65-105)
--- NOTE | 2021-07-06 11:30 | PM.DS ---
DS: Admitting Diagnosis Discharge Date Date of service 07/06/2021 at 11:30 Admitting Diagnosis diverticulitis with perforation DS: Discharge Diagnosis Discharge Diagnosis (1) Diverticulitis of colon with perforation: Code(s): K57.20 - Diverticulitis of large intestine with perforation and abscess without bleeding Status: Acute Assessment and Plan: CT showed acute perforated sigmoid diverticulitis proximal to chronic stricture of the sigmoid colon with large volume of free intraperitoneal gas and abscess of the right pericolic gutter Appreciate general surgery and gastroenterology consultation She is s/p Deny's procedure with intra-abdominal washout on 06/27/[address] Dallas Advanced to diabetic diet, she is tolerating well Continue broad-spectrum IV Zosyn Blood cultures are negative Supportive care. Analgesics available as needed Repeat CT abdomen/pelvis completed on 07/03/2021 due to increased leukocytosis showed abscess at the right pericolic gutter and smaller abscess in the right pelvis. percutaneous drain placed 07/04/21 trend output (2) Stricture of sigmoid colon: Code(s): K56.699 - Other intestinal obstruction unspecified as to partial versus complete obstruction Status: Acute Assessment and Plan: [place] to be due to prior episode of diverticulitis. She will need outpatient colonoscopy, which will be deferred for several months upon resolution of acute infection (3) New onset type 2 diabetes mellitus: Code(s): E11.9 - Type 2 diabetes mellitus without complications Status: Acute Assessment and Plan: Fasting glucose elevated, A1c found to be 11.9 consistent with diabetes. Fasting glucose 262 this morning Consult placed to database admin Will plan to have patient follow up in the outpatient clinic Continue Accu-Cheks, high dose sliding scale insulin, hypoglycemic protocol Continue lantus to 28 units. Continue NovoLog to 10 units scheduled with meals Add metformin 500mg BID Monitor glucose trends and continue to adjust regimen as needed (4) Hypothyroidism: Code(s): E03.9 - Hypothyroidism, unspecified Status: Acute Assessment and Plan: TSH slightly elevated with normal T4. Continue PO levothyroxine She will need repeat reflex TSH in several weeks upon resolution of acute illness (5) Hypertension: Code(s): I10 - Essential (primary) hypertension Status: Acute Assessment and Plan: Blood pressure reviewed and has been fairly controlled Elevated postoperatively likely due to pain but has improved Last BP 142/55 Continue amlodipine, enalapril, and HCTZ monitor blood pressure trends Change therapy as indicated (6) Hypoxia: Code(s): R09.02 - Hypoxemia Status: Acute Assessment and Plan: Resolved. Briefly hypoxic immediately post-op requiring 3 L O2. She was able to be weaned to room air 06/28 overnight had brief epsiode of hypoxia at 87% but quickly resolved. Apnea link was normal Maintaining adequate oxygenation on room air now (7) Hypokalemia: Code(s): E87.6 - Hypokalemia Status: Acute Assessment and Plan: Resolved. Potassium 3.8 today Monitor BMP (8) Productive cough: Code(s): R05.8 - Other specified cough Status: Acute Assessment and Plan: 07/02 reported cough productive of yellowish sputum Cough has resolved CXR with small pleural effusion and atelectasis. Continue incentive spirometry. Supportive care (9) Hematuria: Code(s): R31.9 - Hematuria, unspecified Status: Acute Assessment and Plan: Patient noted blood on tissue paper when wiping following urination on 07/03/21 UA showed 1+ blood Perhaps due to trauma from [place]. No evidence of infection. Should follow up outpatient for UA. If persistent, will need further workup per PCP DS: Summary Hospital
--- NOTE | 2021-07-06 11:30 | P.DS_ITS ---
DS: Admitting Diagnosis Discharge Date Date of service 07/06/2021 at 11:30 Admitting Diagnosis diverticulitis with perforation DS: Discharge Diagnosis Discharge Diagnosis (1) Diverticulitis of colon with perforation: Code(s): K57.20 - Diverticulitis of large intestine with perforation and abscess without bleeding Status: Acute Assessment and Plan: CT showed acute perforated sigmoid diverticulitis proximal to chronic stricture of the sigmoid colon with large volume of free intraperitoneal gas and abscess of the right pericolic gutter * Appreciate general surgery and gastroenterology consultation * She is s/p Deny's procedure with intra-abdominal washout on 06/27/[address] Dallas * Advanced to diabetic diet, she is tolerating well * Continue broad-spectrum IV Zosyn * Blood cultures are negative * Supportive care. Analgesics available as needed * Repeat CT abdomen/pelvis completed on 07/03/2021 due to increased leukocytosis showed abscess at the right pericolic gutter and smaller abscess in the right pelvis. * percutaneous drain placed 07/04/21 * trend output (2) Stricture of sigmoid colon: Code(s): K56.699 - Other intestinal obstruction unspecified as to partial versus complete obstruction Status: Acute Assessment and Plan: [place] to be due to prior episode of diverticulitis. * She will need outpatient colonoscopy, which will be deferred for several months upon resolution of acute infection (3) New onset type 2 diabetes mellitus: Code(s): E11.9 - Type 2 diabetes mellitus without complications Status: Acute Assessment and Plan: * Fasting glucose elevated, A1c found to be 11.9 consistent with diabetes. Fasting glucose 262 this morning * Consult placed to clinical trial educator * Will plan to have patient follow up in the outpatient clinic * Continue Accu-Cheks, high dose sliding scale insulin, hypoglycemic protocol * Continue lantus to 28 units. * Continue NovoLog to 10 units scheduled with meals * Add metformin 500mg BID * Monitor glucose trends and continue to adjust regimen as needed (4) Hypothyroidism: Code(s): E03.9 - Hypothyroidism, unspecified Status: Acute Assessment and Plan: TSH slightly elevated with normal T4. * Continue PO levothyroxine * She will need repeat reflex TSH in several weeks upon resolution of acute illness (5) Hypertension: Code(s): I10 - Essential (primary) hypertension Status: Acute Assessment and Plan: * Blood pressure reviewed and has been fairly controlled * Elevated postoperatively likely due to pain but has improved * Last BP 142/55 * Continue amlodipine, enalapril, and HCTZ * monitor blood pressure trends * Change therapy as indicated (6) Hypoxia: Code(s): R09.02 - Hypoxemia Status: Acute Assessment and Plan: * Resolved. Briefly hypoxic immediately post-op requiring 3 L O2. * She was able to be weaned to room air * 06/28 overnight had brief epsiode of hypoxia at 87% but quickly resolved. * Apnea link was normal * Maintaining adequate oxygenation on room air now (7) Hypokalemia: Code(s): E87.6 - Hypokalemia Status: Acute Assessment and Plan: Resolved. Potassium 3.8 today * Monitor BMP (8) Productive cough: Code(s): R05.8 - Other specified cough Status: Acute Assessment and Plan: 07/02 reported cough productive of yellowish sputum * Cough has reso
[2021-07-06] MEDS: HYDROcodone/acetaminophen (*CRX) 5-325 MG TABLET 1 TAB PO (12:01)
[2021-07-06 14:00] VITALS: BP 134/42; PULSE 87; RESP 16; TEMP 36.5; O2SAT 95
--- NOTE | 2021-07-06 14:11 | PM.PNGS ---
Progress Note: A&P Assessment and Plan (1) Diverticulitis of colon with perforation: Code(s): K57.20 - Diverticulitis of large intestine with perforation and abscess without bleeding Status: Acute Assessment and Plan: Continues to improve. Leaking from bag resolved after seeing the wound care nurses. Tolerating a diet and activity. Okay from our standpoint to discharge the patient home with home health today. She has been educated on wound/ostomy care. Continue percutaneous drain on discharge. Follow-up in the office with Dr. Dallas next week for staple removal and possible removal of perc drain. Additional Plan I have discussed the patient's case and plan of care with Dr. Dallas. Subjective Subjective Date/Time Seen: 07/06/21 13:11 Post Op day: 9 (Deny's procedure) Patient reports: no new complaints, feels better, tolerating a regular diet (diabetic diet), bowel movement (+ostomy function.) and afebrile Interval history: Patient seen and examined. She had some issues with leakage from her colostomy bag overnight, but the ostomy nurses have come by and helped with the appliance. She has not had any issues with leakage since then. She is tolerating her diet without any issues. No nausea or vomiting. She is tolerating activity. No other complaints at this time. Review of Systems Review of Systems: All systems reviewed & are unremarkable except as noted in HPI and below Exam Const: General: comfortable, no acute distress, alert and awake Nutritional Appearance: obese Orientation/consciousness: patient oriented x3 Cardio: Rate: regular rate Rhythm: regular rhythm GI: Inspection: normal to inspection, incision (clean and dry, shawn intact), obesity and other (ostomy +functioning with brown stool in bag, stoma slighty dusky) GI Palp: Yes Soft to palpation, Yes Tenderness to palpation present (GI) (incisional), No Guarding due to palpation present (GI) and No Rebound tenderness present Auscultation: normal bowel sounds Rectal Exam: deferred Skin: General skin exam: normal color Neuro: General: moves all extremities and no focal motor deficits Extrem: General: no pedal edema and no calf tenderness Psych: Insight: Good insight present (Psych) Judgement: Good judgement present (Psych) Objective Data Vital Signs Vital Signs: Vital Signs - 24 hr 07/05/21 20:00 07/06/21 06:00 Temperature 98.2 F 97.5 F L Pulse Rate 84 81 Respiratory Rate 18 16 Blood Pressure 121/48 L 123/50 L Pulse Oximetry 96 94 Intake/Output Intake/Output: Intake & Output 07/03/21 07/04/21 07/05/21 07/06/21 23:59 23:59 23:59 23:59 Intake Total 1100 1280 1620 1670 Output Total 300 200 400 Balance 800 1080 1220 1670 Meds/Results Medications: Active Medications Generic Name Dose Route Start Last Admin Trade Name Freq PRN Reason Stop Dose Admin Acetaminophen 650 mg 07/01/21 13:57 07/02/21 13:51 Acetaminophen 325 Mg Tablet PO 650 mg Q4H PRN Administration Pain 1-3 Hydrocodone Bitart/Acetaminophen 1 tab 07/01/21 13:58 07/06/21 12:01 Hydrocodone/Acetaminophen (*Crx) 5-325 Mg Tablet PO 1 tab Q6H PRN Administration Pain Rated 4-6 Hydrocodone Bitart/Acetaminophen 1 tab 07/01/21 13:58 07/05/21 22:47 Hydrocodone/Acetaminophen (*Crx) 7.5-325 Mg Tablet PO 1 tab Q6H PRN Administration Pain Rated 7-10 Amlodipine Besylate 10 mg 07/01/21 09:00 07/06/21 09:10 Amlodipine Besylate 5 Mg Tablet PO 10 mg QAM OMER Administration Dextrose 12.5 gm 06/25/21 19:53 Dextrose 50% 25 Gm/50 Ml Syringe IV PUSH PRN PRN Hypoglycemia Protocol Enalapril Maleate 20 mg 07/01/21 09:00 07/06/21 09:11 Enalapril Maleate 10 Mg Tablet PO 20 mg QAM OMER Administration Enoxaparin Sodium 40 mg 06/28/21 09:00 07/06/21 09:11 Enoxaparin 40 Mg/0.4 Ml Syringe SUB-Q 40 mg DAILY OMER Administration Glimepiride 2 mg 07/05/21 15:40 07/06/21 09:10 Glimepiri
== END 2021-07-06 15:42 | disposition home health service (06) | DRG 329 ==
LOC: ANHED 10:02 → ANH2MED 14:19
PROVIDERS: Nurse Practitioner; Surgery; Admitting Provider Hospitalist; Emergency Provider Emergency Medicine; PCP Family Medicine; Visit Provider Physician Assistant
PROC: 0DBN0ZZ Excision of Sigmoid Colon, Open Approach (ICD-10-PCS; CPT 49000; principal; 2021-06-27 13:30)
DX: K57.20 Diverticulitis of large intestine with perforation and abscess without bleeding (principal); A41.9 Sepsis, unspecified organism; Z68.42 Body mass index [BMI] 45.0-49.9, adult; E03.9 Hypothyroidism, unspecified; R09.02 Hypoxemia; I10 Essential (primary) hypertension; E87.6 Hypokalemia; R05.8 Other specified cough; R31.9 Hematuria, unspecified; F41.8 Other specified anxiety disorders; M79.7 Fibromyalgia; K21.9 Gastro-esophageal reflux disease without esophagitis; E11.65 Type 2 diabetes mellitus with hyperglycemia; K58.0 Irritable bowel syndrome with diarrhea; E78.2 Mixed hyperlipidemia; M85.80 Other specified disorders of bone density and structure, unspecified site; D51.9 Vitamin B12 deficiency anemia, unspecified; E56.9 Vitamin deficiency, unspecified; E66.01 Morbid (severe) obesity due to excess calories; Z86.010 Personal history of colon polyps
CPT/HCPCS: 36415; 51701; 71046; 74019; 74177; 75989; 80048; 80053; 80061; 81001; 82728; 82948; 83036; 83605; 83690; 83735; 84439; 84443; 84480; 85025; 85027; 85610; 85730; 87040; 87070; 87075; 87086; 87205; 88307; 93005; 94762; 96361; 96374; 96375; 99285; A9270; C1729; C1765; C1769; C9113; J0131; J0330; J0360; J1100; J1170; J1200; J1650; J1815; J1885; J2060; J2270; J2405; J2543; J2704; J3010; J7030; J7120; Q9967

== ENCOUNTER 2021-08-09 07:48 | Outpatient (CLI) | payer BC, MEDICARE, SELFPAY ==
--- NOTE | ~2021-08-09 | XR_ITS ---
EXAMINATION: XR enema water soluble DATE: 08/09/2021 09:03 INDICATION: Diverticulosis of the large intestine with perforation status post colostomy. TECHNIQUE: A master cook radiograph was obtained. A catheter was inserted into the patient's rectum. Contra st was infused by gravity. Fluoroscopic spot images were obtained. A catheter was then inserted into the colostomy. Contrast was infused by gravity. Fluoroscopic spot images were obtained. Fluoroscopy e xposure time was 0.4 minutes. The total number of images was 23. COMPARISON: CT abdomen and pelvis 07/03/2021 FINDINGS: There is a Deny pouch with normal appearance. There is an end colostomy in left abdomen . There are scattered diverticula in the colon. No stricture. IMPRESSION: 1. End colostomy and Deny pouch with expected appearance. 2. Diverticulosis of the colon. Reviewed, dictated and finalized at location A. [facility]
== END 2021-08-09 07:49 | disposition home or self-care (01) ==
LOC: ANHIMG 07:54
PROVIDERS: PCP Family Medicine; Visit Provider Surgery
DX: K57.20 Diverticulitis of large intestine with perforation and abscess without bleeding (principal)
CPT/HCPCS: 74270

== ENCOUNTER 2021-08-19 09:38 | Outpatient (CLI) | payer BC, MEDICARE, SELFPAY ==
[2021-08-19 12:11] LABS: Hemoglobin A1C 7.5 % (<5.7)
[2021-08-19 12:14] LABS: Anion Gap 10 mmol/L (8-16); Blood Urea Nitrogen 14 mg/dL (7-17); Calcium 9.8 mg/dL (8.4-10.2); Carbon Dioxide 29 mmol/L (22-30); Chloride 99 mmol/L (98-107); Estimated Glomerular Filt Rate > 60; Glucose 115 mg/dL (65-110); Potassium 3.8 mmol/L (3.4-5.0); Sodium 138 mmol/L (137-145)
== END 2021-08-19 09:39 | disposition home or self-care (01) ==
LOC: ANHSURGERY 09:43
PROVIDERS: Anesthesiology; PCP Family Medicine; Visit Provider Surgery
DX: E11.9 Type 2 diabetes mellitus without complications (principal); Z93.3 Colostomy status; Z01.818 Encounter for other preprocedural examination
CPT/HCPCS: 36415; 80048; 83036; 86850; 86900; 86901

== ENCOUNTER 2021-08-26 15:27 | Inpatient (IN) | payer BC, MEDICARE, SELFPAY ==
--- NOTE | 2021-08-19 10:02 | PC.NURSE ---
Report to the Outpatient Waiting Room, entrance under the green pavilion located off [facility], at time _0730_ on date _08/26/21_. OR Time: _0930_. - You will be asked a series of questions to screen for COVID 19 for your protection. - A mask is required within the hospital. - No visitors are allowed at this time. Preoperative COVID Testing Requirements: NONE Patients may have clear liquids until 3 hours prior to surgery (0630 AM ) with a maximum of 20 ounces. - No food from midnight until time of surgery Take the following medications with a SIP of water the morning of surgery: _AMLODIPINE, LEVOTHYROXINE,_ Medications to discontinue per DR. ROCHA'S INSTRUCTIONS - IBUPROFEN, per ANESTHESIA - ALL VITAMINS AND SUPPLEMENTS 3 DAYS PRIOR TO SURGERY, LAST DOSE TO BE TAKEN ON 08/22/21___ Please no make-up, nail welsh, hairspray, perfume, deodorant, or body powder the day of surgery. No jewelry (including any body piercings) or valuables the day of surgery, leave them at home. Please take a shower or bath the night before, or the morning of, surgery with an antibacterial soap. Wear comfortable, loose fitting clothing. - Jewelry must be removed prior to entering the operating room. Rings and piercings that are not removed may be cut off. - The hospital will not accept responsibility for valuables. - Please leave all valuables, including medications, at home the day of surgery. If you are going home after surgery, a licensed independent driver must drive you home. - NO public transportation without another adult. - We recommend that an adult stay with you for 24 hours following discharge. - We also recommend that you do not drive, make important decision, drink alcoholic beverages, or take any drugs that were not prescribed by your health care provider for at least 24 hours after your discharge time. For Pediatric surgeries, we recommend two adults accompany the child home (only one inside the building at this time). Follow any additional instructions given to you from your DR. ROCHA - DIET/ENSURE BUNDLE, BOWEL PREP, PRE-OP ANTIBIOTICS, HIBICLENS SHOWER DAY BEFORE AND AM OF SURGERY Instructions given to PT and asked if any additional questions and then verbalized understanding. Patient advised to call surgeon office or pre surgery nurse liaison, GIORGI [phone] if any additional questions.
[2021-08-19 10:29] VITALS: BP 162/78; PULSE 82; RESP 20; TEMP 36.9; O2SAT 98; BMI 45.1
[2021-08-26] VITALS (16 sets, daily range): BP systolic 145–184; BP diastolic 66–87; PULSE 90–104; RESP 10–20; TEMP 36–37; O2SAT 95–100
--- NOTE | ~2021-08-26 | XR_ITS ---
EXAMINATION: XR abdomen obstructive series EXAM DATE: 09/04/2021 07:46 INDICATION: F/U on ileus S/P ostomy (loop ileostomy). TECHNIQUE: Frontal upright projection of the upper abdomen, frontal projection of the lower abdomen f or interpretation. Comparison is made to prior examination from 09/03/2021. FINDINGS: Several loops of moderately distended jejunum unchanged. Could be postoperative ileus give n the laparotomy shawn and pelvic drain. Lung bases are unremarkable. No evidence of free intraperi toneal gas. IMPRESSION: Moderately distended jejunum unchanged, probably postoperative ileus. Reviewed, dictated and finalized at location A. R SANDER IMPRESSION: Moderately distended jejunum unchanged, probably postoperative ile us.
--- NOTE | ~2021-08-26 | XR_ITS ---
EXAMINATION: XR abdomen NG/feed tube insert EXAM DATE: 08/29/2021 05:31 INDICATION: Check NG placement TECHNIQUE: Frontal projection(s) of the abdomen for interpretation. Comparison is made to prior exami nation from 06/27/2021. FINDINGS: Feeding tube tip and side-port project over gastric bubble, expected position. There is s ome shawn overlying the mid abdomen. There are several loops of moderately distended air-filled sma ll bowel in the upper abdomen, would favor ileus over obstruction but please clinically correlate. Th ere is another tube over the lower aspect of the pelvis. Lung bases unremarkable. IMPRESSION: 1. Tube in position. 2. Several moderately distended air-filled jejunal loops, ileus or obstruction. Reviewed, dictated and finalized at location A. ING LATHE TENDER IMPRESSION: 1. Tube in position. 2. Several moderately distended air-filled jejunal loops, ileus or obstruction .
--- NOTE | ~2021-08-26 | XR_ITS ---
EXAMINATION: XR abdomen obstructive series EXAM DATE: 09/03/2021 08:01 INDICATION: F/U on ileus S/P ostomy (loop ileostomy). TECHNIQUE: Frontal upright projection of the upper abdomen, frontal projection of the lower abdomen f or interpretation. Comparison is made to prior examination from 09/02/2021. FINDINGS: Several loops of moderately distended jejunum unchanged. Could be postoperative ileus give n the [MA shawn and pelvic drain. Lung bases are unremarkable. No evidence of free intraperitoneal gas. IMPRESSION: Moderately distended jejunum unchanged, probably postoperative ileus. Reviewed, dictated and finalized at location A. W MACHINE OPERATOR IMPRESSION: Moderately distended jejunum unchanged, probably postoperative ile us.
--- NOTE | ~2021-08-26 | XR_ITS ---
EXAMINATION: XR abdomen obstructive series DATE: 09/02/2021 13:22 INDICATION: Vomiting. Adynamic ileus. TECHNIQUE: Upright and supine views of the abdomen on 3 radiographs were obtained. COMPARISON: CT abdomen and pelvis 07/03/2021 FINDINGS: There are multiple dilated loops of small bowel. The colon is normal in caliber. Skin stapl es are noted. A drain overlies the lower abdomen. There is no free intraperitoneal gas. IMPRESSION: 1. Dilated small bowel, consistent with adynamic ileus. Reviewed, dictated and finalized at location A. TEACHER
--- NOTE | ~2021-08-26 | XR_ITS ---
EXAMINATION: XR abdomen/kub 1V DATE: 09/01/2021 13:17 INDICATION: Adynamic ileus. TECHNIQUE: A supine view of the abdomen on 2 radiographs was obtained. COMPARISON: CT abdomen and pelvis 07/03/2021, abdomen radiographs 08/31/21 FINDINGS: There are multiple dilated loops of small bowel. The colon) of breast. Skin shawn are not ed. A surgical drain is noted. IMPRESSION: 1. Persistently dilated small bowel, likely adynamic ileus. Reviewed, dictated and finalized at location A. ETICIAN MAKEUP ARTIST
--- NOTE | ~2021-08-26 | XR_ITS ---
XR abdomen/kub 1V 09/05/2021 07:49 Indication: Postop ileus Procedure: KUB Comparison: Comparison to multiple prior studies sequentially, with oldest reviewed study dated 09/01. Findings: There are dilated small bowel loops in the central abdomen. There is a drainage catheter ov erlying the pelvis. There are surgical shawn overlying the lower abdomen and pelvis. Impression: 1: Mildly dilated small bowel, most likely postoperative ileus. Reviewed, dictated and finalized at location A. SAFETY MANAGER Impression: 1: Mildly dilated small bowel, most likely postoperative ileus.
--- NOTE | ~2021-08-26 | XR_ITS ---
EXAMINATION: XR chest 2V EXAM DATE: 09/03/2021 08:02 INDICATION: inc WBC 1 wk post-op ? Atelectasis vs pneumonia. TECHNIQUE: Frontal and lateral projections of the chest obtained and reviewed. Comparison is made to prior examination from 07/02/2021. FINDINGS: The lungs are clear. There are no pleural effusions. The cardiomediastinal silhouette is within normal limits. There is no pneumothorax suspected. The bones and soft tissues are unremarkab le. IMPRESSION: No acute cardiopulmonary findings. Reviewed, dictated and finalized at location A. K TRAILER MECHANIC
--- NOTE | ~2021-08-26 | XR_ITS ---
EXAMINATION: XR abdomen/kub 1V INDICATION: Bowel obstruction TECHNIQUE: Supine views of the abdomen were obtained on 2 radiographs. COMPARISON: None FINDINGS: There are multiple dilated loops of small bowel. Surgical changes are noted in the pelvis. There is also a surgical drain in the pelvis. No definite free intracranial gas is identified. IMPRESSION: 1. Multiple dilated loops of small bowel, likely ileus. Reviewed, dictated and finalized at location A. SITE WASTEWATER SYSTEMS TECHNICIAN
[2021-08-26] MEDS: ACETAMINOPHEN 500 MG TABLET 1000 MG PO (07:36)
--- NOTE | 2021-08-26 07:41 | WPDANESEPPF ---
Anes - Initial Pre Proc Eval Procedure: Operation Date: 08/26/21 09:30 Proposed Procedures p Deny's Reversal - Jeri Dallas MD Date/Time: 08/26/21 07:41 Surgeon: Jeri Dallas MD Pre Op Diagnosis: perforated diverticulitis Patient Data Age: 56 Gender: F Height: 1.68 m Weight: 126.8 kg Last Vital Signs Temp 36.9 C 08/19/21 10:29 Pulse 82 08/19/21 10:29 Resp 20 08/19/21 10:29 BP 162/78 H 08/19/21 10:29 Pulse Ox 98 08/19/21 10:29 Allergies Allergy/AdvReac Type Severity Reaction Status Date / Time No Known Allergies Allergy Verified 08/26/21 07:22 Home Medications Medication Instructions Recorded Confirmed Type cholecalciferol (vitamin D3) 50 2,000 unit PO DAILY 06/04/19 08/26/21 History mcg (2,000 unit) tablet cyanocobalamin (vitamin B-12) 2,500 mcg PO QAM 06/04/19 08/26/21 History 2,500 mcg tablet ibuprofen 800 mg tablet 800 mg PO TID PRN #270 tablet 03/21/21 08/26/21 Rx hydrochlorothiazide 12.5 mg tablet 12.5 mg PO QAM #90 tablet 05/06/21 08/26/21 Rx magnesium 250 mg PO QAM 06/25/21 08/26/21 History zinc sulfate 50 mg PO QAM 06/25/21 08/26/21 History amitriptyline 10 mg PO HS PRN 06/26/21 08/26/21 History levothyroxine 200 mcg tablet 200 mcg PO QAM #30 tablet 07/07/21 08/26/21 Rx BD Ultra Fine Lancets 33 gauge #100 ea NS 07/26/21 08/17/21 Rx Blood Glucose Test #100 ea NS 07/26/21 08/17/21 Rx blood-glucose meter #1 ea NS 07/26/21 08/17/21 Rx glimepiride 2 mg tablet 2 mg PO BID #60 tablet 08/05/21 08/26/21 Rx metformin 500 mg tablet 500 mg PO BID #60 tablet 08/05/21 08/26/21 Rx erythromycin 500 mg tablet 1 g PO .COMPLEX #6 tablet 08/16/21 08/26/21 Rx neomycin 500 mg tablet 1 g PO .COMPLEX #6 tablet 08/16/21 08/26/21 Rx amlodipine 10 mg PO QAM 08/19/21 08/26/21 History enalapril maleate 20 mg PO QAM 08/19/21 08/26/21 History Patient hx anesthesia problems: none Family hx anesthesia problems: none Results Review: All pre-operative results and documents have been reviewed as part of the pre-operative evaluation. [facility] Past Medical History Medical History Abnormal fasting glucose Acute diverticulitis Anemia Chronic bilateral low back pain without sciatica Chronic depression Chronic neck pain Controlled diabetes mellitus with hyperglycemia, without long-term current use of insulin Essential (primary) hypertension Fibromyalgia GERD (gastroesophageal reflux disease) Hematuria History of colon polyps Hypertension Hypokalemia Hypothyroidism, unspecified Hypoxia Irritable bowel syndrome with diarrhea Mixed hyperlipidemia Morbid obesity with BMI of 50.0-59.9, adult New onset type 2 diabetes mellitus Osteopenia after menopause Postmenopausal vaginal bleeding Productive cough Vitamin B12 deficiency anemia Vitamin D deficiency, unspecified Surgical History Surgical History H/O shoulder surgery joan History of back surgery Spinal fusion Hx of rectal polypectomy Family History Family History Grandparent Family history of malignant neoplasm Social History Social History Social History: The patient is a lifelong nonsmoker. 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 She is on disability. She has 1 child. Lifelong nonsmoker. She does not use any alcohol marijuana or illicit drugs. 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 Code status full code Smoking status: Never smoker Second hand tobacco smoke exposure: No Alcohol intake: current Alcohol use details: STATES VERY RARELY - COUPLE TIMES A YEAR Substance use: never Substance use type: does not use Living arrangements: with family Gender identity (if verbalized by the patient): Female Spiritual care co
[2021-08-26] MEDS: LACTATED RINGERS 1,000 ML 30 ML IV CONT ×3 (08:05→14:52)
[2021-08-26] MEDS: KETOROLAC 15 MG/ML VIAL (*BKC) IV PUSH (08:21)
--- NOTE | 2021-08-26 08:24 | WPDHPUPDATE1 ---
History and Physical Update Update Date/Time: 08/26/21 08:24 History and Physical has been reviewed, including an updated exam of the patient. There are NO changes in the patient's condition. Risks, benefits, and alternatives have been discussed and questions answered. Patient agrees to proceed with procedure. Will attempt TOMMY reversal but d/w pt the high probability of open conversion.
[2021-08-26 08:46] LABS: Glucose Point of Care 127 mg/dl (65-105)
[2021-08-26] MEDS: ceFAZolin 3 GM/D5W 100 ML 100 ML IVPB (08:55)
[2021-08-26] MEDS: BUPIVACAINE/EPINEPHRINE 0.5% 30 ML VIAL 10 ML INFILTRATE (08:55)
[2021-08-26] MEDS: metroNIDAZOLE 500 MG/ISO 100ML 500 MG/100 ML BAG 100 MG IVPB (09:09)
--- NOTE | 2021-08-26 13:07 | SUR.OPER ---
EBL:[id number]
--- NOTE | 2021-08-26 13:32 | W.PM.PROC2 ---
Procedure Note - Detailed Date of Procedure 08/26/21 Pre-op Diagnosis perforated diverticulitis s/p Hartmans' procedure Post-op Diagnosis same Procedure Performed Hand assisted laparoscopic Hartmans' reversal, extensive lysis of adhesions of approximately 60 minutes, creation loop ileostomy Surgeon Jeri Dallas MD Talkback Host Sukhi Anesthesia general Indications 56 y/o F s/p Hartmans' procedure for perforated diverticulitis, sepsis on 06/27/2021 now here for reversal Findings extensive adhesions of the small bowel to the lower abdomen and pelvis, long rectal stump that was tenuous in nature requiring resection, small left anterior air leak at anastomosis Description of Procedure The patient was taken to the operating room and placed in the modified lithotomy position. After adequate induction of general anesthesia, the patient was prepped and draped in the normal sterile. A time-out was then done to verify the patient's identity, as well as the procedure being performed. I began by making hand port incision around the periumbilical region through the previous incision, this was carried down into the peritoneal cavity. Upon entering the peritoneum, there was noted to be a dense amount of adhesions. An open adhesiolysis was done to free up the area to allow placement of the hand port. Once this was done, the hand port was placed and the abdomen was insufflated. I then placed a laparoscopic through the hand port site and under direct visualization placed a further 12 mm port in the right lower abdomen and a 5 mm port in the upper mid abdomen. Using my hand as well as the LigaSure device, an extensive lysis of adhesions was undertaken to free up the lower abdomen and pelvis. Multiple loops of small intestine were noted to be densely adhesed to the lower abdomen and pelvis. Once I was able to free these adhesions, I began dissection of the rectal stump in the pelvis. The rectal stump was easily identified from the previous placed suture. I was able to free up to the rectal stump and it was noted to be quite long and tenuous. I then took down the left abdominal colostomy. Once completely freed up and dropped into the peritoneal cavity, I resected the end portion of the colostomy. Using EEA sizers, a 31 anvil was chosen for anastomosis. I then used the auto pursestring device and a 31 EEA anvil in this proximal colon. Of note, there was noted to be plenty of length for anastomosis given previous splenic flexure mobilization. I then closed the fascia of the ostomy site with an 0 PDS suture. The abdomen was then reinsufflated for anastomosis. Dr. Isbell was present for the anastomotic portion of the procedure. Using the EEA sizers from below, it was noted that the rectal stump was indeed along and tenuous. Given this, decision was made to resect some rectal stump to allow easier anastomosis. This was done with echelon blue staple load x3. Once this was done, a 31 EEA anastomosis was made between the proximal sigmoid colon and upper rectum. This anastomosis was noted to be tension-free. Once anastomosis was complete, a air leak test was done. There was noted to be a small leak in the left anterior section of the anastomosis. then did a rigid proctoscope and was not able to really identify the area of the leak. The leak was noted to be very small and decision was made to leave a drain around the anastomosis and perform a loop ileostomy. A 19 Slovak drain was left through the left lower quadrant around the area of the anastomosis in the pelvis. I then picked an area of ileum approximately 20 cm from the ileocecal valve for loop ileostomy. This was brought out through the previous 12 mm port site in the right lower quadrant. I did enlarge the opening as well as the fascial opening to accommodate a loop ileostomy. I then copiously washed out the abdomen, no other pathology was noted. I then closed the fascia of the hand port site with a loo
[2021-08-26 13:51] LABS: Glucose Point of Care 203 mg/dl (65-105)
[2021-08-26] MEDS: ONDANSETRON INJ 4 MG/2 ML VIAL IV PUSH ×4 (14:04→23:13)
[2021-08-26] MEDS: diphenhydrAMINE HCl INJ 50 MG/ML VIAL 25 MG IV PUSH (14:18)
[2021-08-26] MEDS: SCOPOLAMINE 1.5 MG PATCH TRANSDERM (14:48)
--- NOTE | 2021-08-26 15:59 | PC.NURSE ---
This patient, Leah Nogueira, was admitted to Medical Room 242-. Patient/family oriented to hospital policies and general routines including ID bracelet, bed and alarms, visiting hours, pain management, procedures, bathroom and other care routines, personal items, smoking policy, room service/diet, and visiting hours. Information on how to activate the Rapid Response Team has been discussed. Patient/Family are encouraged to report perceived risks to care and to ask questions if they do not understand what they are told or what they should do.
[2021-08-26] MEDS: LACTATED RINGERS 1,000 ML 100 ML IV CONT (16:02)
[2021-08-26 16:15] LABS: Glucose Point of Care 270 mg/dl (65-105)
[2021-08-26] MEDS: GLIMEPIRIDE 2 MG TABLET PO (17:44)
[2021-08-26] MEDS: metFORMIN HCL 500 MG TABLET PO (17:44)
[2021-08-26] MEDS: HYDROcodone/acetaminophen (*CRX) 5-325 MG TABLET 1 TAB PO ×2 (17:44→23:14)
--- NOTE | 2021-08-26 19:30 | WPDCN ---
Assessment and Plan Assessment and plan (1) Status post laparoscopy: Code(s): Z98.890 - Other specified postprocedural states Status: Acute Assessment and Plan: Postoperative day 0 status post hand assisted laparoscopic Deny's reversal, extensive adhesiolysis, and creation loop ileostomy. Wound care, pain control, and DVT prophylaxis will be deferred to primary service. (2) Essential (primary) hypertension: Code(s): I10 - Essential (primary) hypertension Status: Acute Assessment and Plan: Blood pressures were reviewed and they have been running high postoperatively, likely due to pain. Continue antihypertensives and monitor blood pressures closely. (3) Type 2 diabetes mellitus: Code(s): E11.9 - Type 2 diabetes mellitus without complications Status: Acute Assessment and Plan: Recent A1c was 7.5%. Continue glimepiride. Initiate sliding scale insulin, Accu-Cheks, and hypoglycemic protocol. (4) Hypothyroidism, unspecified: Qualifiers: Hypothyroidism type: unspecified Qualified Code(s): E03.9 - Hypothyroidism, unspecified Code(s): E03.9 - Hypothyroidism, unspecified Status: Acute Assessment and Plan: Continue levothyroxine and check TSH. Additional Plan Thank you for allowing us to participate in this patient's care. Please do not hesitate to contact us with any questions. Supervising physician for this consultation is Dr. Jovanna Tsang. HPI Data of Consult Date/Time: 08/26/21 19:30 Requesting Physician: Jeri Dallas MD Reason for consult: Postoperative medical management. Primary Care Provider: Gilles Chase MD Consult Narrative Narrative: This is a 56-year-old female with hypertension, type 2 diabetes mellitus, and hypothyroidism whom the hospitalist service has been consulted for management of her medical conditions postoperatively. She has a history of perforated diverticulitis status post Deny's procedure and she returned today for reversal and creation loop ileostomy. Her surgery was performed under general anesthesia with no immediate complications documented an estimated blood loss of 300 mL. Postoperatively she complains of a dry mouth, nausea, and a full or pressure-like sensation in her lower abdomen. She feels as though she has to urinate however a Porter catheter is in place and 600 mL has just been drained. She denies fever, chills, sweats, chest pain, and shortness of breath. Review of Systems Review of Systems: Twelve systems were reviewed. No recent cold or flu symptoms. Glucose postop was above 250 which is very unusual for her. She denies blurry vision. Reports being quite thirsty at this time as detailed above. Except as documented, all other systems were reviewed and are negative. [facility] Past Medical History Medical History (Updated 08/26/21 @ 23:01 by Dianne Sanon PA-C) Anemia Chronic bilateral low back pain without sciatica Chronic depression Chronic neck pain Controlled diabetes mellitus with hyperglycemia, without long-term current use of insulin Essential (primary) hypertension Fibromyalgia Gastroesophageal reflux disease History of colon polyps Hypertension Hypothyroidism, unspecified Irritable bowel syndrome with diarrhea Mixed hyperlipidemia Osteopenia after menopause Perforation of sigmoid colon due to diverticulitis (06/2021) Type 2 diabetes mellitus Vitamin B12 deficiency anemia Vitamin D deficiency, unspecified Surgical History Surgical History (Updated 08/26/21 @ 23:01 by Dianne Sanon PA-C) History of arthroscopy of both shoulders History of back surgery Spinal fusion History of bilateral carpal tunnel release History of colonoscopy with polypectomy History of ileostomy (08/26/21) Hand assisted laparoscopic Deny's reversal with extensive lysis of adhesion
[2021-08-26] MEDS: HYDROmorphone HCL INJ (*CRX) 1 MG/ML SYR IV PUSH (20:52)
[2021-08-26 21:45] LABS: Glucose Point of Care 249 mg/dl (65-105)
[2021-08-26 23:50] LABS: Glucose Point of Care 211 mg/dl (65-105)
[2021-08-27] VITALS (9 sets, daily range): BP systolic 110–167; BP diastolic 42–69; PULSE 94–112; RESP 16–20; TEMP 36.3–37.4; O2SAT 93–97
[2021-08-27] MEDS: LACTATED RINGERS 1,000 ML 100 ML IV CONT ×2 (02:30→14:43)
[2021-08-27] MEDS: HYDROcodone/acetaminophen (*CRX) 5-325 MG TABLET 1 TAB PO (04:03)
[2021-08-27] MEDS: LEVOTHYROXINE SODIUM 100 MCG TABLET 200 MCG PO (05:52)
[2021-08-27] MEDS: HYDROmorphone HCL INJ (*CRX) 1 MG/ML SYR IV PUSH (05:54)
[2021-08-27 05:57] LABS: Basophils Percent Auto 0.2 % (0.2-1.2); Eosinophils Percent Auto 0.1 % (0-4.4); Hematocrit 32.8 % (37.0-47.0); Hemoglobin 10.6 g/dL (12.0-15.0); Immature Granulocyte Absolute 0.04 K/mm3 (0.00-0.031); Immature Granulocyte Percent A 0.4 % (0-0.5); Lymphocytes Absolute Auto 1.23 K/mm3 (0.9-3.2); Lymphocytes Percent Auto 11.1 % (18.3-44.2); Mean Corpuscular HGB Conc 32.3 g/dl (32-36); Mean Corpuscular Hemoglobin 26.1 pg (26-34); Mean Corpuscular Volume 80.8 fl (80-100); Mean Platelet Volume 9.2 fl (7.4-10.4); Monocytes Absolute Auto 1.3 K/mm3 (0.1-0.6); Monocytes Percent Auto 11.3 % (2.6-8.5); Neutrophils Absolute Auto 8.6 K/mm3 (1.3-6.7); Neutrophils Percent Auto 76.9 % (45.5-73.1); Platelet Count Result 443 k/mm3 (150-375); Red Blood Count 4.06 M/mm3 (4.2-5.4); Red Cell Distribution Width 14.8 % (11.5-14.5); White Blood Count 11.1 K/mm3 (4.5-10.0)
[2021-08-27 06:18] LABS: Anion Gap 9 mmol/L (8-16); Blood Urea Nitrogen 15 mg/dL (7-17); Calcium 8.6 mg/dL (8.4-10.2); Carbon Dioxide 24 mmol/L (22-30); Chloride 101 mmol/L (98-107); Estimated CRCL calculation 118 ml/min; Estimated Glomerular Filt Rate > 60; Glucose 182 mg/dL (65-110); Magnesium 1.8 mg/dL (1.6-2.3); Potassium 4.1 mmol/L (3.4-5.0); Sodium 134 mmol/L (137-145)
[2021-08-27 07:48] LABS: Glucose Point of Care 176 mg/dl (65-105)
[2021-08-27] MEDS: amLODIPine BESYLATE 5 MG TABLET 10 MG PO (08:34)
[2021-08-27] MEDS: hydroCHLOROthiazide 12.5 MG CAPSULE PO (08:34)
[2021-08-27] MEDS: GLIMEPIRIDE 2 MG TABLET PO ×2 (08:34→16:45)
[2021-08-27] MEDS: PANTOPRAZOLE 40 MG TABLET PO (08:34)
[2021-08-27] MEDS: ENOXAPARIN 40 MG/0.4 ML SYRINGE SUB-Q (08:35)
[2021-08-27] MEDS: ENALAPRIL MALEATE 10 MG TABLET 20 MG PO (08:35)
[2021-08-27] MEDS: metFORMIN HCL 500 MG TABLET PO ×2 (08:36→16:45)
[2021-08-27] MEDS: KETOROLAC 30 MG/ML VIAL (*BKC) IV PUSH ×2 (08:36→16:45)
[2021-08-27] MEDS: ONDANSETRON INJ 4 MG/2 ML VIAL IV PUSH (08:37)
--- NOTE | 2021-08-27 09:57 | PM.PNGS ---
Progress Note: A&P Assessment and Plan (1) Status post colostomy takedown: Code(s): Z98.890 - Other specified postprocedural states Status: Acute Assessment and Plan: Await return of bowel function Continue Porter, Clears, IV fluids today Increase activity (2) Type 2 diabetes mellitus: Code(s): E11.9 - Type 2 diabetes mellitus without complications Status: Acute (3) BMI 45.0-49.9, adult: Code(s): Z68.42 - Body mass index [BMI] 45.0-49.9, adult Status: Acute Subjective Subjective Date/Time Seen: 08/27/21 09:57 Post Op day: 1 (s/p colostomy takedown, loop ileostomy 08/26) Interval history: Nauseated when trying clears. Pain controlled. Exam GI: Inspection: incision (dressing dry) and other (BRETT serosanguinous) GI Palp: Yes Tenderness to palpation present (GI) (incisional) Auscultation: Hypoactive bowel sounds present Other: Ileostomy red, blood tinged serous drainage. No stool yet. Objective Data Vital Signs Vital Signs: Vital Signs - 24 hr 08/26/21 13:40 08/26/21 13:55 08/26/21 14:10 Temperature 36.5 C Pulse Rate 98 94 96 Respiratory Rate 12 15 10 L Blood Pressure 172/79 H 163/73 H 181/73 H Pulse Oximetry 100 100 100 08/26/21 14:25 08/26/21 14:40 08/26/21 14:55 Temperature Pulse Rate 93 98 100 Respiratory Rate 16 20 20 Blood Pressure 181/82 H 184/74 H 184/74 H Pulse Oximetry 100 99 100 08/26/21 15:10 08/26/21 15:25 08/26/21 15:42 Temperature 36.1 C L Pulse Rate 97 101 H 101 H Respiratory Rate 19 19 20 Blood Pressure 179/77 H 170/71 H 149/75 H Pulse Oximetry 99 96 95 08/26/21 16:06 08/26/21 16:12 08/26/21 17:12 Temperature 36.0 C L 36.3 C L Pulse Rate 103 H 104 H Respiratory Rate 18 20 Blood Pressure 153/66 H 154/87 H Pulse Oximetry 98 96 95 08/26/21 20:55 08/26/21 21:02 08/26/21 21:12 Temperature 37.0 C Pulse Rate 101 H 102 H Respiratory Rate 18 Blood Pressure 145/71 H Pulse Oximetry 95 95 96 08/27/21 01:12 08/27/21 04:55 08/27/21 08:00 Temperature 36.6 C 36.5 C Pulse Rate 112 H 110 H Respiratory Rate 18 18 Blood Pressure 144/60 H 142/61 H Pulse Oximetry 96 96 93 08/27/21 08:14 08/27/21 09:12 Temperature 37.4 C Pulse Rate 108 H Respiratory Rate 19 Blood Pressure 167/69 H Pulse Oximetry 93 95 Intake/Output Intake/Output: Intake & Output 08/24/21 08/25/21 08/26/21 08/27/21 23:59 23:59 23:59 23:59 Intake Total 1650 1360 Output Total 695 500 Balance 955 860 Meds/Results Medications: Active Medications Generic Name Dose Route Start Last Admin Trade Name Freq PRN Reason Stop Dose Admin Hydrocodone Bitart/Acetaminophen 1 tab 08/26/21 15:27 08/27/21 04:03 Hydrocodone/Acetaminophen (*Crx) 5-325 Mg Tablet PO 1 tab Q4H PRN Administration Pain Rated 4-6 Amitriptyline HCl 10 mg 08/26/21 15:27 Amitriptyline Hcl 10 Mg Tablet PO HS PRN pain Amlodipine Besylate 10 mg 08/27/21 09:00 08/27/21 08:34 Amlodipine Besylate 5 Mg Tablet PO 10 mg QAM OMER Administration Dextrose 12.5 gm 08/26/21 23:04 Dextrose 50% 25 Gm/50 Ml Syringe IV PUSH PRN PRN Hypoglycemia Protocol Enalapril Maleate 20 mg 08/27/21 09:00 08/27/21 08:35 Enalapril Maleate 10 Mg Tablet PO 20 mg QAM OMER Administration Enoxaparin Sodium 40 mg 08/27/21 09:00 08/27/21 08:35 Enoxaparin 40 Mg/0.4 Ml Syringe SUB-Q 40 mg DAILY OMER Administration Glimepiride 2 mg 08/26/21 17:00 08/27/21 08:34 Glimepiride 2 Mg Tablet PO 2 mg BID OMER Administration Glucagon 1 mg 08/26/21 23:04 Glucagon For Inj 1 Mg Vial IM PRN PRN Hypoglycemia Protocol Glucose 15 gm 08/26/21 23:04 Glucose Oral Gel 15 Gm Of Glucse In 37.5 Gm Tube PO PRN PRN Hypoglycemia Protocol Hydrochlorothiazide 12.5 mg 08/27/21 09:00 08/27/21 08:34 Hydrochlorothiazide 12.5 Mg Capsule PO 12.5 mg QAM OMER Administration Hydromor
[2021-08-27 11:50] LABS: Glucose Point of Care 199 mg/dl (65-105)
--- NOTE | 2021-08-27 15:05 | PM.IMPN ---
Progress Note: A&P Assessment and Plan (1) Status post laparoscopy: Code(s): Z98.890 - Other specified postprocedural states Status: Acute Assessment and Plan: Postoperative day 1; status post hand assisted laparoscopic Deny's reversal, extensive adhesiolysis, and creation loop ileostomy. Wound care, pain control, and DVT prophylaxis will be deferred to primary service. (2) Essential (primary) hypertension: Code(s): I10 - Essential (primary) hypertension Status: Acute Assessment and Plan: Blood pressures were reviewed and they have been running high postoperatively, likely due to pain. (3) Type 2 diabetes mellitus: Code(s): E11.9 - Type 2 diabetes mellitus without complications Status: Acute Assessment and Plan: Recent A1c was 7.5%. Continue glimepiride. Initiate sliding scale insulin, Accu-Cheks, and hypoglycemic protocol. also on metformin at home (4) Hypothyroidism, unspecified: Qualifiers: Hypothyroidism type: unspecified Qualified Code(s): E03.9 - Hypothyroidism, unspecified Code(s): E03.9 - Hypothyroidism, unspecified Status: Acute Assessment and Plan: Continue levothyroxine and check TSH. TSH is normal Subjective Date/time seen: 08/27/21 15:05 Interval history: HPI: This is a 56-year-old female with hypertension, type 2 diabetes mellitus, and hypothyroidism whom the hospitalist service has been consulted for management of her medical conditions postoperatively. She has a history of perforated diverticulitis status post Deny's procedure and she returned today for reversal and creation loop ileostomy. Her surgery was performed under general anesthesia with no immediate complications documented an estimated blood loss of 300 mL. Postoperatively she complains of a dry mouth, nausea, and a full or pressure-like sensation in her lower abdomen. She feels as though she has to urinate however a Porter catheter is in place and 600 mL has just been drained. She denies fever, chills, sweats, chest pain, and shortness of breath. : No overnight events. Surgery note reviewed. And abdomen pain is improved. Not eating as much. No nausea vomiting no fever chills Review of Systems Review of Systems: All systems reviewed & are unremarkable except as noted in HPI and below ( HPI) Exam Narrative: General: comfortable no acute distress HEENT: PERRL, EOMI. Sclerae anicteric. Tacky mucous membranes. Neck: Supple. nontender Respiratory: Lungs are clear to auscultation bilaterally. Cardiovascular: Regular rate and rhythm with S1-S2. Gastrointestinal: Abdomen is soft and nondistended. Midline surgical incision has a clean, dry, and intact dressing. Right mid quadrant ileostomy draining a small amount of blood. There is a BRETT drain that also contains a small amount of blood. Faint bowel sounds noted in the right upper quadrant. Genitourinary: Porter catheter draining dark yellow urine. Skin: Warm and dry. No rash or lesions on limited exam. Extremities: No cyanosis, clubbing, or edema. Radial and pedal pulses intact. Neurological: Alert. Cranial nerves 2-12 grossly intact. No gross focal deficits to casual conversation. Psychiatric: Pleasant and cooperative with normal mood and affect. Objective Data Vital Signs Vital Signs: Vital Signs - 24 hr 08/26/21 15:10 08/26/21 15:25 08/26/21 15:42 Temperature 96.9 F L Pulse Rate 97 101 H 101 H Respiratory Rate 19 19 20 Blood Pressure 179/77 H 170/71 H 149/75 H Pulse Oximetry 99 96 95 08/26/21 16:06 08/26/21 16:12 08/26/21 17:12 Temperature 96.8 F L 97.3 F L Pulse Rate 103 H 104 H Respiratory Rate 18 20 Blood Pressure 153/66 H 154/87 H Pulse Oximetry 98 96 95 08/26/21 20:55 08/26/21 21:02 08/26/21 21:12 Temperature 98.6 F Pulse Rate 101 H 102 H Respiratory Rate 18 Blood Pressure 145/71 H Pulse Oximetry 95 95 96 08/27/21 01:12
[2021-08-27 16:29] LABS: Glucose Point of Care 187 mg/dl (65-105)
[2021-08-27 21:16] LABS: Glucose Point of Care 187 mg/dl (65-105)
[2021-08-28] VITALS: BP 127/43; PULSE 95; RESP 18; TEMP 36.9; O2SAT 96
[2021-08-28] MEDS: KETOROLAC 30 MG/ML VIAL (*BKC) IV PUSH ×3 (00:08→17:42)
[2021-08-28] MEDS: LACTATED RINGERS 1,000 ML 100 ML IV CONT (00:08)
[2021-08-28] MEDS: ONDANSETRON INJ 4 MG/2 ML VIAL IV PUSH ×3 (05:13→21:25)
[2021-08-28 05:55] LABS: Hematocrit 30.5 % (37.0-47.0); Hemoglobin 9.5 g/dL (12.0-15.0); Mean Corpuscular HGB Conc 31.1 g/dl (32-36); Mean Corpuscular Hemoglobin 26.2 pg (26-34); Mean Corpuscular Volume 84.3 fl (80-100); Mean Platelet Volume 9.3 fl (7.4-10.4); Platelet Count Result 366 k/mm3 (150-375); Red Blood Count 3.62 M/mm3 (4.2-5.4); Red Cell Distribution Width 15.4 % (11.5-14.5); White Blood Count 11.6 K/mm3 (4.5-10.0)
[2021-08-28 06:00] VITALS: BP 140/57; PULSE 96; RESP 16; TEMP 36.6; O2SAT 95
[2021-08-28 06:13] LABS: Anion Gap 5 mmol/L (8-16); Blood Urea Nitrogen 16 mg/dL (7-17); Calcium 9.2 mg/dL (8.4-10.2); Carbon Dioxide 32 mmol/L (22-30); Chloride 99 mmol/L (98-107); Estimated CRCL calculation 106 ml/min; Estimated Glomerular Filt Rate > 60; Glucose 156 mg/dL (65-110); Potassium 3.9 mmol/L (3.4-5.0); Sodium 136 mmol/L (137-145)
[2021-08-28] MEDS: LEVOTHYROXINE SODIUM 100 MCG TABLET 200 MCG PO (06:20)
[2021-08-28 07:50] LABS: Glucose Point of Care 189 mg/dl (65-105)
[2021-08-28 08:00] VITALS: O2SAT 93
[2021-08-28] MEDS: PROCHLORPERAZINE EDISYLATE 10 MG/2 ML VIAL IM ×2 (08:00→17:58)
[2021-08-28] MEDS: ENOXAPARIN 40 MG/0.4 ML SYRINGE SUB-Q (08:01)
[2021-08-28] MEDS: PANTOPRAZOLE 40 MG TABLET PO (08:02)
[2021-08-28] MEDS: metFORMIN HCL 500 MG TABLET PO ×2 (08:02→17:40)
[2021-08-28] MEDS: ENALAPRIL MALEATE 10 MG TABLET 20 MG PO (08:02)
[2021-08-28] MEDS: GLIMEPIRIDE 2 MG TABLET PO ×2 (08:02→17:40)
[2021-08-28] MEDS: hydroCHLOROthiazide 12.5 MG CAPSULE PO (08:02)
[2021-08-28] MEDS: amLODIPine BESYLATE 5 MG TABLET 10 MG PO (08:02)
--- NOTE | 2021-08-28 08:07 | PM.IMPN ---
Progress Note: A&P Assessment and Plan (1) Status post laparoscopy: Code(s): Z98.890 - Other specified postprocedural states Status: Acute Assessment and Plan: Postoperative day 2; status post hand assisted laparoscopic Deny's reversal, extensive adhesiolysis, and creation loop ileostomy. Wound care, pain control, and DVT prophylaxis will be deferred to primary service. Currently on Lovenox Postoperative nausea vomiting today will add Compazine for symptomatic relief. Further assessment per general surgery team (2) Essential (primary) hypertension: Code(s): I10 - Essential (primary) hypertension Status: Acute Assessment and Plan: Blood pressures were reviewed and stable Continue home medication (3) Type 2 diabetes mellitus: Code(s): E11.9 - Type 2 diabetes mellitus without complications Status: Acute Assessment and Plan: Recent A1c was 7.5%. Continue glimepiride. Initiate sliding scale insulin, Accu-Cheks, and hypoglycemic protocol. also on metformin at home blood sugar at goal (4) Hypothyroidism, unspecified: Qualifiers: Hypothyroidism type: unspecified Qualified Code(s): E03.9 - Hypothyroidism, unspecified Code(s): E03.9 - Hypothyroidism, unspecified Status: Acute Assessment and Plan: Continue levothyroxine TSH is normal Subjective Date/time seen: 08/28/21 08:07 Interval history: HPI: This is a 56-year-old female with hypertension, type 2 diabetes mellitus, and hypothyroidism whom the hospitalist service has been consulted for management of her medical conditions postoperatively. She has a history of perforated diverticulitis status post Deny's procedure and she returned today for reversal and creation loop ileostomy. Her surgery was performed under general anesthesia with no immediate complications documented an estimated blood loss of 300 mL. Postoperatively she complains of a dry mouth, nausea, and a full or pressure-like sensation in her lower abdomen. She feels as though she has to urinate however a Porter catheter is in place and 600 mL has just been drained. She denies fever, chills, sweats, chest pain, and shortness of breath. : No overnight events. Surgery note reviewed. And abdomen pain is improved. Not eating as much. No nausea vomiting no fever chills 08/28/2021 she did well overnight however complains of increased nausea this morning not relieved with Zofran. She reports some soreness in her abdomen which is not different from what it was yesterday. No fever chills. She also had an episode of vomiting this morning Review of Systems Review of Systems: All systems reviewed & are unremarkable except as noted in HPI and below ( HPI) Exam Narrative: General: comfortable in mild distress due to nausea HEENT: PERRL, EOMI. Sclerae anicteric. Tacky mucous membranes. Neck: Supple. nontender Respiratory: Lungs are clear to auscultation bilaterally. Cardiovascular: Regular rate and rhythm with S1-S2. Gastrointestinal: Abdomen is soft and mildly distended. Midline surgical incision has a clean, dry, and intact dressing. Right mid quadrant ileostomy draining a small amount of blood. There is a BRETT drain that also contains a small amount of blood. Hypoactive bowel sounds Genitourinary: Porter catheter draining dark yellow urine. Skin: Warm and dry. No rash or lesions on limited exam. Extremities: No cyanosis, clubbing, or edema. Radial and pedal pulses intact. Neurological: Alert. Cranial nerves 2-12 grossly intact. No gross focal deficits to casual conversation. Psychiatric: Pleasant and cooperative with normal mood and affect. Objective Data Vital Signs Vital Signs: Vital Signs - 24 hr 08/27/21 08:14 08/27/21 09:12 08/27/21 13:12 Temperature 99.4 F 98.8 F Pulse Rate 108 H 98 Respiratory Rate 19 20 Blood Pressure 167/69 H 126/56 L Pulse Oximetry 93 95 96 08/27/21 17:12 08/09
[2021-08-28] MEDS: LACTATED RINGERS 1,000 ML 75 ML IV CONT (11:06)
--- NOTE | 2021-08-28 11:29 | PM.PNGS ---
Progress Note: A&P Assessment and Plan (1) Status post colostomy takedown: Code(s): Z98.890 - Other specified postprocedural states Status: Acute Assessment and Plan: Ileostomy functioning but patient having a lot of nausea today. Will continue IV fluids and clear liquids today. (2) Postoperative nausea and vomiting: Code(s): R11.2 - Nausea with vomiting, unspecified; Z98.890 - Other specified postprocedural states Status: Acute Assessment and Plan: Zofran not helping much, will try phenergan for persistent nausea (3) Type 2 diabetes mellitus: Code(s): E11.9 - Type 2 diabetes mellitus without complications Status: Acute (4) BMI 45.0-49.9, adult: Code(s): Z68.42 - Body mass index [BMI] 45.0-49.9, adult Status: Acute Subjective Subjective Date/Time Seen: 08/28/21 11:29 Interval history: Having more nausea and pain today. Vomited once. No fevers. Ileostomy functioning. Exam GI: Inspection: incision (intact with shawn, minimal serosanguinous drainage.) and other (BRETT serosanguinous) GI Palp: Yes Tenderness to palpation present (GI) (incisional) Other: Ileostomy functioning with stool in bag. Objective Data Vital Signs Vital Signs: Vital Signs - 24 hr 08/27/21 13:12 08/27/21 17:12 08/27/21 20:00 Temperature 37.1 C 36.4 C L 36.3 C L Pulse Rate 98 95 94 Respiratory Rate 20 16 16 Blood Pressure 126/56 L 127/42 L 110/45 L Pulse Oximetry 96 97 95 08/27/21 20:31 08/28/21 00:00 08/28/21 06:00 Temperature 36.9 C 36.6 C Pulse Rate 95 96 Respiratory Rate 18 16 Blood Pressure 127/43 L 140/57 L Pulse Oximetry 97 96 95 08/28/21 08:00 Temperature Pulse Rate Respiratory Rate Blood Pressure Pulse Oximetry 93 Intake/Output Intake/Output: Intake & Output 08/25/21 08/26/21 08/27/21 08/28/21 23:59 23:59 23:59 23:59 Intake Total 1650 3645 3240 Output Total 695 1570 1400 Balance 955 2075 1840 Meds/Results Medications: Active Medications Generic Name Dose Route Start Last Admin Trade Name Freq PRN Reason Stop Dose Admin Hydrocodone Bitart/Acetaminophen 1 tab 08/26/21 15:27 08/27/21 04:03 Hydrocodone/Acetaminophen (*Crx) 5-325 Mg Tablet PO 1 tab Q4H PRN Administration Pain Rated 4-6 Amitriptyline HCl 10 mg 08/26/21 15:27 Amitriptyline Hcl 10 Mg Tablet PO HS PRN pain Amlodipine Besylate 10 mg 08/27/21 09:00 08/28/21 08:02 Amlodipine Besylate 5 Mg Tablet PO 10 mg QAM OMER Administration Dextrose 12.5 gm 08/26/21 23:04 Dextrose 50% 25 Gm/50 Ml Syringe IV PUSH PRN PRN Hypoglycemia Protocol Enalapril Maleate 20 mg 08/27/21 09:00 08/28/21 08:02 Enalapril Maleate 10 Mg Tablet PO 20 mg QAM OMER Administration Enoxaparin Sodium 40 mg 08/27/21 09:00 08/28/21 08:01 Enoxaparin 40 Mg/0.4 Ml Syringe SUB-Q 40 mg DAILY OMER Administration Glimepiride 2 mg 08/26/21 17:00 08/28/21 08:02 Glimepiride 2 Mg Tablet PO 2 mg BID OMER Administration Glucagon 1 mg 08/26/21 23:04 Glucagon For Inj 1 Mg Vial IM PRN PRN Hypoglycemia Protocol Glucose 15 gm 08/26/21 23:04 Glucose Oral Gel 15 Gm Of Glucse In 37.5 Gm Tube PO PRN PRN Hypoglycemia Protocol Hydrochlorothiazide 12.5 mg 08/27/21 09:00 08/28/21 08:02 Hydrochlorothiazide 12.5 Mg Capsule PO 12.5 mg QAM OMER Administration Hydromorphone HCl 1 mg 08/26/21 15:27 08/27/21 05:54 Hydromorphone Hcl Inj (*Crx) 1 Mg/Ml Syr IV PUSH 1 mg Q2H PRN Administration Pain Rated 7-10 Lactated Ringer's 1,000 mls @ 75 mls/hr 08/26/21 15:27 08/28/21 11:06 Lr - Lactated Ringers Iv IV CONT 75 mls/hr .[id number] OMER Administration Dextrose 1,000 mls @ 100 mls/hr 08/26/21 23:04 Dextrose 5% 1,000 Ml IVPB PRN PRN Hypoglycemia Protocol Insulin Aspart 2 - 5 units 08/27/21 08:00 08/28/21 07:59 Insulin Aspart (*Bkc) 100 Units/Ml
[2021-08-28 12:06] LABS: Glucose Point of Care 194 mg/dl (65-105)
[2021-08-28 17:35] LABS: Glucose Point of Care 154 mg/dl (65-105)
[2021-08-28 20:00] VITALS: BP 115/46; PULSE 96; RESP 16; TEMP 36.9; O2SAT 94
[2021-08-28 21:33] LABS: Glucose Point of Care 163 mg/dl (65-105)
[2021-08-28] MEDS: CALCIUM CARBONATE (TUMS) 500 MG (200 MG ELEMENTAL) PO (22:15)
[2021-08-29] VITALS (8 sets, daily range): BP systolic 127–168; BP diastolic 56–74; PULSE 95–104; RESP 16–18; TEMP 36.1–37; O2SAT 91–99; BMI 46.0
[2021-08-29] MEDS: PROCHLORPERAZINE EDISYLATE 10 MG/2 ML VIAL IM (00:06)
[2021-08-29] MEDS: LACTATED RINGERS 1,000 ML 75 ML IV CONT ×2 (01:23→15:12)
[2021-08-29] MEDS: ONDANSETRON INJ 4 MG/2 ML VIAL IV PUSH (02:28)
[2021-08-29] MEDS: TRIMETHOBENZAMIDE HCL 200 MG/2 ML VIAL IM (03:32)
[2021-08-29 05:49] LABS: Basophils Absolute Auto 0.1 K/mm3 (0.0-0.1); Basophils Percent Auto 0.5 % (0.2-1.2); Eosinophils Absolute Auto 0.1 K/mm3 (0-0.3); Eosinophils Percent Auto 1.2 % (0-4.4); Hematocrit 30.9 % (37.0-47.0); Hemoglobin 9.9 g/dL (12.0-15.0); Immature Granulocyte Absolute 0.07 K/mm3 (0.00-0.031); Immature Granulocyte Percent A 0.6 % (0-0.5); Lymphocytes Absolute Auto 1.05 K/mm3 (0.9-3.2); Lymphocytes Percent Auto 9.7 % (18.3-44.2); Mean Corpuscular Hemoglobin 26.4 pg (26-34); Mean Corpuscular Volume 82.4 fl (80-100); Monocytes Percent Auto 9.2 % (2.6-8.5); Neutrophils Absolute Auto 8.5 K/mm3 (1.3-6.7); Neutrophils Percent Auto 78.8 % (45.5-73.1); Platelet Count Result 420 k/mm3 (150-375); Red Blood Count 3.75 M/mm3 (4.2-5.4); Red Cell Distribution Width 15.3 % (11.5-14.5); White Blood Count 10.8 K/mm3 (4.5-10.0)
[2021-08-29 06:02] LABS: Alanine Aminotransferase 12 U/L (4-35); Albumin Level 3.6 g/dL (3.5-5.1); Alkaline Phosphatase 83 U/L (38-126); Anion Gap 6 mmol/L (8-16); Aspartate Amino Transferase 20 U/L (14-36); Bilirubin,Total 0.9 mg/dL (0.2-1.3); Blood Urea Nitrogen 16 mg/dL (7-17); Calcium 9.6 mg/dL (8.4-10.2); Carbon Dioxide 31 mmol/L (22-30); Chloride 97 mmol/L (98-107); Estimated CRCL calculation 122 ml/min; Estimated Glomerular Filt Rate > 60; Glucose 170 mg/dL (65-110); Magnesium 1.9 mg/dL (1.6-2.3); Potassium 3.9 mmol/L (3.4-5.0); Sodium 134 mmol/L (137-145)
[2021-08-29] MEDS: KETOROLAC 30 MG/ML VIAL (*BKC) IV PUSH (06:24)
[2021-08-29] MEDS: LEVOTHYROXINE SODIUM INJ 100 MCG/5 ML VIAL IV PUSH (07:19)
[2021-08-29 08:00] LABS: Glucose Point of Care 151 mg/dl (65-105)
[2021-08-29] MEDS: MORPHINE SULFATE (*CRX) 2 MG/ML INJ IV PUSH ×2 (08:27→21:42)
[2021-08-29] MEDS: PANTOPRAZOLE SODIUM IV 40 MG VIAL IV PUSH (08:46)
[2021-08-29] MEDS: ENOXAPARIN 40 MG/0.4 ML SYRINGE SUB-Q (08:46)
--- NOTE | 2021-08-29 10:43 | PM.PNGS ---
Progress Note: A&P Assessment and Plan (1) Status post colostomy takedown: Code(s): Z98.890 - Other specified postprocedural states Status: Acute Assessment and Plan: stable, clamp NG and start sips, ok to dc NG in a few hours in cont to do well, encourage OOB/IS, jauregui out soon Subjective Subjective Date/Time Seen: 08/29/21 10:43 feels better this am, nausea/emesis, bloating better after NG placed, ileostomy working Review of Systems Review of Systems: All systems reviewed & are unremarkable except as noted in HPI and below Exam Const: General: cooperative, comfortable and no acute distress Nutritional Appearance: obese Orientation/consciousness: patient oriented x3 Resp: Auscultation: clear to auscultation bilaterally Cardio: Rate: regular rate Rhythm: regular rhythm GI: Inspection: normal to inspection GI Palp: Yes Soft to palpation, Yes Tenderness to palpation present (GI), No Guarding due to palpation present (GI) and No Rigid due to palpation Other: ileostomy - +fxn Objective Data Vital Signs Vital Signs: Vital Signs - 24 hr 08/28/21 20:00 08/29/21 00:00 08/29/21 04:00 Temperature 36.9 C 36.1 C L 36.8 C Pulse Rate 96 101 H 101 H Respiratory Rate 16 16 16 Blood Pressure 115/46 L 149/74 H 130/56 L Pulse Oximetry 94 94 94 08/29/21 10:05 Temperature 36.3 C L Pulse Rate 95 Respiratory Rate 18 Blood Pressure 139/63 Pulse Oximetry 93 Intake/Output Intake/Output: Intake & Output 08/26/21 08/27/21 08/28/21 08/29/21 23:59 23:59 23:59 23:59 Intake Total 1650 3645 4230 1000 Output Total 695 1570 2530 2680 Balance 955 2075 1700 -1680 Meds/Results Medications: Active Medications Generic Name Dose Route Start Last Admin Trade Name Freq PRN Reason Stop Dose Admin Acetaminophen 650 mg 08/29/21 08:03 Acetaminophen 650 Mg Suppository RECTAL Q6H PRN Mild Pain (1-3) or Fever Hydrocodone Bitart/Acetaminophen 1 tab 08/26/21 15:27 08/27/21 04:03 Hydrocodone/Acetaminophen (*Crx) 5-325 Mg Tablet PO 1 tab Q4H PRN Administration Pain Rated 4-6 Amitriptyline HCl 10 mg 08/26/21 15:27 Amitriptyline Hcl 10 Mg Tablet PO HS PRN pain Amlodipine Besylate 10 mg 08/27/21 09:00 08/28/21 08:02 Amlodipine Besylate 5 Mg Tablet PO 10 mg QAM OMER Administration Calcium Carbonate 200 mg 08/28/21 22:09 08/28/21 22:15 Calcium Carbonate (Tums) 500 Mg (200 Mg Elemental) PO 200 mg Q6H PRN Administration Heartburn Dextrose 12.5 gm 08/29/21 08:00 Dextrose 50% 25 Gm/50 Ml Syringe IV PUSH PRN PRN Hypoglycemia Protocol Enalapril Maleate 20 mg 08/27/21 09:00 08/28/21 08:02 Enalapril Maleate 10 Mg Tablet PO 20 mg QAM OMER Administration Enalaprilat 1.25 mg 08/29/21 12:00 Enalaprilat 1.25 Mg/Ml Vial IV PUSH Q6HR OMER Enoxaparin Sodium 40 mg 08/27/21 09:00 08/29/21 08:46 Enoxaparin 40 Mg/0.4 Ml Syringe SUB-Q 40 mg DAILY OMER Administration Glimepiride 2 mg 08/26/21 17:00 08/28/21 17:40 Glimepiride 2 Mg Tablet PO 2 mg BID OMER Administration Glucagon 1 mg 08/29/21 08:00 Glucagon For Inj 1 Mg Vial IM PRN PRN Hypoglycemia Protocol Glucose 15 gm 08/29/21 08:00 Glucose Oral Gel 15 Gm Of Glucse In 37.5 Gm Tube PO PRN PRN Hypoglycemia Protocol Hydrochlorothiazide 12.5 mg 08/27/21 09:00 08/28/21 08:02 Hydrochlorothiazide 12.5 Mg Capsule PO 12.5 mg QAM OMER Administration Hydromorphone HCl 1 mg 08/26/21 15:27 08/27/21 05:54 Hydromorphone Hcl Inj (*Crx) 1 Mg/Ml Syr IV PUSH 1 mg Q2H PRN Administration Pain Rated 7-10 Lactated Ringer's 1,000 mls @ 75 mls/hr 08/26/21 15:27 08/29/21 01:23 Lr - Lactated Ringers Iv IV CONT 75 mls/hr .[id number] OMER Administration Dextrose 1,000 mls @ 100 mls/hr 08/29/21 08:00 Dextrose 5% 1,000 Ml IVPB PRN PRN Hypoglycemia Protocol Insulin Aspart 2 - 5
--- NOTE | 2021-08-29 12:00 | PM.IMPN ---
Progress Note: A&P Assessment and Plan (1) Status post laparoscopy: Code(s): Z98.890 - Other specified postprocedural states Status: Acute Assessment and Plan: Postoperative day 3; status post hand assisted laparoscopic Deny's reversal, extensive adhesiolysis, and creation loop ileostomy. Wound care, pain control, and DVT prophylaxis will be deferred to primary service. Currently on Lovenox Postoperative nausea vomiting Is improving with Compazine for symptomatic relief. Further assessment per general surgery team (2) Essential (primary) hypertension: Code(s): I10 - Essential (primary) hypertension Status: Acute Assessment and Plan: Blood pressures were reviewed and stable, within goal range. Continue home medication (3) Type 2 diabetes mellitus: Code(s): E11.9 - Type 2 diabetes mellitus without complications Status: Acute Assessment and Plan: Recent A1c was 7.5%. Continue glimepiride. Initiate sliding scale insulin, Accu-Cheks, and hypoglycemic protocol. also on metformin at home blood sugar at goal (4) Hypothyroidism, unspecified: Qualifiers: Hypothyroidism type: unspecified Qualified Code(s): E03.9 - Hypothyroidism, unspecified Code(s): E03.9 - Hypothyroidism, unspecified Status: Acute Assessment and Plan: Continue levothyroxine TSH is normal Additional Plan Thank you for allowing us to participate in this patient's care. Please do not hesitate to contact us with any questions. Subjective Date/time seen: 08/29/21 13:16 Interval history: HPI: This is a 56-year-old female with hypertension, type 2 diabetes mellitus, and hypothyroidism whom the hospitalist service has been consulted for management of her medical conditions postoperatively. She has a history of perforated diverticulitis status post Deny's procedure and she returned today for reversal and creation loop ileostomy. Her surgery was performed under general anesthesia with no immediate complications documented an estimated blood loss of 300 mL. Postoperatively she complains of a dry mouth, nausea, and a full or pressure-like sensation in her lower abdomen. She feels as though she has to urinate however a Porter catheter is in place and 600 mL has just been drained. She denies fever, chills, sweats, chest pain, and shortness of breath. : No overnight events. Surgery note reviewed. And abdomen pain is improved. Not eating as much. No nausea vomiting no fever chills 08/28/2021 she did well overnight however complains of increased nausea this morning not relieved with Zofran. She reports some soreness in her abdomen which is not different from what it was yesterday. No fever chills. She also had an episode of vomiting this morning. 08/29/2021 Patient continues to improve slowly. She denies nausea at this morning.. She reports some soreness in her abdomen With activity Popovicwhich is not different from what it was yesterday. No fever chills. Porter catheter out this morning. Patient was out of bed to chair and went to the bathroom. Review of Systems Review of Systems: All systems reviewed & are unremarkable except as noted in HPI and below ( HPI) Exam Narrative: General: comfortable in mild distress due to nausea HEENT: PERRL, EOMI. Sclerae anicteric. Moist mucous membranes. Neck: Supple. nontender Respiratory: Lungs are clear to auscultation bilaterally. Cardiovascular: Regular rate and rhythm with S1-S2. Gastrointestinal: Abdomen is soft and mildly distended. Midline surgical incision has a clean, dry, and intact dressing. Right mid quadrant ileostomy with pink. There is a BRETT drain that also contains a small amount of blood. Hypoactive bowel sounds Genitourinary: Porter catheter draining dark yellow urine. Skin: Warm and dry. No honey
[2021-08-29 12:47] LABS: Glucose Point of Care 113 mg/dl (65-105)
[2021-08-29] MEDS: CALCIUM CARBONATE (TUMS) 500 MG (200 MG ELEMENTAL) PO (16:41)
[2021-08-29] MEDS: HYDROmorphone HCL INJ (*CRX) 1 MG/ML SYR IV PUSH (16:49)
[2021-08-29] MEDS: ENALAPRILAT 1.25 MG/ML VIAL IV PUSH (17:20)
[2021-08-29 19:10] LABS: Glucose Point of Care 129 mg/dl (65-105)
[2021-08-29] MEDS: PHENOL/SOD PHENO SPRAY CHERRY (*BKC) 1 SPRAY MUCOUS MEM (20:06)
[2021-08-30] VITALS (10 sets, daily range): BP systolic 120–135; BP diastolic 52–63; PULSE 84–100; RESP 16–18; TEMP 36.4–37.2; O2SAT 91–96
[2021-08-30] MEDS: HYDROmorphone HCL INJ (*CRX) 1 MG/ML SYR IV PUSH ×2 (00:50→13:15)
[2021-08-30 05:36] LABS: Glucose Point of Care 139 mg/dl (65-105)
[2021-08-30] MEDS: LACTATED RINGERS 1,000 ML 75 ML IV CONT ×2 (05:43→19:57)
[2021-08-30] MEDS: LEVOTHYROXINE SODIUM INJ 100 MCG/5 ML VIAL IV PUSH (05:44)
[2021-08-30 06:00] LABS: Glucose Point of Care 127 mg/dl (65-105)
[2021-08-30 06:02] LABS: Hematocrit 30.6 % (37.0-47.0); Hemoglobin 9.3 g/dL (12.0-15.0); Mean Corpuscular HGB Conc 30.4 g/dl (32-36); Mean Corpuscular Hemoglobin 25.8 pg (26-34); Mean Platelet Volume 8.6 fl (7.4-10.4); Platelet Count Result 390 k/mm3 (150-375); Red Cell Distribution Width 15.4 % (11.5-14.5); White Blood Count 5.6 K/mm3 (4.5-10.0)
[2021-08-30 06:24] LABS: Anion Gap 8 mmol/L (8-16); Blood Urea Nitrogen 18 mg/dL (7-17); Calcium 9.2 mg/dL (8.4-10.2); Carbon Dioxide 31 mmol/L (22-30); Chloride 97 mmol/L (98-107); Estimated CRCL calculation 91 ml/min; Estimated Glomerular Filt Rate > 60; Glucose 125 mg/dL (65-110); Potassium 3.9 mmol/L (3.4-5.0); Sodium 136 mmol/L (137-145)
--- NOTE | 2021-08-30 08:16 | PM.IMPN ---
Progress Note: A&P Assessment and Plan (1) Status post laparoscopy: Code(s): Z98.890 - Other specified postprocedural states Status: Acute Assessment and Plan: Postoperative day 4; status post hand assisted laparoscopic Deny's reversal, extensive adhesiolysis, and creation loop ileostomy. Wound care, pain control, and DVT prophylaxis will be deferred to primary service. Currently on Lovenox Postoperative nausea is improving with Compazine for symptomatic relief. Further assessment per general surgery team (2) Essential (primary) hypertension: Code(s): I10 - Essential (primary) hypertension Status: Acute Assessment and Plan: Blood pressures were reviewed and stable, within goal range. Continue home medication (3) Type 2 diabetes mellitus: Code(s): E11.9 - Type 2 diabetes mellitus without complications Status: Acute Assessment and Plan: Recent A1c was 7.5%. Continue glimepiride. Initiate sliding scale insulin, Accu-Cheks, and hypoglycemic protocol. also on metformin at home blood sugar at goal (4) Hypothyroidism, unspecified: Qualifiers: Hypothyroidism type: unspecified Qualified Code(s): E03.9 - Hypothyroidism, unspecified Code(s): E03.9 - Hypothyroidism, unspecified Status: Acute Assessment and Plan: Continue levothyroxine TSH is normal Additional Plan Thank you for allowing us to participate in this patient's care. Please do not hesitate to contact us with any questions. Subjective Date/time seen: 08/30/21 08:16 S: Patient was seen and examined at the bedside. She is comfortably at rest, but continues to experience pain with activity. She is tolerating nasogastric suction. Interval history: HPI: This is a 56-year-old female with hypertension, type 2 diabetes mellitus, and hypothyroidism whom the hospitalist service has been consulted for management of her medical conditions postoperatively. She has a history of perforated diverticulitis status post Deny's procedure and she returned today for reversal and creation loop ileostomy. Her surgery was performed under general anesthesia with no immediate complications documented an estimated blood loss of 300 mL. Postoperatively she complains of a dry mouth, nausea, and a full or pressure-like sensation in her lower abdomen. She feels as though she has to urinate however a Porter catheter is in place and 600 mL has just been drained. She denies fever, chills, sweats, chest pain, and shortness of breath. : No overnight events. Surgery note reviewed. And abdomen pain is improved. Not eating as much. No nausea vomiting no fever chills 08/28/2021 she did well overnight however complains of increased nausea this morning not relieved with Zofran. She reports some soreness in her abdomen which is not different from what it was yesterday. No fever chills. She also had an episode of vomiting this morning. 08/29/2021 Patient continues to improve slowly. She denies nausea at this morning.. She reports some soreness in her abdomen With activity Popovicwhich is not different from what it was yesterday. No fever chills. Porter catheter out this morning. Patient was out of bed to chair and went to the bathroom. Review of Systems Review of Systems: All systems reviewed & are unremarkable except as noted in HPI and below ( HPI) Constitutional: Constitutional: Reports as per HPI and Reports no additional constitutional complaints Eyes: Eyes: Reports as per HPI and Reports no additional eye complaints ENT: Reports system reviewed and no additional complaints, except as documented, Reports as per HPI and Denies epistaxis Cardiovascular: Cardiovascular: Reports as per HPI and Reports no additional cardiovascular complaints Respiratory: Respiratory: Reports as per HPI, Reports no denys
[2021-08-30] MEDS: ENOXAPARIN 40 MG/0.4 ML SYRINGE SUB-Q (08:18)
[2021-08-30] MEDS: PANTOPRAZOLE SODIUM IV 40 MG VIAL IV PUSH (08:19)
--- NOTE | 2021-08-30 09:16 | PM.PNGS ---
Progress Note: A&P Assessment and Plan (1) Status post colostomy takedown: Code(s): Z98.890 - Other specified postprocedural states Status: Acute Assessment and Plan: Improving. Ileostomy functioning well. Will try clamping NG again today. Encouraged increasing activity, OOB, IS use. Additional Plan I have discussed the patient's case and plan of care with Dr. Dallas. Subjective Subjective Date/Time Seen: 08/30/21 09:16 Post Op day: 4 Interval history: Patient seen and examined. Chart reviewed. Patient feeling better this morning. She reports during her NG clamping trial yesterday, she developed reflux and nausea. She was helped back up to suction and had 900 cc output from NG overnight. She is currently clamped and attempting a clamping trial again this morning. She reportedly feels well and is asking for Sprite. No abdominal pain or bloating. She reports some incisional discomfort with movement. She is emptying her own ileostomy bag. Her Porter has been removed and she has voided without difficulty since removal. Review of Systems Review of Systems: All systems reviewed & are unremarkable except as noted in HPI and below Constitutional: Constitutional: Reports as per HPI, Reports no additional constitutional complaints, Denies chills and Denies fever(s) Cardiovascular: Cardiovascular: Reports no additional cardiovascular complaints, Denies chest pain, Denies leg edema and Denies dyspnea Respiratory: Respiratory: Reports no additional respiratory complaints, Denies cough and Denies dyspnea Gastrointestinal: Gastrointestinal: Reports as per HPI and Reports no additional gastrointestinal complaints Neurologic: Reports system reviewed and no additional complaints, except as documented, Denies Abnormal speech present and Denies focal weakness Exam Const: General: comfortable, no acute distress, alert and awake Orientation/consciousness: patient oriented x3 Resp: Effort & Inspection: normal respiratory effort Auscultation: clear to auscultation bilaterally Cardio: Rate: regular rate Rhythm: regular rhythm GI: Inspection: non-distended, obesity and other (BRETT drain with serosanguineous drainage) GI Palp: Yes Soft to palpation, Yes Tenderness to palpation present (GI) (incisional) and No Guarding due to palpation present (GI) Auscultation: Hypoactive bowel sounds present Other: Abdominal incisions with shawn intact, no erythema, midline incision has slight skin separation near umbilicus with serosanguineous drainage. Ileostomy functioning well with stoma slightly dusky but viable. Skin: General skin exam: normal color Neuro: General: moves all extremities and no focal motor deficits Extrem: General: no clubbing, cyanosis or edema and no calf tenderness Psych: Mental Status: mental status grossly normal Insight: Good insight present (Psych) Judgement: Good judgement present (Psych) Objective Data Vital Signs Vital Signs: Vital Signs - 24 hr 08/29/21 10:05 08/29/21 14:12 08/29/21 17:12 Temperature 97.4 F L 98.4 F Pulse Rate 95 104 H Respiratory Rate 18 18 Blood Pressure 139/63 168/72 H 146/64 H Pulse Oximetry 93 99 08/29/21 18:00 08/29/21 20:00 08/29/21 20:53 Temperature 98.6 F 98.6 F Pulse Rate 102 H 102 H 100 Respiratory Rate 18 18 16 Blood Pressure 127/64 137/65 Pulse Oximetry 92 92 91 08/30/21 00:20 08/30/21 01:19 08/30/21 05:48 Temperature 99.0 F 97.8 F Pulse Rate 100 98 Respiratory Rate 18 16 Blood Pressure 130/62 120/55 L Pulse Oximetry 91 91 96 Intake/Output Intake/Output: Intake & Output 08/27/21 08/28/21 08/29/21 08/30/21 23:59 23:59 23:59 23:59 Intake Total 3645 4230 2120 1000 Output Total 1570 2530 4090 1640 Balance 9011 7110 -5960 -959 Meds/Results Medications: Active Medications Generic Name Dose Route Start Last Admin Trade Name Kotaq PRN Reason Stop Dose Admin Acetaminophen 650 mg 08/29/21 08:03 Acetaminophen 650 Mg S
[2021-08-30 11:53] LABS: Glucose Point of Care 102 mg/dl (65-105)
[2021-08-30] MEDS: ONDANSETRON INJ 4 MG/2 ML VIAL IV PUSH ×2 (13:15→23:26)
--- NOTE | 2021-08-30 15:56 | PC.NURSE ---
On 08/10/21, the student, Nallely Yuen, provided care and completed [facility] documentation on this patient. I have reviewed the student's documentation and agree with the findings
[2021-08-30 16:36] LABS: Glucose Point of Care 101 mg/dl (65-105)
[2021-08-30 20:25] LABS: Glucose Point of Care 102 mg/dl (65-105)
[2021-08-30] MEDS: KETOROLAC 30 MG/ML VIAL (*BKC) IV PUSH (23:23)
[2021-08-31] VITALS (7 sets, daily range): BP systolic 117–159; BP diastolic 55–76; PULSE 83–90; RESP 14–16; TEMP 36.2–36.9; O2SAT 93–96
[2021-08-31 06:14] LABS: Mean Corpuscular HGB Conc 31.3 g/dl (32-36); Mean Corpuscular Hemoglobin 25.8 pg (26-34); Mean Corpuscular Volume 82.5 fl (80-100); Mean Platelet Volume 8.5 fl (7.4-10.4); Platelet Count Result 408 k/mm3 (150-375); Red Blood Count 3.88 M/mm3 (4.2-5.4); Red Cell Distribution Width 15.1 % (11.5-14.5); White Blood Count 6.5 K/mm3 (4.5-10.0)
[2021-08-31 06:36] LABS: Anion Gap 10 mmol/L (8-16); Blood Urea Nitrogen 19 mg/dL (7-17); Calcium 8.8 mg/dL (8.4-10.2); Carbon Dioxide 30 mmol/L (22-30); Chloride 96 mmol/L (98-107); Estimated CRCL calculation 103 ml/min; Estimated Glomerular Filt Rate > 60; Glucose 115 mg/dL (65-110); Potassium 4.1 mmol/L (3.4-5.0); Sodium 136 mmol/L (137-145)
--- NOTE | 2021-08-31 06:50 | PM.PNGS ---
Progress Note: A&P Assessment and Plan (1) Status post colostomy takedown: Code(s): Z98.890 - Other specified postprocedural states Status: Acute Assessment and Plan: doing well, ADAT, take drain out prior to dc, f/u 1 wk for staple removal Subjective Subjective Date/Time Seen: 08/31/21 06:50 feels good, awa full liquids, good ileostomy fxn Review of Systems Review of Systems: All systems reviewed & are unremarkable except as noted in HPI and below Exam Const: General: cooperative, comfortable and no acute distress Resp: Auscultation: clear to auscultation bilaterally Cardio: Rate: regular rate Rhythm: regular rhythm GI: Inspection: normal to inspection and incision GI Palp: Yes Soft to palpation, No Tenderness to palpation present (GI) and No Guarding due to palpation present (GI) Other: ileostomy - +fxn, BRETT - mod s/s Objective Data Vital Signs Vital Signs: Vital Signs - 24 hr 08/30/21 10:15 08/30/21 11:50 08/30/21 14:20 Temperature 36.8 C 36.6 C Pulse Rate 88 86 Respiratory Rate 16 16 Blood Pressure 133/53 L 135/52 L 124/63 Pulse Oximetry 92 94 08/30/21 18:00 08/30/21 20:00 08/30/21 20:07 Temperature 36.4 C L Pulse Rate 84 84 96 Respiratory Rate 16 16 Blood Pressure 126/57 L Pulse Oximetry 92 93 92 08/30/21 20:12 08/31/21 00:42 08/31/21 04:48 Temperature 36.6 C 36.9 C 36.7 C Pulse Rate 84 83 87 Respiratory Rate 16 16 16 Blood Pressure 132/60 129/55 L 139/67 Pulse Oximetry 93 94 95 Intake/Output Intake/Output: Intake & Output 08/28/21 08/29/21 08/30/21 08/31/21 23:59 23:59 23:59 23:59 Intake Total 4230 2120 2100 400 Output Total 2530 4090 3265 1040 Balance 1700 -1970 -1165 -640 Meds/Results Medications: Active Medications Generic Name Dose Route Start Last Admin Trade Name Freq PRN Reason Stop Dose Admin Acetaminophen 650 mg 08/29/21 08:03 Acetaminophen 650 Mg Suppository RECTAL Q6H PRN Mild Pain (1-3) or Fever Hydrocodone Bitart/Acetaminophen 1 tab 08/26/21 15:27 08/27/21 04:03 Hydrocodone/Acetaminophen (*Crx) 5-325 Mg Tablet PO 1 tab Q4H PRN Administration Pain Rated 4-6 Amitriptyline HCl 10 mg 08/26/21 15:27 Amitriptyline Hcl 10 Mg Tablet PO HS PRN pain Amlodipine Besylate 10 mg 08/27/21 09:00 08/28/21 08:02 Amlodipine Besylate 5 Mg Tablet PO 10 mg QAM OMER Administration Calcium Carbonate 200 mg 08/28/21 22:09 08/29/21 16:41 Calcium Carbonate (Tums) 500 Mg (200 Mg Elemental) PO 200 mg Q6H PRN Administration Heartburn Dextrose 12.5 gm 08/29/21 08:00 Dextrose 50% 25 Gm/50 Ml Syringe IV PUSH PRN PRN Hypoglycemia Protocol Enalapril Maleate 20 mg 08/27/21 09:00 08/28/21 08:02 Enalapril Maleate 10 Mg Tablet PO 20 mg QAM OMER Administration Enoxaparin Sodium 40 mg 08/27/21 09:00 08/30/21 08:18 Enoxaparin 40 Mg/0.4 Ml Syringe SUB-Q 40 mg DAILY OMER Administration Glimepiride 2 mg 08/26/21 17:00 08/30/21 17:09 Glimepiride 2 Mg Tablet PO Not Given BID OMER Glucagon 1 mg 08/29/21 08:00 Glucagon For Inj 1 Mg Vial IM PRN PRN Hypoglycemia Protocol Glucose 15 gm 08/29/21 08:00 Glucose Oral Gel 15 Gm Of Glucse In 37.5 Gm Tube PO PRN PRN Hypoglycemia Protocol Hydrochlorothiazide 12.5 mg 08/27/21 09:00 08/28/21 08:02 Hydrochlorothiazide 12.5 Mg Capsule PO 12.5 mg QAM OMER Administration Hydromorphone HCl 1 mg 08/26/21 15:27 08/30/21 13:15 Hydromorphone Hcl Inj (*Crx) 1 Mg/Ml Syr IV PUSH 1 mg Q2H PRN Administration Pain Rated 7-10 Lactated Ringer's 1,000 mls @ 75 mls/hr 08/26/21 15:27 08/30/21 19:57 Lr - Lactated Ringers Iv IV CONT 75 mls/hr .[id number] OMER Administration Dextrose 1,000 mls @ 100 mls/hr 08/29/21 08:00 Dextrose 5% 1,000 Ml IVPB PRN PRN Hypoglycemia Protocol Insulin Aspart 2 - 5 units 08/30/21 17:00 08/30/21
[2021-08-31 08:02] LABS: Glucose Point of Care 104 mg/dl (65-105)
[2021-08-31] MEDS: ONDANSETRON INJ 4 MG/2 ML VIAL IV PUSH ×2 (08:47→23:37)
[2021-08-31] MEDS: LACTATED RINGERS 1,000 ML 75 ML IV CONT ×2 (10:20→23:34)
[2021-08-31] MEDS: ENOXAPARIN 40 MG/0.4 ML SYRINGE SUB-Q (10:25)
[2021-08-31] MEDS: PROCHLORPERAZINE EDISYLATE 10 MG/2 ML VIAL IM (10:25)
[2021-08-31 12:21] LABS: Glucose Point of Care 109 mg/dl (65-105)
[2021-08-31] MEDS: hydroCHLOROthiazide 12.5 MG CAPSULE PO (12:32)
[2021-08-31] MEDS: amLODIPine BESYLATE 5 MG TABLET 10 MG PO (12:32)
[2021-08-31] MEDS: PANTOPRAZOLE 40 MG TABLET PO (12:33)
[2021-08-31] MEDS: ENALAPRIL MALEATE 10 MG TABLET 20 MG PO (12:34)
[2021-08-31 16:49] LABS: Glucose Point of Care 109 mg/dl (65-105)
--- NOTE | 2021-08-31 18:25 | PM.IMPN ---
Progress Note: A&P Assessment and Plan (1) Status post laparoscopy: Code(s): Z98.890 - Other specified postprocedural states Status: Acute Assessment and Plan: Multiple dilated loops of small bowel, likely ileus. Resume nasogastric suction. Postoperative day 5; status post hand assisted laparoscopic Deny's reversal, extensive adhesiolysis, and creation loop ileostomy. Wound care, pain control, and DVT prophylaxis will be deferred to primary service. Currently on Lovenox Postoperative nausea is improving with Compazine for symptomatic relief. Further assessment per general surgery team (2) Essential (primary) hypertension: Code(s): I10 - Essential (primary) hypertension Status: Acute Assessment and Plan: Blood pressures were reviewed and stable, within goal range. Continue home medication (3) Type 2 diabetes mellitus: Code(s): E11.9 - Type 2 diabetes mellitus without complications Status: Acute Assessment and Plan: Recent A1c was 7.5%. Continue glimepiride. Initiate sliding scale insulin, Accu-Cheks, and hypoglycemic protocol. also on metformin at home blood sugar at goal (4) Hypothyroidism, unspecified: Qualifiers: Hypothyroidism type: unspecified Qualified Code(s): E03.9 - Hypothyroidism, unspecified Code(s): E03.9 - Hypothyroidism, unspecified Status: Acute Assessment and Plan: Continue levothyroxine TSH is normal Additional Plan Thank you for allowing us to participate in this patient's care. Please do not hesitate to contact us with any questions. Subjective Date/time seen: 08/31/21 10:52 S: Patient was seen examined at the bedside. Was not able to tolerate liquid diet today. Interval history: HPI: This is a 56-year-old female with hypertension, type 2 diabetes mellitus, and hypothyroidism whom the hospitalist service has been consulted for management of her medical conditions postoperatively. She has a history of perforated diverticulitis status post Deny's procedure and she returned today for reversal and creation loop ileostomy. Her surgery was performed under general anesthesia with no immediate complications documented an estimated blood loss of 300 mL. Postoperatively she complains of a dry mouth, nausea, and a full or pressure-like sensation in her lower abdomen. She feels as though she has to urinate however a Porter catheter is in place and 600 mL has just been drained. She denies fever, chills, sweats, chest pain, and shortness of breath. : No overnight events. Surgery note reviewed. And abdomen pain is improved. Not eating as much. No nausea vomiting no fever chills 08/28/2021 she did well overnight however complains of increased nausea this morning not relieved with Zofran. She reports some soreness in her abdomen which is not different from what it was yesterday. No fever chills. She also had an episode of vomiting this morning. 08/29/2021 Patient continues to improve slowly. She denies nausea at this morning.. She reports some soreness in her abdomen With activity Popovicwhich is not different from what it was yesterday. No fever chills. Porter catheter out this morning. Patient was out of bed to chair and went to the bathroom. 08/31/2021 Patient continues to improve slowly. She experienced nausea and vomiting this morning. KUB:Multiple dilated loops of small bowel, likely ileus. Review of Systems Review of Systems: All systems reviewed & are unremarkable except as noted in HPI and below ( HPI) Constitutional: Constitutional: Reports as per HPI and Reports no additional constitutional complaints Eyes: Eyes: Reports as per HPI and Reports no additional eye complaints ENT: Reports system reviewed and no additional complaints, except as documented, Reports as per HPI and Denies epista
[2021-08-31 20:47] LABS: Glucose Point of Care 121 mg/dl (65-105)
[2021-09-01] VITALS (7 sets, daily range): BP systolic 130–147; BP diastolic 52–65; PULSE 85–100; RESP 16; TEMP 36.1–36.6; O2SAT 93–99
[2021-09-01 06:18] LABS: Hematocrit 33.5 % (37.0-47.0); Hemoglobin 10.4 g/dL (12.0-15.0); Mean Corpuscular Volume 83.8 fl (80-100); Mean Platelet Volume 8.9 fl (7.4-10.4); Platelet Count Result 524 k/mm3 (150-375); White Blood Count 9.2 K/mm3 (4.5-10.0)
[2021-09-01 06:30] LABS: Anion Gap 10 mmol/L (8-16); Blood Urea Nitrogen 15 mg/dL (7-17); Calcium 9.1 mg/dL (8.4-10.2); Carbon Dioxide 32 mmol/L (22-30); Chloride 95 mmol/L (98-107); Estimated CRCL calculation 103 ml/min; Estimated Glomerular Filt Rate > 60; Glucose 120 mg/dL (65-110); Potassium 3.6 mmol/L (3.4-5.0); Sodium 137 mmol/L (137-145)
[2021-09-01] MEDS: LEVOTHYROXINE SODIUM 100 MCG TABLET 200 MCG PO (07:48)
[2021-09-01 07:52] LABS: Glucose Point of Care 119 mg/dl (65-105)
[2021-09-01] MEDS: amLODIPine BESYLATE 5 MG TABLET 10 MG PO (10:25)
[2021-09-01] MEDS: ENOXAPARIN 40 MG/0.4 ML SYRINGE SUB-Q (10:25)
[2021-09-01] MEDS: hydroCHLOROthiazide 12.5 MG CAPSULE PO (10:26)
[2021-09-01] MEDS: ENALAPRIL MALEATE 10 MG TABLET 20 MG PO (10:26)
[2021-09-01] MEDS: PANTOPRAZOLE 40 MG TABLET PO (10:27)
[2021-09-01 12:04] LABS: Glucose Point of Care 107 mg/dl (65-105)
--- NOTE | 2021-09-01 12:45 | PM.PNGS ---
Progress Note: A&P Assessment and Plan (1) Ileus: Code(s): K56.7 - Ileus, unspecified Status: Acute Assessment and Plan: Patient developed some element of an ileus. Seems to be resolving. We will start advancing her diet today. Discharge potentially tomorrow if she continues to improve. Will plan to remove BRETT drain prior to discharge and follow-up in [address] Dallas for staple removal. (2) Status post colostomy takedown: Code(s): Z98.890 - Other specified postprocedural states Status: Acute Additional Plan I have discussed the plan of care with Dr. Dallas. Subjective Subjective Date/Time Seen: 09/01/21 12:45 Post Op day: 6 Patient reports: no new complaints, feels better, voiding w/o difficulty and afebrile Interval history: Patient seen and examined. Her nausea and vomiting has resolved. No emesis since yesterday. She has not received any antiemetics this morning. She is actually requesting food and saying she is hungry. No other complaints at this time. Review of Systems Review of Systems: All systems reviewed & are unremarkable except as noted in HPI and below Constitutional: Constitutional: Reports as per HPI, Reports no additional constitutional complaints, Denies chills and Denies fever(s) Cardiovascular: Cardiovascular: Reports no additional cardiovascular complaints, Denies chest pain and Denies leg edema Respiratory: Respiratory: Reports no additional respiratory complaints, Denies cough and Denies dyspnea Gastrointestinal: Gastrointestinal: Reports as per HPI and Reports no additional gastrointestinal complaints Neurologic: Reports system reviewed and no additional complaints, except as documented, Denies Abnormal speech present and Denies focal weakness Exam Const: General: comfortable, no acute distress and alert Orientation/consciousness: patient oriented x3 Resp: Effort & Inspection: normal respiratory effort Auscultation: clear to auscultation bilaterally Cardio: Rate: regular rate Rhythm: regular rhythm GI: Inspection: non-distended, obesity and other (BRETT drain with serosanguineous drainage) GI Palp: Yes Soft to palpation and No Tenderness to palpation present (GI) Auscultation: normal bowel sounds Other: ileostomy +fxn Neuro: General: moves all extremities and no focal motor deficits Extrem: General: no clubbing, cyanosis or edema and no calf tenderness Psych: Insight: Good insight present (Psych) Judgement: Good judgement present (Psych) Objective Data Vital Signs Vital Signs: Vital Signs - 24 hr 08/31/21 15:05 08/31/21 18:45 08/31/21 20:00 Temperature 97.6 F 97.3 F L Pulse Rate 89 88 87 Respiratory Rate 14 16 16 Blood Pressure 147/72 H 159/63 H Pulse Oximetry 95 96 93 08/31/21 21:50 09/01/21 02:00 09/01/21 06:00 Temperature 97.8 F 97.6 F 97.8 F Pulse Rate 87 85 87 Respiratory Rate 16 16 16 Blood Pressure 117/63 144/65 H 143/56 H Pulse Oximetry 93 93 98 09/01/21 09:26 09/01/21 10:10 Temperature 97.4 F L Pulse Rate 88 87 Respiratory Rate 16 Blood Pressure 138/52 L Pulse Oximetry 93 98 Intake/Output Intake/Output: Intake & Output 08/29/21 08/30/21 08/31/21 09/01/21 23:59 23:59 23:59 23:59 Intake Total 2120 2100 3100 20 Output Total 4090 3265 5235 1180 [facility] -1165 -2135 -1160 Meds/Results Medications: Active Medications Generic Name Dose Route Start Last Admin Trade Name Freq PRN Reason Stop Dose Admin Acetaminophen 650 mg 08/29/21 08:03 Acetaminophen 650 Mg Suppository RECTAL Q6H PRN Mild Pain (1-3) or Fever Hydrocodone Bitart/Acetaminophen 1 tab 08/26/21 15:27 08/27/21 04:03 Hydrocodone/Acetaminophen (*Crx) 5-325 Mg Tablet PO 1 tab Q4H PRN Administration Pain Rated 4-6 Amitriptyline HCl 10 mg 08/26/21 15:27 Amitriptyline Hcl 10 Mg Tablet PO HS PRN pain Amlodipine Besylate 10 mg 08/27/21 09:00 09/01/21 10:25 Amlodipine Besylate 5 Mg
--- NOTE | 2021-09-01 12:51 | PM.IMPN ---
Progress Note: A&P Assessment and Plan (1) Status post laparoscopy: Code(s): Z98.890 - Other specified postprocedural states Status: Acute Assessment and Plan: Postoperative ileus. Repeat KUB today. Previous KUB on 08/31/2021 revealed Multiple dilated loops of small bowel, likely ileus. Postoperative day 6; status post hand assisted laparoscopic Deny's reversal, extensive adhesiolysis, and creation loop ileostomy. Wound care, pain control, and DVT prophylaxis will be deferred to primary service. Currently on Lovenox Postoperative nausea is improving with Compazine for symptomatic relief. Further assessment per general surgery team (2) Essential (primary) hypertension: Code(s): I10 - Essential (primary) hypertension Status: Acute Assessment and Plan: Blood pressures were reviewed and stable, within goal range. Continue home medication (3) Type 2 diabetes mellitus: Code(s): E11.9 - Type 2 diabetes mellitus without complications Status: Acute Assessment and Plan: Recent A1c was 7.5%. Continue glimepiride. Initiate sliding scale insulin, Accu-Cheks, and hypoglycemic protocol. also on metformin at home blood sugar at goal (4) Hypothyroidism, unspecified: Qualifiers: Hypothyroidism type: unspecified Qualified Code(s): E03.9 - Hypothyroidism, unspecified Code(s): E03.9 - Hypothyroidism, unspecified Status: Acute Assessment and Plan: Continue levothyroxine TSH is normal Additional Plan Thank you for allowing us to participate in this patient's care. Please do not hesitate to contact us with any questions. Subjective Date/time seen: 09/01/21 12:51 S: Patient was seen and examined at the bedside. She was observe of relating in the hallways. She remains NPO and has been tolerating ice chips. Interval history: HPI: This is a 56-year-old female with hypertension, type 2 diabetes mellitus, and hypothyroidism whom the hospitalist service has been consulted for management of her medical conditions postoperatively. She has a history of perforated diverticulitis status post Deny's procedure and she returned today for reversal and creation loop ileostomy. Her surgery was performed under general anesthesia with no immediate complications documented an estimated blood loss of 300 mL. Postoperatively she complains of a dry mouth, nausea, and a full or pressure-like sensation in her lower abdomen. She feels as though she has to urinate however a Porter catheter is in place and 600 mL has just been drained. She denies fever, chills, sweats, chest pain, and shortness of breath. : No overnight events. Surgery note reviewed. And abdomen pain is improved. Not eating as much. No nausea vomiting no fever chills 08/28/2021 she did well overnight however complains of increased nausea this morning not relieved with Zofran. She reports some soreness in her abdomen which is not different from what it was yesterday. No fever chills. She also had an episode of vomiting this morning. 08/29/2021 Patient continues to improve slowly. She denies nausea at this morning.. She reports some soreness in her abdomen With activity Popovicwhich is not different from what it was yesterday. No fever chills. Porter catheter out this morning. Patient was out of bed to chair and went to the bathroom. 08/31/2021 Patient continues to improve slowly. She experienced nausea and vomiting this morning. KUB:Multiple dilated loops of small bowel, likely ileus. 09/01/2021 Patient continues to improve slowly. She was NPO and has been tolerating ice chips. Repeat KUB. Review of Systems Review of Systems: All systems reviewed & are unremarkable except as noted in HPI and below ( HPI) Constitutional: Constitutional: Reports as per HPI and Reports no additional
--- NOTE | 2021-09-01 14:01 | PCNFU ---
Nutrition Follow-Up Complete: Altered GI function as related to Diverticulitis as evidenced by NPO. Goal: Meet estimated nutritional needs Patient is progressing towards goal. Pt current nutrition is Full Liquids. Last recorded weight is 124.8 kg Bowel Motility:ileostomy Labs Reviewed:Glu 170, Hct 33.5,Hgb 10.4 Meds Noted:Protonix, Norvasc, Lovenox, Synthroid. Skin: WNL Additional Notes: Patient diet order has advanced to a full liquid diet for dinner meal. orders for Ensure compact BID providing an additional 220 kcals and 9 gms protein. KUB ordered. Monitoring: Will monitor every 3 days.
[2021-09-01] MEDS: CALCIUM CARBONATE (TUMS) 500 MG (200 MG ELEMENTAL) PO (15:58)
[2021-09-01 16:43] LABS: Glucose Point of Care 109 mg/dl (65-105)
[2021-09-01] MEDS: ONDANSETRON INJ 4 MG/2 ML VIAL IV PUSH (18:24)
[2021-09-01] MEDS: MORPHINE SULFATE (*CRX) 2 MG/ML INJ IV PUSH (20:20)
[2021-09-01 21:29] LABS: Glucose Point of Care 125 mg/dl (65-105)
[2021-09-02 02:00] VITALS: BP 121/56; PULSE 87; RESP 16; TEMP 36.3; O2SAT 94
[2021-09-02 05:07] LABS: Hematocrit 35.1 % (37.0-47.0); Hemoglobin 10.7 g/dL (12.0-15.0); Mean Corpuscular HGB Conc 30.5 g/dl (32-36); Mean Corpuscular Hemoglobin 25.7 pg (26-34); Mean Corpuscular Volume 84.4 fl (80-100); Mean Platelet Volume 8.6 fl (7.4-10.4); Platelet Count Result 553 k/mm3 (150-375); Red Blood Count 4.16 M/mm3 (4.2-5.4); Red Cell Distribution Width 15.2 % (11.5-14.5); White Blood Count 11.3 K/mm3 (4.5-10.0)
[2021-09-02 05:20] LABS: Anion Gap 11 mmol/L (8-16); Blood Urea Nitrogen 16 mg/dL (7-17); Carbon Dioxide 28 mmol/L (22-30); Chloride 96 mmol/L (98-107); Estimated CRCL calculation 103 ml/min; Estimated Glomerular Filt Rate > 60; Glucose 111 mg/dL (65-110); Potassium 3.9 mmol/L (3.4-5.0); Sodium 135 mmol/L (137-145)
[2021-09-02 06:00] VITALS: BP 137/60; PULSE 82; RESP 18; TEMP 36.3; O2SAT 95
[2021-09-02] MEDS: LEVOTHYROXINE SODIUM 100 MCG TABLET 200 MCG PO (06:08)
[2021-09-02 07:50] LABS: Glucose Point of Care 113 mg/dl (65-105)
[2021-09-02] MEDS: amLODIPine BESYLATE 5 MG TABLET 10 MG PO (07:58)
[2021-09-02] MEDS: hydroCHLOROthiazide 12.5 MG CAPSULE PO (07:58)
[2021-09-02] MEDS: ENOXAPARIN 40 MG/0.4 ML SYRINGE SUB-Q (07:59)
[2021-09-02] MEDS: PANTOPRAZOLE 40 MG TABLET PO (07:59)
[2021-09-02] MEDS: ENALAPRIL MALEATE 10 MG TABLET 20 MG PO (07:59)
[2021-09-02 10:00] VITALS: BP 148/98; PULSE 103; RESP 16; TEMP 36.4; O2SAT 96
--- NOTE | 2021-09-02 10:09 | PM.IMPN ---
Progress Note: A&P Assessment and Plan (1) Status post laparoscopy: Code(s): Z98.890 - Other specified postprocedural states Status: Acute Assessment and Plan: Postoperative ileus. Repeat KUB today on 09/01 Multiple dilated loops of small bowel, likely ileus. Postoperative day 7; status post hand assisted laparoscopic Deny's reversal, extensive adhesiolysis, and creation loop ileostomy. Wound care, pain control, and DVT prophylaxis will be deferred to primary service. Currently on Lovenox Postoperative nausea is improving with Compazine for symptomatic relief. Further assessment per general surgery team (2) Essential (primary) hypertension: Code(s): I10 - Essential (primary) hypertension Status: Acute Assessment and Plan: Blood pressures were reviewed and stable, within goal range. Mouse cautions of blood pressure, likely related to episodes of pain and nausea. There is no need to up titrate BP medication in this context. Continue home medications at current doses. (3) Type 2 diabetes mellitus: Code(s): E11.9 - Type 2 diabetes mellitus without complications Status: Acute Assessment and Plan: Recent A1c was 7.5%. Continue glimepiride. Initiate sliding scale insulin, Accu-Cheks, and hypoglycemic protocol. also on metformin at home blood sugar at goal (4) Hypothyroidism, unspecified: Qualifiers: Hypothyroidism type: unspecified Qualified Code(s): E03.9 - Hypothyroidism, unspecified Code(s): E03.9 - Hypothyroidism, unspecified Status: Acute Assessment and Plan: Continue levothyroxine TSH is normal Additional Plan Thank you for allowing us to participate in this patient's care. Please do not hesitate to contact us with any questions. Subjective Date/time seen: 09/02/21 09:00 S: Patient examined at the bedside. She tolerated a yogurt earlier today. She is still nauseous intermittently. Patient was observed ambulating in the hallways. Sondra-incisional pain is well controlled. Exam Narrative: General: comfortable; HEENT: PERRL, EOMI. Sclerae anicteric. Moist mucous membranes. Neck: Supple. nontender Respiratory: Lungs are clear to auscultation bilaterally. Cardiovascular: Regular rate and rhythm with S1-S2. Gastrointestinal: Abdomen is soft and mildly distended. Midline surgical incision has a clean, dry, and intact dressing. Right mid quadrant ileostomy with pink. There is a BRETT drain that also contains a small amount of blood. Hypoactive bowel sounds Genitourinary: Porter catheter draining dark yellow urine. Skin: Warm and dry. No rash or lesions on limited exam. Extremities: No cyanosis, clubbing, or edema. Radial and pedal pulses intact. Neurological: Alert. Cranial nerves 2-12 grossly intact. No gross focal deficits to casual conversation. Psychiatric: Pleasant and cooperative with normal mood and affect. Objective Data Vital Signs Vital Signs: Vital Signs - 24 hr 09/01/21 22:00 09/02/21 02:00 09/02/21 06:00 Temperature 97.0 F L 97.4 F L 97.3 F L Pulse Rate 90 87 82 Respiratory Rate 16 16 18 Blood Pressure 130/63 121/56 L 137/60 Pulse Oximetry 93 94 95 09/02/21 10:00 09/02/21 14:00 Temperature 97.6 F 97.5 F L Pulse Rate 103 H 103 H Respiratory Rate 16 14 Blood Pressure 148/98 H 149/54 H Pulse Oximetry 96 96 Intake/Output Intake/Output: Intake & Output 08/30/21 08/31/21 09/01/21 09/02/21 23:59 23:59 23:59 23:59 Intake Total 2100 3100 1020 1980 Output Total 3265 9789 4031 9775 Balance -8594 -2135 -1315 235 Meds/Results Medications: Active Medications Generic Name Dose Route Start Last Admin Trade Name Freq PRN Reason Stop Dose Admin Acetaminophen 650 mg 08/29/21 08:03 Acetaminophen 650 Mg Suppository RECTAL Q6H PRN Mild Pain (1-3) or Fever Hydrocodone Bitart
[2021-09-02] MEDS: ONDANSETRON INJ 4 MG/2 ML VIAL IV PUSH ×2 (10:23→18:59)
[2021-09-02 11:43] LABS: Glucose Point of Care 121 mg/dl (65-105)
--- NOTE | 2021-09-02 13:14 | PCNFU ---
Nutrition Follow-Up Complete: Altered GI function as related to Diverticulitis as evidenced by NPO. Goal: Meet estimated nutritional needs Patient is limited progress towards goal. We will continue current goal. Pt current nutrition is Clear liquids. Last recorded weight is 122.2 kg, down from 129 kg on admit. Bowel Motility:ostomy Labs Reviewed:Glu 111, Na 135, Hct 35.1, Hgb 10.7 Meds Noted:Synthroid, Norvasc, Protonix, Lovenox. Skin: WNL Additional Notes: Patient unable to tolerated full liquid diet. Nursing reporting emesis today. Diet order has been changed to clear liquid. Ensure clear will be on trays providing an additional 240 kcals and 8 gms protein Obstructive Series as has been ordered. If patient is unable to tolerate liquids, would recommend starting PPN at 80 ml/hr with 250 ml of 20% Lipid Emulsion. PPN would provide 1153 kcals and 82 gms protein, meeting 72% caloric needs and 100% protein needs. Monitoring: Will monitor every 3 days.
[2021-09-02] MEDS: PROCHLORPERAZINE EDISYLATE 10 MG/2 ML VIAL IM (13:53)
[2021-09-02 14:00] VITALS: BP 149/54; PULSE 103; RESP 14; TEMP 36.4; O2SAT 96
[2021-09-02 17:00] LABS: Glucose Point of Care 113 mg/dl (65-105)
[2021-09-02 18:00] VITALS: BP 145/64; PULSE 90; RESP 16; TEMP 36.4; O2SAT 96
[2021-09-02] MEDS: MORPHINE SULFATE (*CRX) 2 MG/ML INJ IV PUSH (18:59)
--- NOTE | 2021-09-02 19:13 | PM.PNGS ---
Progress Note: A&P Assessment and Plan (1) Ileus: Code(s): K56.7 - Ileus, unspecified Status: Acute Assessment and Plan: X-ray today after he became bloated reveals evidence of possible ileus with dilated small bowel. (Patient however having active bowel motion with passes of liquids kind and gas from the ileostomy site). Bowel sounds do however seem somewhat hypoactive. Will make the patient NPO except for ice chips ) offered NG tube but she prefer not to at this time. Recheck x-ray in a.m.. (2) Postoperative nausea and vomiting: Code(s): R11.2 - Nausea with vomiting, unspecified; Z98.890 - Other specified postprocedural states Status: Acute Assessment and Plan: This seems to persist unfortunately. (3) Status post colostomy takedown: Code(s): Z98.890 - Other specified postprocedural states Status: Acute Assessment and Plan: Closure of the colostomy site seems to be clean and dry. Fortunately there was anastomotic weakness at the time of surgery it was felt best protected by doing the proximal loop ileostomy. (4) BMI 45.0-49.9, adult: Code(s): Z68.42 - Body mass index [BMI] 45.0-49.9, adult Status: Acute Assessment and Plan: Will encourage the patient to follow low-fat diet once able to return to PO intake.. This complicates her situation. (5) Essential (primary) hypertension: Code(s): I10 - Essential (primary) hypertension Status: Acute Assessment and Plan: For now need to ask hospitalist to resume IV medication for this as patient is NPO because of the ileus. She states that trying to take the pills makes her nauseated. (6) GERD (gastroesophageal reflux disease): Qualifiers: Esophagitis presence: without esophagitis Qualified Code(s): K21.9 - Gastro-esophageal reflux disease without esophagitis Code(s): K21.9 - Gastro-esophageal reflux disease without esophagitis Status: Acute Assessment and Plan: Will resume IV PPI (7) Wound infection after surgery: Code(s): T81.49XA - Infection following a procedure, other surgical site, initial encounter Status: Acute Assessment and Plan: nurse reports she repacked this small area of opening the midline incision. This is draining some but not a lot. Subjective Subjective Date/Time Seen: 09/02/21 19:00 Post Op day: POD#6 Patient reports: still having pain, nausea and vomiting Review of Systems Review of Systems: All systems reviewed & are unremarkable except as noted in HPI and below Constitutional: Constitutional: Reports as per HPI, Reports no additional constitutional complaints, Reports anorexia, Denies chills and Denies fever(s) Cardiovascular: Cardiovascular: Reports no additional cardiovascular complaints, Denies chest pain, Denies leg edema and Denies dyspnea Respiratory: Respiratory: Reports no additional respiratory complaints, Denies cough and Denies dyspnea Gastrointestinal: Gastrointestinal: Reports as per HPI, Reports no additional gastrointestinal complaints, Reports nausea and Reports vomiting ( Frequent, Small emises today.) Neurologic: Reports system reviewed and no additional complaints, except as documented, Denies Abnormal speech present and Denies focal weakness Exam Const: General: cooperative, no acute distress, alert, awake, anxious and uncomfortable Nutritional Appearance: obese Orientation/consciousness: patient oriented x3 Resp: Effort & Inspection: normal respiratory effort Auscultation: clear to auscultation bilaterally Cardio: Jugular venous distension: no JVD GI: Inspection: normal to inspection, non-distended, incision ( old ostomy site incision clean and dry with shawn present), obesity and other (BRETT drain with serosanguineous drainage (light pink) 55 cc out the last 24 h) GI Palp: Yes Other GI palpation findings present ( somewhat rounded) Auscultation: Hypoactive bowel sounds
[2021-09-02] MEDS: SODIUM CHLORIDE 0.9% IV 1,000 ML 100 ML IV CONT (19:45)
[2021-09-02] MEDS: FAMOTIDINE 20 MG/2 ML VIAL IV PUSH (19:53)
[2021-09-02 22:00] VITALS: BP 139/65; PULSE 88; RESP 18; TEMP 35.8; O2SAT 95
[2021-09-03] VITALS (10 sets, daily range): BP systolic 117–182; BP diastolic 50–81; PULSE 82–90; RESP 16–18; TEMP 35.8–36.4; O2SAT 93–99
[2021-09-03 00:14] LABS: Glucose Point of Care 119 mg/dl (65-105)
[2021-09-03] MEDS: SODIUM CHLORIDE 0.9% IV 1,000 ML 100 ML IV CONT ×2 (05:36→17:07)
[2021-09-03] MEDS: LEVOTHYROXINE SODIUM INJ 100 MCG/5 ML VIAL IV PUSH (05:38)
[2021-09-03 05:46] LABS: Hematocrit 37.8 % (37.0-47.0); Hemoglobin 11.6 g/dL (12.0-15.0); Mean Corpuscular HGB Conc 30.7 g/dl (32-36); Mean Corpuscular Hemoglobin 25.7 pg (26-34); Mean Corpuscular Volume 83.6 fl (80-100); Mean Platelet Volume 8.3 fl (7.4-10.4); Platelet Count Result 667 k/mm3 (150-375); Red Blood Count 4.52 M/mm3 (4.2-5.4); Red Cell Distribution Width 15.5 % (11.5-14.5); White Blood Count 18.4 K/mm3 (4.5-10.0)
[2021-09-03 05:54] LABS: Glucose Point of Care 136 mg/dl (65-105)
[2021-09-03 05:57] LABS: Anion Gap 13 mmol/L (8-16); Blood Urea Nitrogen 18 mg/dL (7-17); Calcium 8.8 mg/dL (8.4-10.2); Carbon Dioxide 25 mmol/L (22-30); Chloride 98 mmol/L (98-107); Estimated CRCL calculation 89 ml/min; Estimated Glomerular Filt Rate > 60; Glucose 127 mg/dL (65-110); Potassium 3.7 mmol/L (3.4-5.0); Sodium 136 mmol/L (137-145)
[2021-09-03 07:54] LABS: Glucose Point of Care 101 mg/dl (65-105)
[2021-09-03] MEDS: ENOXAPARIN 40 MG/0.4 ML SYRINGE SUB-Q (08:48)
[2021-09-03] MEDS: PANTOPRAZOLE SODIUM IV 40 MG VIAL IV PUSH (08:48)
[2021-09-03] MEDS: ENALAPRILAT 1.25 MG/ML VIAL IV PUSH (11:01)
[2021-09-03 11:44] LABS: Glucose Point of Care 114 mg/dl (65-105)
[2021-09-03] MEDS: FAMOTIDINE 20 MG/2 ML VIAL IV PUSH (13:01)
--- NOTE | 2021-09-03 13:19 | PM.IMPN ---
Progress Note: A&P Assessment and Plan (1) Status post laparoscopy: Code(s): Z98.890 - Other specified postprocedural states Status: Acute Assessment and Plan: Repeat KUB today on 09/03 suggest moderately distended jejunum unchanged, probably postoperative ileus. Patient is encouraged to remain NPO with ice chips only. Postoperative day 8; status post hand assisted laparoscopic Deny's reversal, extensive adhesiolysis, and creation loop ileostomy. Wound care, pain control, and DVT prophylaxis will be deferred to primary service. Currently on Lovenox Postoperative nausea is improving with Compazine for symptomatic relief. Further assessment per general surgery team (2) Essential (primary) hypertension: Code(s): I10 - Essential (primary) hypertension Status: Acute Assessment and Plan: Blood pressures were reviewed and stable, within goal range. Mouse cautions of blood pressure, likely related to episodes of pain and nausea. There is no need to up titrate BP medication in this context. Continue home medications at current doses. (3) Type 2 diabetes mellitus: Code(s): E11.9 - Type 2 diabetes mellitus without complications Status: Acute Assessment and Plan: Recent A1c was 7.5%. Continue glimepiride. Initiate sliding scale insulin, Accu-Cheks, and hypoglycemic protocol. also on metformin at home blood sugar at goal (4) Hypothyroidism, unspecified: Qualifiers: Hypothyroidism type: unspecified Qualified Code(s): E03.9 - Hypothyroidism, unspecified Code(s): E03.9 - Hypothyroidism, unspecified Status: Acute Assessment and Plan: Continue levothyroxine TSH is normal Additional Plan Thank you for allowing us to participate in this patient's care. Please do not hesitate to contact us with any questions. Subjective Date/time seen: 09/03/21 13:19 S: Patient was seen and examined at the bedside. She was bloated and vomited earlier today, but now feels better somehow.She is refusing NG tube for now. Review of Systems Review of Systems: All systems reviewed & are unremarkable except as noted in HPI and below ( HPI) Constitutional: Constitutional: Reports as per HPI and Reports no additional constitutional complaints Eyes: Eyes: Reports as per HPI and Reports no additional eye complaints ENT: Reports system reviewed and no additional complaints, except as documented, Reports as per HPI and Denies epistaxis Cardiovascular: Cardiovascular: Reports as per HPI, Reports no additional cardiovascular complaints and Denies dyspnea Respiratory: Respiratory: Reports as per HPI, Reports no additional respiratory complaints and Denies dyspnea Gastrointestinal: Gastrointestinal: Reports as per HPI Genitourinary: Genitourinary: Reports no additional female genitourinary complaints and Reports as per HPI Musculoskeletal: Musculoskeletal: Reports no additional musculoskeletal complaints and Reports as per HPI Integumentary/Breasts: Skin/Breast: Reports system reviewed and no additional complaints, except as docu and Reports as per HPI Neurologic: Reports system reviewed and no additional complaints, except as documented and Reports as per HPI Psychiatric: Psychiatric: Reports no additional psychiatric complaints and Reports as per HPI Exam Narrative: General: comfortable; HEENT: PERRL, EOMI. Sclerae anicteric. Moist mucous membranes. Neck: Supple. nontender Respiratory: Lungs are clear to auscultation bilaterally. Cardiovascular: Regular rate and rhythm with S1-S2. Gastrointestinal: Abdomen is soft and mildly distended. Midline surgical incision has a clean, dry, and intact dressing. Right mid quadrant ileostomy with pink. There is a BRETT drain that also contains a small amount of blood. Hypoactive bowel sounds Genitourinary: Porter catheter ellen
[2021-09-03] MEDS: ONDANSETRON INJ 4 MG/2 ML VIAL IV PUSH ×2 (14:00→18:25)
[2021-09-03 16:16] LABS: Glucose Point of Care 102 mg/dl (65-105)
--- NOTE | 2021-09-03 17:05 | PM.PNGS ---
Progress Note: A&P Assessment and Plan (1) Ileus: Code(s): K56.7 - Ileus, unspecified Status: Acute Assessment and Plan: X-ray today reveals evidence of possible continued ileus with dilated small bowel. (Patient however having active bowel motion with passing of some liquid stool and gas from the ileostomy site). Bowel sounds do however seem somewhat hypoactive. The patient is NPO except for ice chips ( offered NG tube but she prefers not to at this time). Recheck Abdx-ray in a.m. (2) Postoperative nausea and vomiting: Code(s): R11.2 - Nausea with vomiting, unspecified; Z98.890 - Other specified postprocedural states Status: Acute Assessment and Plan: This seems to persist unfortunately. (3) Status post colostomy takedown: Code(s): Z98.890 - Other specified postprocedural states Status: Acute Assessment and Plan: Closure of the colostomy site seems to be clean and dry. Unfortunately there was anastomotic weakness at the time of surgery and it was felt best protected by doing the proximal loop ileostomy. (4) BMI 45.0-49.9, adult: Code(s): Z68.42 - Body mass index [BMI] 45.0-49.9, adult Status: Acute Assessment and Plan: Will encourage the patient to follow low-fat diet once able to return to PO intake.. This complicates her situation. (5) Essential (primary) hypertension: Code(s): I10 - Essential (primary) hypertension Status: Acute Assessment and Plan: For now need to ask hospitalist to resume IV medication for this as patient is NPO because of the ileus. She states that trying to take the pills makes her nauseated. (6) GERD (gastroesophageal reflux disease): Qualifiers: Esophagitis presence: without esophagitis Qualified Code(s): K21.9 - Gastro-esophageal reflux disease without esophagitis Code(s): K21.9 - Gastro-esophageal reflux disease without esophagitis Status: Acute Assessment and Plan: Will resume IV PPI (7) Wound infection after surgery: Code(s): T81.49XA - Infection following a procedure, other surgical site, initial encounter Status: Acute Assessment and Plan: The nurse reports she repacked this small area of opening the midline incision. This is draining some but not a lot tissue and wound looks healthy to her. Additional Plan Try 1 dose of milk of magnesia 30 cc when patient is not nauseated Repeat plain abdominal films in a.m. and a CBC. If white count further up may consider CT scan since patient is in about the range of time when intra-abdominal abscess could present. However not running a fever at this time and not on antibiotics. Subjective Subjective Date/Time Seen: 09/03/21 16:35 Postop day 9. Patient is sitting up in bed. Not nauseated now but did vomit once earlier today. Nurse reports she is walking in the halls. Patient is having ileostomy output including fluid and gas but not significant volumes. Review of Systems Review of Systems: All systems reviewed & are unremarkable except as noted in HPI and below Constitutional: Constitutional: Reports as per HPI, Reports no additional constitutional complaints, Reports anorexia, Denies chills and Denies fever(s) Cardiovascular: Cardiovascular: Reports no additional cardiovascular complaints, Denies chest pain, Denies leg edema and Denies dyspnea Respiratory: Respiratory: Reports no additional respiratory complaints, Denies cough and Denies dyspnea Gastrointestinal: Gastrointestinal: Reports as per HPI, Reports no additional gastrointestinal complaints, Reports nausea and Reports vomiting ( One emesis so far today.) Genitourinary: Genitourinary: Reports no additional female genitourinary complaints Neurologic: Reports system reviewed and no additional complaints, except as documented, Denies Abnormal speech present and Denies focal weakness Exam Const: General: cooperative, no acut
[2021-09-03] MEDS: MAGNESIUM HYDROXIDE SUSP 30 ML UDC PO (17:19)
[2021-09-03] MEDS: MORPHINE SULFATE (*CRX) 2 MG/ML INJ IV PUSH (20:18)
[2021-09-04 00:09] LABS: Glucose Point of Care 93 mg/dl (65-105)
[2021-09-04 02:45] VITALS: BP 131/59; PULSE 77; RESP 18; TEMP 36.2; O2SAT 97
[2021-09-04] MEDS: SODIUM CHLORIDE 0.9% IV 1,000 ML 100 ML IV CONT ×2 (03:21→12:21)
[2021-09-04 04:59] LABS: Hematocrit 35.3 % (37.0-47.0); Hemoglobin 10.8 g/dL (12.0-15.0); Mean Corpuscular HGB Conc 30.6 g/dl (32-36); Mean Corpuscular Hemoglobin 25.6 pg (26-34); Mean Corpuscular Volume 83.6 fl (80-100); Mean Platelet Volume 8.6 fl (7.4-10.4); Platelet Count Result 574 k/mm3 (150-375); Red Blood Count 4.22 M/mm3 (4.2-5.4); Red Cell Distribution Width 15.3 % (11.5-14.5); White Blood Count 15.9 K/mm3 (4.5-10.0)
[2021-09-04 05:10] LABS: Glucose Point of Care 133 mg/dl (65-105)
[2021-09-04 05:15] LABS: Anion Gap 10 mmol/L (8-16); Blood Urea Nitrogen 17 mg/dL (7-17); Calcium 8.2 mg/dL (8.4-10.2); Carbon Dioxide 28 mmol/L (22-30); Chloride 98 mmol/L (98-107); Estimated CRCL calculation 80 ml/min; Estimated Glomerular Filt Rate > 60; Glucose 115 mg/dL (65-110); Potassium 3.3 mmol/L (3.4-5.0); Sodium 136 mmol/L (137-145)
[2021-09-04] MEDS: LEVOTHYROXINE SODIUM INJ 100 MCG/5 ML VIAL IV PUSH (05:45)
[2021-09-04 06:00] VITALS: BP 132/59; PULSE 79; RESP 20; TEMP 36.1; O2SAT 98
[2021-09-04] MEDS: PANTOPRAZOLE SODIUM IV 40 MG VIAL IV PUSH (09:24)
[2021-09-04] MEDS: ENOXAPARIN 40 MG/0.4 ML SYRINGE SUB-Q (09:24)
[2021-09-04 09:45] VITALS: BP 130/56; PULSE 80; RESP 19; TEMP 36.1; O2SAT 98
--- NOTE | 2021-09-04 09:53 | PM.IMPN ---
Progress Note: A&P Assessment and Plan (1) Status post laparoscopy: Code(s): Z98.890 - Other specified postprocedural states Status: Acute Assessment and Plan: Repeat KUB today on 09/04 suggest moderately distended jejunum unchanged, reflecting postoperative ileus. Patient is encouraged to remain NPO with ice chips only. Postoperative day 9; status post hand assisted laparoscopic Deny's reversal, extensive adhesiolysis, and creation loop ileostomy. Wound care, pain control, and DVT prophylaxis will be deferred to primary service. Currently on Lovenox Postoperative nausea is improving with Compazine for symptomatic relief. Further assessment per general surgery team (2) Essential (primary) hypertension: Code(s): I10 - Essential (primary) hypertension Status: Acute Assessment and Plan: Blood pressures were reviewed and stable, within goal range. Due to strict NPO status, patient started on enalaprilat for BP management. Mild excursions of blood pressure, likely related to episodes of pain and nausea. There is no need to up titrate BP medication in this context. Due to acute ilness, target a conservative bP goal of 140/90. (3) Type 2 diabetes mellitus: Code(s): E11.9 - Type 2 diabetes mellitus without complications Status: Acute Assessment and Plan: Recent A1c was 7.5%. Continue glimepiride. Initiate sliding scale insulin, Accu-Cheks, and hypoglycemic protocol. also on metformin at home blood sugar at goal (4) Hypothyroidism, unspecified: Qualifiers: Hypothyroidism type: unspecified Qualified Code(s): E03.9 - Hypothyroidism, unspecified Code(s): E03.9 - Hypothyroidism, unspecified Status: Acute Assessment and Plan: Continue levothyroxine IV at 50% of regular oral dose TSH is normal (5) BMI 45.0-49.9, adult: Code(s): Z68.42 - Body mass index [BMI] 45.0-49.9, adult Status: Acute Assessment and Plan: currently NPO. At discharge, encourage calorie reduction diet and increased physical activity. (6) GERD (gastroesophageal reflux disease): Qualifiers: Esophagitis presence: without esophagitis Qualified Code(s): K21.9 - Gastro-esophageal reflux disease without esophagitis Code(s): K21.9 - Gastro-esophageal reflux disease without esophagitis Status: Acute Assessment and Plan: currently on Iv protonix and PRN pepcid for symptomatic control. (7) Vitamin B12 deficiency anemia: Qualifiers: Vitamin B12 deficiency anemia type: unspecified B12 deficiency Qualified Code(s): D51.9 - Vitamin B12 deficiency anemia, unspecified Code(s): D51.9 - Vitamin B12 deficiency anemia, unspecified Status: Acute Assessment and Plan: check B12 level Additional Plan Thank you for allowing us to participate in this patient's care. Please do not hesitate to contact us with any questions. Subjective Date/time seen: 09/04/21 08:53 S: Patient was seen examined at the bedside. She had several small bowel movement and passed flatus earlier today. She is tolerating ice chips. On KUB, the postoperative ileus is unchanged. Review of Systems Review of Systems: All systems reviewed & are unremarkable except as noted in HPI and below ( HPI) Constitutional: Constitutional: Reports as per HPI and Reports no additional constitutional complaints Eyes: Eyes: Reports as per HPI and Reports no additional eye complaints ENT: Reports system reviewed and no additional complaints, except as documented, Reports as per HPI and Denies epistaxis Cardiovascular: Cardiovascular: Reports as per HPI, Reports no additional cardiovascular complaints and Denies dyspnea Respiratory: Respiratory: Reports as per HPI, Reports no additional respiratory complaints and Denies dyspnea Gastrointestinal: Gastroint
[2021-09-04 11:28] LABS: Glucose Point of Care 117 mg/dl (65-105)
--- NOTE | 2021-09-04 14:57 | PM.PNGS ---
Progress Note: A&P Assessment and Plan (1) Ileus: Code(s): K56.7 - Ileus, unspecified Status: Acute Assessment and Plan: X-ray today reveals evidence of possible continued ileus with dilated small bowel. (Patient however having active bowel motion with passing of some liquid stool and gas from the ileostomy site). Bowel sounds do however seem somewhat hypoactive. The patient is NPO except for ice chips ( offered NG tube but she prefers not to at this time). Recheck Abdx-ray in a.m. (2) Postoperative nausea and vomiting: Code(s): R11.2 - Nausea with vomiting, unspecified; Z98.890 - Other specified postprocedural states Status: Acute Assessment and Plan: This seems to persist unfortunately. (3) Status post colostomy takedown: Code(s): Z98.890 - Other specified postprocedural states Status: Acute Assessment and Plan: POD #9 Closure of the colostomy site seems to be clean and dry. Unfortunately there was anastomotic weakness at the time of surgery and it was felt best protected by doing the proximal loop ileostomy. (4) BMI 45.0-49.9, adult: Code(s): Z68.42 - Body mass index [BMI] 45.0-49.9, adult Status: Acute Assessment and Plan: Will encourage the patient to follow low-fat diet once able to return to PO intake.. This complicates her situation. (5) Essential (primary) hypertension: Code(s): I10 - Essential (primary) hypertension Status: Acute Assessment and Plan: For now need to ask hospitalist to resume IV medication for this as patient is NPO because of the ileus. I am going to try starting the patient back on up on clear liquids but probably better to wait to restart p.o. meds for medical conditions tomorrow if she is tolerating it still by then. She stateed several days ago that trying to take the pills makes her nauseated. (6) GERD (gastroesophageal reflux disease): Qualifiers: Esophagitis presence: without esophagitis Qualified Code(s): K21.9 - Gastro-esophageal reflux disease without esophagitis Code(s): K21.9 - Gastro-esophageal reflux disease without esophagitis Status: Acute Assessment and Plan: Will resume po PPI in AM (7) Wound infection after surgery: Code(s): T81.49XA - Infection following a procedure, other surgical site, initial encounter Status: Acute Assessment and Plan: The nurse reports she repacked this small area of opening the midline incision. This is draining some but not a lot tissue in wound looks healthy to her. Additional Plan Try 1 dose of milk of magnesia 30 cc when patient is not nauseated Repeat plain abdominal film in a.m. and a CBC. If white count further up may consider CT scan since patient is in about the range of time when intra-abdominal abscess could present. WBC sl down today from yesterday. However not running a fever at this time and not on antibiotics. Subjective Subjective Date/Time Seen: 09/04/21 14:57 Post Op day: POD # 9 Patient reports: no new complaints, feels better and nausea Interval history: Patient states today she has had no vomiting since 7:00 a.m.. She is up walking. She still has occasional nausea. Review of Systems Review of Systems: All systems reviewed & are unremarkable except as noted in HPI and below Constitutional: Constitutional: Reports as per HPI, Reports no additional constitutional complaints, Reports anorexia, Denies chills, Denies fever(s) and Reports poor appetite Cardiovascular: Cardiovascular: Reports no additional cardiovascular complaints, Denies chest pain, Denies leg edema and Denies dyspnea Respiratory: Respiratory: Reports no additional respiratory complaints, Denies cough and Denies dyspnea Gastrointestinal: Gastrointestinal: Reports as per HPI, Reports no additional gastrointestinal complaints, Denies abdominal pain, Reports nausea ( On and off) and Denies vomiting Genitour
[2021-09-04] MEDS: ONDANSETRON INJ 4 MG/2 ML VIAL IV PUSH (15:27)
[2021-09-04 15:30] VITALS: BP 129/59; PULSE 84; RESP 19; TEMP 36; O2SAT 100
[2021-09-04 16:41] LABS: Glucose Point of Care 100 mg/dl (65-105)
[2021-09-04 18:00] VITALS: BP 139/75; PULSE 80; RESP 18; TEMP 36.1; O2SAT 97
[2021-09-04 19:13] VITALS: BP 127/48; PULSE 79; RESP 18; TEMP 36.1; O2SAT 97
[2021-09-04] MEDS: MORPHINE SULFATE (*CRX) 2 MG/ML INJ IV PUSH (20:22)
[2021-09-05] VITALS (8 sets, daily range): BP systolic 126–158; BP diastolic 59–70; PULSE 76–83; RESP 16–20; TEMP 35.7–36.9; O2SAT 95–100
[2021-09-05] MEDS: SODIUM CHLORIDE 0.9% IV 1,000 ML 100 ML IV CONT ×2 (01:10→11:45)
[2021-09-05 03:18] LABS: Glucose Point of Care 78 mg/dl (65-105)
[2021-09-05] MEDS: ONDANSETRON INJ 4 MG/2 ML VIAL IV PUSH ×2 (05:05→11:47)
[2021-09-05 05:30] LABS: Hematocrit 37.8 % (37.0-47.0); Hemoglobin 11.5 g/dL (12.0-15.0); Mean Corpuscular HGB Conc 30.4 g/dl (32-36); Mean Corpuscular Hemoglobin 25.7 pg (26-34); Mean Corpuscular Volume 84.6 fl (80-100); Mean Platelet Volume 8.6 fl (7.4-10.4); Platelet Count Result 536 k/mm3 (150-375); Red Blood Count 4.47 M/mm3 (4.2-5.4); Red Cell Distribution Width 15.2 % (11.5-14.5)
[2021-09-05] MEDS: LEVOTHYROXINE SODIUM INJ 100 MCG/5 ML VIAL IV PUSH (05:31)
[2021-09-05 05:35] LABS: Glucose Point of Care 96 mg/dl (65-105)
[2021-09-05 05:44] LABS: Anion Gap 10 mmol/L (8-16); Blood Urea Nitrogen 14 mg/dL (7-17); Calcium 8.1 mg/dL (8.4-10.2); Carbon Dioxide 24 mmol/L (22-30); Chloride 100 mmol/L (98-107); Estimated CRCL calculation 102 ml/min; Estimated Glomerular Filt Rate > 60; Glucose 106 mg/dL (65-110); Magnesium 2.2 mg/dL (1.6-2.3); Potassium 3.5 mmol/L (3.4-5.0); Sodium 134 mmol/L (137-145)
[2021-09-05 08:11] LABS: Glucose Point of Care 125 mg/dl (65-105)
[2021-09-05] MEDS: PROCHLORPERAZINE EDISYLATE 10 MG/2 ML VIAL IM ×2 (08:31→14:16)
[2021-09-05] MEDS: ENOXAPARIN 40 MG/0.4 ML SYRINGE SUB-Q (08:35)
[2021-09-05] MEDS: FAMOTIDINE 20 MG/2 ML VIAL IV PUSH (08:35)
--- NOTE | 2021-09-05 11:06 | PM.IMPN ---
Progress Note: A&P Assessment and Plan (1) Status post laparoscopy: Code(s): Z98.890 - Other specified postprocedural states Status: Acute Assessment and Plan: Patient had a perforated diverticulitis in June requiring a Deny's procedure on 06/27/21. She did well and now returns for hand assisted laparoscopic Hartmans' reversal, extensive lysis of adhesions and the creation of a loop ileostomy on 08/26/21. EBL 300 mL. Now POD #10. She is having acid reflux and nausea. Imaging showing post-op ileus. WBC slightly better. Repeat KUB 09/05 showing mildly dilated small bowel, reflecting postoperative ileus. Has Zofran and Compazine available prn. Encourage her to walk as much as possible. Consider Reglan. (2) Ileus: Code(s): K56.7 - Ileus, unspecified Status: Acute Assessment and Plan: As above. (3) Essential (primary) hypertension: Code(s): I10 - Essential (primary) hypertension Status: Acute Assessment and Plan: Patient's blood pressure was reviewed on 09/05 Blood pressure remains reasonably well controlled. Currently on IV enalapril. Will change back to oral enalapril when diet advanced. (4) Type 2 diabetes mellitus: Code(s): E11.9 - Type 2 diabetes mellitus without complications Status: Acute Assessment and Plan: A1c 7.5% on 08/19. The patient's blood glucose was reviewed on 09/05 Glucose remains too well controlled. Continue AccuCheks covering with sliding scale. Hypoglycemia protocol available as needed. Will hold glimepiride for now. (5) Hypothyroidism, unspecified: Qualifiers: Hypothyroidism type: unspecified Qualified Code(s): E03.9 - Hypothyroidism, unspecified Code(s): E03.9 - Hypothyroidism, unspecified Status: Acute Assessment and Plan: Patient was NPO. She was on IV levothyroxine at 50% of regular oral dose. TSH is normal. On a clear liquid diet. Will convert back to oral Synthroid when diet is advanced. (6) BMI 45.0-49.9, adult: Code(s): Z68.42 - Body mass index [BMI] 45.0-49.9, adult Status: Acute Assessment and Plan: BMI 43. This complicates her other medical problems. Currently on a clear liquid diet. At discharge, will discus the benefits of leading a healthy lifestyle. (7) GERD (gastroesophageal reflux disease): Qualifiers: Esophagitis presence: without esophagitis Qualified Code(s): K21.9 - Gastro-esophageal reflux disease without esophagitis Code(s): K21.9 - Gastro-esophageal reflux disease without esophagitis Status: Acute Assessment and Plan: Patient is a complains is severe acid reflux. She is on oral Protonix daily. She uses IV Pepcid p.r.n.. Consider Carafate. Increase Protonix to Q12hr (8) Vitamin B12 deficiency anemia: Qualifiers: Vitamin B12 deficiency anemia type: unspecified B12 deficiency Qualified Code(s): D51.9 - Vitamin B12 deficiency anemia, unspecified Code(s): D51.9 - Vitamin B12 deficiency anemia, unspecified Status: Acute Assessment and Plan: Patient with B12 deficiency. Her oral B12 is on hold. Check B12 level. (9) DVT prophylaxis: Code(s): Z29.9 - Encounter for prophylactic measures, unspecified Status: Acute Assessment and Plan: Lovenox Subjective Date/time seen: 09/05/21 11:06 Interval history: 56yo female with HTN, DM and hypothyroidism whom the hospitalist service was consulted for management of her medical conditions postoperatively. She has a history of perforated diverticulitis status post Deny's procedure on 06/27/21. She returns for hand assisted laparoscopic Hartmans' reversal, extensive lysis of adhesions and the creation of a loop ileostomy on 08/26/21. EBL 300 mL. Assuming care. Chart reviewed. Patient slept off and on last night mostly because of interruptions. She has been up walking the halls. Passing l
--- NOTE | 2021-09-05 11:17 | PM.PNGS ---
Progress Note: A&P Assessment and Plan (1) Ileus: Code(s): K56.7 - Ileus, unspecified Status: Acute Assessment and Plan: Plain films this morning showed mildly dilated small bowel, suggesting ileus. Seems to be improving some. She is still having nausea, but no more vomiting. Ileostomy seems to be funcitoning well with good output. Will advance to full liquids. Okay to stop IV fluids if tolerating fulls and no vomiting today. (2) Postoperative nausea and vomiting: Code(s): R11.2 - Nausea with vomiting, unspecified; Z98.890 - Other specified postprocedural states Status: Acute Assessment and Plan: Improving with no more vomiting today, but still having nausea. See plan above. Continue antiemetics. Also complaining of reflux and heartburn. Protonix switched to BID today. Tums PRN, will add Mylanta PRN to see if this helps with any symptom relief. (3) Status post colostomy takedown: Code(s): Z98.890 - Other specified postprocedural states Status: Acute Assessment and Plan: Ileostomy functioning well with good output. Still dealing with nausea. Ileostomy irwin removed by wound care due to this falling partially out over the weekend. Stoma appears pink and healthy today. (4) Wound infection after surgery: Code(s): T81.49XA - Infection following a procedure, other surgical site, initial encounter Status: Acute Assessment and Plan: Incisions healing well. Small area of skin separation with an open wound near umbilicus of the midline incision, continue packing dressing changes. (5) GERD (gastroesophageal reflux disease): Qualifiers: Esophagitis presence: without esophagitis Qualified Code(s): K21.9 - Gastro-esophageal reflux disease without esophagitis Code(s): K21.9 - Gastro-esophageal reflux disease without esophagitis Status: Acute (6) Essential (primary) hypertension: Code(s): I10 - Essential (primary) hypertension Status: Acute (7) BMI 45.0-49.9, adult: Code(s): Z68.42 - Body mass index [BMI] 45.0-49.9, adult Status: Acute Additional Plan I have discussed the patient's case and plan of care with Dr. Berrios. Subjective Subjective Date/Time Seen: 09/05/21 10:17 Post Op day: 10 Patient reports: no new complaints, voiding w/o difficulty, nausea and afebrile Interval history: Patient seen and examined. She reports feeling slightly better today. She is still complaining of nausea, but feels the antiemetics are helping. She has not vomited since yesterday and has been able to keep some clear liquids down. Ostomy functioning well with 800 cc stool output overnight. She is tolerating activity. She has no other complaints at this time. Review of Systems Review of Systems: All systems reviewed & are unremarkable except as noted in HPI and below Constitutional: Constitutional: Reports as per HPI, Reports no additional constitutional complaints, Denies chills and Denies fever(s) Cardiovascular: Cardiovascular: Reports no additional cardiovascular complaints, Denies chest pain and Denies leg edema Respiratory: Respiratory: Reports no additional respiratory complaints, Denies cough and Denies dyspnea Gastrointestinal: Gastrointestinal: Reports as per HPI and Reports no additional gastrointestinal complaints Neurologic: Reports system reviewed and no additional complaints, except as documented, Denies Abnormal speech present and Denies focal weakness Exam Const: General: no acute distress and alert Orientation/consciousness: patient oriented x3 Resp: Effort & Inspection: normal respiratory effort Auscultation: clear to auscultation bilaterally Cardio: Rate: regular rate Rhythm: regular rhythm GI: Inspection: non-distended, obesity and other (BRETT drain with scant serosanguineous drainage ) GI Palp: Yes Soft to palpation, Yes Tenderness to palpation present (GI) (Minimal incisional tenderness) and N
[2021-09-05 11:26] LABS: Glucose Point of Care 115 mg/dl (65-105)
[2021-09-05] MEDS: ENALAPRILAT 1.25 MG/ML VIAL IV PUSH ×2 (11:51→17:01)
--- NOTE | 2021-09-05 14:13 | PCNFU ---
Nutrition Follow-Up Complete: Altered GI function as related to Diverticulitis as evidenced by NPO. Goal: Meet estimated nutritional needs Patient has limited progress towards goal. We will continue current goal. Pt current nutrition is clear liquids. Last recorded weight is 121.6 kg, down from 129.5 kg on admit. Bowel Motility:ostomy Labs Reviewed:Na 134, Hgb 11.5 Meds Noted:NS, Zofran, Vasotec, Pepcid, Lovenox, Synthroid, Norvasc. Skin: WNL Additional Notes: Patient seen today for nutrition follow up. She states to tolerating some liquids. She will not drink the ensure clear apple due to reflux. No vomiting reported today. Ostomy output has been good. Monitoring: will monitor every 3 days.
[2021-09-05 16:40] LABS: Glucose Point of Care 104 mg/dl (65-105)
[2021-09-05] MEDS: PANTOPRAZOLE 40 MG TABLET PO (20:25)
[2021-09-06 02:49] LABS: Glucose Point of Care 104 mg/dl (65-105)
[2021-09-06 04:48] VITALS: BP 120/55; PULSE 80; RESP 20; TEMP 36.2; O2SAT 96
[2021-09-06 05:23] LABS: Basophils Absolute Auto 0.1 K/mm3 (0.0-0.1); Basophils Percent Auto 0.7 % (0.2-1.2); Eosinophils Absolute Auto 0.6 K/mm3 (0-0.3); Eosinophils Percent Auto 3.3 % (0-4.4); Immature Granulocyte Absolute 0.82 K/mm3 (0.00-0.031); Immature Granulocyte Percent A 4.8 % (0-0.5); Lymphocytes Percent Auto 16.5 % (18.3-44.2); Mean Corpuscular HGB Conc 31.4 g/dl (32-36); Mean Corpuscular Hemoglobin 25.9 pg (26-34); Mean Corpuscular Volume 82.5 fl (80-100); Mean Platelet Volume 8.6 fl (7.4-10.4); Monocytes Absolute Auto 0.8 K/mm3 (0.1-0.6); Monocytes Percent Auto 4.4 % (2.6-8.5); Neutrophils Absolute Auto 11.9 K/mm3 (1.3-6.7); Neutrophils Percent Auto 70.3 % (45.5-73.1); Nucleated Red Blood Cells Perc 0.2 % (0.0-0.2); Platelet Count Result 568 k/mm3 (150-375); Red Blood Count 4.24 M/mm3 (4.2-5.4); Red Cell Distribution Width 15.4 % (11.5-14.5); White Blood Count 16.9 K/mm3 (4.5-10.0)
[2021-09-06] MEDS: LEVOTHYROXINE SODIUM 100 MCG TABLET 200 MCG PO (05:38)
[2021-09-06 05:44] LABS: Glucose Point of Care 150 mg/dl (65-105)
[2021-09-06 06:02] LABS: Albumin Level 3.7 g/dL (3.5-5.1); Anion Gap 11 mmol/L (8-16); Blood Urea Nitrogen 8 mg/dL (7-17); Calcium 8.5 mg/dL (8.4-10.2); Carbon Dioxide 25 mmol/L (22-30); Chloride 98 mmol/L (98-107); Estimated CRCL calculation 101 ml/min; Estimated Glomerular Filt Rate > 60; Glucose 128 mg/dL (65-110); Phosphorus 3.3 mg/dL (2.5-4.5); Potassium 3.4 mmol/L (3.4-5.0); Sodium 134 mmol/L (137-145)
[2021-09-06 06:59] LABS: Folic Acid 12.9 ng/mL (2.76->20); Vitamin B12 > 1000.0 pg/mL (239-931)
[2021-09-06 10:00] VITALS: BP 129/65; PULSE 89; RESP 20; TEMP 37; O2SAT 100
--- NOTE | 2021-09-06 10:22 | PM.IMPN ---
Progress Note: A&P Assessment and Plan (1) Status post laparoscopy: Code(s): Z98.890 - Other specified postprocedural states Status: Acute Assessment and Plan: Patient had a perforated diverticulitis in June requiring a Deny's procedure on 06/27/21. She did well and now returns for hand assisted laparoscopic Tanner's reversal, extensive lysis of adhesions and the creation of a loop ileostomy on 08/26/21. EBL 300 mL. Now POD #11 Symptoms much improved. She is requesting diet to be advanced. Spoke with General surgery and recommended low-fiber diet which was ordered. Continue to encourage her to be up walking. (2) Leukocytosis: Code(s): D72.829 - Elevated white blood cell count, unspecified Status: Acute Assessment and Plan: White count higher today at 17 K. platelet count also elevated with elevated immature granulocytes to suggest inflammatory process. No fever. Patient clinically improving. Will continue to monitor. (3) Ileus: Code(s): K56.7 - Ileus, unspecified Status: Acute Assessment and Plan: As above. Symptoms resolving. (4) Essential (primary) hypertension: Code(s): I10 - Essential (primary) hypertension Status: Acute Assessment and Plan: Patient's blood pressure was reviewed on 09/06 Blood pressure remains reasonably well controlled. Currently on IV enalapril. Will change back to oral enalapril today (5) Type 2 diabetes mellitus: Code(s): E11.9 - Type 2 diabetes mellitus without complications Status: Acute Assessment and Plan: A1c 7.5% on 08/19. The patient's blood glucose was reviewed on 09/06 Glucose remains well controlled. Continue AccuCheks covering with sliding scale. Hypoglycemia protocol available as needed. Metformin resumed (6) Hypothyroidism, unspecified: Qualifiers: Hypothyroidism type: unspecified Qualified Code(s): E03.9 - Hypothyroidism, unspecified Code(s): E03.9 - Hypothyroidism, unspecified Status: Acute Assessment and Plan: Patient was NPO. She was on IV levothyroxine at 50% of regular oral dose. TSH is normal. On a clear liquid diet. She has been converted back to oral Synthroid. (7) BMI 45.0-49.9, adult: Code(s): Z68.42 - Body mass index [BMI] 45.0-49.9, adult Status: Acute Assessment and Plan: BMI 43. This complicates her other medical problems. At discharge, will discus the benefits of leading a healthy lifestyle. (8) GERD (gastroesophageal reflux disease): Qualifiers: Esophagitis presence: without esophagitis Qualified Code(s): K21.9 - Gastro-esophageal reflux disease without esophagitis Code(s): K21.9 - Gastro-esophageal reflux disease without esophagitis Status: Acute Assessment and Plan: Patient was complaining of severe acid reflux. She is on oral Protonix daily. Protonix increased to twice a day with benefit. Continue to follow. (9) Vitamin B12 deficiency anemia: Qualifiers: Vitamin B12 deficiency anemia type: unspecified B12 deficiency Qualified Code(s): D51.9 - Vitamin B12 deficiency anemia, unspecified Code(s): D51.9 - Vitamin B12 deficiency anemia, unspecified Status: Acute Assessment and Plan: B12 level normal. Resume oral B12 at discharge. (10) DVT prophylaxis: Code(s): Z29.9 - Encounter for prophylactic measures, unspecified Status: Acute Assessment and Plan: Lovenox Subjective Date/time seen: 09/06/21 10:22 Interval history: 56yo female with HTN, DM and hypothyroidism whom the hospitalist service was consulted for management of her medical conditions postoperatively. She has a history of perforated diverticulitis status post Deny's procedure on 06/27/21. She returns for hand assisted laparoscopic Hartmans' reversal, extensive lysis of adhesions and the creation of a loop ileostomy on 08/26/21
[2021-09-06 11:44] LABS: Glucose Point of Care 128 mg/dl (65-105)
[2021-09-06] MEDS: ENALAPRIL MALEATE 2.5 MG TABLET PO (12:25)
[2021-09-06] MEDS: PANTOPRAZOLE 40 MG TABLET PO (12:25)
[2021-09-06] MEDS: ENOXAPARIN 40 MG/0.4 ML SYRINGE SUB-Q (12:25)
[2021-09-06 12:31] VITALS: BP 143/64
--- NOTE | 2021-09-06 14:54 | PC.NURSE ---
On 09/06/21 [employer] student Anabel Hoyt charted in [facility]. I have reviewed their documentation and agree with the findings.
--- NOTE | 2021-09-06 15:24 | PM.DS ---
DS: Admitting Diagnosis Discharge Date 09/06/21 Admitting Diagnosis End descending colostomy status post Deny's procedure Perforated diverticulitis with abscess Type 2 diabetes mellitus Hypertension Hypothyroidism BMI > 40 DS: Discharge Diagnosis Discharge Diagnosis (1) Status post colostomy takedown: Code(s): Z98.890 - Other specified postprocedural states Status: Acute Assessment and Plan: 08/26/21 - Hand assisted laparoscopic Deny's reversal, extensive lysis of adhesions of approximately 60 minutes, creation loop ileostomy - by Dr. Dallas (2) Ileus: Code(s): K56.7 - Ileus, unspecified Status: Acute Assessment and Plan: Resolved. (3) Wound infection after surgery: Code(s): T81.49XA - Infection following a procedure, other surgical site, initial encounter Status: Acute Assessment and Plan: Patient had separation of the skin near the umbilicus on her midline incision post-operatively. These shawn were removed just near umbilicus and we began packing dressing changes with 1/4 iodoform gauze. No erythema or purulent drainage noted. Expect this to continue to improve with local wound care, no need for antibiotics. Patient was educated on wound care going home and will continue daily dressing changes. Remaining shawn will plan to be removed at her follow-up appointment. (4) Leukocytosis: Code(s): D72.829 - Elevated white blood cell count, unspecified Status: Acute Assessment and Plan: Very mild leukocytosis noted the first 3 days post-operatively as expected with a downward trend. Labs were monitored daily and her WBC jumped up to 18K on 09/03/21 around the time she developed the ileus. She had no signs of infection, was afebrile, and this was monitored. Her WBC trended down and is still at 16.9K today. Still no signs of infection. Will plan to discharge home and follow-up in 1 week with repeat labs (CBC and BMP). (5) Type 2 diabetes mellitus: Code(s): E11.9 - Type 2 diabetes mellitus without complications Status: Acute Assessment and Plan: Glucose monitored. Remained stable. Glucose in the low 100's over the past 24 hours. Metformin was restarted and glimepiride held. Continue metformin on discharge and hold glimepiride on discharge with f/u with PCP in 1-2 weeks. She was educated on monitoring her glucose at home daily. Further management per PCP. (6) Essential (primary) hypertension: Code(s): I10 - Essential (primary) hypertension Status: Acute Assessment and Plan: Blood pressure monitored through entire hospitalization and fluctuated. She was initially restarted on her antihypertensives after surgery, but began having nausea and vomiting. After this, her home medications were held and she was started on IV Enalapril. Once her diet was advanced this week, she was switched back to oral enalapril with a lower dose due to her blood pressure being on the low end of normal today. Will continue to hold her other antihypertensives (HCTZ and amlodipine) on discharge and have her follow-up with her PCP. She was given education on checking her blood pressure daily and to call sooner than her f/u appointment if her blood pressure is running high or low. (7) GERD (gastroesophageal reflux disease): Qualifiers: Esophagitis presence: without esophagitis Qualified Code(s): K21.9 - Gastro-esophageal reflux disease without esophagitis Code(s): K21.9 - Gastro-esophageal reflux disease without esophagitis Status: Acute Assessment and Plan: Started on Protonix while hospitalized and continued to have reflux symptoms post-operatively. Increased Protonix to BID with symptoms improved. Will continue this dose on discharge and instructed patient to follow-up with PCP regarding step-down regimen and further management. (8) Chronic bilateral low back pain without sciatica: Code(s): M54.5 - Low back pain; G89
== END 2021-09-06 16:50 | disposition home health service (06) | DRG 330 ==
LOC: ANH2MED 08-27 10:11
PROVIDERS: Internal Medicine; Physician Assistant; Surgery; Admitting Provider Surgery; PCP Family Medicine; Visit Provider Nurse Practitioner Family
PROC: 0D1B0Z4 Bypass Ileum to Cutaneous, Open Approach (ICD-10-PCS; CPT 44143; principal; 2021-08-26 09:30)
DX: Z43.3 Encounter for attention to colostomy (principal); K91.89 Other postprocedural complications and disorders of digestive system; K56.7 Ileus, unspecified; T81.31XA Disruption of external operation (surgical) wound, not elsewhere classified, initial encounter; Z68.41 Body mass index [BMI] 40.0-44.9, adult; Y83.8 Other surgical procedures as the cause of abnormal reaction of the patient, or of later complication, without mention of misadventure at the time of the procedure; D72.829 Elevated white blood cell count, unspecified; Y92.230 Patient room in hospital as the place of occurrence of the external cause; I10 Essential (primary) hypertension; E11.9 Type 2 diabetes mellitus without complications; E03.9 Hypothyroidism, unspecified; G89.29 Other chronic pain; M54.50 Low back pain, unspecified; M79.7 Fibromyalgia; K21.9 Gastro-esophageal reflux disease without esophagitis; K58.0 Irritable bowel syndrome with diarrhea; E78.2 Mixed hyperlipidemia; M85.80 Other specified disorders of bone density and structure, unspecified site; K66.0 Peritoneal adhesions (postprocedural) (postinfection); D51.9 Vitamin B12 deficiency anemia, unspecified; E66.01 Morbid (severe) obesity due to excess calories
CPT/HCPCS: 36415; 71046; 74018; 74019; 80048; 80053; 80069; 82607; 82746; 82948; 83735; 84443; 85025; 85027; 88305; A9270; C1729; C9113; J0330; J0690; J0780; J1100; J1170; J1200; J1650; J1885; J2001; J2250; J2270; J2405; J2704; J2710; J3010; J3250; J7030; J7120

== ENCOUNTER 2021-09-12 08:47 | Outpatient (CLI) | payer BC, MEDICARE, SELFPAY ==
[2021-09-12 09:47] LABS: Basophils Absolute Auto 0.1 K/mm3 (0.0-0.1); Basophils Percent Auto 0.9 % (0.2-1.2); Eosinophils Absolute Auto 0.4 K/mm3 (0-0.3); Eosinophils Percent Auto 4.1 % (0-4.4); Hematocrit 33.5 % (37.0-47.0); Hemoglobin 10.4 g/dL (12.0-15.0); Immature Granulocyte Absolute 0.08 K/mm3 (0.00-0.031); Immature Granulocyte Percent A 0.9 % (0-0.5); Lymphocytes Absolute Auto 2.04 K/mm3 (0.9-3.2); Lymphocytes Percent Auto 22.5 % (18.3-44.2); Mean Corpuscular Hemoglobin 26.1 pg (26-34); Mean Corpuscular Volume 84.2 fl (80-100); Mean Platelet Volume 9.1 fl (7.4-10.4); Monocytes Absolute Auto 0.6 K/mm3 (0.1-0.6); Monocytes Percent Auto 6.7 % (2.6-8.5); Neutrophils Absolute Auto 5.9 K/mm3 (1.3-6.7); Neutrophils Percent Auto 64.9 % (45.5-73.1); Platelet Count Result 495 k/mm3 (150-375); Red Blood Count 3.98 M/mm3 (4.2-5.4); Red Cell Distribution Width 15.8 % (11.5-14.5); White Blood Count 9.1 K/mm3 (4.5-10.0)
[2021-09-12 10:00] LABS: Anion Gap 9 mmol/L (8-16); Blood Urea Nitrogen 27 mg/dL (7-17); Calcium 9.1 mg/dL (8.4-10.2); Carbon Dioxide 22 mmol/L (22-30); Chloride 106 mmol/L (98-107); Estimated Glomerular Filt Rate > 60; Glucose 138 mg/dL (65-110); Sodium 137 mmol/L (137-145)
== END 2021-09-12 08:48 | disposition home or self-care (01) ==
PROVIDERS: PCP Family Medicine; Visit Provider Nurse Practitioner Family
DX: D72.829 Elevated white blood cell count, unspecified (principal)
CPT/HCPCS: 36415; 80048; 85025

== ENCOUNTER 2021-09-19 07:28 | Outpatient (CLI) | payer BC, MEDICARE, SELFPAY ==
--- NOTE | ~2021-09-19 | XR_ITS ---
EXAMINATION: XR enema water soluble DATE: 09/19/2021 08:25 INDICATION: Prior perforated diverticulitis post partial sigmoidectomy and subsequent re-anastomosis. TECHNIQUE: A clinical manager home care radiograph was obtained. A catheter was inserted into the patient's rectum. Water soluble contrast was infused by gravity. Fluoroscopic spot images and conventional radiographs were o btained. Fluoroscopy exposure time was 1.0 minutes. 24 fluoroscopic images and 4 overhead radiograph s were recorded. COMPARISON: 08/09/2021 FINDINGS: Interval re-anastomosis of the Tanner's pouch with the remaining sigmoid colon. No stricture at the patent anastomosis with contrast passing freely into the more proximal colon. Contrast opacifies a fe w diverticula along the remaining sigmoid and descending colon. No evident anastomotic leak. Small am ount of contrast seen extending to the proximal appendix as well as reflux across the ileocecal valve into the distalmost ileum. IMPRESSION: 1. No stricture or leak at the sigmoid to rectal anastomosis. 2. Mild diverticulosis. Reviewed, dictated and finalized at location A.
== END 2021-09-19 07:29 | disposition home or self-care (01) ==
LOC: ANHIMG 07:34
PROVIDERS: PCP Family Medicine; Visit Provider Surgery
DX: K57.20 Diverticulitis of large intestine with perforation and abscess without bleeding (principal); K57.30 Diverticulosis of large intestine without perforation or abscess without bleeding
CPT/HCPCS: 74270

== ENCOUNTER 2021-10-04 07:37 | Outpatient (CLI) | payer BC, MEDICARE, SELFPAY | END 2021-10-04 07:38 | disposition home or self-care (01) | LOC: ANHSURGERY 07:43 | PROVIDERS: PCP Family Medicine; Visit Provider Surgery | DX: Z01.812 Encounter for preprocedural laboratory examination (principal); K57.20 Diverticulitis of large intestine with perforation and abscess without bleeding | CPT/HCPCS: 36415; 86850; 86900; 86901 ==

== ENCOUNTER 2021-10-10 10:56 | Inpatient (IN) | payer BC, MEDICARE, SELFPAY ==
--- NOTE | 2021-10-04 07:45 | PC.NURSE ---
Report to the Outpatient Waiting Room, entrance under the green pavilion located off [facility], at time _0600_ on date _10/10/21_. OR Time: ____0730____. - You and your visitor will be asked a series of questions to screen for COVID 19 for your protection. - A mask is required within the hospital. One visitor will be allowed to accompany the patient into the hospital. Patients visitor will be instructed to remain with patient at all times or leave the building. VISITING HOURS 10AM-8PM, USE MAIN ENTRANCE - 2 VISITORS ONCE YOU'RE IN YOUR ROOM Preoperative COVID Testing Requirements: NONE Patients may have clear liquids (water, carbonated beverages, clear teas, apple juice) until 3 hours prior to surgery (0430 AM) with a maximum of 20 ounces. - No food from midnight until time of surgery Take the following medications with a SIP of water the morning of surgery: _LEVOTHYROXINE_ Medications to discontinue - _IBUPROFEN PER DR. ROCHA'S INSTRUCTIONS, ALL VITAMINS AND HERBAL SUPPLEMENTS 3 DAYS PRIOR TO SURGERY PER ANESTHESIA, Date to take last dose_10/06/21_ Please no make-up, nail slovak, hairspray, perfume, deodorant, or body powder the day of surgery. No jewelry (including any body piercings) or valuables the day of surgery, leave them at home. Please take a shower or bath the night before, or the morning of, surgery with an antibacterial soap. Wear comfortable, loose fitting clothing. - Jewelry must be removed prior to entering the operating room. Rings and piercings that are not removed may be cut off. - The hospital will not accept responsibility for valuables. - Please leave all valuables, including medications, at home the day of surgery. If you are going home after surgery, a licensed jeep driver must drive you home. - NO public transportation without another adult. - We recommend that an adult stay with you for 24 hours following discharge. - We also recommend that you do not drive, make important decision, drink alcoholic beverages, or take any drugs that were not prescribed by your health care provider for at least 24 hours after your discharge time. Follow any additional instructions given to you from your surgeon. H[employer] SHOWER DAY BEFORE AND THE AM OF SURGERY Telephone instructions given to ____PT and asked if any additional questions and then verbalized understanding. Patient advised to call surgeon office or pre surgery nurse liaisonGIORGI [phone] if any additional questions.
[2021-10-04 08:07] VITALS: BP 170/80; PULSE 88; RESP 20; TEMP 36.9; O2SAT 98; BMI 43.3
[2021-10-10] VITALS (16 sets, daily range): BP systolic 120–215; BP diastolic 52–81; PULSE 49–98; RESP 13–20; TEMP 35.9–36.6; O2SAT 92–100
[2021-10-10] MEDS: ACETAMINOPHEN 500 MG TABLET 1000 MG PO (06:41)
[2021-10-10] MEDS: ALVIMOPAN 12 MG CAPSULE PO (06:41)
[2021-10-10] MEDS: KETOROLAC 15 MG/ML VIAL (*BKC) IV PUSH (06:43)
--- NOTE | 2021-10-10 06:57 | WPDANESEPPF ---
Anes - Initial Pre Proc Eval Procedure: Operation Date: 10/10/21 07:30 Proposed Procedures p Reversal Loop Ileostomy - Jeri Dallas MD Date/Time: 10/10/21 06:57 Surgeon: Jeri Dallas MD Pre Op Diagnosis: perforated diverticulitis Patient Data Age: 56 Gender: F Height: 1.68 m Weight: 121.8 kg Last Vital Signs Temp 36.9 C 10/04/21 08:07 Pulse 88 10/04/21 08:07 Resp 20 10/04/21 08:07 BP 170/80 H 10/04/21 08:07 Pulse Ox 98 10/04/21 08:07 Allergies Allergy/AdvReac Type Severity Reaction Status Date / Time No Known Allergies Allergy Verified 10/04/21 08:02 Home Medications Medication Instructions Recorded Confirmed Type cholecalciferol (vitamin D3) 50 2,000 unit PO DAILY 06/04/19 10/04/21 History mcg (2,000 unit) tablet cyanocobalamin (vitamin B-12) 2,500 mcg PO QAM 06/04/19 10/04/21 History 2,500 mcg tablet ibuprofen 800 mg tablet 800 mg PO TID PRN #270 tablet 03/21/21 10/04/21 Rx magnesium 250 mg PO QAM 06/25/21 10/04/21 History zinc sulfate 50 mg PO QAM 06/25/21 10/04/21 History levothyroxine 200 mcg tablet 200 mcg PO QAM #30 tablet 07/07/21 10/04/21 Rx BD Ultra Fine Lancets 33 gauge #100 ea NS 07/26/21 09/28/21 Rx Blood Glucose Test #100 ea NS 07/26/21 09/28/21 Rx blood-glucose meter #1 ea NS 07/26/21 09/28/21 Rx lancets 33 gauge #300 ea 09/05/21 09/28/21 Rx enalapril maleate 2.5 mg tablet 2.5 mg PO QAM 14 Days #90 tablet 09/19/21 10/04/21 Rx Patient hx anesthesia problems: post op nausea/vomiting Family hx anesthesia problems: none Results Review: All pre-operative results and documents have been reviewed as part of the pre-operative evaluation. [facility] Past Medical History Medical History Anemia Chronic bilateral low back pain without sciatica Chronic depression Chronic neck pain Controlled diabetes mellitus with hyperglycemia, without long-term current use of insulin Essential (primary) hypertension Fibromyalgia Gastroesophageal reflux disease History of colon polyps Hypertension Hypothyroidism, unspecified Irritable bowel syndrome with diarrhea Mixed hyperlipidemia Osteopenia after menopause Otitis externa Otitis media Perforation of sigmoid colon due to diverticulitis (06/2021) Type 2 diabetes mellitus Vitamin B12 deficiency anemia Vitamin D deficiency, unspecified Surgical History Surgical History History of arthroscopy of both shoulders History of back surgery Spinal fusion History of bilateral carpal tunnel release History of colonoscopy with polypectomy History of ileostomy (08/26/21) Hand assisted laparoscopic Deny's reversal with extensive lysis of adhesions and creation of loop ileostomy. Status post Deny's procedure (06/27/21) Family History Family History Grandparent Family history of malignant neoplasm Social History Social History Social History: Surrogate decision maker: Wilmer Nogueira, . Code status: Full code. Smoking status: Never smoker Second hand tobacco smoke exposure: No Alcohol intake: current Alcohol use details: VERY RARELY 1-2 TIMES A YEAR Substance use: never Substance use type: does not use Living arrangements: with family Additional living arrangements comments: Resides in [place] with her . They have 1 child. Additional occupation/education comments: Retired. Spiritual care concerns: No Anes - Eval Final PreProcedure Day of Procedure 10/10/21 06:57 Patient weight: morbidly obese Heart: regular rate and rhythm Lungs: clear to auscultation Airway: Mallampati scale class II Neurological: alert and oriented Last oral intake: >/= 8 hours ASA classification: III Emergent: no Anesthetic plan: proceed Anesthesia type and monitorin
[2021-10-10] MEDS: LACTATED RINGERS 1,000 ML 30 ML IV CONT ×2 (07:00→09:17)
[2021-10-10 07:06] LABS: Glucose Point of Care 141 mg/dl (65-105)
--- NOTE | 2021-10-10 07:10 | WPDHPUPDATE1 ---
History and Physical Update Update Date/Time: 10/10/21 07:10 History and Physical has been reviewed, including an updated exam of the patient. There are NO changes in the patient's condition. Risks, benefits, and alternatives have been discussed and questions answered. Patient agrees to proceed with procedure.
[2021-10-10] MEDS: SCOPOLAMINE 1.5 MG PATCH TRANSDERM (07:20)
[2021-10-10] MEDS: ceFAZolin 3 GM/D5W 100 ML 100 ML IVPB (07:25)
[2021-10-10] MEDS: metroNIDAZOLE 500 MG/ISO 100ML 500 MG/100 ML BAG 100 MG IVPB (07:38)
[2021-10-10] MEDS: LABETALOL HCL INJ 100 MG/20 ML VIAL IV PUSH (09:24)
[2021-10-10] MEDS: fentaNYL CITRATE INJ (*CRX) 100 MCG/2 ML VIAL 25 MCG IV PUSH ×4 (09:32→10:38)
[2021-10-10 09:38] LABS: Glucose Point of Care 200 mg/dl (65-105)
--- NOTE | 2021-10-10 09:43 | W.PM.PROC2 ---
Procedure Note - Detailed Date of Procedure 10/10/21 Pre-op Diagnosis perforated diverticulitis s/p Hartmans', reversal and loop ileostomy Post-op Diagnosis Same Procedure Performed Reversal of loop ileostomy, extensive lysis of adhesions of approximately 1 hour Surgeon Jeri Dallas MD Anesthesia General Indications 56 y/o female status post Deny's procedure for perforated diverticulitis, subsequent reversal with loop ileostomy Findings extensive adhesions at right lower quadrant loop ileostomy site Description of Procedure The patient was taken to the operating room and placed in the supine position. After adequate induction of general anesthesia, the patient was prepped and draped in the normal sterile fashion. A time-out was then done to verify the patient's identity, as well as the procedure being performed. I then began by incising the tissue around the loop ileostomy in the right lower quadrant. This area was noted to be very adhesed to the surrounding subcutaneous tissue. An extensive lysis of adhesions was done to free up this loop ileostomy site. Once to the level of the fascia, this was noted to be very adherent as well. Then used blunt and sharp dissection to free the loop from the fascia. Also freed up the area posterior to the fascia to allow us to drop the anastomosis back into the abdomen. Once all this was completed, the lysis of adhesions took approximately 1 hour. I then the 2 lumens of the loop ileostomy. There was some adhesions at the mesenteric level that were taken down. I then stapled off both ends using the HELENA 55. I then completed a [id number] functional end-to-end anastomosis using the HELENA 55 followed by the [place] 60 stapler. I did over-sew the staple line with interrupted 3-0 silk sutures. I then replaced the anastomosis into the abdominal cavity where was noted to be tension-free and patent. I then closed the fascial defect with an 0 looped PDS suture. The subcutaneous tissue was copiously irrigated and closed with 3-0 Vicryl suture. The skin was closed with skin shawn. Estimated Blood Loss 50 Drains No Packing No Pathology None sent Complications No immediate complications Condition Stable Disposition PACU
[2021-10-10] MEDS: hydrALAZINE HCL 20 MG/ML VIAL 10 MG IV PUSH (09:49)
--- NOTE | 2021-10-10 09:54 | SUR.PHASEI ---
0917- PT BP 215/81, HR 73. DR. RODRIGUEZ STATED BP ELEVATED IN OR. IF SBP ABOVE 180 GIVE LABETALOL 5 MG IVP. 40- PT RECEIVED LABETALOL 5 MG IVP @ 923. BP STILL ELEVATED AT 184/80, HR 50. CALLED DR. RODRIGUEZ AND HE STATED TO GIVE HYDRALAZINE 10 MG IVP. REVIEWED BLOOD SUGAR OF 200. HE STATED NOT INTERVENTION AT THIS TIME. 57- BP 172/75, HR 59. OXYGEN REMOVED, SPO2 96%
[2021-10-10] MEDS: ONDANSETRON INJ 4 MG/2 ML VIAL IV PUSH (10:03)
[2021-10-10] MEDS: diphenhydrAMINE HCl INJ 50 MG/ML VIAL 12.5 MG IV PUSH (10:25)
--- NOTE | 2021-10-10 11:00 | ADMGEN ---
This patient, Leah Nogueira, was admitted to Medical Room 250-01. Patient/family oriented to hospital policies and general routines including ID bracelet, bed and alarms, visiting hours, pain management, procedures, bathroom and other care routines, personal items, smoking policy, room service/diet, and visiting hours. Information on how to activate the Rapid Response Team has been discussed. Patient/Family are encouraged to report perceived risks to care and to ask questions if they do not understand what they are told or what they should do.
[2021-10-10] MEDS: LACTATED RINGERS 1,000 ML 100 ML IV CONT ×2 (11:32→22:04)
[2021-10-10] MEDS: PROMETHAZINE HCL 25 MG/ML AMPUL 12.5 MG IV PUSH (12:20)
[2021-10-10] MEDS: HYDROmorphone HCL INJ (*CRX) 1 MG/ML SYR IV PUSH (12:24)
[2021-10-10] MEDS: HYDROcodone/acetaminophen (*CRX) 5-325 MG TABLET 2 TAB PO ×2 (17:13→22:05)
[2021-10-11] VITALS (7 sets, daily range): BP systolic 104–128; BP diastolic 46–61; PULSE 76–83; RESP 16–20; TEMP 36.3–37.3; O2SAT 95–98; BMI 46.7
[2021-10-11] MEDS: HYDROcodone/acetaminophen (*CRX) 5-325 MG TABLET 2 TAB PO ×4 (03:30→21:58)
[2021-10-11 05:47] LABS: Basophils Percent Auto 0.3 % (0.2-1.2); Eosinophils Absolute Auto 0.1 K/mm3 (0-0.3); Eosinophils Percent Auto 0.8 % (0-4.4); Hematocrit 31.3 % (37.0-47.0); Hemoglobin 9.5 g/dL (12.0-15.0); Immature Granulocyte Absolute 0.08 K/mm3 (0.00-0.031); Immature Granulocyte Percent A 0.7 % (0-0.5); Lymphocytes Absolute Auto 1.69 K/mm3 (0.9-3.2); Lymphocytes Percent Auto 15.2 % (18.3-44.2); Mean Corpuscular HGB Conc 30.4 g/dl (32-36); Mean Corpuscular Hemoglobin 25.6 pg (26-34); Mean Corpuscular Volume 84.4 fl (80-100); Mean Platelet Volume 9.2 fl (7.4-10.4); Monocytes Absolute Auto 0.7 K/mm3 (0.1-0.6); Monocytes Percent Auto 6.6 % (2.6-8.5); Neutrophils Absolute Auto 8.5 K/mm3 (1.3-6.7); Neutrophils Percent Auto 76.4 % (45.5-73.1); Platelet Count Result 366 k/mm3 (150-375); Red Blood Count 3.71 M/mm3 (4.2-5.4); Red Cell Distribution Width 16.4 % (11.5-14.5); White Blood Count 11.1 K/mm3 (4.5-10.0)
[2021-10-11 05:59] LABS: Anion Gap 6 mmol/L (8-16); Blood Urea Nitrogen 15 mg/dL (7-17); Calcium 8.4 mg/dL (8.4-10.2); Carbon Dioxide 25 mmol/L (22-30); Chloride 105 mmol/L (98-107); Estimated CRCL calculation 122 ml/min; Estimated Glomerular Filt Rate > 60; Glucose 126 mg/dL (65-110); Potassium 3.9 mmol/L (3.4-5.0); Sodium 136 mmol/L (137-145)
[2021-10-11] MEDS: LEVOTHYROXINE SODIUM 100 MCG TABLET 200 MCG PO (06:56)
[2021-10-11] MEDS: ENALAPRIL MALEATE 2.5 MG TABLET PO (08:48)
[2021-10-11] MEDS: ENOXAPARIN 40 MG/0.4 ML SYRINGE SUB-Q (08:48)
[2021-10-11] MEDS: CHOLECALCIFEROL 1,000 UNITS TABLET 2000 UNITS PO (08:48)
[2021-10-11] MEDS: ZINC SULFATE 220 MG CAPSULE PO (08:48)
[2021-10-11] MEDS: PANTOPRAZOLE 40 MG TABLET PO (08:49)
[2021-10-11] MEDS: CYANOCOBALAMIN 500 MCG TABLET 2500 MCG PO (08:49)
[2021-10-11] MEDS: LACTATED RINGERS 1,000 ML 100 ML IV CONT (08:50)
--- NOTE | 2021-10-11 09:47 | PM.PNGS ---
Progress Note: A&P Assessment and Plan (1) Ileostomy in place: Code(s): Z93.2 - Ileostomy status Status: Acute Assessment and Plan: Advanced to full liquids, stop IV fluids Porter catheter removed today Increase activity, encourage IS use Additional Plan I have discussed the patient's case and plan of care with Dr. Dallas. Subjective Subjective Date/Time Seen: 10/11/21 09:27 Post Op day: 1 (Reversal of loop ileostomy, adhesiolysis) Patient reports: tolerating liquids well, flatus, no bowel movement and afebrile Interval history: Patient seen and examined. She reports feeling well today. She had mild discomfort at the incision site, which was improved with [place]. Denies any nausea, vomiting, or bloating today. Reports flatus. She is walking the halls and tolerating activity well. Her urinary catheter was removed this morning, and she has voided once since removal. No other complaints at this time. She does report being hungry and wanting to advance her diet. Review of Systems Review of Systems: All systems reviewed & are unremarkable except as noted in HPI and below Exam Const: General: comfortable, no acute distress, alert and awake Nutritional Appearance: obese Orientation/consciousness: patient oriented x3 Resp: Effort & Inspection: normal respiratory effort Auscultation: clear to auscultation bilaterally Cardio: Rate: regular rate Rhythm: regular rhythm GI: Inspection: non-distended, incision (RLQ dressing dry and intact) and obesity GI Palp: Yes Soft to palpation, Yes Tenderness to palpation present (GI) (Expected incisional tenderness) and No Guarding due to palpation present (GI) Auscultation: normal bowel sounds Neuro: General: moves all extremities and no focal motor deficits Extrem: General: no clubbing, cyanosis or edema and no calf tenderness Psych: Insight: Good insight present (Psych) Judgement: Good judgement present (Psych) Objective Data Vital Signs Vital Signs: Vital Signs - 24 hr 10/10/21 10:01 10/10/21 10:16 10/10/21 10:31 Temperature Pulse Rate 77 56 L 59 L Respiratory Rate 16 13 15 Blood Pressure 185/79 H 169/64 H 161/62 H Pulse Oximetry 92 97 97 10/10/21 10:46 10/10/21 11:00 10/10/21 11:15 Temperature 96.6 F L 97.4 F L Pulse Rate 81 70 62 Respiratory Rate 17 18 16 Blood Pressure 170/75 H 154/52 H 165/77 H Pulse Oximetry 99 96 95 10/10/21 11:45 10/10/21 12:45 10/10/21 14:12 Temperature 97.3 F L 97.9 F 97.5 F L Pulse Rate 77 67 82 Respiratory Rate 16 16 16 Blood Pressure 152/57 H 133/61 120/58 L Pulse Oximetry 96 96 98 10/10/21 20:00 10/10/21 20:19 10/11/21 00:45 Temperature 97.2 F L 97.5 F L Pulse Rate 98 98 80 Respiratory Rate 20 20 20 Blood Pressure 130/69 128/57 L Pulse Oximetry 94 94 95 10/11/21 04:45 Temperature 97.4 F L Pulse Rate 78 Respiratory Rate 20 Blood Pressure 123/61 Pulse Oximetry 97 Intake/Output Intake/Output: Intake & Output 10/08/21 10/09/21 10/10/21 10/11/21 23:59 23:59 23:59 23:59 Intake Total 2770 1620 Output Total 2325 2050 Balance 445 -430 Meds/Results Medications: Active Medications Generic Name Dose Route Start Last Admin Trade Name Freq PRN Reason Stop Dose Admin Hydrocodone Bitart/Acetaminophen 2 tab 10/10/21 10:56 10/11/21 08:47 Hydrocodone/Acetaminophen (*Crx) 5-325 Mg Tablet PO 2 tab Q4H PRN Administration Pain Rated 7-10 Cyanocobalamin 2,500 mcg 10/11/21 09:00 10/11/21 08:49 Cyanocobalamin 500 Mcg Tablet PO 2,500 mcg QAM OMER Administration Enalapril Maleate 2.5 mg 10/11/21 09:00 10/11/21 08:48 Enalapril Maleate 2.5 Mg Tablet PO 2.5 mg QAM OMER Administration Enoxaparin Sodium 40 mg 10/11/21 09:00 10/11/21 08:48 Enoxaparin 40 Mg/0.4 Ml Syringe SUB-Q 40 mg DAILY OMER Administration Hydromorphone HCl 1 mg 10/10/21 10:56 10/10/21 12:24 Hydromorphone Hcl Inj (*Crx) 1 Mg/Ml Syr IV PUSH 1 mg Q2H PRN Administ
--- NOTE | 2021-10-11 11:41 | WPDANESPN ---
Anes - Prog Note Post-Op Date/Time: 10/11/21 11:41 Cardiovascular status: normal Respiratory status: normal Airway patency: baseline Mental status: baseline Post-Op hydration status: normal Vital Signs: Last Vital Signs Temp 36.8 C 10/11/21 10:11 Pulse 78 10/11/21 10:11 Resp 16 10/11/21 10:11 BP 112/54 L 10/11/21 10:11 Pulse Ox 98 10/11/21 10:11 Pain Score (VAS): 07/18 I/O: Intake & Output 10/10/21 10/11/21 10/11/21 23:59 07:59 15:59 Intake Total 1885 823 1560 Output Total 2072 1400 650 Balance -155 -1110 680 Laboratory Tests 10/11/21 05:05 10/11/21 05:05 10/11/21 10/11/21 05:05 05:05 WBC 11.1 H RBC 3.71 L Hgb 9.5 L Hct 31.3 L MCV 84.4 MCH 25.6 L MCHC 30.4 L RDW 16.4 H Plt Count 366 MPV 9.2 Immature Gran % (Auto) 0.7 H Neut % (Auto) 76.4 H Lymph % (Auto) 15.2 L [place] % (Auto) 6.6 Eos % (Auto) 0.8 Baso % (Auto) 0.3 Lymph # (Auto) 1.69 [place] # (Auto) 0.7 H Eos # (Auto) 0.1 Baso # (Auto) 0.0 Abs Immat Gran (auto) 0.08 H Absolute Neuts (auto) 8.5 H Absolute Nucleated RBC 0.0 Nucleated RBC % 0.0 Sodium 136 L Potassium 3.9 Chloride 105 Carbon Dioxide 25 Anion Gap 6 L BUN 15 D Creatinine 0.60 L Estim Creat Clear Calc 122 Estimated GFR > 60 Glucose 126 H Calcium 8.4 Post-procedural complaints: none Patient Feedback: Patient satisfied with anesthetic care.
--- NOTE | 2021-10-11 13:26 | PC.NURSE ---
On 10/11/21 [employer] student Nallely Yuen provided care and performed an assessment on her patient. She documented in [employer]. I agree with her assessment and documentation.
[2021-10-12 03:21] VITALS: BP 123/51; PULSE 72; RESP 18; TEMP 36.3; O2SAT 96
[2021-10-12 05:42] LABS: Hemoglobin 9.2 g/dL (12.0-15.0); Mean Corpuscular HGB Conc 30.7 g/dl (32-36); Mean Corpuscular Hemoglobin 25.6 pg (26-34); Mean Corpuscular Volume 83.6 fl (80-100); Mean Platelet Volume 9.1 fl (7.4-10.4); Platelet Count Result 341 k/mm3 (150-375); Red Blood Count 3.59 M/mm3 (4.2-5.4); Red Cell Distribution Width 16.7 % (11.5-14.5); White Blood Count 10.1 K/mm3 (4.5-10.0)
[2021-10-12] MEDS: LEVOTHYROXINE SODIUM 100 MCG TABLET 200 MCG PO (05:55)
[2021-10-12 06:01] LABS: Anion Gap 8 mmol/L (8-16); Blood Urea Nitrogen 13 mg/dL (7-17); Calcium 8.6 mg/dL (8.4-10.2); Carbon Dioxide 25 mmol/L (22-30); Chloride 102 mmol/L (98-107); Estimated CRCL calculation 144 ml/min; Estimated Glomerular Filt Rate > 60; Glucose 143 mg/dL (65-110); Potassium 3.9 mmol/L (3.4-5.0); Sodium 135 mmol/L (137-145)
[2021-10-12 07:38] LABS: Glucose Point of Care 130 mg/dl (65-105)
[2021-10-12 08:00] VITALS: O2SAT 96
[2021-10-12] MEDS: CYANOCOBALAMIN 500 MCG TABLET 2500 MCG PO (08:00)
[2021-10-12] MEDS: ZINC SULFATE 220 MG CAPSULE PO (08:00)
[2021-10-12] MEDS: PANTOPRAZOLE 40 MG TABLET PO (08:01)
[2021-10-12] MEDS: ENALAPRIL MALEATE 2.5 MG TABLET PO (08:01)
[2021-10-12] MEDS: ENOXAPARIN 40 MG/0.4 ML SYRINGE SUB-Q (08:01)
[2021-10-12] MEDS: HYDROcodone/acetaminophen (*CRX) 5-325 MG TABLET 2 TAB PO (08:01)
[2021-10-12] MEDS: CHOLECALCIFEROL 1,000 UNITS TABLET 2000 UNITS PO (08:02)
[2021-10-12 08:08] VITALS: BP 156/77
[2021-10-12 10:00] VITALS: BP 130/70; PULSE 81; RESP 18; TEMP 36.5; O2SAT 97
--- NOTE | 2021-10-12 13:41 | PM.DS ---
DS: Admitting Diagnosis Discharge Date 10/12/2021 Admitting Diagnosis perforated diverticulitis, loop ileostomy DS: Discharge Diagnosis Discharge Diagnosis (1) Diverticulitis of colon with perforation: Code(s): K57.20 - Diverticulitis of large intestine with perforation and abscess without bleeding Status: Acute Assessment and Plan: s/p Hartmanns', loop ileostomy, doing well, cont high fiber diet (2) Ileostomy in place: Code(s): Z93.2 - Ileostomy status Status: Acute Assessment and Plan: s/p reversal, cont routine postop care, ADAT, home c po analgesia, colace, f/u 2 wks DS: Summary Hospital Course Reason for hospitalization: perforated diverticulitis, loop ileostomy Hospital Course: The patient is a 56-year-old female status post Deny's procedure for perforated diverticulitis. The patient been reanastomosed and had loop ileostomy. The patient has done well and presented for reversal of loop ileostomy. The patient was taken to the operating room and had reversal of loop ileostomy on 10/10/2021, please see full operative report for details. Postop the patient did well and was transferred to the floor. She was started on a clear liquid diet. On postoperative day 1., the patient began to have some bowel function and her diet was slowly advanced. By postoperative day 2. , she was able to tolerate a regular diet and was having loose bowel movements. She has been up and ambulating without issue and her pain is well controlled with p.o. analgesia. Will be discharged home with routine postoperative care and p.o. analgesia. She will follow up with in 2 weeks. Status at Discharge Functional status at discharge: independent ambulation Overall status at discharge: patient is progressing back to baseline Time Spent with Patient Time attestation: Total time spent providing and/or coordinating discharge services: Time spent: Less than 30 minutes Exam Const: General: cooperative, comfortable and no acute distress Orientation/consciousness: patient oriented x3 Resp: Auscultation: clear to auscultation bilaterally Cardio: Rate: regular rate Rhythm: regular rhythm GI: Inspection: normal to inspection and incision GI Palp: Yes Soft to palpation, Yes Tenderness to palpation present (GI), No Guarding due to palpation present (GI) and No Rigid due to palpation DS: Data Data Completed and Pending Labs on day of discharge: Labs from last 24 hours 10/12/21 10/12/21 10/12/21 07:28 05:11 05:11 WBC 10.1 H RBC 3.59 L Hgb 9.2 L Hct 30.0 L MCV 83.6 MCH 25.6 L MCHC 30.7 L RDW 16.7 H Plt Count 341 MPV 9.1 Sodium 135 L Potassium 3.9 Chloride 102 Carbon Dioxide 25 Anion Gap 8 BUN 13 Creatinine 0.50 L Estim Creat Clear Calc 144 Estimated GFR > 60 Glucose 143 H POC Capillary Glucose 130 H Calcium 8.6 Discharge Plan Discharge Attending physician on discharge: Jeri Dallas Discharging Clinician: Jeri Dallas Anticipated Discharge Date/Time: 10/12/21 13:35 Patient Disposition: Home, Self-Care Activity: may shower and no straining Diet: as tolerated Discharge Instructions: Remove the Scopolamine patch that was placed behind your ear in 72 hours or less. Wash your hands after touching. Stand Alone Forms: General Discharge Instructions Follow-up/Referrals: Jeri Dallas MD [Physician] - 2 Weeks Discharge Medications: New hydrocodone-acetaminophen 5-325 mg tablet 1 tablet PO Q6H PRN (Reason: pain) Qty: 30 RF: 0 docusate sodium [Colace] 100 mg capsule 100 mg PO BID Qty: 30 RF: 0 Continued zinc sulfate 50 mg zinc (220 mg) Capsule 50 mg PO QAM RF: 0 cholecalciferol (vitamin D3) 2,000 unit tablet 2,000 unit PO DAILY RF: 0 cyanocobalamin (vitamin B-12) 2,500 mcg tablet 2,500 mcg PO QAM RF: 0 ibuprofen 800 mg tablet 800 mg PO TID PRN (Reason: pain) Qty: 270 R
== END 2021-10-12 14:15 | disposition home or self-care (01) | DRG 330 ==
LOC: ANH2MED 10:59
PROVIDERS: Nurse Practitioner Family; Admitting Provider Surgery; PCP Family Medicine; Visit Provider Surgery
PROC: 0DBB0ZZ Excision of Ileum, Open Approach (ICD-10-PCS; CPT 49000; principal; 2021-10-10 07:30)
DX: Z43.2 Encounter for attention to ileostomy (principal); Z68.42 Body mass index [BMI] 45.0-49.9, adult; K66.0 Peritoneal adhesions (postprocedural) (postinfection); E78.2 Mixed hyperlipidemia; E11.9 Type 2 diabetes mellitus without complications; I10 Essential (primary) hypertension; Z86.010 Personal history of colon polyps; E03.9 Hypothyroidism, unspecified; M79.7 Fibromyalgia; Z80.9 Family history of malignant neoplasm, unspecified; E66.01 Morbid (severe) obesity due to excess calories; Z79.899 Other long term (current) drug therapy
CPT/HCPCS: 36415; 80048; 82948; 85025; 85027; A9270; J0360; J0690; J1100; J1170; J1200; J1650; J1885; J2250; J2270; J2405; J2550; J2704; J2710; J3010; J7120

== ENCOUNTER 2024-11-14 02:37 | Emergency (ER) | payer BC, MEDICARE, SELFPAY ==
--- NOTE | ~2024-11-14 | XR_ITS ---
Clinical Indication: Shortness of breath PA and lateral views of the chest: Comparison: 09/03/2021 Findings: The lungs are clear, without evidence of focal consolidation or pleural effusion. Cardiome diastinal silhouette is within normal limits. Bones and soft tissues are unremarkable. Impression: Normal chest. Reviewed, dictated and finalized at location . Impression: Normal chest.
[2024-11-14 02:31] VITALS: PULSE 110; RESP 26; TEMP 36.4; O2SAT 96
--- NOTE | 2024-11-14 02:40 | ECG_ITS ---
Test Date: 2024-11-14 02:43:07 Measurements Intervals [place] Rate: 103 P: 59 MS: 164 QRS: 23 QRSD: 101 T: 91 QT: 349 QTc: 458 Interpretive Statements SINUS TACHYCARDIA POSSIBLE ANTERIOR MYOCARDIAL INFARCTION , PROBABLY OLD [30 ms Q WAVE IN V3/V4, OR R < 0.2 mV IN V4] ST DEPRESSION, CONSIDER SUBENDOCARDIAL INJURY [0.1+ mV ST DEPRESSION] No previous ECG available for comparison Electronically Signed On 11-14-2024 12:13:40 CDT by Krystyna Castaneda M.D.
[2024-11-14 02:41] VITALS: PULSE 108
[2024-11-14 02:57] LABS: Basophils Absolute Auto 0.1 K/mm3 (0.0-0.1); Basophils Percent Auto 0.4 % (0.2-1.2); Eosinophils Absolute Auto 0.3 K/mm3 (0-0.3); Eosinophils Percent Auto 2.4 % (0-4.4); Hematocrit 42.4 % (37.0-47.0); Hemoglobin 13.3 g/dL (12.0-15.0); Immature Granulocyte Absolute 0.08 K/mm3 (0.00-0.031); Immature Granulocyte Percent A 0.7 % (0-0.5); Lymphocytes Absolute Auto 2.25 K/mm3 (0.9-3.2); Lymphocytes Percent Auto 18.5 % (18.3-44.2); Mean Corpuscular HGB Conc 31.4 g/dl (32-36); Mean Corpuscular Volume 86.2 fl (80-100); Mean Platelet Volume 9.2 fl (7.4-10.4); Monocytes Absolute Auto 0.5 K/mm3 (0.1-0.6); Monocytes Percent Auto 4.1 % (2.6-8.5); Neutrophils Percent Auto 73.9 % (45.5-73.1); Platelet Count Result 280 k/mm3 (150-375); Red Blood Count 4.92 M/mm3 (4.2-5.4); Red Cell Distribution Width 14.9 % (11.5-14.5); White Blood Count 12.2 K/mm3 (4.5-10.0)
[2024-11-14 03:05] LABS: Alanine Aminotransferase 41 U/L (6-35); Albumin Level 4.6 g/dL (3.5-5.1); Alkaline Phosphatase 151 U/L (38-126); Anion Gap 10 mmol/L (4-12); Aspartate Amino Transferase 47 U/L (14-36); Bilirubin,Total 0.7 mg/dL (0.2-1.3); Blood Urea Nitrogen 17 mg/dL (7-17); Carbon Dioxide 28 mmol/L (22-30); Chloride 103 mmol/L (98-107); Estimated Glomerular Filt Rate > 60; Glucose 202 mg/dL (65-110); Potassium 3.5 mmol/L (3.4-5.0); Sodium 141 mmol/L (137-145)
[2024-11-14 03:22] LABS: D Dimer 0.28 ug/mL (<0.48)
[2024-11-14 03:24] VITALS: O2SAT 92
[2024-11-14 03:25] VITALS: O2SAT 98
[2024-11-14 03:25] LABS: Influenza A QL RT-PCR Negative (Negative); Influenza B QL RT-PCR Negative (Negative); RSV RNA, RT-PCR Negative (Negative); SARS-CoV-2 RNA PCR Negative (Negative)
--- NOTE | 2024-11-14 03:25 | PC.NURSE ---
92% on room air, but unable to complete full sentence. Pt started on 2lnc.
--- NOTE | 2024-11-14 03:54 | ED_ITS ---
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 Patient states that she was about to go to bed and she could not breathe. She denied having any chest pain. Patient states that she had to call 911 as she was unable to be read. No previous history of asthma or COPD or CHF. MD elicited complaint: shortness of breath Pertinent past history: diabetes Onset (ago): hour(s) (1) Severity: moderate Exacerbating factors: nothing Relieving factors: oxygen and bronchodilators Associated symptoms: denies other symptoms Treatment prior to arrival: none Related Data Home Medications ?Medication ?Instructions ?Recorded ?Confirmed ?Last Taken ?Type cholecalciferol (vitamin D3) 50 2,000 unit PO DAILY 06/04/19 06/18/24 08/22/21 History mcg (2,000 unit) tablet zinc sulfate 50 mg zinc (220 mg) 50 mg PO QAM 06/25/21 06/18/24 08/22/21 History capsule cyanocobalamin (vitamin B-12) 2,500 mcg PO DAILY 11/16/21 06/18/24 Unknown History 2,500 mcg tablet pen needle, diabetic 32 gauge x 05/24/22 06/18/24 Unknown History 1/4 (Novofine 32) Allergies Allergy/AdvReac Type Severity Reaction Status Date / Time cefdinir AdvReac Intermediate Abdominal Uncoded 06/10/24 10:33 Pain Review of Systems 2 Review of Systems: All systems reviewed & are unremarkable except as noted in HPI and below Constitutional: Constitutional: Reports no additional constitutional complaints Eyes: Eyes: Reports no additional eye complaints ENT: Reports system reviewed and no additional complaints, except as documented Cardiovascular: Cardiovascular: Reports no additional cardiovascular complaints Respiratory: Respiratory: Reports as per HPI and Reports no additional respiratory complaints Gastrointestinal: Gastrointestinal: Reports no additional gastrointestinal complaints Musculoskeletal: Musculoskeletal: Reports no additional musculoskeletal complaints Integumentary/Breasts: Skin/Breast: Reports system reviewed and no additional complaints, except as docu Neurologic: Reports system reviewed and no additional complaints, except as documented [facility] Past Medical History Medical History Diarrhea Colon cancer screening (12/10/19) colonoscopy at [facility] 12/10/2019 with stricture of the sigmoid colon with pus and erythema. Neoplasm of skin of cheek (~2021) 1 cm raised, crusted lesion left lower face . Shave biopsy 10/03/2023 with benign seborrheic keratoses. Acute non-recurrent maxillary sinusitis Seasonal allergic rhinitis Oral abscess (~05/20/22) infected root canal right side Iron deficiency anemia, unspecified hemoglobin 10.0, iron low at 26 with 7% saturation and ferritin 23 on 11/16/2021. Iron 35 with 8% saturation and ferritin 17 with hemoglobin 11.7 on 05/19/2022. With iron 86 with 21% saturation and ferritin 31 on 11/18/2022 with hemoglobin 12.4. Iron 56 with 15% saturation and ferritin 34 with hemoglobin 12.6 on 06/09/2023. Iron 70 with 20% saturation and ferritin 48 with hemoglobin 12.5 on 06/18/2024. Ileostomy in place Otitis externa Otitis media Leukocytosis DVT prophylaxis Wound infection after surgery Ileus Postoperative nausea and vomiting Perforation of sigmoid colon due to diverticulitis (06/2021) Gastroesophageal reflux disease Vaginal bleeding Postprocedural seroma of skin and subcutaneous tissue following other procedure Encounter for surgical aftercare following surgery on the digestive system Morbid obesity with BMI of 50.0-59.9, adult Postmenopausal vaginal bleeding Anemia Hemoglobin 12.4, iron 86, 21% saturation, ferritin 31, vitamin B12 1723 on 11/18/2022. Hemoglobin 12.6 on 06/09/2023. Hemoglobin 12.5 on 06/18/2024. Controlled diabetes mellitus with hyperglycemia, without long-term current use of insulin Glucose 123 with hemoglobin A1c 6.6 on 11/16/2021. glucose 188 with hemoglobin A1c 7.8 on 05/19/2022. Glucose 144 with hemoglobin A1c 7.6 on 11/18/2022. Glucose 141 with hemoglobin A1c 6.6 with urine microalbumin ratio of 16 on 06/09/2023. Fasting glucose 147 with hemoglobin A1c 7.3 and GFR 94 on 06/18/2024. History of colon polyps Stricture of sigmoid colon Diverticulitis of colon with perforation Osteopenia after menopause Vitamin D deficiency, unspecified Level normal at 42 on 11/16/2021. Chronic neck pain Chronic bilateral low back pain without sciatica Fibromyalgia Hypothyroidism, unspecified TSH 2.19, free T4 1.4 on 11/16/2021. TSH 1.84 on 11/18/2022. TSH 3.15 on 06/09/2023. TSH 2.90 on 06/18/2024. Irritable bowel syndrome with diarrhea Vitamin B12 deficiency anemia Level normal at 695 with folic acid 8.5 and hemoglobin low at 10.0 on 11/16/2021. Level normal at 1723 with hemoglobin 12.4 on 11/18/2022. Level normal at 976 with hemoglobin 12.5 on 06/18/2024. Mixed hyperlipidemia Cholesterol 166, triglycerides 221, HDL 38, LDL 97 on 11/16/2021. Total cholesterol 212, triglycerides 384, HDL 42, LDL 115 with ratio 5.0 on 11/18/2021. Total cholesterol 219, triglycerides 288, HDL 40, LDL 135 with ratio of 5.5 on 06/09/2023. Cholesterol 155, triglycerides 248, HDL 37, LDL 85 with ratio 4.2 on 06/18/2024. Chronic depression Essential (primary) hypertension Hypertension Surgical History Surgical History Status post colostomy takedown Status post laparoscopy History of ileostomy (08/26/21) Hand assisted laparoscopic Deny's reversal with extensive lysis of adhesions and creation of loop ileostomy. Status post Deny's procedure (06/27/21) History of colonoscopy with polypectomy History of arthroscopy of both shoulders History of bilateral carpal tunnel release Status post Deny's procedure Deny's procedure, intra-abdominal washout 06/25/21 History of back surgery Spinal fusion Family History Family History Grandparent Family history of malignant neoplasm Social History Social History Social History: Surrogate decision maker: Wilmer Nogueira, . Code status: Full code. Smoking packs per day: 0.5 Smoking cigarettes per day: 10.0 Years smoked: 1 Smoking pack-years: 0.50 Smoking status: Former smoker Second hand tobacco smoke exposure: No Alcohol intake: current Alcohol use details: VERY RARELY 1-2 TIMES A YEAR Substance use: never Substance use type: does not use Lack of Transportation: No Lack of Food: Never True Current Housing: I Have Housing Concerned About Future Housing: No Difficulty Paying Gas/Electric Bills: No Difficulty Paying for Meds: No Currently Unemployed: No Education: High School Diploma/GED Difficulty w/ Childcare or Family Care: No Living arrangements: with family Additional living arrangements comments: Resides in [place] with her . They have 1 child. Additional occupation/education comments: Retired. Spiritual care concerns: No Exam 2 Narrative: GENERAL: Well-appearing, well-nourished, and in no acute distress,anxious HEAD: Normocephalic, atraumatic. EYES: PERRLA and EOMI. ENT: Nares clear, no rhinorrhea or epistaxis. Mucous membranes moist. NECK: Supple. CHEST: Clear to auscultation. No respiratory distress. HEART: Regular rate and rhythm. No murmur heard. Normal peripheral pulses. ABDOMEN: Soft, nontender, nondistended, normal active bowel sounds. EXTREMITIES: Normal range of motion. No edema. SKIN: Warm, dry, no rash. NEURO: No focal deficits. Alert and oriented x3. PSYCH: Normal mood and affect. Course Course Emergency Course: Patient feeling much better informed about her lab work, EKG and chest x-ray findings. She denies having any chest pain. She ambulated couple times to the bathroom and SpO2 remained between 92-94%. She does feel comfortable going home. Advised to use inhaler as needed, follow-up with the primary doctor Vital Signs Vital signs: Vital Signs Temperature 36.4 C L 11/14/24 02:31 Pulse Rate 110 H 11/14/24 02:31 Respiratory Rate 26 H 11/14/24 02:31 Pulse Oximetry 96 11/14/24 02:31 Oxygen Delivery Room Air 11/14/24 02:31 Temperature 36.4 C L 11/14/24 02:31 Pulse Rate 108 H 11/14/24 02:41 Respiratory Rate 26 H 11/14/24 02:31 Pulse Oximetry 98 11/14/24 03:25 Oxygen Delivery Nasal Cannula 11/14/24 03:25 Oxygen Flow Rate 2 11/14/24 03:25 MDM - SOB/Dyspnea Differential Diagnosis Differential diagnosis: Likely acute exacerbation of chronic obstructive airways disease, congestive heart failure, community acquired pneumonia, asthma with exacerbation and pulmonary embolism Medical Records Attestation: I reviewed the patient's medical records. Lab Data Attestation: I reviewed the patient's lab results. 11/14/24 02:46 11/14/24 02:46 Labs: Lab Results 11/14/24 11/14/24 Range/Units 02:45 02:46 WBC 12.2 H (4.5-10.0) K/mm3 RBC 4.92 (4.2-5.4) M/mm3 Hgb 13.3 D (12.0-15.0) g/dL Hct 42.4 (37.0-47.0) % MCV 86.2 (80-100) fl MCH 27.0 (26-34) pg MCHC 31.4 L (32-36) g/dl RDW 14.9 H (11.5-14.5) % Plt Count 280 (150-375) k/mm3 MPV 9.2 (7.4-10.4) fl Immature Gran % (Auto) 0.7 H (0-0.5) % Neut % (Auto) 73.9 H (45.5-73.1) % Lymph % (Auto) 18.5 (18.3-44.2) % Garland % (Auto) 4.1 (2.6-8.5) % Eos % (Auto) 2.4 (0-4.4) % Baso % (Auto) 0.4 (0.2-1.2) % Lymph # (Auto) 2.25 (0.9-3.2) K/mm3 Garland # (Auto) 0.5 (0.1-0.6) K/mm3 Eos # (Auto) 0.3 (0-0.3) K/mm3 Baso # (Auto) 0.1 (0.0-0.1) K/mm3 Abs Immat Gran (auto) 0.08 H (0.00-0.031) K/mm3 Absolute Neuts (auto) 9.0 H (1.3-6.7) K/mm3 Absolute Nucleated RBC 0.000 (0.0-0.012) K/mm3 Nucleated RBC % 0.0 (0.0-0.2) % D-Dimer 0.28 (<0.48) ug/mL Sodium 141 (137-145) mmol/L Potassium 3.5 (3.4-5.0) mmol/L Chloride 103 (98-107) mmol/L Carbon Dioxide 28 (22-30) mmol/L Anion Gap 10 (4-12) mmol/L BUN 17 (7-17) mg/dL Creatinine 0.68 L (0.7-1.0) mg/dL Estim Creat Clear Calc Not Reportable Estimated GFR > 60 (59 - ) Glucose 202 H (65-110) mg/dL Calcium 9.0 (8.4-10.2) mg/dL Total Bilirubin 0.7 (0.2-1.3) mg/dL AST 47 H (14-36) U/L ALT 41 H (6-35) U/L Alkaline Phosphatase 151 H (38-126) U/L Total Protein 8.0 (6.3-8.2) g/dL Albumin 4.6 (3.5-5.1) g/dL Influenza A (RT-PCR) Negative (Negative) Influenza B (RT-PCR) Negative (Negative) RSV (RT-PCR) Negative (Negative) SARS-CoV-2 RNA (RT-PCR) Negative (Negative) Imaging Data My impression: No acute findings ECG Data EKG #1: ECG completion date: 11/14/24 ECG completion time: 02:43 EKG Interpretation: tachycardia (103), sinus rhythm, no ectopy, non- specific ST changes, normal QRS and NL axis Discharge Plan Discharge Clinical Impression: Shortness of breath Patient Disposition: Home Condition: Stable Instructions: Shortness of Breath (ED) Patient Language: Spanish Prescriptions: New albuterol sulfate [Ventolin HFA] 90 mcg/actuation HFA aerosol inhaler 2 inh inhalation Q4H PRN (Reason: shortness of breath or wheezing) Qty: 8.5 0RF No Action cyanocobalamin (vitamin B-12) 2,500 mcg tablet 2,500 mcg PO DAILY (DME) pen needle, diabetic [Novofine 32] 32 gauge x 1/4 needle See Rx Instructions .Route Rx Instructions: weekly with Ozempic metoprolol succinate 100 mg tablet extended release 24 hr 100 mg PO . q.h.s. Qty: 90 3RF zinc sulfate 50 mg zinc (220 mg) Capsule 50 mg PO QAM cholecalciferol (vitamin D3) 2,000 unit tablet 2,000 unit PO DAILY (DME) blood-glucose meter Kit See Rx Instructions .Route Qty: 1 0RF Rx Instructions: Use to check glucose 4x daily, may use what ins. covers (DME) lancets [BD Ultra Fine Lancets] 33 gauge misc See Rx Instructions .Route Qty: 100 5RF Rx Instructions: Use to check glucose 4x daily, may use what ins. covers (DME) lancets [OneTouch Delica Plus Lancet] 33 gauge misc See Rx Instructions .Route Qty: 300 3RF Rx Instructions: use to check blood sugar 3 times daily fluticasone propionate [Flonase Allergy Relief] 50 mcg/actuation spray,suspension 1 spray intranasal BID Qty: 16 11RF Rx Instructions: administer into each nostril (DME) Blood Glucose Test Strip See Rx Instructions .Route Qty: 100 5RF Rx Instructions: Use to check glucose 4x daily, may use what ins. covers ferrous sulfate 325 mg (65 mg iron) tablet,delayed release (DR/EC) 325 mg PO DAILY Qty: 30 11RF amitriptyline 10 mg tablet 10 mg PO QHS Qty: 90 3RF irbesartan-hydrochlorothiazide 300-12.5 mg tablet 1 tablet PO DAILY Qty: 90 3RF Ozempic 2 mg/dose (8 mg/3 mL) pen injector 2 mg subcut WEEKLY Qty: 12 3RF duloxetine 60 mg capsule,delayed release(DR/EC) 60 mg PO BID Qty: 180 3RF atorvastatin 10 mg tablet 10 mg PO QHS Qty: 90 3RF levothyroxine 200 mcg tablet 200 mcg PO QAM Qty: 90 3RF metformin 500 mg tablet 1,000 mg PO . q.a.m. Qty: 180 3RF cholestyramine (with sugar) 4 gram powder 4 g PO BID PRN (Reason: diarrhea) Qty: 378 0RF Rx Instructions: administer w/meal; avoid other meds within 1hr before or 4-6hr after dose ibuprofen 800 mg tablet 800 mg PO TID PRN (Reason: pain) Qty: 270 3RF Follow-up/Referrals: UNKNOWN,DOCTOR [Primary Care Provider] - Time of Disposition: :12
[2024-11-14 04:42] VITALS: BP 161/73; PULSE 93; RESP 20; TEMP 36.6; O2SAT 92
== END 2024-11-14 04:43 | disposition home or self-care (01) ==
PROVIDERS: Emergency Provider Family Medicine
DX: R06.02 Shortness of breath (principal); I10 Essential (primary) hypertension; K21.9 Gastro-esophageal reflux disease without esophagitis; E55.9 Vitamin D deficiency, unspecified; E03.9 Hypothyroidism, unspecified; E78.2 Mixed hyperlipidemia; Z87.891 Personal history of nicotine dependence; Z20.822 Contact with and (suspected) exposure to COVID-19
CPT/HCPCS: 36415; 71046; 80053; 85025; 85380; 87637; 93005; 99284